=== PATIENT | female | born 1955 | race Caucasian/White ===

== ENCOUNTER → 2016-12-26 | Outpatient (CLI) | payer BC ==
[2016-12-26 11:16] LABS: Blood Urea Nitrogen 9 mg/dL (7-17); Non-African American GFR(MDRD) >60 (>60 ml/min/1.73 sqM)
--- NOTE | 2016-12-26 22:26 | MR ---
EXAMINATION TYPE: MR brain wo/w con DATE OF EXAM: 12/26/2016 4:30 PM COMPARISON: NONE HISTORY: 56-year-old female BENIGN NEOPLASM OF CRANIAL NERVES, DIZZINESS, prior surgery for right aco ustic neuroma in 2004. TECHNIQUE: Multiplanar, multisequence images of the brain and brainstem were acquired before and aft er administration of 13 mL IV MultiHance. Diffusion weighted imaging is performed. FINDINGS: No evidence for acute infarction, hemorrhage, mass, mass effect, midline shift, herniation, effacemen t of basal cisterns, or extra-axial fluid collection. The ventricles and sulci are age-appropriate. Major intracranial flow voids are intact. T2/FLAIR weighted sequences show stable mild scattered subcortical and deep white matter hyperintense foci in both cerebral hemispheres as compared to 2011. There are postresection changes involving the right mastoid process with stable mild nonspecific enha ncement in this region with surgical changes extending to the level of the right internal auditory ca nal. There is no suspicious nodular enhancement in this region to suggest recurrent acoustic neuroma. No other suspicious enhancement within the brain. Dural venous sinuses are patent. Midline structures demonstrate normal morphology. The craniocervical junction is normal. The visualized sinuses are clear and the globes are intact. IMPRESSION: 1. Stable postsurgical changes involving the right temporal bone. No evidence for residual or recurre nt acoustic neuroma. 2. Stable mild scattered burden of T2 bright white matter change, nonspecific, likely relating to chr onic small vessel ischemic disease.
== END | disposition home or self-care (01) ==
LOC: RADMRIMAIN 10:40
PROVIDERS: ATTEND Psychiatry & Neurology Pain Medicine
DX: R90.82 White matter disease, unspecified (principal); Z98.890 Other specified postprocedural states
CPT/HCPCS: 82565; 84520; 70553; A9577

== ENCOUNTER → 2017-02-08 | Outpatient (CLI) | payer BC ==
[2017-02-08 10:25] LABS: CH 29.3; CHCM 31.5; HDW 2.74; HGB 11.6 gm/dL (11.4-16.0); Hypochromasia Slight; MCH 29.3 pg (25.0-35.0); MCHC 31.4 g/dL (31.0-37.0); MCV 93.5 fL (80.0-100.0); Mean Platelet Volume 6.5; RBC 3.95 m/uL (3.80-5.40); RDW 14.1 % (11.5-15.5); WBC 6.3 k/uL (3.8-10.6)
[2017-02-08 12:23] LABS: Hemoglobin A1C 5.6 % (4.2-6.1)
[2017-02-08 13:55] LABS: ALT 37 U/L (9-52); AST 38 U/L (14-36); Alkaline Phosphatase 106 U/L (38-126); Anion Gap 12 mmol/L; Blood Urea Nitrogen 6 mg/dL (7-17); Calcium 9.3 mg/dL (8.4-10.2); Carbon Dioxide 22 mmol/L (22-30); Chloride 108 mmol/L (98-107); Glucose 87 mg/dL (74-99); Iron 36 ug/dL (37-170); Non-African American GFR(MDRD) >60 (>60 ml/min/1.73 sqM); Potassium 3.9 mmol/L (3.5-5.1); Sodium 142 mmol/L (137-145); Total Bilirubin 0.3 mg/dL (0.2-1.3); Total Protein 6.8 g/dL (6.3-8.2)
[2017-02-08 14:05] LABS: % Iron Saturation 9.1 % (20-50); Total Iron Binding Capacity 394 ug/dL (265-497)
== END | disposition home or self-care (01) ==
LOC: LABWHC1 09:49
PROVIDERS: ATTEND Psychiatry & Neurology Pain Medicine
DX: R53.83 Other fatigue (principal); Z79.899 Other long term (current) drug therapy
CPT/HCPCS: 36415; 80053; 82728; 83036; 83540; 83550; 84439; 84443; 84466; 84481; 85027

== ENCOUNTER → 2017-04-02 | Outpatient (CLI) | payer BC ==
--- NOTE | 2017-04-02 10:38 | ECHOF ---
Referral Reason:R01.1 cardiac murmur MEASUREMENTS -------- HEIGHT: 167.6 cm WEIGHT: 65.8 kg BP: RVIDd: 4.2 cm (< 3.3) IVSd: 1.3 cm (0.6 - 1.1) LVIDd: 3.0 cm (3.9 - 5.3) LVPWd: 1.1 cm (0.6 - 1.1) IVSs: 1.3 cm LVIDs: 1.9 cm LVPWs: 1.6 cm Ao Diam: 2.3 cm (2.0 - 3.7) AV Cusp: 1.8 cm (1.5 - 2.6) LA Diam: 2.6 cm (2.7 - 3.8) MV EXCURSION: 11.540 mm (> 18.000) MV EF SLOPE: 64 mm/s (70 - 150) EPSS: 0.5 cm MV E Jhonathan: 0.59 m/s MV A Jhonathan: 0.70 m/s MV E/A Ratio: 0.84 AR PHT: 555 ms RAP: 5.00 mmHg RVSP: 37.88 mmHg FINDINGS -------- Sinus rhythm. This was a technically good study. There is mild concentric left ventricular hypertrophy. Overall left ventricular systolic function is normal with, an EF between 55 - 60 %. The right ventricle is moderately enlarged. The left atrium is normal in size. RA appears enlarged. Aneurysmal Interatrial septum. Aortic valve is trileaflet and is mildly thickened. There is mild aortic regurgitation. The mitral valve leaflets are mildly thickened. Mild mitral annular calcification present. Mild mitral regurgitation is present. Mild tricuspid regurgitation present. Pulmonic valve appears structurally normal. The aortic root size is normal. The pericardium is normal. There is a trivial pericardial effusion present. CONCLUSIONS -------- 1. Sinus rhythm. 2. There is mild aortic regurgitation. 3. The mitral valve leaflets are mildly thickened. 4. Mild mitral annular calcification present. 5. Mild mitral regurgitation is present. 6. Mild tricuspid regurgitation present. 7. Pulmonic valve appears structurally normal. 8. The aortic root size is normal. 9. The pericardium is normal. 10. This was a technically good study. 11. There is mild concentric left ventricular hypertrophy. 12. Overall left ventricular systolic function is normal with, an EF between 55 - 60 %. 13. The right ventricle is moderately enlarged. 14. The left atrium is normal in size. 15. RA appears enlarged. 16. Aneurysmal Interatrial septum. 17. Aortic valve is trileaflet and is mildly thickened. EC TEACHER: Keely De La Fuente RDCS
== END | disposition home or self-care (01) ==
LOC: RADECHMAIN 08:57
PROVIDERS: ATTEND Family Medicine
DX: I08.8 Other rheumatic multiple valve diseases (principal); Z88.0 Allergy status to penicillin
CPT/HCPCS: 93306

== ENCOUNTER → 2017-04-15 | Day surgery (SDC) | payer BC ==
[2017-04-12 10:41] VITALS: BMI 24.2
[~2017-04-15] MED LIST: BENZOCAINE SPRAY 100 APPLIC/CAN MUCOUS MEM ONE; MIDAZOLAM 2 MG/2 ML VIAL IVP ONE; SODIUM CHLORIDE 0.9% 500 ML IV ONE; fentaNYL (PF) 50 MCG/ML 2 ML AMP IVP ONE
[2017-04-15 06:55] VITALS: RESP 16; TEMP 97.7
[2017-04-15] MEDS: BENZOCAINE SPRAY 100 APPLIC/CAN MUCOUS MEM ONE ×2 (07:10→07:30)
[2017-04-15] MEDS: MIDAZOLAM 2 MG/2 ML VIAL IVP ONE ×2 (07:35→07:51)
--- NOTE | 2017-04-15 08:33 | ECHOT ---
DATE OF SERVICE: 04/15/2017 CLINICAL INFORMATION: PROCEDURE: Performing physician: Evert Parker M.D. commercial fisherman. PROCEDURE PERFORMED: Transesophageal echocardiogram. INDICATION: This is a pleasant, 62-year-old female patient who underwent recently transthoracic echocardiogram which showed hyperdynamic interatrial septum with evidence of possible interatrial shunt as well as right-sided enlargement. COMPLICATIONS: None. Level of sedation: Moderate with sedation length of 30 minutes. PROCEDURE DESCRIPTION: After obtaining an informed consent, explaining the procedure, benefits, risks, complications and alternatives, the patient was brought to the transesophageal echocardiogram suite. A pulse oximetry and heart rate monitors were attached to the patient prior to the procedure. The patient's throat was sprayed using lidocaine locally. Following that, the patient was turned into left lateral position. A bite guard was placed and the patient was then sedated with the above doses of Versed and fentanyl in divided doses. Following that, the transesophageal echocardiogram probe was advanced through the bite guard into the mid esophagus where 2-D echocardiogram images as well as color Doppler images of various cardiac structures were obtained. We evaluated the interatrial septum using 2-D echocardiogram, color Doppler, and contrast study. The procedure was completed. There were no complications. FINDINGS: The left ventricular dimension and systolic function appeared to be within normal limits. The left ventricular systolic function appeared to be in the range of 55% to 60%. The right ventricle appeared to be enlarged with normal function. The left atrium appeared to be mildly enlarged as well as the right atrium. The left atrial appendage appeared to be free from any thrombus. The interatrial septum is very aneurysmal with evidence of small patent ann ovale and [id number]-ga-bqbs shunt. The mitral valve appeared to be normal with trace MR. the aortic valve seems to be trileaflet valve without stenosis or regurgitation. Normal tricuspid valve was seen. CONCLUSION: 1. Aneurysmal interatrial septum with evidence of patent foramen ovale and [id number] shunt. 2. Normal left atrial appendage without any evidence of thrombus. 3. Mild biatrial enlargement. 4. Enlarged right ventricle with a normal function. 5. Normal left ventricular dimension and systolic function. 6. Overall normal intracardiac valves. 7. No evidence of pericardial effusion. 8. Normal aortic root dimension.
[2017-04-15 09:19] VITALS: BP 111/65; PULSE 68
== END | disposition home or self-care (01) ==
LOC: CATHCVL 06:21
PROVIDERS: ATTEND Internal Medicine Interventional Cardiology
DX: I25.3 Aneurysm of heart (principal); Z87.891 Personal history of nicotine dependence; I51.7 Cardiomegaly; Z79.899 Other long term (current) drug therapy
CPT/HCPCS: 93312; 93320; 93325; 99152; J2250; J3010

== ENCOUNTER → 2017-04-16 | Outpatient (CLI) | payer BC ==
[~2017-04-16] MED LIST changes: -BENZOCAINE SPRAY 100 APPLIC/CAN MUCOUS MEM ONE; -MIDAZOLAM 2 MG/2 ML VIAL IVP ONE; +MIDAZOLAM 2 MG/2 ML VIAL ONE; -SODIUM CHLORIDE 0.9% 500 ML IV ONE; -fentaNYL (PF) 50 MCG/ML 2 ML AMP IVP ONE; +fentaNYL (PF) 50 MCG/ML 2 ML AMP ONE
--- NOTE | 2017-04-16 09:59 | BD ---
EXAMINATION TYPE: MG DEXA axial skeleton. DATE OF EXAM: 04/16/2017 COMPARISON: NONE CLINICAL HISTORY: Postmenopausal female Height: 65 IN Weight: 144 LBS FRAX RISK QUESTIONS: Alcohol (3 or more units per day): NO Family History (Parent hip fracture): NO Glucocorticoids (More than 3mos): NO (Ex: prednisone, prednisolone, methylprednisolone, dexamethasone, and hydrocortisone). History of Fracture in Adulthood: YES LT FOOT AGE 49 Secondary Osteoporosis: 1. Type 1 Diabetes: NO 2. Hyperthyroidism: NO 3. Menopause before 45: NO 4. Malnutrition: NO 5. Chronic liver disease: NO Rheumatoid Arthritis: NO Current Tobacco Use: NO RISK FACTORS HISTORY OF: Other Fractures since Age 49: YES LT FOOT When: AGE 49 Active: YES Diet low in dairy products/other sources of calcium: YES Postmenopausal woman: AGE 52 MEDICATIONS: Thyroid Medications: YES Which medication: TIROSINT How Lon YRS Additional Medications: TIROSINT,BUSPIRORE HCL, TOBIRMATE, DULOXETINE HCL, BUPROPIRON HCL,VICODIN, AM RADHA, EXAM MEASUREMENTS: Bone mineral densitometry was performed using the [employer] System. Bone mineral density as measured about the Lumbar spine is: ----- L1-L4(G/cm2): 0.945 T Score Values are as follows: ----- L2: -2.5 ----- L3: -1.6 ----- L4: -0.7 ----- L1-L4: -2.0 Bone mineral density BASELINE Bone mineral density about the R hip (g/cm2): 0.741 Bone mineral density about the L hip (g/cm2): 0.729 T Score values are as follows: -----R Neck: -2.1 -----L Neck: -2.2 -----R Total: -2.0 -----L Total: -2.1 Bone mineral density BASELINE IMPRESSION: Osteoporosis (T Score less than -2.5) as noted by T Score values at the There is increased fracture risk and therapy is usually indicated based on age. Re-Screen 1-2 years. MAJOR OSTEOPOROTIC FRACTURE RISK: 18.5% HIP FRACTURE RISK: 3.2%. NOTE: T-SCORE=SD OF THE YOUNG ADULT MEAN.
--- NOTE | 2017-04-17 10:21 | MM ---
Reason for exam: screening (asymptomatic). Last mammogram was performed 13 years and 11 months ago. History: Patient is postmenopausal, has history of other cancer at age 52, and had first child at age 35. Physical Findings: A clinical breast exam by your physician is recommended on an annual basis and results should be correlated with mammographic findings. MG Screening Mammo w CAD Bilateral CC and MLO view(s) were taken. Prior study comparison: December 22, 2014, mammogram, performed at [facility]. May 07, 2003, bilateral screening mammogram. There are scattered fibroglandular densities. Finding: There are typically benign round calcifications in the left breast. There is no discrete abnormality. ASSESSMENT: Benign, BI-RAD 2 RECOMMENDATION: Routine screening mammogram of both breasts in 1 year.
== END | disposition home or self-care (01) ==
LOC: RADMAMWWP 08:23
PROVIDERS: ATTEND Family Medicine
DX: Z12.31 Encounter for screening mammogram for malignant neoplasm of breast (principal); M81.0 Age-related osteoporosis without current pathological fracture
CPT/HCPCS: 77080; G0202

== ENCOUNTER → 2017-06-07 | Outpatient (CLI) | payer BC ==
[2017-06-07 15:32] LABS: Appearance,Urine Clear (Clear); Bilirubin,Urine Negative (Negative); Glucose,Urine (UA) Negative (Negative); Ketones,Urine Negative (Negative); Leukocyte Esterase,Urine Negative (Negative); Nitrite,Urine Negative (Negative); PH, Urine 5.5 (5.0-8.0); Protein,Urine Negative (Negative); Prothrombin Time 10.1 sec (9.0-12.0); Specific Gravity,Urine 1.019 (1.001-1.035); UA Billing (MACRO vs. MICRO) CHEM; Urobilinogen,Urine <2.0 mg/dL (<2.0)
== END | disposition home or self-care (01) ==
LOC: LABWHC1 14:38
PROVIDERS: ATTEND Surgery
DX: Z01.812 Encounter for preprocedural laboratory examination (principal); Q21.1 Atrial septal defect
CPT/HCPCS: 36415; 81003; 85610

== ENCOUNTER → 2017-07-31 | Outpatient (CLI) | payer BC ==
--- NOTE | 2017-07-31 23:01 | MR ---
EXAMINATION TYPE: MR cervical spine wo con DATE OF EXAM: 07/31/2017 COMPARISON: NONE HISTORY: 62-year-old female Neck pain TECHNIQUE: Multiplanar, multisequence images of the cervical spine were acquired. FINDINGS: No craniocervical junction abnormality, predental space widening, or prevertebral soft tissue swellin g. No suspicious bone marrow replacement. Scattered facet and uncovertebral joint arthropathy is present with a trace grade 1 anterolisthesis a t C7-T1 and T1-T2. Ligamentum flavum thickening particularly at C3-C4, C7-T1, and T1-T2. The intervertebral discs are degenerated, desiccated, narrowed, and with disc osteophyte complex form ation. At C2-C3, there is facet arthropathy without significant canal or foraminal stenosis. At C3-C4, there is disc osteophyte complex with contiguous uncovertebral joint arthropathy as well as facet degenerative change. Changes result in moderate left and flwm-os-wqirmfqa right neuroforaminal stenosis. Along with ligamentum flavum thickening, there is mild narrowing of the spinal canal witho ut any cord abutment or cord flattening. At C3-C4, disc osteophyte complex with uncovertebral joint and facet degenerative change. Changes res ult in a moderate to severe left and mild to moderate right neuroforaminal stenosis. No significant s elvia canal stenosis. At C5-C6, disc osteophyte complex with uncovertebral joint and facet degenerative change. This result s in a mild left greater than right neuroforaminal stenosis. Disc osteophyte complex abuts the ventra l cord does not cause significant spinal canal stenosis. At C6-C7, disc osteophyte complex with uncovertebral joint and facet degenerative change. This result s in ethw-hr-hdxicwea left neural foraminal stenosis. No spinal canal stenosis. At C7-T1, there is disc osteophyte complex with superimposed right paracentral disc protrusion. Addit ional facet and uncovertebral joint degenerative change. No significant spinal canal or neuroforamina l stenosis. At T1-T2, there is ligamentum flavum thickening and grade 1 anterolisthesis with facet arthropathy. N o significant spinal canal or foraminal stenosis. Normal course, caliber, and signal intensity of the cervical cord. No prevertebral or paravertebral soft tissue abnormality. IMPRESSION: 1. Moderate multilevel disc/endplate degenerative change as well as facet/uncovertebral joint arthrop athy and ligamentum flavum thickening. 2. Trace grade 1 anterolisthesis at C7-T1 and T1-T2. 3. Changes mildly narrow the spinal canal at C3-C4 but there is no mass effect onto the spinal cord o r valentino canal compromise. 4. Variable mild to moderate neural foraminal stenoses as outlined above.
== END | disposition home or self-care (01) ==
LOC: RADMRIMAIN 16:45
PROVIDERS: ATTEND Psychiatry & Neurology Pain Medicine
DX: M48.02 Spinal stenosis, cervical region (principal); M99.71 Connective tissue and disc stenosis of intervertebral foramina of cervical region; M43.13 Spondylolisthesis, cervicothoracic region; M47.812 Spondylosis without myelopathy or radiculopathy, cervical region; M46.82 Other specified inflammatory spondylopathies, cervical region; M24.28 Disorder of ligament, vertebrae
CPT/HCPCS: 72141

== ENCOUNTER → 2018-02-24 | Outpatient (CLI) | payer BC ==
--- NOTE | 2018-02-25 11:59 | XR ---
EXAMINATION TYPE: XR chest 2V DATE OF EXAM: 02/24/2018 COMPARISON: Prior chest x-ray 01/25/2016 HISTORY: Shortness of breath TECHNIQUE: Frontal and lateral views of the chest are obtained. FINDINGS: There is no focal air space opacity, pleural effusion, or pneumothorax seen. The cardiac silhouette size is stable, heart is small. Patient is post median sternotomy. Postop changes are note d in the upper abdomen. Prominent lung volume may be indicative of underlying COPD. Prominent pulmon kyler artery size could be due to underlying pulmonary artery hypertension. The osseous structures are intact. IMPRESSION: No acute cardiopulmonary process. Additional findings above.
== END | disposition home or self-care (01) ==
LOC: RADXRMAIN 16:20
PROVIDERS: ATTEND Family Medicine
DX: J20.9 Acute bronchitis, unspecified (principal)
CPT/HCPCS: 71046

== ENCOUNTER → 2018-05-06 | Outpatient (CLI) | payer BC ==
[2018-05-06 09:54] LABS: HCT 36.2 % (34.0-46.0); HGB 11.7 gm/dL (11.4-16.0); MCHC 32.3 g/dL (31.0-37.0); MCV 96.1 fL (80.0-100.0); Mean Platelet Volume 6.9; Platelet Count 269 k/uL (150-450); RBC 3.77 m/uL (3.80-5.40); RDW 12.7 % (11.5-15.5); WBC 4.7 k/uL (3.8-10.6)
[2018-05-06 10:10] LABS: Anion Gap 12 mmol/L; Blood Urea Nitrogen 13 mg/dL (7-17); Calcium 8.8 mg/dL (8.4-10.2); Carbon Dioxide 22 mmol/L (22-30); Chloride 109 mmol/L (98-107); Glucose 94 mg/dL (74-99); Potassium 3.8 mmol/L (3.5-5.1); Sodium 143 mmol/L (137-145)
== END | disposition home or self-care (01) ==
LOC: LABWHC1 09:24
PROVIDERS: ATTEND Psychiatry & Neurology Pain Medicine
DX: R60.0 Localized edema (principal)
CPT/HCPCS: 36415; 80048; 83880; 85027

== ENCOUNTER → 2018-07-23 | Outpatient (CLI) | payer BC | LOC: LABWHC1 08:49 | PROVIDERS: ATTEND Physician Assistant Medical | DX: K13.0 Diseases of lips (principal) | CPT/HCPCS: 36415; 86038; 86235 ==

== ENCOUNTER → 2018-10-01 | Outpatient (CLI) | payer BC ==
--- NOTE | 2018-10-01 14:22 | XR ---
EXAMINATION TYPE: XR chest 2V DATE OF EXAM: 10/01/2018 COMPARISON: Prior chest x-ray dated 02/24/2018 HISTORY: Cough and shortness of breath TECHNIQUE: Frontal and lateral views of the chest are obtained. FINDINGS: Patient is post median sternotomy. Prominent lung volumes suggest underlying COPD. There is flattening the hemidiaphragms. Surgical clips present in the upper abdomen. There is eventration of the hemidiaphragms. There is no focal air space opacity, pleural effusion, or pneumothorax seen. The cardiac silhouette size is within normal limits. The osseous structures are intact. IMPRESSION: No acute cardiopulmonary process.
== END | disposition home or self-care (01) ==
LOC: RADXRMAIN 09:30
PROVIDERS: ATTEND Family Medicine
DX: R05 Cough (principal)
CPT/HCPCS: 71046

== ENCOUNTER → 2018-10-15 | Outpatient (CLI) | payer BC ==
--- NOTE | 2018-10-15 10:32 | CT ---
EXAMINATION TYPE: CT brain wo con DATE OF EXAM: 10/15/2018 COMPARISON: MRI brain dated 12/26/2016 HISTORY: Headache, chronic sinusitis CT DLP: 945.50 mGycm Automated exposure control for dose reduction was used. TECHNIQUE: Unenhanced standard CT of the brain was performed. FINDINGS: There is partial visualization of mild to moderate mucosal thickening within the right maxillary sinu s layering dependently. Scant mucosal thickening is seen within the most inferior posterior sphenoid sinus and within the ethmoid sinuses. The visualized left maxillary sinus and frontal sinuses are wel l aerated. Left mastoid air cells are also well aerated. There is near complete surgical resection of the right mastoid air cells. Remainder the osseous calvarium appears intact. There is no evidence of acute intracranial hemorrhage, midline shift or mass effect. No suspicious ex tra-axial fluid collection is seen. There is symmetric prominence of the peripheral sulci and ventric ular system compatible with age-related volume loss. The known nonspecific white matter changes are b tanya evaluated on MRI and only faintly seen in the subcortical white matter. Note is made of hyperos tosis from talus internus. IMPRESSION: 1. PARTIAL VISUALIZATION OF MILD TO MODERATE RIGHT MAXILLARY SINUS MUCOSAL THICKENING, SCANT MUCOSAL THICKENING IN THE ETHMOID SINUSES AND SCANT MUCOSAL THICKENING OF THE SPHENOID SINUSES. 2. NEAR COMPLETE SURGICAL RESECTION OF THE RIGHT MASTOID AIR CELLS. THE LEFT MASTOID AIR CELLS ARE WE LL AERATED. 3. AGE-RELATED MILD CEREBRAL ATROPHY AND WHITE MATTER CHANGES ARE BETTER SEEN ON THE MR 12/26/2016 AND OVERALL APPEAR MILD BURDEN.
--- NOTE | 2018-10-15 10:35 | CT ---
EXAMINATION TYPE: CT sinus wo con DATE OF EXAM: 10/15/2018 COMPARISON: 06/22/2018 HISTORY: Headache, chronic sinusitis CT DLP: 435.90 mGycm. Automated Exposure Control for Dose Reduction was Utilized. TECHNIQUE: CT scan of the sinuses is performed without contrast, axial images are obtained, coronal r eformatted images are also reviewed. FINDINGS: There is mild mucosal thickening within the right maxillary sinus and moderate polypoid mucosal thick ening within the left maxillary sinus. Scant mucosal thickening is seen within the most inferior and posterior sphenoid sinuses. Mild mucosal thickening is present within the ethmoid sinuses. There is p artial visualization of near complete resection of the right mastoid air cells. Left mastoid air cell s appear well aerated. There is very minimal leftward nasal septal deviation with a 2 mm leftward nasal septal spur. Nasal t urbinate mucosa appears overall symmetric. The ostia medial complexes appear patent although slightly narrowed bilaterally by mucosal thickening. Osseous structures of the calvarium appear intact. Orbit s are symmetric. No Yash cells or siena bullosa are seen. IMPRESSION: 1. Overall moderate paranasal sinus disease as described above. Findings are new from the prior of . 2. Normal leftward nasal septal deviation with a 2 mm leftward nasal septal spur. 3. Minimal narrowing of the ostiomeatal complexes that are overall patent.
== END ==
LOC: RADCTMAIN 09:40
PROVIDERS: ATTEND Physician Assistant
DX: J34.89 Other specified disorders of nose and nasal sinuses (principal); G31.1 Senile degeneration of brain, not elsewhere classified; R90.89 Other abnormal findings on diagnostic imaging of central nervous system
CPT/HCPCS: 70450; 70486

== ENCOUNTER 2019-06-20 12:15 | Emergency (ER) | payer MEDICARE ==
[2019-06-20 12:26] VITALS: BP 114/76; PULSE 88; RESP 18; TEMP 98.1
--- NOTE | 2019-06-20 13:15 | XR ---
EXAMINATION TYPE: XR hand complete RT DATE OF EXAM: 06/20/2019 COMPARISON: None HISTORY: Fall, pain TECHNIQUE: Three-view right hand FINDINGS: There is a transverse fracture at the distal metaphyseal radius. Some mild posterior angula tion may be present. Soft tissue swelling is present. The right hand appears intact. No acute fractures within the hand are evident. Mild diffuse joint spa ce narrowing is present. Soft tissues are normal. IMPRESSION: 1. Fracture of the distal radius with overlying soft tissue swelling. 2. Right hand appears intact.
--- NOTE | 2019-06-20 13:17 | XR ---
EXAMINATION TYPE: XR wrist complete RT DATE OF EXAM: 06/20/2019 COMPARISON: None HISTORY: Pain after fall today TECHNIQUE: 4 view right wrist FINDINGS: There is a transverse fracture of the distal metaphyseal radius. There is posterior angulat ion of the distal fracture fragment. No additional fractures are evident. If there is pain at the anatomic snuff box, nuclear medicine bon e scan could be performed for additional evaluation. There is soft tissue swelling over the dorsum of the wrist. IMPRESSION: 1. Fracture of the distal metaphyseal radius with mild posterior angulation.
--- NOTE | 2019-06-20 14:08 | ED ---
General Adult HPI - General Chief complaint: Extremity Injury, Upper Stated complaint: rt wrist injury Time Seen by Provider: 06/20/19 12:28 Source: patient, RN notes reviewed Mode of arrival: ambulatory Limitations: no limitations - History of Present Illness Initial comments: 64-year-old female with a past medical history of acoustic neuroma, thyroid disorder presents for right wrist pain. Patient states that she was playing with a dog that yesterday when she tripped over her flip flop and fell onto her right wrist. Patient did not hit her head. States that she thought it may just be bruised so tried to ice it overnight however was still very painful and swollen this morning so she presented to the emergency department. Denies any lightheadedness preceding this fall.Patient has no other complaints at this time including shortness of breath, chest pain, abdominal pain, nausea or vomiting, headache, or visual changes. - Related Data Home Medications Medication Instructions Recorded Confirmed DULoxetine HCL [Cymbalta] 90 mg PO DAILY 02/17/15 04/15/17 HYDROcodone/APAP 10-325MG [[place] 1 each PO Q6H PRN 02/17/15 04/15/17 10-325] Levothyroxine Sodium [Tirosint] 112 mcg PO DAILY 02/17/15 04/15/17 Topiramate [Topamax] 100 mg PO BID 02/17/15 04/15/17 Zolpidem [Ambien] 5 mg PO HS PRN 02/17/15 04/15/17 busPIRone HCl [Buspar] 15 mg PO BID 02/17/15 04/15/17 Ferrous Sulfate [Iron (65 MG 325 mg PO DAILY 04/12/17 04/15/17 Elemental)] Allergies Allergy/AdvReac Type Severity Reaction Status Date / Time Penicillins Allergy makes Verified 06/20/19 12:22 hands itch Review of Systems ROS Statement: Those systems with pertinent positive or pertinent negative responses have been documented in the HPI. ROS Other: All systems not noted in ROS Statement are negative. Past Medical History Past Medical History: No Reported History, Syncope, Thyroid Disorder Additional Past Medical History / Comment(s): Acoustic Neuroma, deaf in R ear. History of Any Multi-Drug Resistant Organisms: None Reported Past Surgical History: Hernia Repair, Orthopedic Surgery, Tonsillectomy Additional Past Surgical History / Comment(s): Bilat. knee replacements, incisional hernia, gastric bypass 20 years ago. 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. Past Anesthesia/Blood Transfusion Reactions: No Reported Reaction Past Psychological History: Anxiety Smoking Status: Never smoker Past Alcohol Use History: Occasional Past Drug Use History: None Reported - Past Family History Mother Family Medical History: No Reported History General Exam Limitations: no limitations General appearance: alert, in no apparent distress Head exam: Present: atraumatic, normocephalic, normal inspection Eye exam: Present: normal appearance, PERRL, EOMI. Absent: scleral icterus, conjunctival injection, periorbital swelling ENT exam: Present: normal exam, mucous membranes moist Neck exam: Present: normal inspection, full ROM. Absent: tenderness, meningismus, lymphadenopathy Respiratory exam: Present: normal lung sounds bilaterally. Absent: respiratory distress, wheezes, rales, rhonchi, stridor Cardiovascular Exam: Present: regular rate, normal rhythm, normal heart sounds. Absent: bradycardia, tachycardia, irregular rhythm Extremities exam: Present: tenderness (Mild dorsal right wrist tenderness worse over the radial aspect. No snuffbox tenderness.), normal capillary refill (Biliary refill less than 2 seconds, radial pulse 2+ in the right upper extremity. Capillary refill less than 2 seconds in all digits of the right hand. Sensation intact in all digits of the right hand.), joint swelling (She does have significant edema noted of the right wrist.), other (Sensation intact in the right upper extremity). Absent: full ROM (Patient has minimal flexion and extension of the right wrist which is limited due to pain.), pedal edema Neurological exam: Present: alert Psychiatric exam: Present: normal affect, normal mood Course Vital Signs 06/20/19 12:22 Temperature 98.1 F Pulse Rate 88 Respiratory 18 Rate Blood Pressure 114/76 O2 Sat by Pulse 97 Oximetry Procedures - Orthopedic Splinting/Casting Injury #1 Side: right Upper Extremity Injury Location: wrist Upper Extremity Immobilizer: volar splint Additional Comments: NV intact after splint applied Medical Decision Making - Medical Decision Making 64-year-old female presents to the emergency department for right wrist pain after a mechanical fall yesterday. Neurovascular status intact. Patient does have significant edema noted of the right wrist. Compartments are soft. X-ray of the right wrist does show a fracture of the distal metaphyseal radius with mild posterior angulation. She was splinted in a volar wrist splint. Neurovascular status intact after splint applied. She will follow up with her speaks in 1-2 days, referral given. Discussed rice therapy. Discussed returning if she has any worsening symptoms. Disposition Clinical Impression: Distal radius fracture, right Disposition: HOME SELF-CARE Condition: Good Instructions (If sedation given, give patient instructions): Wrist Fracture in Adults (ED) Additional Instructions: Please take Motrin and/or your Percocet for pain. Please follow-up with orthopedics in one to 2 days. Return to the emergency department if you have any worsening symptoms. Is patient prescribed a controlled substance at d/c from ED?: No Referrals: Terry Cason MD [Primary Care Provider] - 1-2 days Dev Garg MD [Medical Doctor] - 1-2 days Time of Disposition: 14:06
== END 2019-06-20 14:40 | disposition home or self-care (01) ==
LOC: EC 12:15
DX: S52.591A Other fractures of lower end of right radius, initial encounter for closed fracture (principal); E07.9 Disorder of thyroid, unspecified; H91.91 Unspecified hearing loss, right ear; F41.9 Anxiety disorder, unspecified; Z88.0 Allergy status to penicillin; Z79.890 Hormone replacement therapy; Z79.899 Other long term (current) drug therapy; Z86.011 Personal history of benign neoplasm of the brain; Z98.890 Other specified postprocedural states; W01.0XXA Fall on same level from slipping, tripping and stumbling without subsequent striking against object, initial encounter; Y93.89 Activity, other specified
CPT/HCPCS: 29125; 99283

== ENCOUNTER → 2019-07-01 | Outpatient (CLI) | payer MEDICARE ==
--- NOTE | 2019-07-01 16:33 | CT ---
CT CHEST FOR PULMONARY EMBOLISM. EXAMINATION TYPE: CT wrist RT wo con DATE OF EXAM: 07/01/2019 INDICATION: M 25.531 CT DLP: 126 mGycm, Automated exposure control for dose reduction was used. CONTRAST: Patient injected with 0 mL of Isovue 300. COMPARISON: 06/20/2019 TECHNIQUE: CT of the chest is performed on a spiral scan at 2 mm thick sections. 3-D constructed skyler ges reconstructed by the technologist are reviewed on the computer in the coronal and sagittal planes . FINDINGS: There is an active longitudinal fracture of the distal metaphyseal radius.. There is an int act scaphoid. No additional fractures are evident. IMPRESSIONS: 1. Impacted distal radial metaphyseal fracture with some posterior angulation.
== END | disposition home or self-care (01) ==
LOC: RADCTMAIN 15:38
PROVIDERS: ATTEND Orthopaedic Surgery
DX: S52.591A Other fractures of lower end of right radius, initial encounter for closed fracture (principal)

== ENCOUNTER 2019-07-03 10:59 | Day surgery (SDC) | payer MEDICARE ==
[2019-07-01 09:24] VITALS: BMI 22.4
[~2019-07-03 10:59] MED LIST changes: +DEXAMETHASONE SOD PHOSPHATE 10 MG/ML 1 ML VIAL IV ONE; +HYDROmorphone 0.5 MG/0.5 ML SYRINGE IVP PRN; +LACTATED RINGERS 1,000 ML IV SCH; +LIDOCAINE 1% 20 ML VIAL (10MG/ML) FOR IV START INTRADERMA PRN; -MIDAZOLAM 2 MG/2 ML VIAL ONE; +ONDANSETRON 4 MG/2 ML VIAL IVP ONE; +ONDANSETRON 4 MG/2 ML VIAL IVP PRN; -fentaNYL (PF) 50 MCG/ML 2 ML AMP ONE
[2019-07-03] MEDS ORDERED: MIDAZOLAM (PF) 2 MG/2 ML VIAL IVP ONE (11:53)
[2019-07-03 12:13] LABS: Glucose,Whole Blood 82 mg/dL (75-99)
[2019-07-03] MEDS ORDERED: fentaNYL (PF) 50 MCG/ML 2 ML AMP ONE (12:44)
[2019-07-03] MEDS ORDERED: ePHEDrine SULFATE/0.9% NACL/PF 50 MG/5 ML SYRINGE IV ONE (12:44)
[2019-07-03] MEDS ORDERED: ROPIVACAINE 5 MG/ML 30 ML VIAL ONE (12:44)
[2019-07-03] MEDS ORDERED: GLYCOPYRROLATE 0.2 MG/ML 2 ML VIAL ONE (12:44)
[2019-07-03] MEDS ORDERED: PHENYLEPHRINE-0.9% NACL SYG 1 MG/10 ML SYRINGE ONE (12:44)
[2019-07-03] MEDS ORDERED: DEXAMETHASONE SOD PHOSPHATE 4 MG/ML 1 ML VIAL ONE (12:44)
[2019-07-03] MEDS ORDERED: MIDAZOLAM 2 MG/2 ML VIAL ONE (12:44)
[2019-07-03] MEDS ORDERED: PROPOFOL 10 MG/ML 20 ML VIAL IV ONE (12:44)
[2019-07-03] MEDS ORDERED: LIDOCAINE 1% INJ 10MG/ML (20 ML MDV) ONE (12:44)
[2019-07-03] MEDS ORDERED: LACTATED RINGERS 1,000 ML IV ONE (13:18)
[2019-07-03] MEDS ORDERED: LIDOCAINE 1%-EPI 1:100,000 20 ML VIAL SQ ONE ×2 (15:03)
[2019-07-03] MEDS ORDERED: BUPIVACAINE (PF) 0.5% 30 ML VIAL SQ ONE ×2 (15:03)
[2019-07-03 15:41] VITALS: RESP 16; TEMP 96.8
--- NOTE | 2019-07-03 15:49 | XR ---
EXAMINATION TYPE: XR wrist complete RT DATE OF EXAM: 07/03/2019 COMPARISON: NONE HISTORY: ORIF TECHNIQUE: 4 views are submitted. FINDINGS: Postsurgical change appears in near-anatomic alignment. IMPRESSION: Postsurgical change
--- NOTE | 2019-07-03 15:50 | FL ---
EXAMINATION TYPE: FL guidance operating room DATE OF EXAM: 07/03/2019 HISTORY: Flouroscopy time 2 minutes and 30 seconds of fluoroscopy provided. IMPRESSION: 1. Fluoroscopy time.
[2019-07-03 17:05] VITALS: BP 114/73; PULSE 96
--- NOTE | 2019-07-03 19:00 | P.OP ---
Date of Procedure: 07/03/19 Preoperative Diagnosis: Displaced intra-articular right distal radius fracture Postoperative Diagnosis: Displaced intra-articular right distal radius fracture Procedure(s) Performed: Open reduction and internal fixation of displaced, intraarticular right distal radius fracture (more than 3 parts) Implants: [employer]umed Acu-loc 2 standard right volar distal radius plate with locking, variable angle and cortical screws Anesthesia: GETA, regional, local Surgeon: Dany Atkinson Developing Machine Operator #1: Veronika Castorena Estimated Blood Loss (ml): 10 Condition: stable Disposition: PACU Indications for Procedure: The patient is a pleasant 64-year-old female who sustained a right distal radius fracture after mechanical fall. She was seen by Dr. Dev Garg and initially placed into a cast. X-rays at her follow-up visit demonstrated interval loss of reduction and she was referred to [facility] for further evaluation and treatment. Treatment options (and associated risks and benefits) were discussed in the office. Based on the fracture pattern and amount of displacement, operative treatment was recommended. In preop, the patient denied any additional questions or concerns and wished to proceed with surgery. Consent forms were signed. The operative site was confirmed and marked. Description of Procedure: The patient was administered a regional nerve block by the anesthesia team and was then brought to the operating suite. She was positioned supine with the operative limb on an arm board. All bony prominences were well-padded. General anesthesia was administered uneventfully. Prophylactic IV antibiotics were administered. A tourniquet was placed on the right arm which was then prepped and draped in standard, sterile fashion. A timeout was performed, confirming patient identifiers, the operative side, the site and the procedure to be performed: all team members expressed agreement. The fracture was initially evaluated with intraoperative fluoroscopy. Marked dorsal angulation was present with some loss of radial height and inclination as well. A manual reduction was performed which showed some improvement of the alignment in all planes. A 0.062 K wire was inserted percutaneously into the radial styloid. With the fracture held reduced, this was advanced into the metaphysis. Improved height was achieved but persistent dorsal angulation remained. This improved with manual reduction and the decision was made to proceed with open reduction. The limb was exsanguinated with an Esmarch (carefully avoiding the K wire) and the tourniquet was inflated. A standard volar FCR approach was utilized. The skin was incised sharply and subcutaneous tissue were spread, coagulating superficial vessels as needed. The FCR sheath was incised and the tendon was mobilized. The radial artery was identified and protected throughout the case. The floor the sheath was released. The flexor pollicis longus was mobilized and blunt dissection proceeded down to the pronator quadratus. This was sharply released along its radial border and subperiosteally elevated ulnarly. The fracture was visualized. The intra-articular split into the lunate fossa, seen on preoperative CT, appeared non-displaced. A plate was selected, based on the patients anatomy and fracture pattern, and was positioned on the volar radius. It was provisionally pinned in place with K-wires and its position was confirmed on imaging. A cortical screw was drilled, measured and inserted into the oblong hole of the shaft. A small incision was made over the dorsal wrist. Blunt dissection proceeded down to the dorsal radius, taking care to protect the adjacent extensor tendons. Another 0.062 K wire was inserted and used as a joystick, in conjunction with manual reduction using a combination of palmar translation and wrist flexion. Improved alignment was achieved but some residual dorsal angulation remained. A large pointed reduction clamp was inserted through the dorsal wound and clamped to the plate through the volar wound, further improving the volar tilt. Locking screws were drilled, measured and inserted into the radial styloid, confirming length and trajectory with fluoroscopy. Mild residual loss of dorsal height remained. To avoid violating the articular surface, variable angle screws were selected for the 3 ulnar-most screw holes in the distal row. These were drilled under fluoroscopic guidance. The clamp and provisional K-wires were removed. An additional cortical screw was drilled and inserted to further secure the plate to the metaphysis. The percutaneous K wires were removed. Final x-rays were obtained which revealed satisfactory reduction of the fracture. A 20-degree inclined lateral view was obtained to confirm extra-articular screw placement. The wrist was then ranged under live fluoroscopy - no crepitus or motion of the fracture fragments or fixation construct was appreciated. There was no carpal subluxation or motion at the dorsal metaphysis with extension stress and axial load. The wound was thoroughly irrigated with normal saline. The pronator was loosely repaired over the plate distally with interrupted 2-0 Vicryl sutures. The tourniquet was released after 94 minutes at 250 mmHg. Good hemostasis was obtained with held pressure and electrocautery. The incisions were closed with interrupted 4-0 nylon sutures. Local anesthetic with epinephrine was injected into the perioperative subcutaneous tissues for adjunctive postoperative pain control and hemostasis. A sterile dressing was applied followed by a resting volar splint. All sponge, needle and instrument counts were correct at the end of the case. The patient tolerated the procedure well and was taken to the recovery room in stable condition.
--- NOTE | 2019-07-04 11:59 | P.ANPRN ---
Procedure Note - Anesthesia - Nerve Block Performed Right Supraclavicular Single Time Out Performed: Yes Date of Procedure: 05/02/19 Procedure Start Time: 11:56 Procedure Stop Time: 11:58 Location of Patient Procedure: PreOp Indication: Acute Post-Operative Pain, Requested by Surgeon Sedation Type: Sedate with meaningful contact maintained Preparation: Sterile Prep Position: Supine Needle Types: Pajunk Needle Gauge: 21 Ultrasound used to visualize needle placement: Yes Ultrasound used to observe medication spread: Yes Injectate: 0.5% Ropivacaine (see comment for volume) (ropi .5% 25cc plus dexamethasone 4mg) Blood Aspirated: No Pain Paresthesia on Injection Noted: No Resistance on Injection: Normal Image Stored and Saved: Yes Events: Uneventful and Well Tolerated
== END 2019-07-03 17:52 | disposition home or self-care (01) ==
LOC: OR 10:59
PROVIDERS: ATTEND Orthopaedic Surgery
DX: S52.571A Other intraarticular fracture of lower end of right radius, initial encounter for closed fracture (principal); I25.10 Atherosclerotic heart disease of native coronary artery without angina pectoris; G43.909 Migraine, unspecified, not intractable, without status migrainosus; E03.9 Hypothyroidism, unspecified; F32.9 Major depressive disorder, single episode, unspecified; H91.90 Unspecified hearing loss, unspecified ear; D33.3 Benign neoplasm of cranial nerves; F17.210 Nicotine dependence, cigarettes, uncomplicated; Z98.84 Bariatric surgery status; Z79.890 Hormone replacement therapy; Z79.899 Other long term (current) drug therapy; Z96.653 Presence of artificial knee joint, bilateral; Z90.89 Acquired absence of other organs; Z97.3 Presence of spectacles and contact lenses; Z88.0 Allergy status to penicillin; W01.0XXA Fall on same level from slipping, tripping and stumbling without subsequent striking against object, initial encounter; Y92.410 Unspecified street and highway as the place of occurrence of the external cause
CPT/HCPCS: 25609; 64415; 73110; C1713; J2250 ×2; J1100 ×2; J0690; J2405; J2001; J3010; J2795; J2370; J2704; 64413

== ENCOUNTER → 2019-10-29 | Outpatient (CLI) | payer MEDICARE ==
--- NOTE | 2019-10-30 18:22 | BD ---
EXAMINATION TYPE: Axial Bone Density DATE OF EXAM: 10/29/2019 COMPARISON: NONE CLINICAL HISTORY: 64-year-old female asymptomatic postmenopausal state Height: 5 FT 4 1/2 IN Weight: 135 FRAX RISK QUESTIONS: Alcohol (3 or more units per day): NO Family History (Parent hip fracture): NO Glucocorticoids (More than 3mos): NO (Ex: prednisone, prednisolone, methylprednisolone, dexamethasone, and hydrocortisone). History of Fracture in Adulthood: YES Secondary Osteoporosis: 1. Type 1 Diabetes: NO 2. Hyperthyroidism: NO 3. Menopause before 45: NO 4. Malnutrition: NO 5. Chronic liver disease: NO Rheumatoid Arthritis: NO Current Tobacco Use: NO RISK FACTORS HISTORY OF: History of Wrist Fracture: YES When:SUMMER 2018 Surgery to Spine/Hip(right/left)/Wrist (right/left): RT WRIST When: SUMMER 2018 Active: YES Postmenopausal woman: AGE 52 Lost more than 2 inches in height since high school: YES Frequent falls: UNSTEADY MEDICATIONS: Thyroid Medications: YES Which medication: SYNTHROID How Lon YEARS Additional Medications: BUSPIRINE HCL, TOPAMAX, DULOXETINE HCL, VICODIN DAILY, AMBIEN, Additional History: ACOUSTIC NEUROMA SURG , EXAM MEASUREMENTS: Bone mineral densitometry was performed using the [employer] System. Bone mineral density as measured about the Lumbar spine is: ----- L1-L4(G/cm2): 0.979 T Score Values are as follows: ----- L2: -2.6 ----- L3: -1.6 ----- L4: -0.3 ----- L1-L4: -1.7 Bone mineral density has: INCREASED 2.9 % since study of: 2017 Bone mineral density about the R hip (g/cm2): 0.720 Bone mineral density about the L hip (g/cm2): 0.734 T Score values are as follows: -----R Neck: -2.3 -----L Neck: -2.3 -----R Total: -2.4 -----L Total: -2.5 Bone mineral density has: DECREASED -6.4 % since study of: 2017 IMPRESSION: Osteopenia (T Score between -2.5 and -1). There is slightly increased risk of fracture and the patient may be considered for treatment. Re-Screen 2-5 years. NOTE: T-SCORE=SD OF THE YOUNG ADULT MEAN.
--- NOTE | 2019-11-02 09:26 | MM ---
Reason for exam: screening (asymptomatic). Last mammogram was performed 2 years and 6 months ago. History: Patient is postmenopausal, has history of other cancer at age 52, and had first child at age 35. Physical Findings: A clinical breast exam by your physician is recommended on an annual basis and results should be correlated with mammographic findings. MG 3D Screening Mammo W/Cad Bilateral CC and MLO view(s) were taken. Prior study comparison: April 16, 2017, bilateral MG screening mammo w CAD. December 22, 2014, mammogram, performed at [facility]. There are scattered fibroglandular densities. No significant changes when compared with prior studies. ASSESSMENT: Negative, BI-RAD 1 RECOMMENDATION: Routine screening mammogram of both breasts in 1 year.
== END | disposition home or self-care (01) ==
LOC: RADMAMWWP 15:37
PROVIDERS: ATTEND Family Medicine
DX: Z12.39 Encounter for other screening for malignant neoplasm of breast (principal); M85.80 Other specified disorders of bone density and structure, unspecified site
CPT/HCPCS: 77063; 77067; 77080

== ENCOUNTER 2020-03-26 20:47 | Inpatient (IN) | payer MEDICARE ==
[2020-03-26] MEDS ORDERED: MORPHINE SULFATE 4 MG/ML SYRINGE IM STA (21:26)
--- NOTE | 2020-03-26 21:50 | XR ---
EXAMINATION TYPE: XR Hip LT and AP Pelvis DATE OF EXAM: 03/26/2020 COMPARISON: 11/23/2011 HISTORY: Pain TECHNIQUE: 3 views FINDINGS: Pelvic ring is intact. Sacroiliac joints appear normal. There is acute impacted subcapital fracture left femur. Impaction is approximate 2 cm. There is no di slocation. IMPRESSION: Acute subcapital fracture left femur.
--- NOTE | 2020-03-26 21:51 | XR ---
EXAMINATION TYPE: XR femur LT DATE OF EXAM: 03/26/2020 COMPARISON: NONE HISTORY: Pain TECHNIQUE: 4 views FINDINGS: There is acute impacted subcapital fracture of the left femur. There is 2.5 cm of impaction . There is no dislocation. There is a left knee prosthesis. Components are in anatomic position. IMPRESSION: Impacted subcapital fracture left femur.
--- NOTE | 2020-03-26 21:54 | XR ---
EXAMINATION TYPE: XR chest 1V DATE OF EXAM: 03/26/2020 COMPARISON: 10/01/2018 HISTORY: Chest pain TECHNIQUE: FINDINGS: Heart is normal. Lungs are clear of consolidation. There are no hilar masses. Costophrenic angles are clear. There are sternal wires. Bony thorax appears intact. IMPRESSION: No active cardiopulmonary disease. No there is clearing of the infiltrate lateral left shelli ng base compared to old exam. Significant change.
[2020-03-26] MEDS ORDERED: NALOXONE 0.4 MG/ML 1 ML VIAL IV PRN (22:02)
--- NOTE | 2020-03-26 22:02 | ED ---
Lower Extremity Injury HPI - General Source: patient Mode of arrival: wheelchair Limitations: physical limitation <Patricia Lau - Last Filed: 03/27/20 00:22> <NeilcarrieYessenia Yamilka - Last Filed: 03/30/20 13:38> - General Chief Complaint: Extremity Injury, Lower Stated Complaint: Fall, Hip/Leg pain Time Seen by Provider: 03/26/20 21:12 - History of Present Illness Initial Comments: 65yo female with history of CAD presenting today for chief complaint of left hip pain. Patient states that when she attempted to sunshine her dogs got caught in the leash and fell over. Patient states she felt her left hip. Patient denies any injury to her head or neck. Patient denies loss of consciousness. Patient states that this was a trip and fall. Patient denies any numbness tingling loss of sensation and states she has able to ambulate on the leg after however with significant pain. Patient has no additional complaint or stated injuries. Denies lacerations/abrasion. (Patricia Lau) - Related Data Home Medications Medication Instructions Recorded Confirmed Topiramate [Topamax] 100 mg PO BID 02/17/15 03/26/20 busPIRone HCl [Buspar] 15 mg PO BID 02/17/15 03/26/20 Aspirin [[place] Aspirin EC] 81 mg PO DAILY 07/01/19 03/26/20 [id number] 1 tab PO DAILY PRN 07/01/19 03/26/20 [Excedrin] Ibuprofen [Advil] 200 mg PO DAILY PRN 07/01/19 03/26/20 Albuterol Inhaler [Ventolin Hfa 2 puff INHALATION RT-QID PRN 03/26/20 03/26/20 Inhaler] Atorvastatin Calcium [Lipitor] 20 mg PO DAILY 03/26/20 03/26/20 Cholecalciferol [Vitamin D3 (25 1,000 unit PO DAILY 03/26/20 03/26/20 Mcg = 1000 Iu)] DULoxetine HCL [Cymbalta] 30 mg PO DAILY 03/26/20 03/26/20 DULoxetine HCL [Cymbalta] 60 mg PO DAILY 03/26/20 03/26/20 HYDROcodone/APAP 10-325MG [[place] 1 tab PO QID PRN 03/26/20 03/26/20 10-325] Levothyroxine Sodium [Synthroid] 100 mcg PO DAILY 03/26/20 03/26/20 Meclizine HCl 25 mg PO DAILY PRN 03/26/20 03/26/20 Multivitamins, Thera [Multivitamin 1 tab PO DAILY 03/26/20 03/26/20 (formulary)] Omeprazole Magnesium [PriLOSEC OTC] 20 mg PO BID PRN 03/26/20 03/26/20 Zolpidem [Ambien] 10 mg PO HS PRN 03/26/20 03/26/20 buPROPion HCL [Wellbutrin SR] 150 mg PO BID 03/26/20 03/26/20 Previous Rx's Medication Instructions Recorded Aspirin 325 mg PO BID #60 tab 03/29/20 HYDROcodone/APAP 10-325MG [[place] 1 tab PO Q4HR PRN #42 tab 03/29/20 10-325] Allergies Allergy/AdvReac Type Severity Reaction Status Date / Time Penicillins Allergy makes Verified 03/26/20 21:11 hands itch Review of Systems ROS Other: All systems not noted in ROS Statement are negative. <Patricia Lau - Last Filed: 03/27/20 00:22> ROS Other: All systems not noted in ROS Statement are negative. <Yessenia Dominguez - Last Filed: 03/30/20 13:38> ROS Statement: Those systems with pertinent positive or pertinent negative responses have been documented in the HPI. Past Medical History Past Medical History: Syncope, Thyroid Disorder Additional Past Medical History / Comment(s): Acoustic Neuroma, deaf in R ear, difficulty balance. hx heart murmur History of Any Multi-Drug Resistant Organisms: None Reported Past Surgical History: Bariatric Surgery, Coronary Bypass/CABG, Hernia Repair, Orthopedic Surgery, Tonsillectomy Additional Past Surgical History / Comment(s): Bilat. knee replacements, incisional hernia, gastric bypass 20 years ago. 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 Eye: Pupils are equal, round and reactive to light, extra-ocular movements are intact. No nystagmus. There is normal conjunctiva bilaterally. No signs of icterus. Cardiovascular: There is a regular rate and rhythm. No murmur, rub or gallop is appreciated. Respiratory: Lungs are clear to auscultation, respirations are non-labored, breath sounds are equal. No wheezes, stridor, rales, or rhonchi. Musculoskeletal: No significant rotation or shortening appreciated. Patient has full range of motion of the knee and ankle but refuses to fully range at the left hip secondary to pain. Patient strength preserved distal to the left knee. Sensation intact of the LE b/l. DP pulses equal bilaterally 2+. No midline neck pain, full ROM of cervical spine. No pain to palpation of cervical thoracic or lumbar spine. Neurological: A&O x 3. CN II-XII intact grossly, There are no obvious motor or sensory deficits. Coordination appears grossly intact. Speech is normal. Skin: Skin is warm and dry and no rashes or lesions are noted. Psychiatric: Cooperative, appropriate mood & affect, normal judgment. (Patricia Lau) Course Vital Signs 03/26/20 03/26/20 21:05 23:36 Temperature 98.0 F 98.1 F Pulse Rate 80 94 Respiratory 20 17 Rate Blood Pressure 121/75 123/72 O2 Sat by Pulse 99 95 Oximetry Medical Decision Making - Lab Data Result diagrams: 03/26/20 22:33 03/26/20 22:33 <Patricia Lau - Last Filed: 03/27/20 00:22> - Lab Data Result diagrams: 03/29/20 06:43 03/29/20 06:43 <Yessenia Dominguez - Last Filed: 03/30/20 13:38> - Medical Decision Making 65 or female presenting for left hip pain after fall. Mechanical nature. Pat ient neurovascularly intact. She is ambulatory. However x-ray reveals a subcapital fracture. Impacted. Haas consulted, recommended admission with medicine consult. Patient admitted with IV analgesic orders. Patient agreeable to care plan and admission. Dr. Dominguez reviewed imaging studies is agreeable to care plan and admission. (Patricia Lau) I was available for consultation in the emergency department. The history and physical exam were done by the midlevel provider. I was consulted for this patients care. I reviewed the case with the midlevel provider and based on their presentation of the patient, I agree with the assessment, medical decision making and plan of care as documented. Chart was dictated using [employer] dictation software. Attempts were made to correct any dictation errors however some typographical errors may persist. Patient was seen during the [facility] emergency due to Covid-19 pandemic. (Yessenia Dominguez) - Lab Data Lab Results 03/26/20 03/26/20 Range/Units 22:33 22:33 WBC 7.4 (3.8-10.6) k/uL RBC 3.69 L (3.80-5.40) m/uL Hgb 12.1 (11.4-16.0) gm/dL Hct 36.3 (34.0-46.0) % MCV 98.2 (80.0-100.0) fL MCH 32.8 (25.0-35.0) pg MCHC 33.4 (31.0-37.0) g/dL RDW 12.8 (11.5-15.5) % Plt Count 243 (150-450) k/uL Neutrophils % 86 % Lymphocytes % 7 % Monocytes % 3 % Eosinophils % 3 % Basophils % 0 % Neutrophils # 6.4 (1.3-7.7) k/uL Lymphocytes # 0.5 L (1.0-4.8) k/uL Monocytes # 0.2 (0-1.0) k/uL Eosinophils # 0.2 (0-0.7) k/uL Basophils # 0.0 (0-0.2) k/uL Sodium 139 (137-145) mmol/L Potassium 3.9 (3.5-5.1) mmol/L Chloride 112 H (98-107) mmol/L Carbon Dioxide 21 L (22-30) mmol/L Anion Gap 6 mmol/L BUN 15 (7-17) mg/dL Creatinine 0.71 (0.52-1.04) mg/dL Est GFR (CKD-EPI)AfAm >90 (>60 ml/min/1.73 sqM) Est GFR (CKD-EPI)NonAf 89 (>60 ml/min/1.73 sqM) Glucose 108 H (74-99) mg/dL Calcium 9.0 (8.4-10.2) mg/dL Total Bilirubin 0.2 (0.2-1.3) mg/dL AST 48 H (14-36) U/L ALT 53 H (4-34) U/L Alkaline Phosphatase 105 (38-126) U/L Total Protein 6.3 (6.3-8.2) g/dL Albumin 3.8 (3.5-5.0) g/dL Disposition Is patient prescribed a controlled substance at d/c from ED?: No Time of Disposition: 22:02 Decision to Admit Reason: Admit from EC Decision Date: 03/26/20 Decision Time: 22:02 <Patricia Lau - Last Filed: 03/27/20 00:22> <Yessenia Dominguez - Last Filed: 03/30/20 13:38> Clinical Impression: Subcapital fracture of left femur, Right hip pain Disposition: ADMITTED IP TO THIS [facility] Condition: Stable
[2020-03-26] MEDS: SODIUM CHLORIDE 0.9% 1,000 ML IV SCH (22:30)
[2020-03-26] MEDS: HYDROmorphone 0.5 MG/0.5 ML SYRINGE IVP PRN (23:06)
[2020-03-26 23:16] LABS: ALT 53 U/L (4-34); AST 48 U/L (14-36); African American GFR (CKD) >90 (>60 ml/min/1.73 sqM); Albumin 3.8 g/dL (3.5-5.0); Alkaline Phosphatase 105 U/L (38-126); Anion Gap 6 mmol/L; Blood Urea Nitrogen 15 mg/dL (7-17); Carbon Dioxide 21 mmol/L (22-30); Chloride 112 mmol/L (98-107); Glucose 108 mg/dL (74-99); Non-African American GFR(CKD) 89 (>60 ml/min/1.73 sqM); Potassium 3.9 mmol/L (3.5-5.1); Sodium 139 mmol/L (137-145); Total Bilirubin 0.2 mg/dL (0.2-1.3); Total Protein 6.3 g/dL (6.3-8.2)
[2020-03-26 23:24] LABS: Basophils % (A) 0 %; Eosinophils # (A) 0.2 k/uL (0-0.7); Eosinophils % (A) 3 %; HCT 36.3 % (34.0-46.0); HGB 12.1 gm/dL (11.4-16.0); Lymphocytes # (A) 0.5 k/uL (1.0-4.8); Lymphocytes % (A) 7 %; MCH 32.8 pg (25.0-35.0); MCHC 33.4 g/dL (31.0-37.0); MCV 98.2 fL (80.0-100.0); Mean Platelet Volume 7.3; Monocytes # (A) 0.2 k/uL (0-1.0); Monocytes % (A) 3 %; Neutrophils # (A) 6.4 k/uL (1.3-7.7); Neutrophils % (A) 86 %; Platelet Count 243 k/uL (150-450); RBC 3.69 m/uL (3.80-5.40); RDW 12.8 % (11.5-15.5); WBC 7.4 k/uL (3.8-10.6)
[2020-03-27 00:21] LABS: Partial Thromboplastin Time 23.4 sec (22.0-30.0); Prothrombin Time 10.3 sec (9.0-12.0)
[2020-03-27] MEDS ORDERED: HYDROcodone/APAP 10-325MG 1 EACH TAB PO PRN (00:25)
[2020-03-27] MEDS: ZOLPIDEM 10 MG TAB PO PRN ×2 (00:44→22:12)
[2020-03-27] MEDS: HYDROmorphone 0.5 MG/0.5 ML SYRINGE IVP PRN ×7 (03:11→22:17)
--- NOTE | 2020-03-27 04:21 | P.CONS ---
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 she sustained accidental fall, and could not weight bear after that due to so much pain. she denies passing out or any head injury. she denies any chest pain or trouble breathing, denies any fevers or chills. she reports that she is in good health. denies any abd pain nausea or vomiting. patient did not sustain any open wounds in the ED , she was found to have, left femur subcapital fracture , impacted. Review of Systems Pertinent positives as noted in HPI. All other systems were reviewed and are negative Past Medical History Past Medical History: Syncope, Thyroid Disorder Additional Past Medical History / Comment(s): Acoustic Neuroma, deaf in R ear, difficulty balance. hx heart murmur History of Any Multi-Drug Resistant Organisms: None Reported Past Surgical History: Bariatric Surgery, Coronary Bypass/CABG, Hernia Repair, Orthopedic Surgery, Tonsillectomy Additional Past Surgical History / Comment(s): Bilat. knee replacements, incisional hernia, gastric bypass 20 years ago. 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/12/17, cataract surgery Past Anesthesia/Blood Transfusion Reactions: Motion Sickness Past Psychological History: Anxiety, Depression Smoking Status: Never smoker Past Alcohol Use History: Occasional Past Drug Use History: None Reported - Past Family History Mother Family Medical History: No Reported History Medications and Allergies Home Medications Medication Instructions Recorded Confirmed Type Topiramate [Topamax] 100 mg PO BID 02/17/15 03/26/20 History busPIRone HCl [Buspar] 15 mg PO BID 02/17/15 03/26/20 History Aspirin [[place] Aspirin EC] 81 mg PO DAILY 07/01/19 03/26/20 History Etstmjq-Igie-Rwks [id number] 1 tab PO DAILY PRN 07/01/19 03/26/20 History [Excedrin] Ibuprofen [Advil] 200 mg PO DAILY PRN 07/01/19 03/26/20 History Albuterol Inhaler [Ventolin Hfa 2 puff INHALATION RT-QID PRN 03/26/20 03/26/20 History Inhaler] Atorvastatin Calcium [Lipitor] 20 mg PO DAILY 03/26/20 03/26/20 History Cholecalciferol [Vitamin D3 (25 1,000 unit PO DAILY 03/26/20 03/26/20 History Mcg = 1000 Iu)] DULoxetine HCL [Cymbalta] 30 mg PO DAILY 03/26/20 03/26/20 History DULoxetine HCL [Cymbalta] 60 mg PO DAILY 03/26/20 03/26/20 History HYDROcodone/APAP 10-325MG [[place] 1 tab PO QID PRN 03/26/20 03/26/20 History 10-325] Levothyroxine Sodium [Synthroid] 100 mcg PO DAILY 03/26/20 03/26/20 History Meclizine HCl 25 mg PO DAILY PRN 03/26/20 03/26/20 History Multivitamins, Thera [Multivitamin 1 tab PO DAILY 03/26/20 03/26/20 History (formulary)] Omeprazole Magnesium [PriLOSEC OTC] 20 mg PO BID PRN 03/26/20 03/26/20 History Zolpidem [Ambien] 10 mg PO HS PRN 03/26/20 03/26/20 History buPROPion HCL [Wellbutrin SR] 150 mg PO BID 03/26/20 03/26/20 History Allergies Allergy/AdvReac Type Severity Reaction Status Date / Time Penicillins Allergy makes Verified 03/26/20 21:11 hands itch Physical Exam Vitals: Vital Signs Temp Pulse Resp BP Pulse Ox 03/27/20 00:00 18 03/26/20 23:36 98.1 F 94 17 123/72 95 03/26/20 21:05 98.0 F 80 20 121/75 99 Intake and Output 03/26/20 03/26/20 03/27/20 14:59 22:59 06:59 Other: Voiding Method Bedpan Weight 63.503 kg 62 kg Constitutional: No acute distress, conversant, pleasant Eyes: Anicteric sclerae, moist conjunctiva, Pupils equal round reactive to light ENMT: NC/AT Oropharynx clear, no erythema, exudates Neck: Supple, FROM, no masses, or JVD No carotid bruits No thyromegaly Lungs: Clear to auscultation Clear to percussion Normal respiratory effort, no accessory muscle use Cardiovascular: Heart regular in rate and rhythm, No murmurs, gallops, or rubs No peripheral edema Abdominal: Soft Nontender, no guarding, rebound or rigidity Abdomen moving with respiration Normoactive bowel sounds No hepatomegaly, No splenomegaly No palpable mass No abdominal wall hernia noted Skin: Normal temperature, tone, texture, turgor No induration No subcutaneous nodules No rash, lesions No ulcers Extremities: no open wounds over left hip, no swelling or bruising No digital cyanosis No clubbing Pedal pulses intact and symmetrical Radial pulses intact and symmetrical No calf tenderness Psychiatric: Alert and oriented to person, place and time Appropriate affect fair judgement Neuro Muscles Strength 5/5 in bilateral upper and right lower extremity , left lower extremity strength exam limited by pain Sensation to light touch grossly present throughout Cranial nerves II-XII grossly intact No focal sensory deficits Lymphatics: no palpable cervical or supraclavicular , or inguinal lymph nodes Results CBC & Chem 7: 03/26/20 22:33 03/26/20 22:33 Labs: Abnormal Lab Results - Last 24 Hours (Table) 03/26/20 03/26/20 Range/Units 22:33 22:33 RBC 3.69 L (3.80-5.40) m/uL Lymphocytes # 0.5 L (1.0-4.8) k/uL Chloride 112 H (98-107) mmol/L Carbon Dioxide 21 L (22-30) mmol/L Glucose 108 H (74-99) mg/dL AST 48 H (14-36) U/L ALT 53 H (4-34) U/L Assessment and Plan Assessment: patient is 65 year old Female, presetned with left hip pain after accidental fall found to have left femur subcapital fracture. Patient denies any recent history or symptoms of congestive heart failure, mycardial infarction, syncope, arrhythmia, palpitation, or exertional dyspnea. Patient denies any past medical history of stroke, CAD, CHF, CKD, or DM. Patient is functional at baseline at >4 METs she is able to climb one or two flight of stairs with no limitations, she is able to perform house chores. Patient labs reviewed, EKG showed normal sinus rhythm. Patient is scheduled for orthopedic surgery to fix left femur fracture. This is of moderate risk, however, patient has no medical risk factors from her past medical history. Patient can proceed to surgery with moderate but acceptable perioperative cardiovascular risk factors. This has been explained to the patient , all questions answered, patient verbalized understanding and agreement. left femur fracture pain control management per ortho DVT PPX with heparin sc tid NPO after midnight chronic conditions mild COPD , stable , PRN duoneb hypothyroid , resume home meds history of open heart surgery to correct defect wtih pulmonary venous connection patient is full code Thank you for allowing us to participate in the care of this patient. Do not hesitate to contact us with questions. Someone can be reached from the [facility]– [place]Note 2] hospitalist group at all hours of the day at [phone].
[2020-03-27] MEDS ORDERED: IPRATROPIUM-ALBUTEROL 3 ML NEB INHALATION PRN (04:24)
[2020-03-27] MEDS: LEVOTHYROXINE 100 MCG TAB PO SCH (04:35)
[2020-03-27] MEDS: HEPARIN SODIUM,PORCINE 5,000 UNIT/ML 1 ML VIAL SQ SCH ×2 (08:37→17:15)
[2020-03-27] MEDS: SODIUM CHLORIDE 0.9% 1,000 ML IV SCH (08:38)
--- NOTE | 2020-03-27 08:39 | P.HPOR ---
History of Present Illness H&P Date: 03/27/20 This patient is a 65-year-old female past medical history of hypothyroidism, open heart surgery in 2017, history of bilateral total knee arthroplasty by Dr. Esteban that presented to [facility] yesterday evening with complaints of left hip pain. The patient states she rescued a dog yesterday and she was playing with a dog in the yard, when the dog's leash got wrapped around the patient's legs and she fell onto the left hip. She states she experienced immediate pain in left hip, although she was able to get up on her own and ambulate, although with significant pain in left hip. The patient states due to the pain, her son by the patient to the emergency department. X-rays of the le ft hip in the emergency department revealed a subcapital femoral neck fracture. The patient was admitted under the care of Dr. Haas for surgical intervention with a consult placed to internal medicine for medical clearance and perioperative medical management. At the time exam, the patient is complaining of isolated left hip pain. She states her pain is currently manageable on medications. She states her right wrist is sore, although she has history of open reduction and internal fixation with Dr. Atkinson and she states her wrist was sore before her fall and there have been no recent changes to this pain. She has no pain with wrist range of motion. She has no additional complaints at this time. Vital signs stable. Past Medical History Past Medical History: Syncope, Thyroid Disorder Additional Past Medical History / Comment(s): Acoustic Neuroma, deaf in R ear, difficulty balance. hx heart murmur History of Any Multi-Drug Resistant Organisms: None Reported Past Surgical History: Bariatric Surgery, Coronary Bypass/CABG, Hernia Repair, Orthopedic Surgery, Tonsillectomy Additional Past Surgical History / Comment(s): Bilat. knee replacements, incisional hernia, gastric bypass 20 years ago. 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/12/17, cataract surgery Past Anesthesia/Blood Transfusion Reactions: Motion Sickness Past Psychological History: Anxiety, Depression Smoking Status: Never smoker Past Alcohol Use History: Occasional Past Drug Use History: None Reported - Past Family History Mother Family Medical History: No Reported History Medications and Allergies Home Medications Medication Instructions Recorded Confirmed Type Topiramate [Topamax] 100 mg PO BID 02/17/15 03/26/20 History busPIRone HCl [Buspar] 15 mg PO BID 02/17/15 03/26/20 History Aspirin [[place] Aspirin EC] 81 mg PO DAILY 07/01/19 03/26/20 History Xibegek-Mvka-Okcn [id number] 1 tab PO DAILY PRN 07/01/19 03/26/20 History [Excedrin] Ibuprofen [Advil] 200 mg PO DAILY PRN 07/01/19 03/26/20 History Albuterol Inhaler [Ventolin Hfa 2 puff INHALATION RT-QID PRN 03/26/20 03/26/20 History Inhaler] Atorvastatin Calcium [Lipitor] 20 mg PO DAILY 03/26/20 03/26/20 History Cholecalciferol [Vitamin D3 (25 1,000 unit PO DAILY 03/26/20 03/26/20 History Mcg = 1000 Iu)] DULoxetine HCL [Cymbalta] 30 mg PO DAILY 03/26/20 03/26/20 History DULoxetine HCL [Cymbalta] 60 mg PO DAILY 03/26/20 03/26/20 History HYDROcodone/APAP 10-325MG [[place] 1 tab PO QID PRN 03/26/20 03/26/20 History 10-325] Levothyroxine Sodium [Synthroid] 100 mcg PO DAILY 03/26/20 03/26/20 History Meclizine HCl 25 mg PO DAILY PRN 03/26/20 03/26/20 History Multivitamins, Thera [Multivitamin 1 tab PO DAILY 03/26/20 03/26/20 History (formulary)] Omeprazole Magnesium [PriLOSEC OTC] 20 mg PO BID PRN 03/26/20 03/26/20 History Zolpidem [Ambien] 10 mg PO HS PRN 03/26/20 03/26/20 History buPROPion HCL [Wellbutrin SR] 150 mg PO BID 03/26/20 03/26/20 History Allergies Allergy/AdvReac Type Severity Reaction Status Date / Time Penicillins Allergy makes Verified 03/26/20 21:11 hands itch Physical Examination On examination, the patient is lying in bed in no apparent distress. She is alert and oriented 3. Her head appears atraumatic. Her breathing appears nonlabored. There are no obvious deformities or signs of trauma of her bilater al upper extremities. Her right lower extremity showsdeformities or signs of trauma. There is a healed incision over the anterior knee consistent with a total knee arthroplasty. On inspection of the left lower extremity, there is a healed incision over the anterior knee consistent with a total knee arthroplasty. On inspection of the left hip, there are no open wounds or lacerations. Skin is intact. There is moderate pain on palpation of the left hip. Range of motion of the left hip was not tested at this time. No pain on palpation of the left knee, lower leg, ankle, foot. Dorsalis pedis pulse +2. Left lower extremity is warm and well- perfused with brisk capillary refill distally. Motor and sensory function appear to be intact of the left lower extremity. Patient has good strength of the left ankle. Calf is soft and nontender to palpation. Results Left hip x-ray 03/26/2020: Subcapital femoral neck fracture. Left femur x-ray 03/26/20: Subcapital femoral neck fracture, prior total knee arthroplasty. Components appear to be in anatomic position. - Labs Labs: Abnormal Lab Results - Last 24 Hours (Table) 03/26/20 03/26/20 Range/Units 22:33 22:33 RBC 3.69 L (3.80-5.40) m/uL Lymphocytes # 0.5 L (1.0-4.8) k/uL Chloride 112 H (98-107) mmol/L Carbon Dioxide 21 L (22-30) mmol/L Glucose 108 H (74-99) mg/dL AST 48 H (14-36) U/L ALT 53 H (4-34) U/L H & H 03/26/20 Range/Units 22:33 Hgb 12.1 (11.4-16.0) gm/dL Hct 36.3 (34.0-46.0) % Coagulation 03/26/20 Range/Units 23:30 INR 1.0 (<1.2) Result Diagrams: 03/26/20 22:33 03/26/20 22:33 Assessment and Plan Assessment: Left subcapital femoral neck fracture Plan: - Clinical and imaging findings were discussed with the patient. The patient was discussed with Dr. Haas. We will plan to proceed with a left hip hemiarthroplasty today, pending medical clearance and consent. Patient gave verbal consent to proceed with surgery, risks of surgery were discussed. - Continue pain management as needed. - NPO diet. - Bedrest, strict nonweightbearing on left lower extremity. Patient discussed with Dr. Haas.
[2020-03-27] MEDS ORDERED: PANTOPRAZOLE 40 MG TABLET PO PRN (09:00)
[2020-03-27] MEDS ORDERED: TRANEXAMIC ACID 1,000 MG in SODIUM CHLORIDE 0.9% 100 ML IVPB ONE ×2 (10:17→10:18)
[2020-03-27] MEDS ORDERED: MECLIZINE 25 MG TAB PO PRN (13:09)
[2020-03-27] MEDS ORDERED: ALBUTEROL NEBULIZED 2.5 MG/3 ML INHALATION PRN (13:09)
[2020-03-27] MEDS ORDERED: ASPIRIN-ACET-CAFF 250-250-65MG 1 EACH TAB PO PRN (13:09)
[2020-03-27 13:30] LABS: ALT 96 U/L (4-34); AST 158 U/L (14-36); African American GFR (CKD) >90 (>60 ml/min/1.73 sqM); Albumin 3.1 g/dL (3.5-5.0); Alkaline Phosphatase 115 U/L (38-126); Anion Gap 3 mmol/L; Blood Urea Nitrogen 12 mg/dL (7-17); Calcium 8.4 mg/dL (8.4-10.2); Carbon Dioxide 22 mmol/L (22-30); Chloride 113 mmol/L (98-107); Glucose 94 mg/dL (74-99); Non-African American GFR(CKD) >90 (>60 ml/min/1.73 sqM); Potassium 3.6 mmol/L (3.5-5.1); Sodium 138 mmol/L (137-145); Total Bilirubin 0.3 mg/dL (0.2-1.3); Total Protein 5.6 g/dL (6.3-8.2)
[2020-03-27] MEDS ORDERED: PROPOFOL 10 MG/ML 20 ML VIAL IV ONE (13:45)
[2020-03-27] MEDS ORDERED: LIDOCAINE 1% INJ 10MG/ML (20 ML MDV) ONE (13:45)
[2020-03-27] MEDS ORDERED: TRANEXAMIC ACID 1,000 MG/10 ML VIAL ONE (13:45)
[2020-03-27] MEDS ORDERED: SUCCINYLCHOLINE CHLORIDE 100 MG/5 ML SYR IV ONE (13:45)
[2020-03-27] MEDS ORDERED: SODIUM CHLORIDE 0.9% 100 ML BAG ONE (13:45)
[2020-03-27] MEDS ORDERED: MIDAZOLAM 2 MG/2 ML VIAL ONE (13:45)
[2020-03-27] MEDS ORDERED: GLYCOPYRROLATE 0.2 MG/ML 2 ML VIAL ONE (13:45)
[2020-03-27] MEDS ORDERED: KETAMINE 10 MG/ML 20 ML VIAL ONE (13:45)
[2020-03-27] MEDS ORDERED: fentaNYL (PF) 50 MCG/ML 2 ML AMP ONE (13:45)
[2020-03-27] MEDS ORDERED: SODIUM CHLORIDE 0.9% 50 ML with ceFAZolin 2,000 MG IV ONE ×2 (13:49)
[2020-03-27] MEDS ORDERED: LACTATED RINGERS 1,000 ML IV ONE (13:49)
[2020-03-27] MEDS ORDERED: ceFAZolin 3,000 MG in SODIUM CHLORIDE 0.9% IRRIGATIO 3,000 ML IRRIGATION ONE (14:48)
--- NOTE | 2020-03-27 15:32 | P.OP ---
Date of Procedure: 03/27/20 Procedure(s) Performed: PREOPERATIVE DIAGNOSIS: Left hip displaced femoral neck fracture POSTOPERATIVE DIAGNOSIS: Left hip displaced femoral neck fracture OPERATION: Left hip total replacement arthroplasty (uncemented, ceramic on polyethylene). ANESTHESIA: Spinal ESTIMATED BLOOD LOSS: 100 ml. BRIM CURLER: Gab Willett PA-C (assistance with: patient positioning, retraction, exposure, hemostasis, leg positioning, implantation, irrigation, closure, dressing) COMPLICATIONS: None apparent. COMPONENTS IMPLANTED: Mary continuum acetabular cup with cluster holes; continuum longevity 15 elevated liner, 32 mm id; Mary VerSys LD fracture cemented stem; VerSys 32 mm Biolox ceramic femoral head with 0 mm neck length extension INDICATIONS: Mrs. Ye is a 65-year-old female who tripped and fell over a dog leash yesterday, sustaining a displaced left femoral neck fracture. She is shannan rly active, although she does have bilateral knee replacements from Dr. Esteban in the past. She has moderate osteoporosis based on x-ray examination. I have discussed with her options of hemiarthroplasty versus full hip replacement, and I recommended a full hip replacement due to her age and activity level. I'm planning for a hybrid reconstruction and she does have osteoporosis and I feel that a cemented femoral stem would be safer for her. I discussed the steps of the operation as well as potential risks and complications as being inclusive of, but not limited to: Leading, infection, scarring, discomfort, blood vessel and/or nerve damage, need for further surgery, dislocation, loosening, wear, limb length inequality, persistent limp, heterotopic ossification, anesthesia risks, and other risks. She is aware these risks and wishes to proceed with surgery. The consent form has been signed. PROCEDURE: After appropriate consent was obtained, the patient was taken to the operating room and placed in supine position. Spinal anesthetic was administered and after confirmation of adequate anesthesia, the patient was placed into the lateral decubitus position with the left side up. Care was taken to make sure that all pressure points were adequately padded and a Meherrin hip positioned was used to stabilize the patient to the table. The left hip was prepped and draped in the usual aseptic fashion using a combination of ChloraPrep and alcohol. Ioban drape was used for the case and the patient received intravenous antibiotics prior to the incision. Timeout was called, confirming patient identity, side, procedure, availability of implants, administration of TXA and administration of antibiotics. The incision was created directly over the greater trochanter and carried slight ly posteriorly for a posterior approach to the hip. The incision was then deepened down to subcutaneous tissue and fascia charles. Fascia charles was split in line with the incision and split proximally along the fibers of the gluteus sharon. The underlying fibers of the muscle were teased apart using finger dissection and bleeding vessels were picked up and coagulated. Retractor was then placed posteriorly consisting of a blunt Ignacio. The short external rotators and capsule were exposed using good visualization of the attachment of the external rotators to the femur was established. The short external rotators and capsule were released using electrocautery from their femoral attachments. A hockey stick shaped incision was created in the capsule. Hemarthrosis was evacuated and the patient's hip was internally rotated to expose the femoral neck. The femoral neck cut was created approximately 1 cm superior to the lesser trochanter using a reciprocating saw. The femoral head and neck fragment was removed and attention was then directed to the acetabulum. An anterior acetabular retractor was applied followed by posterior retraction of the capsule with a Meyerding retractor. This afforded good visualization into the acetabular cavity. Soft tissue was removed and residual cartilage within the acetabular vault was removed using a curette. Labrum was removed using a long-handled knife. Attention was then directed to reaming. The size 43 reamer was used first, followed by increasing increments until the final size reamer was used. Please see the implantation sheet for exact sizes used for the components. Once the final reamer had been utilized to expand the socket it was noted that there was a good supportive bone around the acetabular socket and no further reaming needed to be performed. The trial the same size as the last reamer used was then impacted into the acetabular vault and found to have good fit. The acetabular size, one size (2 mm) greater than the trial was then called for. The cluster holes were placed posteriorly and the component was impacted in a position of approximately 40 degrees abduction and 20 degrees anteversion. This matched this patient's zuni anteversion and it was noted that the cup had excellent stability. Attention was then directed to the acetabular liner. To optimize stability, a 15 elevated liner was used and locked into position with the elevation posterior superior. Osteophytes around the posterior and inferior aspect of the acetabulum were trimmed as necessary to prevent any impingement. Attention was then directed back to the proximal femur. Retractors were placed around the proximal femur and box osteotome was used followed by canal finder and trochanteric reamer. Cylindrical reaming was performed. Progressive broa pako was then performed starting with a #10 broach and progressing final size, in a position of 15 degrees anteversion. [place] anteversion was within 5 degrees of stem position. The final size broach had excellent fit and fill of the patient's metaphysis and diaphysis. Trial reduction was then performed starting with size 32 mm femoral head and various neck combination of stability, limb length equality, and soft tissue tension. Trial components were then removed. The canal was pulse lavaged and the final size femoral stem component was impacted into position. The implant fit very well and had excellent stability. The femoral head was then impacted onto the Sanders taper. Blood and debris were removed from the acetabular component and the hip was then reduced and checked for stability, limb length and soft tissue tension. These parameters were found to be satisfactory and the wound was then thoroughly irrigated with normal saline. Final hemostasis was obtained using electrocautery and IV tranexamic acid. Closure of the capsule was performed meticulously using #3 Vicryl suture. Four [id number] sutures were placed in the posterior capsule along with repair of the external rotators. The fascia charles was then repaired using combination of #3 Vicryl suture in interrupted fashion and Quill and running fashion. 2-0 Vicryl suture was used for the subcutaneous tissues and 3-0 Quill for the skin. Dermabond or Steri-Strips were then applied. The patient tolerated the procedure well. There were no complications and the wound bed was dry and there was no need for drain placement. Sterile dressing was then applied and the patient was carefully removed from the operating room table, placed on the stretcher, and was taken to the recovery room in stable condition. Sponge and needle counts were correct.
[2020-03-27] MEDS ORDERED: HYDROmorphone 0.5 MG/0.5 ML SYRINGE IVP PRN ×3 (16:08)
[2020-03-27] MEDS ORDERED: HYDROcodone/APAP 5-325MG 1 EACH TAB PO PRN (16:14)
[2020-03-27] MEDS ORDERED: HYDROmorphone 0.5 MG/0.5 ML SYRINGE IVP ONE ×2 (16:42→16:50)
--- NOTE | 2020-03-27 16:47 | XR ---
EXAMINATION TYPE: XR Hip Limited LT DATE OF EXAM: 03/27/2020 COMPARISON: NONE HISTORY: Postop TECHNIQUE: Single view. FINDINGS: There is a left hip prosthesis. Components are in anatomic position. Left visualized hemipelvis appe ars intact. IMPRESSION: No complicating process seen.
[2020-03-27] MEDS ORDERED: SODIUM CHLORIDE 0.9% 1,000 ML IV ONE (16:50)
[2020-03-27] MEDS: ATORVASTATIN 20 MG TAB PO SCH (17:09)
[2020-03-27] MEDS: buPROPion SR 150 MG TABLET.ER PO SCH ×3 (17:10→22:21)
[2020-03-27] MEDS: busPIRone HCl 5 MG TAB PO SCH ×2 (17:10→22:13)
[2020-03-27] MEDS: TOPIRAMATE 100 MG TAB PO SCH ×2 (17:10→22:14)
[2020-03-27] MEDS: DULoxetine HCL 30 MG CAPSULE.DR PO SCH (17:10)
[2020-03-27] MEDS: DULoxetine HCL 60 MG CAPSULE.DR PO SCH (17:10)
[2020-03-27] MEDS: HYDROcodone/APAP 5-325MG 1 EACH TAB PO PRN (18:38)
[2020-03-27] MEDS: ASPIRIN 81 MG PO SCH (22:12)
[2020-03-27] MEDS: SENNOSIDES-DOCUSATE SODIUM 1 EACH TAB PO SCH (22:12)
--- NOTE | 2020-03-28 00:35 | CONS ---
CONSULTATION DATE OF SERVICE: 03/27/2020 REASON FOR CONSULTATION: Advice regarding CAD, CABG and multiple medical issues requested by Orthopedic Surgery. HISTORY OF PRESENT ILLNESS: This 65-year-old woman with a past medical history of acoustic neuroma, history of bariatric surgery, CAD, CABG, history of tonsillectomy, history of anxiety, depression being followed by Dr. Terry Cason in the outpatient setting was admitted with impacted subcapital fracture of the left femur. The patient is complaining of severe pain. The patient apparently fell down running after her rescue dog in the laundry room according to her. There is no history of syncope. No history of chest pain or palpitation. The exercise tolerance appears to be excellent prior to surgery. There is no history of any fever or rigors. There is no history of headache, loss of consciousness or seizures. PAST MEDICAL HISTORY: History of syncope, history of acoustic neuroma, history of deafness, history of bariatric surgery several years by Dr. Euceda, history of CAD, CABG, history of bilateral knee replacements, anxiety and depression. MEDICATIONS: Medications prior, home medications are: 1. [place] 10 mg q.i.d. p.r.n.. 2. Meclizine 25 mg daily p.r.n. 3. Synthroid 100 mcg p.o. daily. 4. Multivitamins 1 p.o. daily. 5. Prilosec 20 mg b.i.d. p.r.n. 6. Cymbalta 60 mg p.o. daily. 7. Vitamin D3, 1000 daily. 8. Advil 200 mg daily p.r.n. 9. Cymbalta 30 mg daily. 10.Ambien 10 mg at bedtime p.r.n. 11.Topamax 100 mg p.o. b.i.d. 12.Wellbutrin SR 150 mg p.o. b.i.d. 13.BuSpar 15 mg p.o. b.i.d. 14.Lipitor 20 mg p.o. daily. 15.Excedrin 1 tablet p.o. daily p.r.n. 16.Aspirin 81 mg p.o. daily. 17.Ventolin 2 puffs q.i.d. p.r.n. ALLERGIES: Allergies are PENICILLIN. FAMILY HISTORY: No history of heart disease or strokes in the family. SOCIAL HISTORY: No history of smoking. No history of alcohol intake. REVIEW OF SYSTEMS: ENT: No diminished vision. Diminished hearing present. CARDIOVASCULAR SYSTEM: No angina. RESPIRATORY SYSTEM: No cough or hemoptysis. GI: As mentioned earlier. : No dysuria. NERVOUS SYSTEM: No numbness or weakness. ALLERGY/IMMUNOLOGY: No asthma or hayfever. MUSCULOSKELETAL: As mentioned earlier. HEMATOLOGY/ONCOLOGY: No history of anemia. ENDOCRINE: Hypothyroidism. CONSTITUTIONAL: As mentioned earlier. DERMATOLOGY: Negative. RHEUMATOLOGY: Negative. PSYCHIATRY: As mentioned earlier. PHYSICAL EXAMINATION: The patient is alert and oriented x3. Pulse 97, blood pressure 103/57, respiration 18, temperature 98.3, pulse ox 94% on room air. HEENT: Conjunctivae normal. Oral mucosa moist. NECK: No jugular venous distention. No carotid bruit. No lymph node enlargement. CARDIOVASCULAR: S1, S2 muffled. RESPIRATORY: Breath sounds are diminished at the bases. No rhonchi, no crackles. ABDOMEN: Soft, nontender. No mass palpable. LEGS: Status post left hip fracture. NERVOUS SYSTEM: Higher function as mentioned earlier. Moves all 4 limbs. No focal motor or sensory deficits. LYMPHATICS: No lymphadenopathy of the neck, axillae or groin. SKIN: No ulcer, rash or bleeding. JOINTS: No active deforming arthropathy. LABS: WBC 7.2, hemoglobin 12.1. INR is 1. Sodium 139, potassium 3.9, CO2 is 21. The glucose is 108. AST is 48, ALT is 53. ASSESSMENT: 1. Fall and status post impacted subcapital left femur fracture. 2. History of coronary artery disease, coronary artery bypass grafting. 3. History of bariatric surgery. 4. History of acoustic neuroma. 5. History of cardiac murmur. 6. Hypothyroidism. 7. History of syncope. 8. History of degenerative joint disease. 9. Bilateral knee replacements. 10.History of anxiety, depression. 11.Increased AST, ALT. 12.FULL CODE. RECOMMENDATIONS AND DISCUSSION: This 65-year-old woman presented after femoral fracture. We will recommend to continue the home medications and DVT prophylaxis, incentive spirometry. The patient will be cleared for surgery and the patient may be asked to follow with Dr. Cason closely after discharge. Thank you Dr. Haas for letting us participate in the care of this patient. MMODL / IJN: [id number] /
[2020-03-28] MEDS: HEPARIN SODIUM,PORCINE 5,000 UNIT/ML 1 ML VIAL SQ SCH ×4 (00:38→23:42)
[2020-03-28] MEDS: HYDROmorphone 0.5 MG/0.5 ML SYRINGE IVP PRN ×6 (02:00→21:33)
[2020-03-28] MEDS: SODIUM CHLORIDE 0.9% 1,000 ML IV SCH ×4 (02:02→17:21)
[2020-03-28] MEDS: HYDROcodone/APAP 5-325MG 1 EACH TAB PO PRN ×2 (03:26→09:52)
[2020-03-28] MEDS: LEVOTHYROXINE 100 MCG TAB PO SCH (05:35)
[2020-03-28] MEDS: ATORVASTATIN 20 MG TAB PO SCH (07:46)
[2020-03-28] MEDS: ASPIRIN 81 MG PO SCH ×2 (07:46→19:21)
[2020-03-28] MEDS: busPIRone HCl 5 MG TAB PO SCH ×3 (07:47→19:21)
[2020-03-28] MEDS: DULoxetine HCL 60 MG CAPSULE.DR PO SCH (07:48)
[2020-03-28] MEDS: CHOLECALCIFEROL 1,000 UNIT TAB PO SCH (07:48)
[2020-03-28] MEDS: TOPIRAMATE 100 MG TAB PO SCH ×2 (07:49→19:22)
[2020-03-28] MEDS: MULTIVITAMINS, THERA 1 EACH TAB PO SCH (07:49)
[2020-03-28] MEDS: buPROPion SR 150 MG TABLET.ER PO SCH ×2 (07:50→19:22)
[2020-03-28] MEDS: DULoxetine HCL 30 MG CAPSULE.DR PO SCH (07:51)
[2020-03-28 08:42] LABS: Basophils % (A) 0 %; Eosinophils # (A) 0.1 k/uL (0-0.7); Eosinophils % (A) 2 %; HCT 28.1 % (34.0-46.0); Lymphocytes # (A) 0.7 k/uL (1.0-4.8); Lymphocytes % (A) 11 %; MCH 32.2 pg (25.0-35.0); MCHC 32.6 g/dL (31.0-37.0); MCV 98.7 fL (80.0-100.0); Mean Platelet Volume 7.3; Monocytes # (A) 0.2 k/uL (0-1.0); Monocytes % (A) 4 %; Neutrophils # (A) 4.7 k/uL (1.3-7.7); Neutrophils % (A) 81 %; Platelet Count 183 k/uL (150-450); RBC 2.84 m/uL (3.80-5.40); RDW 12.7 % (11.5-15.5); WBC 5.8 k/uL (3.8-10.6)
[2020-03-28 09:00] LABS: HGB 9.1 gm/dL (11.4-16.0)
[2020-03-28] MEDS ORDERED: HYDROcodone/APAP 10-325MG 1 EACH TAB PO PRN (10:35)
[2020-03-28] MEDS: HYDROcodone/APAP 7.5-325MG 1 EACH TAB PO PRN ×2 (14:21→19:21)
--- NOTE | 2020-03-28 15:03 | P.PN ---
Subjective Progress Note Date: 03/28/20 Principal diagnosis: This is a 65-year-old female who was recently admitted status post fall and was found to have an impacted subcapital fracture of the left femur and is being roselyn sely monitored. Patient is postop day #1 status post left total hip replacement arthroplasty with Dr. Haas. Patient continues to have severe pain and medications have been adjusted. Patient to work with physical therapy. Case management and social work following for possible discharge planning needs. Patient states she will be returning home with family once discharged. Patient continues on subq heparin for DVT prophylaxis. ALT, AST elevated and will repeat a.m. labs. No active bleeding noted and hemoglobin today is 9.1. Will continue to follow along closely with orthopedic surgery. Review of systems: Constitutional: No reports of fevers, chills, or fatigue Cardiovascular: No reports of chest pain or palpitations Respiratory: No reports of shortness of breath or cough GI: No reports of nausea, vomiting, or diarrhea : No reports of dysuria or retention Neurovascular: Reports mild weakness, no reports numbness Active Medications Acetaminophen/Aspirin/Caffeine (Excedrin) 1 each PO DAILY PRN PRN Reason: Headache Hydrocodone Bitart/Acetaminophen ([place] 7.5-325) 1 each PO Q4H PRN PRN Reason: Pain Last Admin: 03/28/20 14:21 Dose: 1 each Documented by: Albuterol Sulfate (Ventolin Nebulized) 2.5 mg INHALATION RT-QID PRN PRN Reason: Shortness Of Breath Albuterol/Ipratropium (Duoneb 0.5 Mg-3 Mg/3 Ml Soln) 3 ml INHALATION RT-QID PRN PRN Reason: Shortness Of Breath Or Wheezing Last Admin: 03/28/20 08:12 Dose: 3 ml Documented by: Aspirin (Aspirin) 81 mg PO BID [facility] Last Admin: 03/28/20 07:46 Dose: 81 mg Documented by: Atorvastatin Calcium (Lipitor) 20 mg PO DAILY [facility] Last Admin: 03/28/20 07:46 Dose: 20 mg Documented by: Bupropion HCl (Wellbutrin Sr) 150 mg PO BID [facility] Last Admin: 03/28/20 07:50 Dose: 150 mg Documented by: Buspirone HCl (Buspar) 15 mg PO BID [facility] Last Admin: 03/28/20 11:09 Dose: 15 mg Documented by: Cholecalciferol (Vitamin D3 (25 Mcg = 1000 Iu)) 1,000 unit PO DAILY [facility] Last Admin: 03/28/20 07:48 Dose: 1,000 unit Documented by: Duloxetine HCl (Cymbalta) 30 mg PO DAILY [facility] Last Admin: 03/28/20 07:51 Dose: 30 mg Documented by: Duloxetine HCl (Cymbalta) 60 mg PO DAILY [facility] Last Admin: 03/28/20 07:48 Dose: 60 mg Documented by: Heparin Sodium (Porcine) (Heparin) 5,000 unit SQ Q8HR [facility] Last Admin: 03/28/20 07:45 Dose: 5,000 unit Documented by: Hydromorphone HCl (Dilaudid) 0.5 mg IVP Q2HR PRN PRN Reason: Pain Last Admin: 03/28/20 12:15 Dose: 0.5 mg Documented by: Sodium Chloride (Saline 0.9%) 1,000 mls @ 100 mls/hr IV .Q10H [facility] Last Admin: 03/28/20 05:36 Dose: 100 mls/hr Documented by: Levothyroxine Sodium (Synthroid) 100 mcg PO DAILY@0630 [facility] Last Admin: 03/28/20 05:35 Dose: 100 mcg Documented by: Meclizine HCl (Antivert) 25 mg PO DAILY PRN PRN Reason: Vertigo Multivitamins (Theragran) 1 each PO DAILY [facility] Last Admin: 03/28/20 07:49 Dose: 1 each Documented by: Naloxone HCl (Narcan) 0.2 mg IV Q2M PRN PRN Reason: Opioid Reversal Pantoprazole Sodium (Protonix) 40 mg PO BID PRN PRN Reason: GERDS Senna/Docusate Sodium (Senokot-S) 2 each PO HS [facility] Last Admin: 03/27/20 22:12 Dose: 2 each Documented by: Topiramate (Topamax) 100 mg PO BID [facility] Last Admin: 03/28/20 07:49 Dose: 100 mg Documented by: Zolpidem Tartrate (Ambien) 10 mg PO HS PRN PRN Reason: Insomnia Last Admin: 03/27/20 22:12 Dose: 10 mg Documented by: Objective - Vital Signs Vital signs: Vital Signs Temp 98.8 F 03/28/20 13:08 Pulse 90 03/28/20 13:08 Resp 18 03/28/20 13:08 BP 93/58 03/28/20 13:08 Pulse Ox 99 03/28/20 13:08 Intake & Output 03/27/20 03/28/20 03/28/20 18:59 06:59 18:59 Intake Total 2151 1150 Output Total 400 Balance 1751 1150 Weight 69.5 kg Intake: IV 1051 Intake, IV Titration 1100 1150 Amount Sodium Chloride 0.9% 1, 1100 000 ml @ 0 mls/hr IV .[facility] Rx#:[id number] Sodium Chloride 0.9% 1, 1150 000 ml @ 100 mls/hr IV . Q10H [facility] Rx#:[id number] Output: Urine 200 Estimated Blood Loss 200 Other: Voiding Method Bedpan Bedpan Bedpan # Voids 2 3 2 - Exam Gen: This is a 65-year-old female sitting up in bed, awake, alert and oriented 3, well-developed, well-nourished. Temp is 98.8F, pulse is 90, respirations are 18, blood pressure is 93/58, oxygen saturation is 99% on room air. HEENT: Head is atraumatic, normocephalic. Pupils equal, round. Sclerae is anicteric. NECK: Supple. No JVD. No lymphadenopathy. No thyromegaly. LUNGS: Breath sounds diminished at the bases bilaterally with no wheezing or rhonchi noted. No intercostal retractions. HEART: S1, S2 are muffled. ABDOMEN: Soft. Bowel sounds are present. No masses. No tenderness. EXTREMITIES: No pedal edema. No calf tenderness. Status post left hip fracture repair NEUROLOGICAL: Patient is awake, alert and oriented x3. Cranial nerves 2 through 12 are grossly intact. - Labs CBC & Chem 7: 03/28/20 06:28 03/27/20 08:01 Labs: Abnormal Lab Results - Last 24 Hours (Table) 03/28/20 Range/Units 06:28 RBC 2.84 L (3.80-5.40) m/uL Hgb 9.1 L D (11.4-16.0) gm/dL Hct 28.1 L (34.0-46.0) % Lymphocytes # 0.7 L (1.0-4.8) k/uL Assessment and Plan Assessment: Fall and status post impacted subcapital left femur fracture Status post left total hip replacement arthroplasty History of coronary artery disease, CABG history of bariatric surgery History of acoustic neuroma History of cardiac murmur Hypothyroidism History of syncope History of degenerative joint disease Bilateral knee replacements History of anxiety, depression Increased AST, ALT Full code Recommendations and discussion: Recommend to continue current medications, management, and symptomatic treatment. Continue to follow along closely with orthopedic surgery. Continue with pain management. PT/OT evaluating the patient. Instructed the patient to continue using incentive spirometer at least 10 times every hour while awake. DVT prophylaxis with heparin subq. Will repeat a.m. labs. Further recommendations to follow. Possible discharge in 24-48 hours.
--- NOTE | 2020-03-28 15:34 | P.PN ---
Subjective Progress Note Date: 03/28/20 This patient is a 65-year-old female who presented to [facility] emergency department on 03/26/2020 after sustaining a left femoral neck fracture. She is status-post left total hip arthroplasty on 03/27/[address] Haas. Today's postoperative day #1. The patient is examined bedside. The patient states she has been requiring IV Dilaudid to achieve adequate pain control. She states she does not believe the [place] is controlling her pain. She states she does take [place] 4 times a day at home. Patient has been up with physical therapy this morning. She transferred to the bedside chair with minimal issues. She is tolerating her diet well. She has not yet had a bowel movement postoperatively, she denies abdominal pain. Patient denies chest pain, shortness breath, nausea, vomiting, fevers, chills. Overall the patient is feeling well morning and has no new complaints. Vital signs stable. Objective - Vital Signs Vital signs: Vital Signs Temp 98.8 F 03/28/20 13:08 Pulse 90 03/28/20 13:08 Resp 18 03/28/20 13:08 BP 93/58 03/28/20 13:08 Pulse Ox 99 03/28/20 13:08 Intake & Output 03/27/20 03/28/20 03/28/20 18:59 06:59 18:59 Intake Total 2151 1150 Output Total 400 Balance 1751 1150 Weight 69.5 kg Intake: IV 1051 Intake, IV Titration 1100 1150 Amount Sodium Chloride 0.9% 1, 1100 000 ml @ 0 mls/hr IV .[facility] Rx#:[id number] Sodium Chloride 0.9% 1, 1150 000 ml @ 100 mls/hr IV . Q10H [facility] Rx#:[id number] Output: Urine 200 Estimated Blood Loss 200 Other: Voiding Method Bedpan Bedpan Bedpan # Voids 2 3 2 - Exam On examination, the patient is sitting up in the bedside chair in no apparent distress. She is alert and noted 3. On inspection of the left hip, there is clean, dry, intact surgical dressing in place. There is no drainage or bleeding through the dressing. There is mild pain on palpation of the left hip. The left thigh soft and compressible. The patient has good strength and range of motion of the left ankle. The left lower extremity is warm and well perfused with brisk capillary refill distally. Dorsalis pedis pulse +2. Motor and sensory function are intact in the left lower extremity. Bilateral calves are soft and nontender to palpation. - Labs CBC & Chem 7: 03/28/20 06:28 03/27/20 08:01 Labs: Abnormal Lab Results - Last 24 Hours (Table) 03/28/20 Range/Units 06:28 RBC 2.84 L (3.80-5.40) m/uL Hgb 9.1 L D (11.4-16.0) gm/dL Hct 28.1 L (34.0-46.0) % Lymphocytes # 0.7 L (1.0-4.8) k/uL Assessment and Plan Assessment: Left subcapital femoral neck fracture status-post left total hip arthroplasty on 03/27/[address] Haas. Post-operative day #1. Plan: - Patient may weight-bear to tolerance on the operative leg. Up with assistan ce, up with walker. - Physical therapy for gait and balance training. - Keep Optifoam dressing in place for 7-10 days. - We will increase [place] to 7.5/325mg q4h. Decrease use of IV dilaudid as tole rated. - Aspirin 81mg BID for DVT prophylaxis. Patient also receiving subc heparin per internal medicine. - 2 doses of postoperative antibiotics complete. - Anticipate discharge home with home health services tomorrow, pending medical clearance. Patient discussed with Dr. Haas.
[2020-03-28] MEDS: SENNOSIDES-DOCUSATE SODIUM 1 EACH TAB PO SCH (19:22)
[2020-03-29] MEDS: HYDROcodone/APAP 7.5-325MG 1 EACH TAB PO PRN ×4 (00:24→12:41)
[2020-03-29] MEDS: SODIUM CHLORIDE 0.9% 1,000 ML IV SCH ×2 (02:03→08:02)
[2020-03-29] MEDS: HYDROmorphone 0.5 MG/0.5 ML SYRINGE IVP PRN (03:03)
[2020-03-29] MEDS: LEVOTHYROXINE 100 MCG TAB PO SCH (04:46)
[2020-03-29 05:55] VITALS: BP 91/59; PULSE 94; RESP 16; TEMP 98.5
[2020-03-29 07:15] LABS: Glucose,Whole Blood 100 mg/dL (75-99)
[2020-03-29] MEDS: HEPARIN SODIUM,PORCINE 5,000 UNIT/ML 1 ML VIAL SQ SCH (07:43)
[2020-03-29] MEDS: ATORVASTATIN 20 MG TAB PO SCH (07:44)
[2020-03-29] MEDS: ASPIRIN 81 MG PO SCH (07:44)
[2020-03-29] MEDS: buPROPion SR 150 MG TABLET.ER PO SCH (07:44)
[2020-03-29] MEDS: busPIRone HCl 5 MG TAB PO SCH (07:44)
[2020-03-29] MEDS: CHOLECALCIFEROL 1,000 UNIT TAB PO SCH (07:45)
[2020-03-29] MEDS: DULoxetine HCL 60 MG CAPSULE.DR PO SCH (07:45)
[2020-03-29] MEDS: DULoxetine HCL 30 MG CAPSULE.DR PO SCH (07:45)
[2020-03-29] MEDS: MULTIVITAMINS, THERA 1 EACH TAB PO SCH (07:45)
[2020-03-29 07:50] LABS: Basophils % (A) 0 %; Eosinophils # (A) 0.2 k/uL (0-0.7); Eosinophils % (A) 3 %; HCT 28.5 % (34.0-46.0); Lymphocytes # (A) 0.6 k/uL (1.0-4.8); Lymphocytes % (A) 8 %; MCH 30.6 pg (25.0-35.0); MCHC 31.5 g/dL (31.0-37.0); MCV 97.1 fL (80.0-100.0); Mean Platelet Volume 7.3; Monocytes # (A) 0.3 k/uL (0-1.0); Monocytes % (A) 4 %; Neutrophils # (A) 6.2 k/uL (1.3-7.7); Neutrophils % (A) 85 %; Platelet Count 182 k/uL (150-450); RBC 2.94 m/uL (3.80-5.40); RDW 12.6 % (11.5-15.5); WBC 7.4 k/uL (3.8-10.6)
[2020-03-29 08:04] LABS: ALT 48 U/L (4-34); AST 53 U/L (14-36); African American GFR (CKD) >90 (>60 ml/min/1.73 sqM); Albumin 2.6 g/dL (3.5-5.0); Alkaline Phosphatase 104 U/L (38-126); Anion Gap 5 mmol/L; Blood Urea Nitrogen 7 mg/dL (7-17); Calcium 8.1 mg/dL (8.4-10.2); Carbon Dioxide 22 mmol/L (22-30); Chloride 110 mmol/L (98-107); Glucose 98 mg/dL (74-99); Non-African American GFR(CKD) >90 (>60 ml/min/1.73 sqM); Potassium 3.3 mmol/L (3.5-5.1); Sodium 137 mmol/L (137-145); Total Bilirubin 0.3 mg/dL (0.2-1.3); Total Protein 5.1 g/dL (6.3-8.2)
[2020-03-29] MEDS: TOPIRAMATE 100 MG TAB PO SCH (08:37)
--- NOTE | 2020-03-29 11:42 | P.DS ---
Providers Date of admission: 03/26/20 22:42 Expected date of discharge: 03/29/20 Attending physician: Brandon Haas Consults: 03/26/20 22:02 Consult Physician Routine Consulting Provider: Terry Cason Consult Reason/Comments: medical consultation, left femur fracture Do you want consulting provider notified?: Yes Primary care physician: Terry Cason - Discharge Diagnosis(es) (1) Subcapital fracture of left femur Patient was admitted to the OR on 03/27/2020 to undergo a left total hip arthroplasty after sustaining a left femoral neck fracture from a fall on . She desired to proceed with elective surgery after given informed consent. She underwent the above procedure which she tolerated well without complication. Postoperative hospital course has remained without complication. On day of discharge she is afebrile, vital signs stable, labs within acceptable ranges, tolerating by mouth meds and diet, voiding without difficulty, positive flatus, denies abdominal pain or calf pain, pain is controlled on oral pain medication and has no new complaints. Wound is benign, neurovascular status is intact, calf is soft and nontender, abdomen soft and nontender. Review of systems is negative for numbness, tingling, fever, chills, chest pain, shortness of breath, nausea, vomiting, dizziness, headaches, slurred speech or other Current Visit: Yes Status: Acute Priority: Medium Procedures: Left SARAH Patient Condition at Discharge: Stable Plan - Discharge Summary Discharge Rx Participant: No New Discharge Prescriptions: New Aspirin 325 mg PO BID #60 tab HYDROcodone/APAP 10-325MG [[place] 10-325] 1 tab PO Q4HR PRN #42 tab PRN Reason: Pain No Action busPIRone HCl [Buspar] 15 mg PO BID Topiramate [Topamax] 100 mg PO BID Ibuprofen [Advil] 200 mg PO DAILY PRN PRN Reason: Pain [id number] [phone] [Excedrin] 1 tab PO DAILY PRN PRN Reason: Headache Aspirin [[place] Aspirin EC] 81 mg PO DAILY Levothyroxine Sodium [Synthroid] 100 mcg PO DAILY Multivitamins, Thera [Multivitamin (formulary)] 1 tab PO DAILY Omeprazole Magnesium [PriLOSEC OTC] 20 mg PO BID PRN PRN Reason: GERDS DULoxetine HCL [Cymbalta] 60 mg PO DAILY Cholecalciferol [Vitamin D3 (25 Mcg = 1000 Iu)] 1,000 unit PO DAILY DULoxetine HCL [Cymbalta] 30 mg PO DAILY Zolpidem [Ambien] 10 mg PO HS PRN PRN Reason: Insomnia buPROPion HCL [Wellbutrin SR] 150 mg PO BID Atorvastatin Calcium [Lipitor] 20 mg PO DAILY Albuterol Inhaler [Ventolin Hfa Inhaler] 2 puff INHALATION RT-QID PRN PRN Reason: Shortness Of Breath Meclizine HCl 25 mg PO DAILY PRN PRN Reason: Vertigo HYDROcodone/APAP 10-325MG [[place] 10-325] 1 tab PO QID PRN PRN Reason: Pain Discharge Medication List Topiramate [Topamax] 100 mg PO BID 02/17/15 [History] busPIRone HCl [Buspar] 15 mg PO BID 02/17/15 [History] Aspirin [[place]rett Aspirin EC] 81 mg PO DAILY 07/01/19 [History] Emzemkn-[id number] [id number] [Excedrin] 1 tab PO DAILY PRN 07/01/19 [History] Ibuprofen [Advil] 200 mg PO DAILY PRN 07/01/19 [History] Albuterol Inhaler [Ventolin Hfa Inhaler] 2 puff INHALATION RT-QID PRN 03/26/20 [History] Atorvastatin Calcium [Lipitor] 20 mg PO DAILY 03/26/20 [History] Cholecalciferol [Vitamin D3 (25 Mcg = 1000 Iu)] 1,000 unit PO DAILY 03/26/20 [History] DULoxetine HCL [Cymbalta] 30 mg PO DAILY 03/26/20 [History] DULoxetine HCL [Cymbalta] 60 mg PO DAILY 03/26/20 [History] HYDROcodone/APAP 10-325MG [[place] 10-325] 1 tab PO QID PRN 03/26/20 [History] Levothyroxine Sodium [Synthroid] 100 mcg PO DAILY 03/26/20 [History] Meclizine HCl 25 mg PO DAILY PRN 03/26/20 [History] Multivitamins, Thera [Multivitamin (formulary)] 1 tab PO DAILY 03/26/20 [History] Omeprazole Magnesium [PriLOSEC OTC] 20 mg PO BID PRN 03/26/20 [History] Zolpidem [Ambien] 10 mg PO HS PRN 03/26/20 [History] buPROPion HCL [Wellbutrin SR] 150 mg PO BID 03/26/20 [History] Aspirin 325 mg PO BID #60 tab 03/29/20 [Rx] HYDROcodone/APAP 10-325MG [[place] 10-325] 1 tab PO Q4HR PRN #42 tab 03/29/20 [Rx] Follow up Appointment(s)/Referral(s): Terry Cason MD [Primary Care Provider] - 1-2 days [facility], [NON-STAFF] - 1 Week [facility] [NON-STAFF] - 1 Week Brandon Haas MD [STAFF PHYSICIAN] - 1 Week Activity/Diet/Wound Care/Special Instructions: Keep wound clean and dry Take meds as directed Follow-up with Dr. Haas in office Weight bear as tolerated May shower in 3 days if no bleeding Discharge Disposition: HOME WITH HOME HEALTH SERVICES
--- NOTE | 2020-03-29 14:15 | P.PN ---
Subjective Progress Note Date: 03/29/20 Principal diagnosis: This is a 65-year-old female who was recently admitted status post fall and was found to have an impacted subcapital fracture of the left femur and is being roselyn sely monitored. Patient is postop day #1 status post left total hip replacement arthroplasty with Dr. Haas. Patient continues to have severe pain and medications have been adjusted. Patient to work with physical therapy. Case management and social work following for possible discharge planning needs. Patient states she will be returning home with family once discharged. Patient continues on subq heparin for DVT prophylaxis. ALT, AST elevated and will repeat a.m. labs. No active bleeding noted and hemoglobin today is 9.1. Will continue to follow along closely with orthopedic surgery. Review of systems: Constitutional: No reports of fevers, chills, or fatigue Cardiovascular: No reports of chest pain or palpitations Respiratory: No reports of shortness of breath or cough GI: No reports of nausea, vomiting, or diarrhea : No reports of dysuria or retention Neurovascular: Reports mild weakness, no reports numbness 03/29/2020 Agents seen and evaluated and follow-up while working with physical therapy. Patient is adamant about going home and states that her son will be staying with her and her is retired and went and bought her a walker along with a commode. No acute overnight issues. Patient states pain is being managed. Patient states she will be going home today. Currently no reports of chest pain, shortness of breath, or palpitations. Patient is afebrile. No reports of nausea or vomiting and patient is tolerating diet. Objective - Vital Signs Vital signs: Vital Signs Temp 98.5 F 03/29/20 05:00 Pulse 94 03/29/20 07:52 Resp 16 03/29/20 07:52 BP 91/59 03/29/20 05:00 Pulse Ox 96 03/29/20 05:00 Intake & Output 03/28/20 03/29/20 03/29/20 18:59 06:59 18:59 Intake Total 2039 Balance 2039 Intake: Intake, IV Titration 1200 Amount Sodium Chloride 0.9% 1, 1200 000 ml @ 100 mls/hr IV . Q10H [facility] Rx#:[id number] Oral 840 Other: Voiding Method Bedpan Bedpan Toilet # Voids 2 2 1 - Exam Gen: This is a 65-year-old female sitting up in bed, awake, alert and oriented 3, well-developed, well-nourished. HEENT: Head is atraumatic, normocephalic. Pupils equal, round. Sclerae is anicteric. NECK: Supple. No JVD. No lymphadenopathy. No thyromegaly. LUNGS: Breath sounds diminished at the bases bilaterally with no wheezing or rhonchi noted. No intercostal retractions. HEART: S1, S2 are muffled. ABDOMEN: Soft. Bowel sounds are present. No masses. No tenderness. EXTREMITIES: No pedal edema. No calf tenderness. Status post left hip fracture repair. Resting is dry and intact. NEUROLOGICAL: Patient is awake, alert and oriented x3. Cranial nerves 2 through 12 are grossly intact. - Labs CBC & Chem 7: 03/29/20 06:43 03/29/20 06:43 Labs: Abnormal Lab Results - Last 24 Hours (Table) 03/29/20 03/29/20 03/29/20 Range/Units 06:43 06:43 07:14 RBC 2.94 L (3.80-5.40) m/uL Hgb 9.0 L (11.4-16.0) gm/dL Hct 28.5 L (34.0-46.0) % Lymphocytes # 0.6 L (1.0-4.8) k/uL Potassium 3.3 L (3.5-5.1) mmol/L Chloride 110 H (98-107) mmol/L POC Glucose (mg/dL) 100 H (75-99) mg/dL Calcium 8.1 L (8.4-10.2) mg/dL AST 53 H (14-36) U/L ALT 48 H (4-34) U/L Total Protein 5.1 L (6.3-8.2) g/dL Albumin 2.6 L (3.5-5.0) g/dL Assessment and Plan Assessment: Fall and status post impacted subcapital left femur fracture Status post left total hip replacement arthroplasty History of coronary artery disease, CABG history of bariatric surgery History of acoustic neuroma History of cardiac murmur Hypothyroidism History of syncope History of degenerative joint disease Bilateral knee replacements History of anxiety, depression Increased AST, ALT Full code Recommendations and discussion: Recommend to continue current medications, management, and symptomatic treatment. Continue to follow along closely with orthopedic surgery. Continue with pain management. PT/OT evaluated the patient recommending subacute rehab although patient continues to refuse and states she has help from her and her son will be staying with her at home. Instructed the patient to continu e using incentive spirometer at least 10 times every hour while awake. DVT prophylaxis with heparin subq. Further recommendations to follow. Patient states she is being discharged today.
--- NOTE | 2020-03-31 15:18 | CDI ---
Documentation Clarification Form Date: 03/31/20 From: Eileen Saini Phone: If you have a question about this query, please contact Yumiko Garvin [employer] at [phone] between 8am and 5pm. Admit Date: 03/26/20 Discharge Date:03/29/20 Patient Name: Sondra Ye Visit Number: [id number] ATTENTION: The Clinical Documentation Specialists (CDI) and [facility] Coding Staff appreciate your assistance in clarifying documentation. Please respond to the clarification below the line at the bottom and electronically sign. The CDI & [facility] Coding staff will review the response and follow-up if needed. Please note: Queries are made part of the Legal Health Record. If you have any questions, please contact the author of this message via ITS. Dear Dr. Haas Patient has been diagnosed with a fracture of the left femoral neck. History/Risk Factors: Fall, osteoporosis Clinical Indications: left hip pain X-Ray Results: Left subcapital fracture Treatment: Left total hip replacement In your professional opinion, please specify the following: Etiology of fracture: Traumatic Pathological (specify cause): Osteoporosis Other (please specify): Unable to determine MTDD
--- NOTE | 2020-04-08 14:13 | CDI ---
Documentation Clarification Form Date: 04/08/20 From: Eileen Saini Phone: If you have a question about this query, please contact Yumiko Garvin Loom Setter Fourdrinier at [phone] between 8am and 5pm. Admit Date: 03/26/20 Discharge Date:03/29/20 Patient Name: Sondra Ye Visit Number: [id number] ATTENTION: The Clinical Documentation Specialists (CDI) and [facility] Coding Staff appreciate your assistance in clarifying documentation. Please respond to the clarification below the line at the bottom and electronically sign. The CDI & [facility] Coding staff will review the response and follow-up if needed. Please note: Queries are made part of the Legal Health Record. If you have any questions, please contact the author of this message via ITS. Dear Dr. Haas Patient has been diagnosed with a fracture of the left femoral neck. History/Risk Factors: Fall, osteoporosis Clinical Indications: left hip pain X-Ray Results: Left subcapital fracture Treatment: Left total hip replacement In your professional opinion, please specify the following: Etiology of fracture: Traumatic Pathological (specify cause): Osteoporosis Other (please specify): Unable to determine Traumatic etiology. However, patient has a history of osteoporosis which likely contributed to the development of this fracture with this trauma. ARIADNA
== END 2020-03-29 13:39 | disposition home health service (06) | DRG 470 ==
LOC: EC 20:47 → 5NMEDONC 22:42
PROVIDERS: ADMIT Orthopaedic Surgery; ATTEND Orthopaedic Surgery
PROC: 0SRB04A Replacement of Left Hip Joint with Ceramic on Polyethylene Synthetic Substitute, Uncemented, Open Approach (ICD-10-PCS; principal; 2020-03-27 11:00)
DX: S72.012A Unspecified intracapsular fracture of left femur, initial encounter for closed fracture (principal); E03.9 Hypothyroidism, unspecified; F32.9 Major depressive disorder, single episode, unspecified; F41.9 Anxiety disorder, unspecified; H91.91 Unspecified hearing loss, right ear; I25.10 Atherosclerotic heart disease of native coronary artery without angina pectoris; J44.9 Chronic obstructive pulmonary disease, unspecified; M81.0 Age-related osteoporosis without current pathological fracture; M19.90 Unspecified osteoarthritis, unspecified site; Z11.59 Encounter for screening for other viral diseases; M25.551 Pain in right hip; Z79.82 Long term (current) use of aspirin; Z79.890 Hormone replacement therapy; Z79.899 Other long term (current) drug therapy; Z95.1 Presence of aortocoronary bypass graft; Z96.653 Presence of artificial knee joint, bilateral; Z98.84 Bariatric surgery status; Z88.0 Allergy status to penicillin; W01.0XXA Fall on same level from slipping, tripping and stumbling without subsequent striking against object, initial encounter
CPT/HCPCS: 36415; 71045; 73501; 73502; 80053; 82306; 85025; 85610; 85730; 86850; 86900; 86901; 88305; 88311; 93005; 94640; 96361; 96372; 96374; 99285

== ENCOUNTER → 2020-04-18 | Outpatient (CLI) | payer MEDICARE ==
--- NOTE | 2020-04-19 07:50 | CT ---
EXAMINATION TYPE: CT iac wo con DATE OF EXAM: 04/18/2020 COMPARISON: CT brain 10/15/2018 HISTORY: Prior right sided acoustic neuroma with removal. Possible cochlear implant placement. CT DLP: 150mGycm Automated exposure control for dose reduction was used. FINDINGS: There is been prior right-sided mastoidectomy and craniotomy. I do not see evidence for rec urrent acoustic neuroma over the lack of contrast does limit evaluation. The middle ear ossicles are symmetric and unremarkable. There is no evidence of suspicious surrounding soft tissue density to bella ggest cholesteatoma. The scutum is preserved bilaterally. The cochlea and the semicircular canals a re symmetric and unremarkable. Vestibular aqueduct and internal carotid canal appear unremarkable. Temporomandibular joints are maintained bilaterally. IMPRESSION: Postoperative changes of right-sided mastoidectomy and craniotomy. No definite evidence f or recurrent acoustic neuroma however the lack of contrast limits evaluation.
== END | disposition home or self-care (01) ==
LOC: RADCTMAIN 15:47
PROVIDERS: ATTEND Otolaryngology Otology & Neurotology
DX: Z98.890 Other specified postprocedural states (principal); H83.11 Labyrinthine fistula, right ear; H83.12 Labyrinthine fistula, left ear
CPT/HCPCS: 70480

== ENCOUNTER 2020-06-08 07:44 | Day surgery (SDC) | payer MEDICARE ==
[2020-06-03 14:36] VITALS: BMI 22.8
[~2020-06-08 07:44] MED LIST changes: -DEXAMETHASONE SOD PHOSPHATE 10 MG/ML 1 ML VIAL IV ONE; -HYDROmorphone 0.5 MG/0.5 ML SYRINGE IVP PRN; -LIDOCAINE 1% 20 ML VIAL (10MG/ML) FOR IV START INTRADERMA PRN; -ONDANSETRON 4 MG/2 ML VIAL IVP ONE; -ONDANSETRON 4 MG/2 ML VIAL IVP PRN
[2020-06-08 08:16] VITALS: RESP 16; TEMP 98.4
--- NOTE | 2020-06-08 08:45 | P.GSHP ---
History of Present Illness H&P Date: 06/08/20 CHIEF COMPLAINT: Colon screen HISTORY OF PRESENT ILLNESS: The patient is a 65-year-old female who presents for colon screen. Lower endoscopy was offered for further evaluation and management. PAST MEDICAL HISTORY: Please see list. PAST SURGICAL HISTORY: Please see list. MEDICATIONS: Please see list. ALLERGIES: Please see list. SOCIAL HISTORY: No illicit drug use FAMILY HISTORY: No reports of Crohn disease or ulcerative colitis. REVIEW OF ORGAN SYSTEMS: CONSTITUTIONAL: No reports of fevers or chills. PHYSICAL EXAM: VITAL SIGNS: Stable GENERAL: Well-developed pleasant in no acute distress. HEENT: No scleral icterus. Extraocular movements grossly intact. Moist buccal mucosa. NECK: Supple without lymphadenopathy. CHEST: Unlabored respirations. Equal bilateral excursions. CARDIOVASCULAR: Regular rate and rhythm. Distal 2+ pulses. ABDOMEN: Soft, nontender, nondistended. MUSCULOSKELETAL: No clubbing, cyanosis, or edema. ASSESSMENT: 1. Colon screen. PLAN: 1. Recommend proceeding with a lower endoscopy Past Medical History Past Medical History: Osteoarthritis (OA), Skin Disorder, Syncope, Thyroid Disorder Additional Past Medical History / Comment(s): Acoustic Neuroma, deaf in R ear, difficulty balance, migraines, hx heart murmur, irregular bowel movememts, "severe dry skin", History of Any Multi-Drug Resistant Organisms: None Reported Past Surgical History: Bariatric Surgery, Coronary Bypass/CABG, Hernia Repair, Joint Replacement, Orthopedic Surgery, Tonsillectomy Additional Past Surgical History / Comment(s): Bilat. knee replacements, incisional hernia x3, gastric bypass 20 years ago. 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, best cataract surgery, left hip replacement, ORIF rt wrist Past Anesthesia/Blood Transfusion Reactions: Motion Sickness Smoking Status: Never smoker - Past Family History Mother Family Medical History: No Reported History Medications and Allergies Home Medications Medication Instructions Recorded Confirmed Type Topiramate [Topamax] 100 mg PO BID 02/17/15 06/08/20 History busPIRone HCl [Buspar] 15 mg PO BID 02/17/15 06/08/20 History Npstnsl-Xepu-Ljen [id number] 1 tab PO DAILY PRN 07/01/19 06/08/20 History [Excedrin] Ibuprofen [Advil] 200 mg PO DAILY PRN 07/01/19 06/08/20 History Albuterol Inhaler [Ventolin Hfa 2 puff INHALATION RT-QID PRN 03/26/20 06/08/20 History Inhaler] Atorvastatin Calcium [Lipitor] 20 mg PO DAILY 03/26/20 06/08/20 History Cholecalciferol [Vitamin D3 (25 1,000 unit PO DAILY 03/26/20 06/08/20 History Mcg = 1000 Iu)] DULoxetine HCL [Cymbalta] 30 mg PO DAILY 03/26/20 06/08/20 History DULoxetine HCL [Cymbalta] 60 mg PO DAILY 03/26/20 06/08/20 History Levothyroxine Sodium [Synthroid] 100 mcg PO DAILY 03/26/20 06/08/20 History Meclizine HCl 25 mg PO DAILY PRN 03/26/20 06/08/20 History Multivitamins, Thera [Multivitamin 1 tab PO DAILY 03/26/20 06/08/20 History (formulary)] Omeprazole Magnesium [PriLOSEC OTC] 20 mg PO BID PRN 03/26/20 06/08/20 History Zolpidem [Ambien] 5 - 10 mg PO HS PRN 03/26/20 06/08/20 History buPROPion HCL [Wellbutrin SR] 150 mg PO BID 03/26/20 06/08/20 History HYDROcodone/APAP 10-325MG [[place] 1 tab PO Q4HR PRN #42 tab 03/29/20 06/08/20 Rx 10-325] Aspirin [Adult Low Dose Aspirin EC] 81 mg PO DAILY 06/03/20 06/08/20 History Allergies Allergy/AdvReac Type Severity Reaction Status Date / Time Penicillins Allergy makes Verified 06/08/20 07:57 hands itch Surgical - Exam Vital Signs Temp Pulse Resp BP Pulse Ox 98.4 F 95 16 114/70 100 06/08/20 08:10 06/08/20 08:10 06/08/20 08:10 06/08/20 08:10 06/08/20 08:10
[2020-06-08] MEDS ORDERED: LIDOCAINE 1% INJ 10MG/ML (20 ML MDV) ONE (08:47)
[2020-06-08] MEDS ORDERED: PROPOFOL 10 MG/ML 20 ML VIAL IV ONE (08:47)
--- NOTE | 2020-06-08 09:19 | P.PCN ---
Date of Procedure: 06/08/20 Description of Procedure: PREOPERATIVE DIAGNOSIS: Colonoscopy screening. History of gastric bypass POSTOPERATIVE DIAGNOSIS: Colonoscopy screening. Diverticulosis, scattered. History gastric bypass OPERATION: Colonoscopy to the hepatic flexure SURGEON: Marychuy Martinez MD. ANESTHESIA: MAC. INDICATIONS: The patient is a 65-year-old female who presents for colonoscopy screening. B last colonoscopy over 5 years ago. enefits and risks were described and informed consent was obtained. DESCRIPTION OF PROCEDURE: The patient had undergone Suprep. She had been brought into the operating room and laid in the left lateral decubitus position. After adequate intravenous sedation, the rectum was examined with 2% lidocaine jelly. External hemorrhoids were encountered. The rectal tone was within normal limits. No lesions were palpated in the rectal vault. An Olympus colonoscope was advanced to a highly redundant sigmoid colon of moderate to severe diverticulosis to the hepatic flexure where the lumen was completely blocked from potential volvulus. The scope could not pass beyond this angle. The prep was good. Scattered diverticulosis was encountered involving the descending colon sigmoid colon. No large colonic polyps were found of the transverse colon, descending colon, sigmoid colon. No evidence of focal colitis was found. Retroflexion of the scope demonstrated grade 2 internal hemorrhoids without active bleeding or inflammation. The colon was desufflated. The patient had tolerated the procedure well. Withdrawal time was over 6 minutes. FINDINGS: Aronchick preparation quality scale 2 (1-5) Internal hemorrhoids, grade 2 External prolapsed hemorrhoids, grade 3 No arteriovenous malformations. No adenomatous polyps. No focal colitis. Collapse of lumen at the hepatic flexure prohibiting advancement of the scope Moderate to severe sigmoid diverticulosis and descending colon RECOMMENDATIONS: 1. Recommend barium enema for concern of colonic volvulus 2. Recommend referral to the bariatric center for history of gastric bypass without bariatric care for 20 years Plan - Discharge Summary New Discharge Prescriptions: Continue busPIRone HCl [Buspar] 15 mg PO BID Topiramate [Topamax] 100 mg PO BID [id number]-Zple-Utki [phone] [Excedrin] 1 tab PO DAILY PRN PRN Reason: Headache Levothyroxine Sodium [Synthroid] 100 mcg PO DAILY Multivitamins, Thera [Multivitamin (formulary)] 1 tab PO DAILY Omeprazole Magnesium [PriLOSEC OTC] 20 mg PO BID PRN PRN Reason: GERDS DULoxetine HCL [Cymbalta] 60 mg PO DAILY Cholecalciferol [Vitamin D3 (25 Mcg = 1000 Iu)] 1,000 unit PO DAILY DULoxetine HCL [Cymbalta] 30 mg PO DAILY Zolpidem [Ambien] 5 - 10 mg PO HS PRN PRN Reason: Insomnia buPROPion HCL [Wellbutrin SR] 150 mg PO BID Atorvastatin Calcium [Lipitor] 20 mg PO DAILY Albuterol Inhaler [Ventolin Hfa Inhaler] 2 puff INHALATION RT-QID PRN PRN Reason: Shortness Of Breath Meclizine HCl 25 mg PO DAILY PRN PRN Reason: Vertigo HYDROcodone/APAP 10-325MG [[place] 10-325] 1 tab PO Q4HR PRN #42 tab PRN Reason: Pain Aspirin [Adult Low Dose Aspirin EC] 81 mg PO DAILY Discontinued Ibuprofen [Advil] 200 mg PO DAILY PRN PRN Reason: Pain Discharge Medication List Topiramate [Topamax] 100 mg PO BID 02/17/15 [History] busPIRone HCl [Buspar] 15 mg PO BID 02/17/15 [History] Gpdtiyu-Bicg-Gful [phone] [Excedrin] 1 tab PO DAILY PRN 07/01/19 [History] Albuterol Inhaler [Ventolin Hfa Inhaler] 2 puff INHALATION RT-QID PRN 03/26/20 [History] Atorvastatin Calcium [Lipitor] 20 mg PO DAILY 03/26/20 [History] Cholecalciferol [Vitamin D3 (25 Mcg = 1000 Iu)] 1,000 unit PO DAILY 03/26/20 [History] DULoxetine HCL [Cymbalta] 30 mg PO DAILY 03/26/20 [History] DULoxetine HCL [Cymbalta] 60 mg PO DAILY 03/26/20 [History] Levothyroxine Sodium [Synthroid] 100 mcg PO DAILY 03/26/20 [History] Meclizine HCl 25 mg PO DAILY PRN 03/26/20 [History] Multivitamins, Thera [Multivitamin (formulary)] 1 tab PO DAILY 03/26/20 [History] Omeprazole Magnesium [PriLOSEC OTC] 20 mg PO BID PRN 03/26/20 [History] Zolpidem [Ambien] 5 - 10 mg PO HS PRN 03/26/20 [History] buPROPion HCL [Wellbutrin SR] 150 mg PO BID 03/26/20 [History] HYDROcodone/APAP 10-325MG [[place] 10-325] 1 tab PO Q4HR PRN #42 tab 03/29/20 [Rx] Aspirin [Adult Low Dose Aspirin EC] 81 mg PO DAILY 06/03/20 [History] Follow up Appointment(s)/Referral(s): Marychuy Martinez MD [STAFF PHYSICIAN] - 06/21/20 Patient Instructions/Handouts: Diverticulosis Diet (GEN), Diverticulosis (DC) Activity/Diet/Wound Care/Special Instructions: Will need barium enema for incomplete colonoscopy Discharge Disposition: HOME SELF-CARE
[2020-06-08 09:50] VITALS: BP 108/72; PULSE 70
--- NOTE | 2020-06-08 15:57 | XR ---
EXAMINATION TYPE: XR abdomen 1V DATE OF EXAM: 06/08/2020 12:09 PM CLINICAL HISTORY: Incomplete colonoscopy. TECHNIQUE: Supine images of the abdomen and pelvis were obtained COMPARISON: None. FINDINGS: The colon is diffusely distended with gas status post colonoscopy. Small bowel loops with n onspecific bowel gas pattern. Upper abdomen surgical clips. No large free air collection within limit s of supine technique. Degenerative changes of the lumbosacral spine. IMPRESSION: Nonspecific bowel gas pattern, with gaseous distention of the colon status post colonoscopy.
--- NOTE | 2020-06-09 18:27 | FL ---
EXAMINATION TYPE: FL single contrast barium enema DATE OF EXAM: 06/09/2020 COMPARISON: NONE HISTORY: 65-year-old female cecal volvulus, incomplete routine colonoscopy. Unable to traverse the he patic flexure. TECHNIQUE: A single contrast barium enema study is performed. Total fluoroscopy time: 4 minutes 20 seconds. Total images: 71 FINDINGS: Shell Trim Operator view of the abdomen shows overall non-obstructive bowel gas pattern. Post surgical change of pr ior gastric bypass. There is moderate diverticulosis of the sigmoid colon and additional scattered mild diverticular june ge throughout the remainder of the colon. Single contrast technique limits assessment for subtle mucosal lesions. During filling of contrast, there was initial difficulty in filling beyond the hepatic flexure. Exten sive manipulation of the patient's position eventually resulted in contrast extending into the ascend ing colon. Refer to page 44, 62, 64, 66, 69, and 71. There seems to be some persistent short segment annular narrowing at this level. No additional fixed narrowing is identified. Some contrast was refluxed into the terminal ileum. IMPRESSION: 1. Moderate sigmoid diverticulosis and mild scattered diverticular changes throughout the remainder o f the colon. 2. Multiple images suggest annular narrowing at the level of the hepatic flexure. While a prominent p eristaltic contraction is possible, as this corresponds to the site of abnormality on the patient's c olonoscopy, an annular constricting lesion is difficult to exclude. Consider a CT with both IV and re ctal contrast to clarify. 3. No evidence for cecal volvulus.
== END 2020-06-08 11:18 | disposition home or self-care (01) ==
LOC: ORWHC2ENDO 07:44
PROVIDERS: ATTEND Surgery Plastic and Reconstructive Surgery
DX: Z12.11 Encounter for screening for malignant neoplasm of colon (principal); K57.30 Diverticulosis of large intestine without perforation or abscess without bleeding; Z98.84 Bariatric surgery status; K64.4 Residual hemorrhoidal skin tags; K64.1 Second degree hemorrhoids; E78.5 Hyperlipidemia, unspecified; E07.9 Disorder of thyroid, unspecified; F32.9 Major depressive disorder, single episode, unspecified; K21.9 Gastro-esophageal reflux disease without esophagitis; M19.90 Unspecified osteoarthritis, unspecified site; H91.91 Unspecified hearing loss, right ear; G43.909 Migraine, unspecified, not intractable, without status migrainosus; Z79.1 Long term (current) use of non-steroidal anti-inflammatories (NSAID); Z88.0 Allergy status to penicillin; Z79.890 Hormone replacement therapy; Z79.82 Long term (current) use of aspirin; Z79.891 Long term (current) use of opiate analgesic; Z79.899 Other long term (current) drug therapy; Z90.89 Acquired absence of other organs; Z96.653 Presence of artificial knee joint, bilateral; Z95.1 Presence of aortocoronary bypass graft; Z98.41 Cataract extraction status, right eye; Z98.42 Cataract extraction status, left eye; Z96.642 Presence of left artificial hip joint; Z98.890 Other specified postprocedural states
CPT/HCPCS: 93005; 74018; J2001; J2704; G0121; 74270

== ENCOUNTER → 2020-06-30 | Outpatient (CLI) | payer MEDICARE ==
--- NOTE | 2020-06-30 10:43 | CT ---
EXAMINATION TYPE: CT abdomen pelvis w con DATE OF EXAM: 06/30/2020 COMPARISON: 08/11/2015 HISTORY: diverticulitis CT DLP: 335.5 mGycm CONTRAST: CT scan of the abdomen and pelvis is performed with Oral Contrast and with IV Contrast, patient injec elham with 100 mL of Isovue 300. FINDINGS: LUNG BASES-: No visible nodule. No infiltrate. LIVER/GB: Cholecystectomy clips are noted. No space occupying hepatic lesion. Mild prominence of t he biliary tree not unusual for a patient status post cholecystectomy. PANCREAS: No inflammation. No distinct mass. SPLEEN: No splenic enlargement. No lesion seen. ADRENALS: No nodule. No thickening. KIDNEYS/BLADDER: No hydronephrosis. No nephrolithiasis. No distinct renal mass. Urinary bladder g rossly unremarkable. BOWEL: Postoperative changes of the gastric bypass procedure noted about the gastric region. Moderate fecal stasis is seen throughout the colon. I do not see evidence for acute inflammatory process alth ough pelvic evaluation is limited by streak artifact from left hip prosthesis. GENITAL ORGANS: No gross abnormality. LYMPH NODES: No greater than 1cm abdominal or pelvic lymph nodes are appreciated. AORTA: No significant abnormality. OSSEOUS STRUCTURES: Grade 1 anterolisthesis L4 and L5 and L5 on S1 with associated degenerative palacios es. OTHER: No significant additional abnormality is seen. IMPRESSION: 1. Moderate fecal stasis without evidence for acute inflammatory process this time.
== END | disposition home or self-care (01) ==
LOC: RADCTMAIN 08:06
PROVIDERS: ATTEND Surgery Plastic and Reconstructive Surgery
DX: K57.32 Diverticulitis of large intestine without perforation or abscess without bleeding (principal); Z88.0 Allergy status to penicillin
CPT/HCPCS: 82565; 84520; 74177; 36415; Q9967

== ENCOUNTER → 2020-07-15 | Outpatient (CLI) | payer MEDICARE ==
[2020-07-15 19:01] LABS: HCT 36.8 % (34.0-46.0); HGB 11.6 gm/dL (11.4-16.0); MCH 29.8 pg (25.0-35.0); MCHC 31.6 g/dL (31.0-37.0); MCV 94.1 fL (80.0-100.0); Mean Platelet Volume 7.6; Platelet Count 313 k/uL (150-450); RBC 3.91 m/uL (3.80-5.40); RDW 13.7 % (11.5-15.5); WBC 7.8 k/uL (3.8-10.6)
[2020-07-16 01:40] LABS: Cancer Antigen 19-9 76.2 U/mL (0.0-34.9)
[2020-07-16 02:02] LABS: Magnesium 1.9 mg/dL (1.5-2.4)
[2020-07-16 02:03] LABS: % Iron Saturation 15.77 (12.00-45.00); ALT 67 U/L (8-44); AST 77 U/L (13-35); African American GFR (CKD) 104.6 (60.0-200.0); Albumin/Globulin Ratio 2.41 (1.60-3.17); Alkaline Phosphatase 124 U/L (41-126); BUN/Creat Ratio 21.43 Ratio (12.00-20.00); Calcium 9.1 mg/dL (8.7-10.3); Carbon Dioxide 20.4 mmol/L (21.6-31.8); Carcinoembryonic Antigen 3.9 ng/mL (0.0-4.9); Chloride 114 mmol/L (96-109); Chol/HDL Ratio 1.89; Cholesterol 155 mg/dL (0-200); Ferritin 17.2 ng/mL (10.0-291.0); Folate, Serum >24.0 ng/mL; Globulin 1.7 g/dL (1.6-3.3); Glucose 51 mg/dL (70-110); Iron 53 ug/dL (50-170); Non-African American GFR(CKD) 90.3 (60.0-200.0); Phosphorus 3.6 mg/dL (2.4-5.1); Sodium 144 mmol/L (135-145); Total Bilirubin 0.1 mg/dL (0.3-1.2); Total Iron Binding Capacity 336 ug/dL (228-460); Total Protein 5.8 g/dL (6.2-8.2)
[2020-07-16 14:21] LABS: Hemoglobin A1C 6.1 % (4.0-6.0)
[2020-07-16 16:45] LABS: INR 0.93 (0.90-1.11); Partial Thromboplastin Time 26.7 sec (24.7-29.9)
== END | disposition home or self-care (01) ==
LOC: LABWHC1 15:46
PROVIDERS: ATTEND Surgery Plastic and Reconstructive Surgery
DX: E21.1 Secondary hyperparathyroidism, not elsewhere classified (principal); E66.01 Morbid (severe) obesity due to excess calories; E89.1 Postprocedural hypoinsulinemia; D50.8 Other iron deficiency anemias; K90.89 Other intestinal malabsorption; E44.0 Moderate protein-calorie malnutrition; E55.9 Vitamin D deficiency, unspecified; K74.1 Hepatic sclerosis; N19 Unspecified kidney failure; K50.90 Crohn's disease, unspecified, without complications; D49.0 Neoplasm of unspecified behavior of digestive system; E03.9 Hypothyroidism, unspecified
CPT/HCPCS: 36415; 80053; 80061; 82306; 82378; 82525; 82607; 82728; 82746; 83036; 83540; 83550; 83735; 83970; 84100; 84134; 84255; 84425; 84439; 84443; 84590; 84630; 85027; 85610; 85730; 86301

== ENCOUNTER → 2020-08-18 | Outpatient (CLI) | payer MEDICARE ==
[2020-08-18 15:53] LABS: HCT 35.4 % (34.0-46.0); HGB 11.4 gm/dL (11.4-16.0); MCH 31.7 pg (25.0-35.0); MCHC 32.3 g/dL (31.0-37.0); MCV 98.1 fL (80.0-100.0); Mean Platelet Volume 6.8; Platelet Count 260 k/uL (150-450); RBC 3.61 m/uL (3.80-5.40); WBC 5.1 k/uL (3.8-10.6)
[2020-08-18 16:09] LABS: Albumin 3.7 g/dL (3.5-5.0); Calcium 8.9 mg/dL (8.4-10.2); Potassium 4.1 mmol/L (3.5-5.1); Total Bilirubin 0.3 mg/dL (0.2-1.3); Total Protein 6.1 g/dL (6.3-8.2)
== END | disposition home or self-care (01) ==
LOC: LABPAT 14:28
PROVIDERS: ATTEND Surgery Plastic and Reconstructive Surgery
DX: Z01.810 Encounter for preprocedural cardiovascular examination (principal)
CPT/HCPCS: 36415; 80053; 85027

== ENCOUNTER 2020-08-26 07:20 | Inpatient (IN) | payer MEDICARE ==
[2020-08-24 17:39] VITALS: BMI 22.4
--- NOTE | 2020-08-25 21:28 | P.GSHP ---
History of Present Illness H&P Date: 08/26/20 CHIEF COMPLAINT: History of malignant colon polyp HISTORY OF PRESENT ILLNESS: The patient is a 65-year-old female with diverticulosis including abnormal colonoscopy and barium enema with apple core lesion at the hepatic flexure. Her tumor markers are elevated. She presents for colon resection. PAST MEDICAL HISTORY: Please see list. PAST SURGICAL HISTORY: Please see list. MEDICATIONS: Please see list. ALLERGIES: Please see list. SOCIAL HISTORY: No illicit drug use FAMILY HISTORY: No reports of Crohn disease or ulcerative colitis. REVIEW OF ORGAN SYSTEMS: CONSTITUTIONAL: Denies any fever or chills. HEENT: Denies any trouble with vision or nosebleeds. PHYSICAL EXAM: VITAL SIGNS: Stable GENERAL: Well-developed pleasant in no acute distress. HEENT: No scleral icterus. Extraocular movements grossly intact. Moist buccal mucosa. NECK: Supple without lymphadenopathy. CHEST: Unlabored respirations. Equal bilateral excursions. CARDIOVASCULAR: Regular rate and rhythm. Distal 2+ pulses. ABDOMEN: Soft, nontender, nondistended. MUSCULOSKELETAL: No clubbing, cyanosis, or edema. NERUO: Cranial nerves 2-12 grossly intact. PSYCH: Alert and oriented to person place and time. ASSESSMENT: 1. History of hepatic flexure malignant adenoma. PLAN: 1. Benefits and risks of surgical robotic right colon resection was reviewed in detail. Robotic-assisted approach was also described. Possibility of open technique elevate with her history of multiple abdominal surgeries. 2. Enhanced colon recovery program. 3. DVT prophylaxis. 4. Antibiotic prophylaxis. 5. Inpatient hospitalization greater than 2 nights. 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 History of Any Multi-Drug Resistant Organisms: None Reported Past Surgical History: Bariatric Surgery, Hernia Repair, Joint Replacement, Orthopedic Surgery, Tonsillectomy Additional Past Surgical History / Comment(s): Armand total knees, incisional hernia, gastric bypass 20 years ago. 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 Past Anesthesia/Blood Transfusion Reactions: No Reported Reaction, Motion Sickness Past Psychological History: Anxiety, Depression Smoking Status: Never smoker Past Alcohol Use History: Occasional Past Drug Use History: None Reported - Past Family History Mother Family Medical History: No Reported History Medications and Allergies Home Medications Medication Instructions Recorded Confirmed Type Topiramate [Topamax] 100 mg PO BID 02/17/15 08/24/20 History busPIRone HCl [Buspar] 15 mg PO BID 02/17/15 08/24/20 History Vpyarra-Oouh-Zyrf [phone] 1 tab PO DAILY PRN 07/01/19 08/24/20 History [Excedrin] Atorvastatin Calcium [Lipitor] 20 mg PO DAILY 03/26/20 08/24/20 History Cholecalciferol [Vitamin D3 (25 1,000 unit PO DAILY 03/26/20 08/24/20 History Mcg = 1000 Iu)] DULoxetine HCL [Cymbalta] 30 mg PO QAM 03/26/20 08/24/20 History DULoxetine HCL [Cymbalta] 60 mg PO HS 03/26/20 08/24/20 History Levothyroxine Sodium [Synthroid] 100 mcg PO DAILY 03/26/20 08/24/20 History Zolpidem [Ambien] 5 - 10 mg PO HS PRN 03/26/20 08/24/20 History buPROPion HCL [Wellbutrin SR] 150 mg PO BID 03/26/20 08/24/20 History Aspirin [Adult Low Dose Aspirin EC] 162 mg PO DAILY 06/03/20 08/24/20 History Omeprazole [PriLOSEC] 40 mg PO DAILY #90 cap 06/08/20 08/24/20 Rx Ferrous Sulfate [Feosol] 325 mg PO DAILY 08/24/20 08/24/20 History HYDROcodone/APAP 10-325MG [[place] 1 tab PO QID 08/24/20 08/24/20 History 10-325] Multivit with Calcium,Iron,Min 1 each PO DAILY 08/24/20 08/24/20 History [Women's Multivitamin] [place]-3 Fatty Acids/Fish Oil [Fish 1 each PO DAILY 08/24/20 08/24/20 History Oil 1,000 mg Softgel] Allergies Allergy/AdvReac Type Severity Reaction Status Date / Time Penicillins Allergy makes Verified 08/24/20 17:22 hands itch
[~2020-08-26 07:20] MED LIST changes: +ACETAMINOPHEN TAB 500 MG TAB PO ONE; +ALVIMOPAN 12 MG CAPSULE PO ONE; +Antibiotics per Pharmacy 1 EACH MISC MISCELLANE PRN; +DEXAMETHASONE SOD PHOSPHATE 10 MG/ML 1 ML VIAL IV ONE; +GABAPENTIN 300 MG CAP PO STA; +HEPARIN SODIUM,PORCINE 5,000 UNIT/ML 1 ML VIAL SQ ONE; +HYDROmorphone 0.5 MG/0.5 ML SYRINGE IVP PRN; -LACTATED RINGERS 1,000 ML IV SCH; +LIDOCAINE 1% (10MG/ML) FOR IV START INTRADERMA PRN; +MELOXICAM 7.5 MG TAB PO ONE; +MIDAZOLAM 2 MG/2 ML VIAL IV PRN; +ONDANSETRON 4 MG/2 ML VIAL IVP ONE; +fentaNYL (PF) 50 MCG/ML 2 ML AMP IVP PRN; +metroNIDAZOLE-NS PMX 500 MG in SALINE 1 100ML.BAG IVPB ONE
[2020-08-26] MEDS: LACTATED RINGERS 1,000 ML IV SCH (08:15)
[2020-08-26 08:23] LABS: Basophils # (A) 0.1 k/uL (0-0.2); Basophils % (A) 1 %; Eosinophils # (A) 0.2 k/uL (0-0.7); Eosinophils % (A) 3 %; HCT 39.4 % (34.0-46.0); HGB 12.6 gm/dL (11.4-16.0); Lymphocytes # (A) 0.6 k/uL (1.0-4.8); Lymphocytes % (A) 8 %; MCH 31.3 pg (25.0-35.0); MCV 97.9 fL (80.0-100.0); Monocytes # (A) 0.3 k/uL (0-1.0); Monocytes % (A) 4 %; Neutrophils # (A) 5.9 k/uL (1.3-7.7); Neutrophils % (A) 84 %; Platelet Count 306 k/uL (150-450); RBC 4.02 m/uL (3.80-5.40); RDW 13.6 % (11.5-15.5); WBC 7.1 k/uL (3.8-10.6)
[2020-08-26 08:31] LABS: ALT 50 U/L (4-34); AST 68 U/L (14-36); African American GFR (CKD) >90 (>60 ml/min/1.73 sqM); Albumin 4.1 g/dL (3.5-5.0); Alkaline Phosphatase 97 U/L (38-126); Anion Gap 9 mmol/L; Blood Urea Nitrogen 14 mg/dL (7-17); Calcium 8.7 mg/dL (8.4-10.2); Carbon Dioxide 24 mmol/L (22-30); Chloride 108 mmol/L (98-107); Glucose 53 mg/dL (74-99); Non-African American GFR(CKD) 79 (>60 ml/min/1.73 sqM); Potassium 3.4 mmol/L (3.5-5.1); Sodium 141 mmol/L (137-145); Total Bilirubin 0.4 mg/dL (0.2-1.3); Total Protein 6.6 g/dL (6.3-8.2)
[2020-08-26] MEDS ORDERED: WATER FOR INJECTION, STERILE 10 ML VIAL IV ONE (09:44)
[2020-08-26] MEDS ORDERED: SUCCINYLCHOLINE CHLORIDE 100 MG/5 ML SYR IV ONE (09:44)
[2020-08-26] MEDS ORDERED: PHENYLEPHRINE-0.9% NACL SYG 1 MG/10 ML SYRINGE ONE (09:44)
[2020-08-26] MEDS ORDERED: diphenhydrAMINE 50 MG/ML 1 ML VIAL ONE (09:44)
[2020-08-26] MEDS ORDERED: GLYCOPYRROLATE 0.2 MG/ML 2 ML VIAL ONE (09:44)
[2020-08-26] MEDS ORDERED: VECURONIUM 10 MG VIAL IV ONE (09:44)
[2020-08-26] MEDS ORDERED: PROPOFOL 10 MG/ML 20 ML VIAL IV ONE (09:44)
[2020-08-26] MEDS ORDERED: ePHEDrine SULFATE/0.9% NACL/PF 50 MG/5 ML SYRINGE IV ONE (09:44)
[2020-08-26] MEDS ORDERED: fentaNYL (PF) 50 MCG/ML 2 ML AMP ONE (09:44)
[2020-08-26] MEDS ORDERED: NEOSTIGMINE 1 MG/ML 10 ML VIAL ONE (09:44)
[2020-08-26] MEDS ORDERED: BUPIVACAINE (PF) 0.25% 30 ML VIAL SQ ONE (10:27)
[2020-08-26] MEDS ORDERED: LACTATED RINGERS 1,000 ML IV ONE (11:06)
[2020-08-26] MEDS ORDERED: NALOXONE 0.4 MG/ML 1 ML VIAL IV PRN (11:14)
[2020-08-26] MEDS ORDERED: ROPIVACAINE 250 MG, HYDROMORPHONE (PF) 5 MG in SODIUM CHLORIDE 0.9% 200 ML EPIDURAL PRN (11:45)
[2020-08-26] MEDS ORDERED: BENZOCAINE/MENTHOL LOZENG 1 EACH LOZENGE MUCOUS MEM PRN (13:35)
[2020-08-26] MEDS ORDERED: METOCLOPRAMIDE 5 MG/ML 2 ML VIAL IVP PRN (13:35)
--- NOTE | 2020-08-26 13:49 | P.OP ---
Date of Procedure: 08/26/20 Description of Procedure: SURGEON: YOSSI AVILES MD DIRECTOR OF TEACHING AND LEARNING: NONE. PREOPERATIVE DIAGNOSIS: 1. Abnormal barium enema for malignant neoplasm 2. Elevated tumor markers 3. Generalized abdominal pain 4. History of gastric bypass 5. History of multiple abdominal surgeries 6. Peritoneal adhesions 7. History of ventral hernia repair with mesh 8. Congenital heart defect 9. Depressive disorder 10. Hypothyroidism 11. Iron deficiency anemia 12. Chronic pain syndrome 13. History of acoustic neuroma POSTOPERATIVE DIAGNOSIS: 1. Abnormal barium enema for malignant neoplasm 2. Elevated tumor markers 3. Generalized abdominal pain 4. History of gastric bypass 5. History of multiple abdominal surgeries 6. Peritoneal adhesions 7. History of ventral hernia repair with mesh 8. Congenital heart defect 9. Depressive disorder 10. Hypothyroidism 11. Iron deficiency anemia 12. Chronic pain syndrome 13. History of acoustic neuroma 14. Cecal volvulus 15. Peritoneal adhesions 16. Internal hernia Procedure(s) Performed: 1. Diagnostic laparoscopy converted to open lysis of adhesions, 2. Exploratory laparotomy with extended right hemicolectomy 3. Reduction of internal hernia Anesthesia: GETA, epidural, local Pathology: other (Ileocolectomy with appendix en bloc) Complications: None. Estimated Blood Loss (ml): 75 Condition: stable Disposition: floor Operative Findings: 1. Redundant cecum including hepatic flexure with active cecal volvulus 2. Internal hernia of the right lower quadrant reduced of cecum 3. Small bowel volvulus along jejunal mesentery and ileal mesentery reduced 4. Features of retrocolic retrogastric gastric bypass 5. High hepatic flexure to retroperitoneum reduced 6. Highly redundant sigmoid colon and splenic flexure INDICATIONS: The patient is a 65-year-old female who presented with abdominal pain, history of gastric bypass. She had a colonoscopy demonstrating a defect along the hepatic flexure. A barium enema also confirmed a potential malignant neoplasm with elevated tumor markers. Surgical intervention was advised with laparoscopic technique including possibility of open exploratory laparotomy with ileocolectomy. Benefits and risks of the procedures were discussed. Informed consent was obtained. DESCRIPTION: An epidural was placed per anesthesia. The patient was brought to the operating room. After general induction, a Bruner catheter was placed. The abdomen was prepped and draped in standard sterile fashion. Ioban draping was also placed. Prior to incision, a timeout protocol was confirmed with surgical team regarding patient's name including procedures to be performed. Preoperative medications were confirmed. At the left upper quadrant, a 5 mm 0 laparoscopic trocar entry was performed to enter into the abdominal cavity. The abdomen was insufflated to 15 mmHg pressure which she tolerated. Dense adhesions were identified incorporating the midline including small bowel prohibiting further entry into the abdomen. Given the dense adhesions, open technique was performed. A #10 blade was used to enter along the epigastrium and extended down to the pubis. Carefully the abdomen was entered using electro- Bovie cautery. Dense adhesions were found along the midline and previous mesh repair was identified. Using Metzenbaum scissor including blunt dissection, the mesentery including small bowel carefully taken down from the abdominal wall. No enterotomies occurred. The abdomen was explored and no peritoneal deposits were identified. The liver surface was unremarkable. Attention was brought to the right lower quadrant and the terminal ileum was identified. At 5 cm proximal to ileocecal valve, the ileum was mobilized along the mesentery. A enteric window was created using Bovie cautery. The small bowel was divided using Covidien staple load 60 mm purple. The ascending colon was mobilized using Ethicon Enseal device. The redundant hepatic flexure was densely adhered to the retroperitoneum and carefully mobilized to the mid transverse colon. Adhesions from previous cholecystectomy were also taken down using Enseal. The cecum was highly redundant and within the deep pelvis with features of cecal volvulus including internal hernia along the right lower quadrant mesentery. The cecum was reduced from the internal hernia and the volvulus was detorsed. The colon and small bowel was viable. Additionally, the ileum jejunal mesentery was also rotated with a small bowel volvulus and similarly detorsed. The mid transverse colon was divided using a OMAR 60 mm purple tri-stapler load. An isoperistaltic primary anastomosis was prepared from the ileum to the transverse colon after creating enterotomy and colotomy along the antimesenteric border. A javon-lumen was created using purple 60-mm staple loads. The enterotomies were closed using similar staple load. The right lower quadrant mesenteric defect was closed using 2-0 VLOC nonabsorbable. Hemostasis was checked prior to closure. The abdomen was dried using towels. The sponge count was verified as correct. The abdomen was closed using double stranded 0 PDS. The skin incision was reapproximated using interrupted 3-0 Vicryl followed by running subcuticular 3-0 Monocryl for the dermis. An incisional length Optifoam dressing was placed. At the end of the procedure, needle, sponge, and instrument count had been verified correct by the surgical product sales consultant. The patient was sent to the postanesthesia care unit in stable condition. An abdominal binder was placed. The patient's family was pleased with the level of care.
[2020-08-26] MEDS: HYDROcodone/APAP 10-325MG 1 EACH TAB PO SCH ×2 (17:45→20:37)
[2020-08-26] MEDS: busPIRone HCl 5 MG TAB PO SCH (20:51)
[2020-08-26] MEDS: HEPARIN SODIUM,PORCINE 5,000 UNIT/ML 1 ML VIAL SQ SCH (20:51)
[2020-08-26] MEDS: TOPIRAMATE 100 MG TAB PO SCH (20:52)
[2020-08-26] MEDS: buPROPion SR 150 MG TABLET.ER PO SCH (20:52)
[2020-08-26] MEDS: DULoxetine HCL 60 MG CAPSULE.DR PO SCH (20:52)
[2020-08-26] MEDS: ZOLPIDEM 10 MG TAB PO PRN (23:17)
[2020-08-27] MEDS: SODIUM CHLORIDE 0.9% 1,000 ML IV SCH ×2 (05:59→16:37)
[2020-08-27] MEDS: LACTATED RINGERS 1,000 ML IV SCH (05:59)
[2020-08-27] MEDS: LEVOTHYROXINE 100 MCG TAB PO SCH (06:02)
[2020-08-27] MEDS: HYDROcodone/APAP 10-325MG 1 EACH TAB PO SCH ×4 (06:52→21:07)
[2020-08-27 07:17] LABS: Basophils % (A) 0 %; Eosinophils # (A) 0.1 k/uL (0-0.7); Eosinophils % (A) 1 %; HCT 34.6 % (34.0-46.0); Lymphocytes # (A) 0.7 k/uL (1.0-4.8); Lymphocytes % (A) 11 %; MCH 31.4 pg (25.0-35.0); MCHC 31.8 g/dL (31.0-37.0); MCV 98.8 fL (80.0-100.0); Monocytes # (A) 0.3 k/uL (0-1.0); Monocytes % (A) 4 %; Neutrophils # (A) 5.7 k/uL (1.3-7.7); Neutrophils % (A) 83 %; Platelet Count 255 k/uL (150-450); RDW 13.6 % (11.5-15.5); WBC 6.8 k/uL (3.8-10.6)
[2020-08-27] MEDS: ALVIMOPAN 12 MG CAPSULE PO SCH ×2 (07:57→21:07)
[2020-08-27] MEDS: busPIRone HCl 5 MG TAB PO SCH ×2 (07:58→21:07)
[2020-08-27] MEDS: TOPIRAMATE 100 MG TAB PO SCH ×2 (07:58→21:07)
[2020-08-27] MEDS: FERROUS SULFATE 325 MG TAB PO SCH (07:58)
[2020-08-27] MEDS: HEPARIN SODIUM,PORCINE 5,000 UNIT/ML 1 ML VIAL SQ SCH ×2 (07:58→21:08)
[2020-08-27] MEDS: ASPIRIN 81 MG PO SCH (07:58)
[2020-08-27] MEDS: DULoxetine HCL 30 MG CAPSULE.DR PO SCH (07:59)
[2020-08-27 08:43] LABS: African American GFR (CKD) >90 (>60 ml/min/1.73 sqM); Anion Gap 1 mmol/L; Blood Urea Nitrogen 8 mg/dL (7-17); Calcium 8.2 mg/dL (8.4-10.2); Carbon Dioxide 26 mmol/L (22-30); Chloride 110 mmol/L (98-107); Glucose 87 mg/dL (74-99); Non-African American GFR(CKD) >90 (>60 ml/min/1.73 sqM); Potassium 3.4 mmol/L (3.5-5.1); Sodium 137 mmol/L (137-145)
[2020-08-27] MEDS: LEVOFLOXACIN 500MG-D5W PMX 500 MG in DEXTROSE/WATER 1 100ML.BAG IVPB SCH (10:24)
[2020-08-27] MEDS: buPROPion SR 150 MG TABLET.ER PO SCH ×2 (10:24→21:07)
[2020-08-27] MEDS: metroNIDAZOLE-NS PMX 500 MG in SALINE 1 100ML.BAG IVPB SCH ×2 (11:32→16:42)
--- NOTE | 2020-08-27 16:58 | P.PN ---
Progress Note - Text Progress Note Date: 08/27/20 Postoperative day # 1 status post explaretory laparotomy, right hemicolectomy , epidural catheter placed for postoperative analgesia, patient doing well epidural site okay, patient currently on combination of epidural infusion solution of Ropivacaine 0.0625% and Dilaudid 20 g per mL the infusion rate at 3 ml per hour , epidural infusion was decreased overnight because patient had episode of hypotension , patient had no motor deficit epidural site okay , vital signs stable ,VAS 5/10 , patient able to ambulate on her own Assessment and plan= post operative day #1 , the epidural infusion will be increased to 3.5 mL per hour, will monitor blood pressure.
[2020-08-27] MEDS ORDERED: TAMSULOSIN 0.4 MG CAP.ER.24H PO STA (17:00)
[2020-08-27] MEDS ORDERED: POTASSIUM CHLORIDE ER 20 MEQ TAB.ER PO STA (17:00)
[2020-08-27] MEDS ORDERED: MAGNESIUM SULFATE-D5W PMX 1 GM in DEXTROSE/WATER 1 100ML.BAG IVPB SCH (17:00)
--- NOTE | 2020-08-27 17:05 | P.PN ---
Subjective Progress Note Date: 08/27/20 CHIEF COMPLAINT: Cecal volvulus HISTORY OF PRESENT ILLNESS: The patient is a 65-year-old female admitted after abnormal barium enema including colonoscopy for malignant lesion with elevated tumor markers. She is status post open right hemicolectomy with findings of internal hernia and colon cecal volvulus. Her pain is well controlled. "I feel great!" She is already passing flatus. She is ambulating. She feels well. ROS: No reports of nausea and vomiting. No bowel movements. No fevers or chi lls. No new chest pain. No productive sputum PHYSICAL EXAM: VITAL SIGNS: Reviewed CONSTITUTIONAL: Well developed and in no acute distress. EYES: Conjuctivae without sclera icterus. Extraocular movements grossly intact. HEAD, EARS, NOSE, THROAT: Moist buccal mucosa. Head is atraumatic, normoc ephalic. Hears conversational speech. No nasal drainage. NECK: Supple. No thyroidomegaly. RESPIRATORY: Non-labored respirations and equal bilateral excursions. CARDIOVASCULAR: Palpable 2+ radial pulses. Regular rate. Regular rhythm. ABDOMEN: Dressings intact MUSCULOSKELETAL: No gross deformity of the lower extremities noted. No clubbing. No cyanosis. SKIN: Good skin turgor. Well perfused. NEUROLOGIC: Cranial nerves II through XII grossly intact. No focal or lateralizing signs. PSYCH: Appropriate affect. Alert and oriented to person, place and time. CLINICAL LABS: White blood cell count normal, 6.8. Hemoglobin, 12.6-11.0. Potassium low 3.4 ASSESSMENT: 1. Cecal volvulus 2. Hypokalemia, present on admission PLAN: 1. Remove epidural and remove connell. 2. Replace low potassium 3. Disposition 48 hrs. 4. Surgical findings were reviewed in detail Objective - Vital Signs Vital signs: Vital Signs Temp 98.2 F 08/27/20 07:00 Pulse 74 08/27/20 11:36 Resp 18 08/27/20 07:00 BP 94/60 08/27/20 11:36 Pulse Ox 97 08/27/20 07:00 Intake & Output 08/26/20 08/27/20 08/27/20 18:59 06:59 18:59 Intake Total 2004 150 Output Total 250 1600 Balance 1755 -1450 Weight 61.6 kg Intake: IV 2004 Intake, IV Titration 150 Amount Sodium Chloride 0.9% 1, 150 000 ml @ 75 mls/hr IV . [id number] [facility] Rx#:[id number] Output: Urine 175 1600 Estimated Blood Loss 75 Other: Voiding Method Indwelling Catheter Indwelling Catheter # Voids 1 - Labs CBC & Chem 7: 08/27/20 06:20 08/27/20 06:20 Labs: Abnormal Lab Results - Last 24 Hours (Table) 08/27/20 08/27/20 Range/Units 06:20 06:20 RBC 3.50 L (3.80-5.40) m/uL Hgb 11.0 L (11.4-16.0) gm/dL Lymphocytes # 0.7 L (1.0-4.8) k/uL Potassium 3.4 L (3.5-5.1) mmol/L Chloride 110 H (98-107) mmol/L Calcium 8.2 L (8.4-10.2) mg/dL
[2020-08-27] MEDS: MAGNESIUM SULFATE-D5W PMX 1 GM in DEXTROSE/WATER 1 100ML.BAG IVPB SCH ×2 (21:06→23:01)
[2020-08-27] MEDS: DULoxetine HCL 60 MG CAPSULE.DR PO SCH (21:09)
[2020-08-27] MEDS: ZOLPIDEM 10 MG TAB PO PRN (23:55)
[2020-08-28] MEDS: metroNIDAZOLE-NS PMX 500 MG in SALINE 1 100ML.BAG IVPB SCH ×4 (01:23→23:24)
[2020-08-28] MEDS: SODIUM CHLORIDE 0.9% 1,000 ML IV SCH (04:05)
[2020-08-28] MEDS: LACTATED RINGERS 1,000 ML IV SCH (04:05)
[2020-08-28] MEDS: LEVOTHYROXINE 100 MCG TAB PO SCH (05:52)
[2020-08-28 06:25] LABS: Basophils % (A) 0 %; Eosinophils # (A) 0.2 k/uL (0-0.7); Eosinophils % (A) 3 %; HCT 32.3 % (34.0-46.0); HGB 10.6 gm/dL (11.4-16.0); Lymphocytes # (A) 0.3 k/uL (1.0-4.8); Lymphocytes % (A) 5 %; MCH 32.1 pg (25.0-35.0); MCHC 32.8 g/dL (31.0-37.0); MCV 98.1 fL (80.0-100.0); Monocytes # (A) 0.2 k/uL (0-1.0); Monocytes % (A) 4 %; Neutrophils # (A) 5.6 k/uL (1.3-7.7); Neutrophils % (A) 87 %; Platelet Count 199 k/uL (150-450); RBC 3.29 m/uL (3.80-5.40); RDW 13.6 % (11.5-15.5); WBC 6.4 k/uL (3.8-10.6)
[2020-08-28] MEDS: ALVIMOPAN 12 MG CAPSULE PO SCH ×2 (07:54→20:56)
[2020-08-28] MEDS: HYDROcodone/APAP 10-325MG 1 EACH TAB PO SCH ×4 (08:28→22:41)
[2020-08-28] MEDS: ASPIRIN 81 MG PO SCH (08:29)
[2020-08-28] MEDS: busPIRone HCl 5 MG TAB PO SCH ×2 (08:29→21:09)
[2020-08-28] MEDS: FERROUS SULFATE 325 MG TAB PO SCH (08:30)
[2020-08-28] MEDS: DULoxetine HCL 30 MG CAPSULE.DR PO SCH (08:30)
[2020-08-28] MEDS: HEPARIN SODIUM,PORCINE 5,000 UNIT/ML 1 ML VIAL SQ SCH ×2 (08:30→21:09)
[2020-08-28] MEDS: TOPIRAMATE 100 MG TAB PO SCH ×2 (08:30→21:11)
[2020-08-28] MEDS: buPROPion SR 150 MG TABLET.ER PO SCH ×2 (08:30→21:09)
[2020-08-28 10:49] LABS: African American GFR (CKD) 110.1 (60.0-200.0); Anion Gap 7.6 mmol/L (4.00-12.00); BUN/Creat Ratio 8.33 Ratio (12.00-20.00); Calcium 8.5 mg/dL (8.7-10.3); Carbon Dioxide 21.4 mmol/L (21.6-31.8); Potassium 3.9 mmol/L (3.5-5.5)
[2020-08-28] MEDS: HYDROmorphone 1 MG/ML 1 ML SYRINGE IVP PRN (11:17)
[2020-08-28] MEDS: LEVOFLOXACIN 500MG-D5W PMX 500 MG in DEXTROSE/WATER 1 100ML.BAG IVPB SCH (11:18)
--- NOTE | 2020-08-28 14:55 | P.PN ---
Subjective Progress Note Date: 08/28/20 CHIEF COMPLAINT: Cecal volvulus HISTORY OF PRESENT ILLNESS: The patient is a 65-year-old female admitted after abnormal barium enema including colonoscopy for malignant lesion with elevated tumor markers. She is status post open right hemicolectomy with findings of internal hernia and colon cecal volvulus. She is postoperative day 2. Epidural: Bruner catheter was discontinued yesterday. She complains of pre- existing back pain. She is passing flatus. "I am peeing alot." She is eager to try more food. She denies abdominal gas bloat. ROS: No reports of nausea and vomiting. No bowel movements. No fevers or chills. No new chest pain. No productive sputum PHYSICAL EXAM: VITAL SIGNS: Reviewed CONSTITUTIONAL: Well developed and in no acute distress. EYES: Conjuctivae without sclera icterus. Extraocular movements grossly intact. HEAD, EARS, NOSE, THROAT: Moist buccal mucosa. Head is atraumatic, normocephalic. Hears conversational speech. No nasal drainage. NECK: Supple. No thyroidomegaly. RESPIRATORY: Non-labored respirations and equal bilateral excursions. CARDIOVASCULAR: Palpable 2+ radial pulses. ABDOMEN: Dressings intact with binder. MUSCULOSKELETAL: No gross deformity of the lower extremities noted. No clubbing. No cyanosis. SKIN: Good skin turgor. Well perfused. NEUROLOGIC: Cranial nerves II through XII grossly intact. No focal or lateralizing signs. PSYCH: Appropriate affect. Alert and oriented to person, place and time. CLINICAL LABS: White blood cell count normal, 6.8. Hemoglobin, 12.6-11.0, now 10.6. Potassium normal 3.9 ASSESSMENT: 1. Cecal volvulus 2. Hypokalemia, present on admission 3. Chronic back pain PLAN: 1. Start protein shakes 2. Trial of regular diet. She is encouraged to discontinue diet for any worsening abdominal pain. 3. Disposition in 48 hrs pending bowel function. Objective - Vital Signs Vital signs: Vital Signs Temp 98.1 F 08/28/20 07:00 Pulse 96 08/28/20 07:00 Resp 16 08/28/20 07:00 BP 108/71 08/28/20 07:00 Pulse Ox 93 L 08/28/20 07:00 Intake & Output 08/27/20 08/28/20 08/28/20 19:59 06:59 18:59 Intake Total 180 Output Total Balance 180 Intake: Intake, IV Titration Amount Magnesium Sulfate-D5w Pmx 1 gm In Dextrose/Water 1 100ml.bag @ 100 mls/hr IVPB Q1H [facility] Rx#: [id number] Magnesium Sulfate-D5w Pmx 1 gm In Dextrose/Water 1 100ml.bag @ 100 mls/hr IVPB Q1H [facility] Rx#: [id number] Ropivacaine 250 mg Hydromorphone (Pf) 5 mg In Sodium Chloride 0.9% 200 ml @ Per Protocol EPIDURAL .Q0M PRN Rx#: [id number] Oral 180 Output: Urine Other: Voiding Method Toilet # Voids - Labs CBC & Chem 7: 08/28/20 05:55 08/28/20 05:55 Labs: Abnormal Lab Results - Last 24 Hours (Table) 08/28/20 08/28/20 Range/Units 05:55 05:55 RBC 3.29 L (3.80-5.40) m/uL Hgb 10.6 L (11.4-16.0) gm/dL Hct 32.3 L (34.0-46.0) % Lymphocytes # 0.3 L (1.0-4.8) k/uL Chloride 111 H (96-109) mmol/L Carbon Dioxide 21.4 L (21.6-31.8) mmol/L BUN 5.0 L (9.0-27.0) mg/dL BUN/Creatinine Ratio 8.33 L (12.00-20.00) Ratio Calcium 8.5 L (8.7-10.3) mg/dL
[2020-08-28] MEDS: DULoxetine HCL 60 MG CAPSULE.DR PO SCH (21:09)
[2020-08-28] MEDS: ZOLPIDEM 10 MG TAB PO PRN (21:09)
[2020-08-29] MEDS: LACTATED RINGERS 1,000 ML IV SCH (03:33)
[2020-08-29] MEDS: LEVOTHYROXINE 100 MCG TAB PO SCH (05:37)
[2020-08-29 07:11] VITALS: BP 108/70; PULSE 99; RESP 16; TEMP 98.4
[2020-08-29] MEDS: HYDROcodone/APAP 10-325MG 1 EACH TAB PO SCH ×2 (07:23→12:27)
[2020-08-29] MEDS: FERROUS SULFATE 325 MG TAB PO SCH (07:24)
[2020-08-29] MEDS: busPIRone HCl 5 MG TAB PO SCH (07:24)
[2020-08-29] MEDS: ASPIRIN 81 MG PO SCH (07:24)
[2020-08-29] MEDS: TOPIRAMATE 100 MG TAB PO SCH (07:24)
[2020-08-29] MEDS: metroNIDAZOLE-NS PMX 500 MG in SALINE 1 100ML.BAG IVPB SCH (07:25)
[2020-08-29] MEDS: ALVIMOPAN 12 MG CAPSULE PO SCH (07:25)
[2020-08-29] MEDS: DULoxetine HCL 30 MG CAPSULE.DR PO SCH (07:26)
[2020-08-29] MEDS: buPROPion SR 150 MG TABLET.ER PO SCH (07:26)
[2020-08-29] MEDS: HEPARIN SODIUM,PORCINE 5,000 UNIT/ML 1 ML VIAL SQ SCH (07:26)
[2020-08-29] MEDS: LEVOFLOXACIN 500MG-D5W PMX 500 MG in DEXTROSE/WATER 1 100ML.BAG IVPB SCH (09:40)
[2020-08-29] MEDS: HYDROmorphone 1 MG/ML 1 ML SYRINGE IVP PRN (09:57)
--- NOTE | 2020-08-29 12:00 | P.DS ---
Providers Date of admission: 08/26/20 07:20 Expected date of discharge: 08/29/20 Attending physician: Marychuy Martinez Primary care physician: Terry Cason Hospital Course: Discharge diagnosis 1. Cecal volvulus 2. Hypokalemia, present on admission 3. Chronic back pain Hospital course The patient is a 65-year-old female with diverticulosis including abnormal colonoscopy and barium enema with apple core lesion at the hepatic flexure. Her tumor markers are elevated. Patient is status post Diagnostic laparoscopy converted to open extended right hemicolectomy, lysis of adhesions, reduction of internal hernia. Patient tolerated surgery well. Pain is controlled. She is tolerating regular diet. She is up and ambulating. Her pain is controlled. She is passing gas. Patient is afebrile. She is stable for discharge. 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 Signing provider agrees with the documented findings, assessment, and plan of care. Patient Condition at Discharge: Stable Plan - Discharge Summary Discharge Rx Participant: Yes New Discharge Prescriptions: Continue busPIRone HCl [Buspar] 15 mg PO BID Topiramate [Topamax] 100 mg PO BID Levothyroxine Sodium [Synthroid] 100 mcg PO DAILY DULoxetine HCL [Cymbalta] 60 mg PO HS DULoxetine HCL [Cymbalta] 30 mg PO QAM Zolpidem [Ambien] 5 - 10 mg PO HS PRN PRN Reason: Insomnia buPROPion HCL [Wellbutrin SR] 150 mg PO BID Aspirin [Adult Low Dose Aspirin EC] 162 mg PO DAILY Omeprazole [PriLOSEC] 40 mg PO DAILY #90 cap HYDROcodone/APAP 10-325MG [Fedora 10-325] 1 tab PO QID Ferrous Sulfate [Iron (65 MG Elemental)] 325 mg PO DAILY Discontinued [id number] [Excedrin] 1 tab PO DAILY PRN PRN Reason: Headache Cholecalciferol [Vitamin D3 (25 Mcg = 1000 Iu)] 1,000 unit PO DAILY Atorvastatin Calcium [Lipitor] 20 mg PO DAILY Multivit with Calcium,Iron,Min [Women's Multivitamin] 1 each PO DAILY [place]-3 Fatty Acids/Fish Oil [Fish Oil 1,000 mg Softgel] 1 each PO DAILY Discharge Medication List Topiramate [Topamax] 100 mg PO BID 02/17/15 [History] busPIRone HCl [Buspar] 15 mg PO BID 02/17/15 [History] DULoxetine HCL [Cymbalta] 30 mg PO QAM 03/26/20 [History] DULoxetine HCL [Cymbalta] 60 mg PO HS 03/26/20 [History] Levothyroxine Sodium [Synthroid] 100 mcg PO DAILY 03/26/20 [History] Zolpidem [Ambien] 5 - 10 mg PO HS PRN 03/26/20 [History] buPROPion HCL [Wellbutrin SR] 150 mg PO BID 03/26/20 [History] Aspirin [Adult Low Dose Aspirin EC] 162 mg PO DAILY 06/03/20 [History] Omeprazole [PriLOSEC] 40 mg PO DAILY #90 cap 06/08/20 [Rx] Ferrous Sulfate [Iron (65 MG Elemental)] 325 mg PO DAILY 08/24/20 [History] HYDROcodone/APAP 10-325MG [[place]ora 10-325] 1 tab PO QID 08/24/20 [History] Follow up Appointment(s)/Referral(s): Marychuy Martinez MD [STAFF PHYSICIAN] - 09/06/20 Activity/Diet/Wound Care/Special Instructions: Continue with Fedora prescription for pain as prescribed. Please contact your pain service physician if further pain medication is needed Wear abdominal binder at all times for comfort. No lifting over 4 pounds in 4 weeks until Sep 26. May shower. No bath tub soaks for two weeks until Sep 12 Avoid steak, tough meats and seeds such as raspberry seeds. Use ice along incisions for the today to prevent swelling. No carbonated beverages until patient is having bowel movements Discharge Disposition: HOME SELF-CARE
[2020-08-29] MEDS ORDERED: metroNIDAZOLE 500 MG TAB PO SCH (22:00)
[2020-08-30] MEDS ORDERED: LEVOFLOXACIN 500 MG TAB PO SCH (09:00)
== END 2020-08-29 14:02 | disposition home or self-care (01) | DRG 330 ==
LOC: 2ORMAIN 07:20 → 4SSUR 13:34
PROVIDERS: ADMIT Surgery Plastic and Reconstructive Surgery; ATTEND Surgery Plastic and Reconstructive Surgery
PROC: 0DJD0ZZ Inspection of Lower Intestinal Tract, Open Approach (ICD-10-PCS; principal; 2020-08-26 08:45)
PROC: 0DTF0ZZ Resection of Right Large Intestine, Open Approach (ICD-10-PCS; principal; 2020-08-26 08:45)
PROC: 0DNE0ZZ Release Large Intestine, Open Approach (ICD-10-PCS; principal; 2020-08-26 08:45)
PROC: 0WQF0ZZ Repair Abdominal Wall, Open Approach (ICD-10-PCS; principal; 2020-08-26 08:45)
DX: K56.2 Volvulus (principal); Q43.8 Other specified congenital malformations of intestine; K66.0 Peritoneal adhesions (postprocedural) (postinfection); K57.90 Diverticulosis of intestine, part unspecified, without perforation or abscess without bleeding; K46.9 Unspecified abdominal hernia without obstruction or gangrene; H91.91 Unspecified hearing loss, right ear; G89.29 Other chronic pain; F41.9 Anxiety disorder, unspecified; F32.9 Major depressive disorder, single episode, unspecified; E87.6 Hypokalemia; M19.90 Unspecified osteoarthritis, unspecified site; M54.9 Dorsalgia, unspecified; Z53.31 Laparoscopic surgical procedure converted to open procedure; Z79.82 Long term (current) use of aspirin; Z79.890 Hormone replacement therapy; Z79.899 Other long term (current) drug therapy; Z85.038 Personal history of other malignant neoplasm of large intestine; Z98.84 Bariatric surgery status; Z98.890 Other specified postprocedural states; Z88.0 Allergy status to penicillin
CPT/HCPCS: 80048; 80053; 83735; 85025; 86850; 86900; 86901; 88307

== ENCOUNTER → 2020-10-10 | Outpatient (CLI) | payer MEDICARE ==
[2020-10-10 17:45] LABS: Basophils % (A) 1 %; Eosinophils # (A) 0.3 k/uL (0-0.7); Eosinophils % (A) 5 %; HCT 36.3 % (34.0-46.0); HGB 11.7 gm/dL (11.4-16.0); Lymphocytes # (A) 0.6 k/uL (1.0-4.8); Lymphocytes % (A) 10 %; MCH 31.3 pg (25.0-35.0); MCHC 32.3 g/dL (31.0-37.0); MCV 96.9 fL (80.0-100.0); Monocytes # (A) 0.2 k/uL (0-1.0); Monocytes % (A) 3 %; Neutrophils # (A) 4.8 k/uL (1.3-7.7); Neutrophils % (A) 81 %; Platelet Count 272 k/uL (150-450); RBC 3.75 m/uL (3.80-5.40); RDW 12.9 % (11.5-15.5); Reticulocyte % 1.4 % (0.5-2.0); WBC 5.9 k/uL (3.8-10.6)
[2020-10-11 03:43] LABS: Insulin Level 18.8 mIU/mL (3.0-25.0)
[2020-10-11 04:15] LABS: Ferritin 20.5 ng/mL (10.0-291.0)
[2020-10-11 04:42] LABS: % Iron Saturation 25.75 (12.00-45.00); ALT 62 U/L (8-44); AST 58 U/L (13-35); Albumin/Globulin Ratio 2.53 (1.60-3.17); Alkaline Phosphatase 110 U/L (41-126); Carbon Dioxide 21.4 mmol/L (21.6-31.8); Chloride 111 mmol/L (96-109); Folate, Serum >24.0 ng/mL; Globulin 1.5 g/dL (1.6-3.3); Glucose 125 mg/dL (70-110); Iron 77 ug/dL (50-170); Non-African American GFR(CKD) 76.8 (60.0-200.0); Potassium 3.9 mmol/L (3.5-5.5); Sodium 141 mmol/L (135-145); Total Bilirubin 0.1 mg/dL (0.3-1.2); Total Iron Binding Capacity 299 ug/dL (228-460); Total Protein 5.3 g/dL (6.2-8.2)
[2020-10-12 14:45] LABS: Estrogens Total 128 pg/mL
[2020-10-13 07:13] LABS: Vit B1(Thiamine) 100 ug/L (38-122)
== END | disposition home or self-care (01) ==
LOC: LABWHC1 15:58
PROVIDERS: ATTEND Psychiatry & Neurology Pain Medicine
DX: Z51.81 Encounter for therapeutic drug level monitoring (principal); D64.9 Anemia, unspecified; Z79.899 Other long term (current) drug therapy
CPT/HCPCS: 36415; 80053; 82533; 82607; 82668; 82672; 82728; 82746; 83525; 83540; 83550; 84207; 84403; 84425; 84466; 84591; 85025; 85045

== ENCOUNTER → 2020-11-28 | Outpatient (CLI) | payer MEDICARE ==
--- NOTE | 2020-11-29 13:48 | MM ---
Reason for exam: screening (asymptomatic). Last mammogram was performed 1 year and 1 month ago. History: Patient is postmenopausal, has history of other cancer at age 52, and had first child at age 35. Took hormonal contraceptives for 3 years. Took other hormone for 9 years. Physical Findings: A clinical breast exam by your physician is recommended on an annual basis and results should be correlated with mammographic findings. MG 3D Screening Mammo W/Cad Bilateral CC and MLO view(s) were taken. Prior study comparison: October 29, 2019, bilateral MG 3d screening mammo w/cad. April 16, 2017, bilateral MG screening mammo w CAD. No significant changes when compared with prior studies. ASSESSMENT: Benign, BI-RAD 2 RECOMMENDATION: Routine screening mammogram of both breasts in 1 year.
== END | disposition home or self-care (01) ==
LOC: RADMAMWWP 15:52
PROVIDERS: ATTEND Family Medicine
DX: Z12.31 Encounter for screening mammogram for malignant neoplasm of breast (principal)
CPT/HCPCS: 77063; 77067

== ENCOUNTER → 2021-02-22 | Day surgery (SDC) | payer MEDICARE ==
[2021-02-21 08:46] VITALS: BMI 21.9
[~2021-02-22] MED LIST changes: -ACETAMINOPHEN TAB 500 MG TAB PO ONE; -ALVIMOPAN 12 MG CAPSULE PO ONE; -Antibiotics per Pharmacy 1 EACH MISC MISCELLANE PRN; +BACITRACIN ZINC 500 UNIT/GM OINT 28.4 GM TUBE TOPICAL ONE; +CLINDAMYCIN 600 MG in DEXTROSE 5% IN WATER 50 ML IVPB PRN; -DEXAMETHASONE SOD PHOSPHATE 10 MG/ML 1 ML VIAL IV ONE; +DEXAMETHASONE SOD PHOSPHATE 4 MG/ML 1 ML VIAL IV ONE; +DEXAMETHASONE SOD PHOSPHATE 4 MG/ML 1 ML VIAL IV PRN; +FAMOTIDINE 20 MG/2 ML VIAL IV PRN; +FAMOTIDINE 20 MG/2 ML VIAL IVPB ONE; -GABAPENTIN 300 MG CAP PO STA; +GLYCOPYRROLATE 0.2 MG/ML 2 ML VIAL ONE; -HEPARIN SODIUM,PORCINE 5,000 UNIT/ML 1 ML VIAL SQ ONE; +HYDROcodone/APAP 5-325MG 1 EACH TAB ONE; +HYDROcodone/APAP 5-325MG 1 EACH TAB PO ONE; -HYDROmorphone 0.5 MG/0.5 ML SYRINGE IVP PRN; +KETOROLAC 15 MG/ML 1 ML VIAL IVP ONE; +LACTATED RINGERS 1,000 ML IV ONE; +LACTATED RINGERS 1,000 ML IV SCH; +LIDOCAINE 1% INJ 10MG/ML (20 ML MDV) ONE; +LIDOCAINE 1%-EPI 1:100,000 20 ML VIAL SQ ONE; -MELOXICAM 7.5 MG TAB PO ONE; +MIDAZOLAM 2 MG/2 ML VIAL ONE; +NEOSTIGMINE 1 MG/ML 10 ML VIAL ONE; +ONDANSETRON 4 MG/2 ML VIAL IVP PRN; +OXYMETAZOLINE 0.05% NASL SPRAY 1 SPRAY BOTTLE EA NOSTRIL PRN; +PHENYLEPHRINE-0.9% NACL SYG 1,000 MCG/10 ML SYRINGE ONE; +PROPOFOL 10 MG/ML 20 ML VIAL IV ONE; +ROCURONIUM 10 MG/ML (5 ML VIAL) IV ONE; +ePHEDrine SULFATE/0.9% NACL/PF 50 MG/5 ML SYRINGE IV ONE; -fentaNYL (PF) 50 MCG/ML 2 ML AMP IVP PRN; +fentaNYL (PF) 50 MCG/ML 2 ML AMP ONE; -metroNIDAZOLE-NS PMX 500 MG in SALINE 1 100ML.BAG IVPB ONE
--- NOTE | 2021-02-22 12:43 | P.OP ---
Date of Procedure: 02/22/21 Preoperative Diagnosis: Deviated nasal septum Inferior turbinate hypertrophy Chronic sinusitis Postoperative Diagnosis: Same Procedure(s) Performed: Septoplasty Outfracture and submucous resection of the inferior turbinates Bilateral endoscopic sinus surgery including bilateral maxillary antrostomy with removal of tissue from the maxillary sinuses, bilateral anterior and posterior ethmoidectomy, bilateral sphenoidotomy Anesthesia: JANET Surgeon: Abad Rocha Estimated Blood Loss (ml): 10 Pathology: other (Nasal septal bone and cartilage and sinus contents) Condition: stable Disposition: PACU Indications for Procedure: This is a 65-year-old white female who has a long history of chronic nasal congestion and nasal airway obstruction bilateral left greater than right with chronic postnasal drainage and recurrent/chronic sinusitis including chronic sinusitis noted on CT. Operative Findings: Nasal septum deviated to the left, inferior turbinate hypertrophy bilaterally, obstruction of the ostiomeatal complexes bilaterally with small cysts in the maxillary sinuses bilaterally, mucosal thickening throughout the anterior and posterior ethmoid sinuses and mild mucosal thickening in the sphenoid sinuses bilaterally Description of Procedure: The patient was brought into the operative suite and placed in a supine position. The patient underwent induction of general anesthesia with oral endotracheal intubation without difficulty. The patient was prepped and draped in the usual aseptic fashion with the orbits in the operating field for monitoring to the case and the computed tomography scan was on the computer scr een for review throughout the case. 1% lidocaine with 1 :100,000 epinephrine was infused submucosally into both sides of the nasal septum as well as the lateral nasal wall and anterior tips of the middle turbinates. While this was taking vasoconstrictive effect the inferior turbinates were infractured with [place] elevator and partial submucous resection of the inferior turbinates was performed with a portion of the submucosal soft tissue and the inferior turbinate bone removed with Coblation device. The inferior turbinates were then outfractured with the [place] elevator. A left hemitransfixion incision was then made with the mucoperichondrial and mucoperiosteal flap on the left elevated. The bony cartilaginous junction was disarticulated and the mucoperiosteal flap on the right was elevated. Bony nasal septal deformities were removed with Elmer forceps and an inferior cartilaginous strip was removed leaving a full 1.5 cm caudal strut. Checking intranasally this corrected the nasoseptal deformities and the hemitransfixion incision was closed with a running 4-0 chromic suture. Full 0 endoscopic examination is performed bilaterally. Beginning on the left, the middle turbinate was medialized. The maxillary ostium was located with a ballpoint probe and an infundibulotomy was performed followed by uncinectomy. The maxillary antrostomy was enlarged at the expense of the an terior and posterior fontanelle taking care anteriorly not to injure the lacrimal bone. The maxillary sinus was evaluated with 30 and 70 endoscope .[Abnormal appearing tissue was removed from the maxillary sinus there were small cysts noted within the maxillary sinuses.]. Anterior and posterior ethmoidectomy were then performed from anterior to posterior to the level of the skull base. The roof of the anterior ethmoid air cells were then cleaned from posterior to anterior using up-biting Blakesley forceps. Bilateral sphenoidotomy was performed utilizing straight suction and straight Blakesley forceps with exploration with the above noted findings.. Attention was then turned to the right where the procedures were followed as they had been on the left. [Nasopore nasal dressing was placed in the middle meatus bilaterally under direct visualization]. Bilateral [place] airway splints coated with bacitracin ointment were placed and sutured transseptally with a 4-0 nylon suture. The pat ient was suctioned in oral gastric fashion and was allowed to emerge from general anesthesia having tolerated procedure well and was extubated in the operating suite and transferred to the postoperative recovery area in satisfactory condition.
[2021-02-22 12:59] VITALS: TEMP 98.2
[2021-02-22] MEDS: HYDROmorphone 0.5 MG/0.5 ML SYRINGE IVP PRN ×3 (13:15→13:45)
[2021-02-22 14:18] VITALS: BP 123/78; PULSE 90; RESP 17
== END | disposition home or self-care (01) ==
LOC: OR 10:01
PROVIDERS: ATTEND Otolaryngology
DX: J32.9 Chronic sinusitis, unspecified (principal); J34.2 Deviated nasal septum; J34.3 Hypertrophy of nasal turbinates; M19.90 Unspecified osteoarthritis, unspecified site; D33.3 Benign neoplasm of cranial nerves; E07.9 Disorder of thyroid, unspecified; K13.0 Diseases of lips; F32.9 Major depressive disorder, single episode, unspecified; F41.9 Anxiety disorder, unspecified; K14.0 Glossitis; H91.90 Unspecified hearing loss, unspecified ear; G47.30 Sleep apnea, unspecified; H93.19 Tinnitus, unspecified ear; R42 Dizziness and giddiness; K11.7 Disturbances of salivary secretion; Z98.890 Other specified postprocedural states; Z79.890 Hormone replacement therapy; Z79.82 Long term (current) use of aspirin; Z79.891 Long term (current) use of opiate analgesic; Z79.899 Other long term (current) drug therapy; Z88.0 Allergy status to penicillin
CPT/HCPCS: 88305; 88300; 31267; 31259; 30520; 30140; J2250; J1100; J2710; J2405; J2001; J3010; J1885; J2370; J2704; J1170

== ENCOUNTER → 2021-04-21 | Outpatient (CLI) | payer MEDICARE ==
[2021-04-22 01:02] LABS: Thyroid Peroxidase Antibodies <28.0 U/mL (0.0-60.0)
== END | disposition home or self-care (01) ==
LOC: LABWHC1 14:19
PROVIDERS: ATTEND Obstetrics & Gynecology
DX: N95.1 Menopausal and female climacteric states (principal)
CPT/HCPCS: 36415; 84443; 86376; 86800

== ENCOUNTER 2021-09-20 08:42 | Day surgery (SDC) | payer MEDICARE ==
[2021-09-18 09:23] VITALS: BMI 21.1
--- NOTE | 2021-09-20 07:35 | P.GSHP ---
History of Present Illness H&P Date: 09/20/21 CHIEF COMPLAINT: GERD and colon screen HISTORY OF PRESENT ILLNESS: The patient is a 66-year-old female who presents with gastroesophageal reflux disease and need for colon screen. Upper and lower endoscopy were offered for further evaluation and management. PAST MEDICAL HISTORY: Please see list. PAST SURGICAL HISTORY: Please see list. MEDICATIONS: Please see list. ALLERGIES: Please see list. SOCIAL HISTORY: No illicit drug use FAMILY HISTORY: No reports of Crohn disease or ulcerative colitis. REVIEW OF ORGAN SYSTEMS: CONSTITUTIONAL: No reports of fevers or chills. GI: Denies any blood in stools or constipation. PHYSICAL EXAM: VITAL SIGNS: Stable GENERAL: Well-developed pleasant in no acute distress. HEENT: No scleral icterus. Extraocular movements grossly intact. Moist buccal mucosa. NECK: Supple without lymphadenopathy. CHEST: Unlabored respirations. Equal bilateral excursions. CARDIOVASCULAR: Regular rate and rhythm. Distal 2+ pulses. ABDOMEN: Soft, nondistended. MUSCULOSKELETAL: No clubbing, cyanosis, or edema. ASSESSMENT: 1. Gastroesophageal reflux disease 2. Colon screen. PLAN: 1. Recommend proceeding with an upper and lower endoscopy Past Medical History Past Medical History: Hearing Disorder / Deafness, Osteoarthritis (OA), Thyroid Disorder Additional Past Medical History / Comment(s): Acoustic Neuroma, deaf in R ear, has BAHA hearing implant-doesn't utilize much-says it gets infected frequently, difficulty with balance, frequent headaches, recent bloating, change in bowel habits, varicose veins History of Any Multi-Drug Resistant Organisms: None Reported Past Surgical History: Bariatric Surgery, Bowel Resection, Coronary Bypass/CABG, Hernia Repair, Joint Replacement, Orthopedic Surgery, Tonsillectomy Additional Past Surgical History / Comment(s): Bilat. knee replacements, left hip replaced, incisional hernia, gastric bypass 20 years ago. 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, cataract surgery, rt wrist sx Past Anesthesia/Blood Transfusion Reactions: Motion Sickness Smoking Status: Never smoker - Past Family History Mother Family Medical History: No Reported History Medications and Allergies Home Medications Medication Instructions Recorded Confirmed Type Topiramate [Topamax] 100 mg PO BID 02/17/15 09/18/21 History DULoxetine HCL [Cymbalta] 30 mg PO QAM 03/26/20 09/18/21 History DULoxetine HCL [Cymbalta] 60 mg PO HS 03/26/20 09/18/21 History Levothyroxine Sodium [Synthroid] 100 mcg PO DAILY 03/26/20 09/18/21 History Zolpidem [Ambien] 5 - 10 mg PO HS PRN 03/26/20 09/18/21 History buPROPion HCL [Wellbutrin SR] 150 mg PO BID 03/26/20 09/18/21 History Aspirin [Adult Low Dose Aspirin EC] 81 mg PO BID 06/03/20 09/18/21 History Ferrous Sulfate [Iron (65 MG 325 mg PO DAILY 08/24/20 09/18/21 History Elemental)] HYDROcodone/APAP 10-325MG [[place] 1 tab PO QID 08/24/20 09/18/21 History 10-325] [id number] 1 each PO Q6HR PRN 02/21/21 09/18/21 History [Excedrin] Multivitamins, Thera [Multivitamin 1 tab PO DAILY 02/21/21 09/18/21 History (formulary)] Atorvastatin [Lipitor] 20 mg PO HS 09/18/21 09/18/21 History Allergies Allergy/AdvReac Type Severity Reaction Status Date / Time Penicillins Allergy Itching Verified 09/18/21 09:00
[~2021-09-20 08:42] MED LIST changes: -BACITRACIN ZINC 500 UNIT/GM OINT 28.4 GM TUBE TOPICAL ONE; -CLINDAMYCIN 600 MG in DEXTROSE 5% IN WATER 50 ML IVPB PRN; -DEXAMETHASONE SOD PHOSPHATE 4 MG/ML 1 ML VIAL IV ONE; -DEXAMETHASONE SOD PHOSPHATE 4 MG/ML 1 ML VIAL IV PRN; -FAMOTIDINE 20 MG/2 ML VIAL IV PRN; -FAMOTIDINE 20 MG/2 ML VIAL IVPB ONE; -GLYCOPYRROLATE 0.2 MG/ML 2 ML VIAL ONE; -HYDROcodone/APAP 5-325MG 1 EACH TAB ONE; -HYDROcodone/APAP 5-325MG 1 EACH TAB PO ONE; -KETOROLAC 15 MG/ML 1 ML VIAL IVP ONE; -LACTATED RINGERS 1,000 ML IV ONE; -LACTATED RINGERS 1,000 ML IV SCH; -LIDOCAINE 1% INJ 10MG/ML (20 ML MDV) ONE; -LIDOCAINE 1%-EPI 1:100,000 20 ML VIAL SQ ONE; -MIDAZOLAM 2 MG/2 ML VIAL IV PRN; -MIDAZOLAM 2 MG/2 ML VIAL ONE; -NEOSTIGMINE 1 MG/ML 10 ML VIAL ONE; -ONDANSETRON 4 MG/2 ML VIAL IVP ONE; -ONDANSETRON 4 MG/2 ML VIAL IVP PRN; -OXYMETAZOLINE 0.05% NASL SPRAY 1 SPRAY BOTTLE EA NOSTRIL PRN; -PHENYLEPHRINE-0.9% NACL SYG 1,000 MCG/10 ML SYRINGE ONE; -PROPOFOL 10 MG/ML 20 ML VIAL IV ONE; -ROCURONIUM 10 MG/ML (5 ML VIAL) IV ONE; -ePHEDrine SULFATE/0.9% NACL/PF 50 MG/5 ML SYRINGE IV ONE; -fentaNYL (PF) 50 MCG/ML 2 ML AMP ONE
[2021-09-20 09:14] VITALS: RESP 16; TEMP 98.8
[2021-09-20] MEDS: LACTATED RINGERS 1,000 ML IV SCH ×2 (09:21→09:42)
[2021-09-20] MEDS ORDERED: LIDOCAINE 1% INJ 10MG/ML (20 ML MDV) ONE (09:44)
[2021-09-20] MEDS ORDERED: PROPOFOL 10 MG/ML 20 ML VIAL IV ONE (09:44)
[2021-09-20 10:45] VITALS: BP 122/62; PULSE 82
--- NOTE | 2021-09-20 11:20 | P.PCN ---
Date of Procedure: 09/20/21 Description of Procedure: PREOPERATIVE DIAGNOSIS: Dysphagia. Esophageal dysmotility Nausea or vomiting POSTOPERATIVE DIAGNOSIS: Dysphagia. Esophageal dysmotility Nausea or vomiting Upper esophageal stenosis OPERATION: Esophagogastrojejunoscopy with rigid dilatation, 48 Fr SURGEON: Marychuy Martinez MD ANESTHESIA: MAC. INDICATIONS: The patient is a 66-year-old female who presents with a history of dysphagia of the posterior oropharynx, upper esophagus. Benefits and risks of the procedure were described. Informed consent was obtained. DESCRIPTION: The patient was brought into the endoscopy suite and laid in the left lateral decubitus position. After a timeout was confirmed, the procedure was initiated. An Olympus gastroscope was passed along the posterior oropharynx down to the distal esophagus where the squamocolumnar junction. The upper esophagus was tight for advancement of the gastroscope. The gastric pouch was entered. Additional findings below. Upper esophageal stenosis was found as the adult gastroscope was 9.5 mm in size. A guidewire was placed through the scope. The scope was removed. A rigid dilator 48-[place] placed for dilation performed for 2 minutes. No full-thickness esophageal tear was identified. Mild bleeding was found along the upper esophageal dilation. The patient tolerated the procedure well. FINDINGS: Upper esophageal stricture of 10-12 mm addressed with rigid dilator, 48-[place]izen [place] No chronic gastrojejunal ulceration encountered. RECOMMENDATIONS: 1. Repeat upper endoscopy in one month
--- NOTE | 2021-09-20 11:24 | P.PCN ---
Date of Procedure: 09/20/21 Description of Procedure: PREOPERATIVE DIAGNOSIS: Personal history colon cancer Right hemicolectomy POSTOPERATIVE DIAGNOSIS: Personal history colon cancer Right hemicolectomy Severe sigmoid diverticulosis with pandiverticulosis OPERATION: Colonoscopy to the cecum, ileocecal valve and appendiceal orifice. SURGEON: Marychuy Martinez MD. ANESTHESIA: MAC. INDICATIONS: The patient is a 58-year-old female who presents for colonoscopy screening. Benefits and risks were described and informed consent was obtained. DESCRIPTION OF PROCEDURE: The patient had undergone Sutab prep. The patient had been brought into the operating room and laid in the left lateral decubitus position. After adequate intravenous sedation, the rectum was examined with 2% lidocaine jelly. No external hemorrhoids were encountered. The rectal tone was within normal limits. No lesions were palpated in the rectal vault. An Olympus colonoscope was advanced until the cecum, ileocecal valve and appendiceal orifice were clearly viewed. The prep was fair with residual seeds and vegetable matter. Pandiverticulosis with severe sigmoid diverticulosis was found. No evidence of focal colitis was found. Retroflexion of the scope demonstrated grade 2 internal hemorrhoids without active bleeding or inflammation. The colon was desufflated. The patient had tolerated the procedure well. Withdrawal time was over 6 minutes. FINDINGS: Aronchick preparation quality scale 3 (1-5) Internal hemorrhoids, grade 2 No external prolapsed hemorrhoids. No arteriovenous malformations. Small hyperplastic polyps identified No focal colitis. RECOMMENDATIONS: Lower endoscopy in 3 years, 2023 Plan - Discharge Summary Discharge Rx Participant: Yes New Discharge Prescriptions: New Ciprofloxacin HCl [Cipro] 500 mg PO Q12HR #10 tablet Omeprazole [PriLOSEC] 40 mg PO DAILY #14 cap Continue Topiramate [Topamax] 100 mg PO BID Levothyroxine Sodium [Synthroid] 100 mcg PO DAILY DULoxetine HCL [Cymbalta] 60 mg PO HS DULoxetine HCL [Cymbalta] 30 mg PO QAM Zolpidem [Ambien] 5 - 10 mg PO HS PRN PRN Reason: Insomnia buPROPion HCL [Wellbutrin SR] 150 mg PO BID Aspirin [Adult Low Dose Aspirin EC] 81 mg PO BID HYDROcodone/APAP 10-325MG [[place] 10-325] 1 tab PO QID Ferrous Sulfate [Iron (65 MG Elemental)] 325 mg PO DAILY Multivitamins, Thera [Multivitamin (formulary)] 1 tab PO DAILY Atorvastatin [Lipitor] 20 mg PO HS Discontinued [id number] [id number] [Excedrin] 1 each PO Q6HR PRN PRN Reason: Headache Discharge Medication List Topiramate [Topamax] 100 mg PO BID 02/17/15 [History] DULoxetine HCL [Cymbalta] 30 mg PO QAM 03/26/20 [History] DULoxetine HCL [Cymbalta] 60 mg PO HS 03/26/20 [History] Levothyroxine Sodium [Synthroid] 100 mcg PO DAILY 03/26/20 [History] Zolpidem [Ambien] 5 - 10 mg PO HS PRN 03/26/20 [History] buPROPion HCL [Wellbutrin SR] 150 mg PO BID 03/26/20 [History] Aspirin [Adult Low Dose Aspirin EC] 81 mg PO BID 06/03/20 [History] Ferrous Sulfate [Iron (65 MG Elemental)] 325 mg PO DAILY 08/24/20 [History] HYDROcodone/APAP 10-325MG [[place] 10-325] 1 tab PO QID 08/24/20 [History] Multivitamins, Thera [Multivitamin (formulary)] 1 tab PO DAILY 02/21/21 [History] Atorvastatin [Lipitor] 20 mg PO HS 09/18/21 [History] Ciprofloxacin HCl [Cipro] 500 mg PO Q12HR #10 tablet 09/20/21 [Rx] Omeprazole [PriLOSEC] 40 mg PO DAILY #14 cap 09/20/21 [Rx] Follow up Appointment(s)/Referral(s): Marychuy Martinez MD [STAFF PHYSICIAN] - 10/05/21 Patient Instructions/Handouts: Diverticulosis (DC), Soft Diet (DC), Esophageal Stricture (DC), Diverticulosis Diet (GEN), Esophageal Dilation (GEN) Activity/Diet/Wound Care/Special Instructions: Repeat colonoscopy in 3 years, 2023 Discharge Disposition: HOME SELF-CARE
== END 2021-09-20 11:38 | disposition home or self-care (01) ==
LOC: ORWHC2ENDO 08:42
PROVIDERS: ATTEND Surgery Plastic and Reconstructive Surgery
DX: K22.2 Esophageal obstruction (principal); M19.90 Unspecified osteoarthritis, unspecified site; E07.9 Disorder of thyroid, unspecified; R19.4 Change in bowel habit; Q26.4 Anomalous pulmonary venous connection, unspecified; R51.9 Headache, unspecified; I83.90 Asymptomatic varicose veins of unspecified lower extremity; H91.90 Unspecified hearing loss, unspecified ear; I25.10 Atherosclerotic heart disease of native coronary artery without angina pectoris; Z95.1 Presence of aortocoronary bypass graft; Z98.84 Bariatric surgery status; Z79.899 Other long term (current) drug therapy; Z79.82 Long term (current) use of aspirin; Z88.0 Allergy status to penicillin
CPT/HCPCS: 45378; 43249; J2001; J2704

== ENCOUNTER → 2022-08-08 | Outpatient (CLI) | payer MEDICARE ==
--- NOTE | 2022-08-09 19:57 | MM ---
Reason for Exam: Screening (asymptomatic). Last mammogram was performed 1 year(s) and 8 month(s) ago. Patient History: Menarche at age 12. First Full-Term at age 35. Late child-bearing (after 30). Postmenopausal. Other cancer, age 52. Patient used Hormonal Contraceptives for 3 years. Risk Values: Lillian 5 year model risk: 2.4%. NCI Lifetime model risk: 7.6%. Prior Study Comparison: 04/16/2017 Bilateral Screening Mammogram, [facility]. 10/29/2019 Bilateral Screening Mammogram, [facility]. 11/28/2020 Bilateral Screening Mammogram, [facility]. Tissue Density: There are scattered fibroglandular densities. Findings: Analyzed By CAD. There is no suspicious group of microcalcifications or new suspicious mass in either breast. Overall Assessment: Negative, BI-RAD 1 Management: Screening Mammogram of both breasts in 1 year. 1. Patient should continue monthly self breast exams. 2. A clinical breast exam by your physician is recommended on an annual basis. 3. This exam should not preclude additional follow-up of suspicious palpable abnormalities. Electronically signed and approved by: Carlos Mireles M.D. Radiologist
== END | disposition home or self-care (01) ==
LOC: RADMAMWWP 08:32
PROVIDERS: ATTEND Family Medicine
DX: Z12.31 Encounter for screening mammogram for malignant neoplasm of breast (principal); Z78.0 Asymptomatic menopausal state
CPT/HCPCS: 77063; 77067

== ENCOUNTER 2022-08-13 07:11 | Day surgery (SDC) | payer MEDICARE ==
--- NOTE | 2022-08-13 07:03 | P.GSHP ---
History of Present Illness H&P Date: 08/13/22 CHIEF COMPLAINT: Esophageal stricture HISTORY OF PRESENT ILLNESS: The patient is a 67-year-old female who presents reports dysphagia. Upper endoscopy was offered for further evaluation and management. PAST MEDICAL HISTORY: Please see list. PAST SURGICAL HISTORY: Please see list. MEDICATIONS: Please see list. ALLERGIES: Please see list. SOCIAL HISTORY: No illicit drug use FAMILY HISTORY: No reports of Crohn disease or ulcerative colitis. REVIEW OF ORGAN SYSTEMS: CONSTITUTIONAL: No reports of fevers or chills. GI: Denies any blood in stools or constipation. PHYSICAL EXAM: VITAL SIGNS: Stable GENERAL: Well-developed and pleasant in no acute distress. HEENT: No scleral icterus. Extraocular movements grossly intact. Moist buccal mucosa. NECK: Supple without lymphadenopathy. CHEST: Unlabored respirations. Equal bilateral excursions. CARDIOVASCULAR: Regular rate and rhythm. Distal 2+ pulses. ABDOMEN: Soft, nondistended. MUSCULOSKELETAL: No clubbing, cyanosis, or edema. ASSESSMENT: 1. Esophageal stricture PLAN: 1. Recommend proceeding with an upper endoscopy with rigid dilators. Past Medical History Past Medical History: Hearing Disorder / Deafness, Osteoarthritis (OA), Thyroid Disorder Additional Past Medical History / Comment(s): Acoustic Neuroma, deaf in R ear, has BAHA hearing implant-doesn't utilize much-says it gets infected frequently, difficulty with balance, frequent headaches, recent bloating, change in bowel habits, varicose veins History of Any Multi-Drug Resistant Organisms: None Reported Past Surgical History: Bariatric Surgery, Bowel Resection, Coronary Bypass/CABG, Hernia Repair, Joint Replacement, Orthopedic Surgery, Tonsillectomy Additional Past Surgical History / Comment(s): Bilat. knee replacements, left hip replaced, incisional hernia, gastric bypass 20 years ago. 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, cataract surgery, rt wrist sx,colonoscopy, egd Past Anesthesia/Blood Transfusion Reactions: Motion Sickness Smoking Status: Never smoker - Past Family History Mother Family Medical History: No Reported History Medications and Allergies Home Medications Medication Instructions Recorded Confirmed Type DULoxetine HCL [Cymbalta] 60 mg PO BID 03/26/20 08/09/22 History Levothyroxine Sodium [Synthroid] 100 mcg PO DAILY 03/26/20 08/09/22 History buPROPion HCL [Wellbutrin SR] 150 mg PO BID 03/26/20 08/09/22 History Aspirin [Adult Low Dose Aspirin EC] 81 mg PO DAILY 06/03/20 08/09/22 History Ferrous Sulfate [Iron (65 MG 325 mg PO DAILY 08/24/20 08/09/22 History Elemental)] Atorvastatin [Lipitor] 20 mg PO HS 09/18/21 08/09/22 History Butalb/Acetaminophen/Caffeine 1 - 2 cap PO Q4HR PRN 08/09/22 08/09/22 History [Fioricet 50-300-40 mg Capsule] Celecoxib [CeleBREX] 200 mg PO DAILY 08/09/22 08/09/22 History busPIRone HCl [Buspar] 10 mg PO BID 08/09/22 08/09/22 History Allergies Allergy/AdvReac Type Severity Reaction Status Date / Time Penicillins Allergy Itching Verified 08/09/22 14:03
[~2022-08-13 07:11] MED LIST changes: +LACTATED RINGERS 1,000 ML IV SCH
[2022-08-13 07:34] VITALS: TEMP 97.1
[2022-08-13] MEDS ORDERED: PROPOFOL 10 MG/ML 20 ML VIAL IV ONE (07:49)
[2022-08-13] MEDS ORDERED: LIDOCAINE 2% INJ 20 MG/ML (2 ML VIAL) ONE (07:49)
--- NOTE | 2022-08-13 08:15 | P.PCN ---
Date of Procedure: 08/13/22 Description of Procedure: PREOPERATIVE DIAGNOSIS: Dysphagia. Nausea with vomiting. Chronic NSAID use History of gastric bypass POSTOPERATIVE DIAGNOSIS: Dysphagia. Upper esophageal stenosis Presbyesophagus Gastrojejunal stricture without chronic ulcer without perforation Esophageal ulcer Chronic NSAID use History of gastric bypass OPERATION: Esophagogastrojejunoscopy with balloon dilatation from 15 to 20 mm for gastric stricture Esophagogastrojejunoscopy with rigid dilator, 51-[place] to address upper esophageal stenosis SURGEON: Marychuy Martinez MD ANESTHESIA: MAC. INDICATIONS: The patient is a 67-year-old female who presents with a history of dysphagia, including nausea and vomiting. Benefits and risks of the procedure were described. Informed consent was obtained. DESCRIPTION: The patient was brought into the endoscopy suite and laid in the left lateral decubitus position. After a timeout was confirmed, the procedure was initiated. An Olympus gastroscope was passed along the posterior oropharynx down to the distal esophagus where the squamocolumnar junction was unremarkable. Moderate tertiary contractions consistent with presbyesophagus was found. Her mouth was small requiring digital retraction. The gastric pouch was entered. A gastrojejunal stricture of 15 mm was found as the pediatric gastroscope was used. Attention was brought to the upper esophageal stenosis. The bite block was removed and mouth was opened with fingers. A rigid dilator, 51 [place] was placed over a guidewire to 45 cm from the incisors and left for 2 minutes after exchanging the scope. A [employer] balloon dilator was placed through the scope. The scope was reentered for balloon dilation of the gastrojejunal anastomosis. Final insufflation from 15 to 20 mm was performed with a total of 2 minutes. The scope was advanced up to 60 cm from the incisors into the [place] limb. The mucosa of the gastrojejunal anastomosis was intact. No chronic gastrojejunal marginal ulcer was encountered. No full-thickness injury was encountered. The GI tract was desufflated. The patient tolerated the procedure well. FINDINGS: Stricture of approximately 15 mm encountered. Upper esophageal stenosis, 48-[place] Rigid dilation of upper esophageal sphincter, 51-[place] No chronic gastrojejunal ulceration encountered. Lower esophageal ulcer with bleeding Successful balloon dilatation to 20 mm. RECOMMENDATIONS: Recommend blenderized diet due to combined presbyesophagus and esophageal stenos is Repeat upper endoscopy one month, August 2022 Avoid NSAIDs due to gastric bypass and esophageal ulcer Plan - Discharge Summary Discharge Rx Participant: Yes New Discharge Prescriptions: Discontinued Atorvastatin [Lipitor] 20 mg PO HS Celecoxib [CeleBREX] 200 mg PO DAILY No Action Levothyroxine Sodium [Synthroid] 100 mcg PO DAILY DULoxetine HCL [Cymbalta] 60 mg PO BID buPROPion HCL [Wellbutrin SR] 150 mg PO BID Aspirin [Adult Low Dose Aspirin EC] 81 mg PO DAILY Ferrous Sulfate [Iron (65 MG Elemental)] 325 mg PO DAILY Butalb/Acetaminophen/Caffeine [Fioricet 50-300-40 mg Capsule] 1 - 2 cap PO Q4HR PRN PRN Reason: Migraine Headache busPIRone HCl [Buspar] 10 mg PO BID Discharge Medication List DULoxetine HCL [Cymbalta] 60 mg PO BID 03/26/20 [History] Levothyroxine Sodium [Synthroid] 100 mcg PO DAILY 03/26/20 [History] buPROPion HCL [Wellbutrin SR] 150 mg PO BID 03/26/20 [History] Aspirin [Adult Low Dose Aspirin EC] 81 mg PO DAILY 06/03/20 [History] Ferrous Sulfate [Iron (65 MG Elemental)] 325 mg PO DAILY 08/24/20 [History] Butalb/Acetaminophen/Caffeine [Fioricet 50-300-40 mg Capsule] 1 - 2 cap PO Q4HR PRN 08/09/22 [History] busPIRone HCl [Buspar] 10 mg PO BID 08/09/22 [History] Follow up Appointment(s)/Referral(s): Marychuy Martinez MD [STAFF PHYSICIAN] - 08/21/22 Patient Instructions/Handouts: *[facility] - (Anesthesia) Endoscopy Discharge Instructions, Esophageal Dilation (DC), Complete Blenderized Diet (DC) Activity/Diet/Wound Care/Special Instructions: NO MEDICATIONS FOR 48 HRS UNTIL 08/16/22 Discharge Disposition: HOME SELF-CARE
--- NOTE | 2022-08-13 08:15 | P.PCN ---
Date of Procedure: 08/13/22 Description of Procedure: PREOPERATIVE DIAGNOSIS: Dysphagia. Nausea with vomiting. Chronic NSAID use History of gastric bypass POSTOPERATIVE DIAGNOSIS: Dysphagia. 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 INDICATIONS: The patient is a 67-year-old female who presents with a history of dysphagia, including nausea and vomiting. Benefits and risks of the procedure were described. Informed consent was obtained. DESCRIPTION: The patient was brought into the endoscopy suite and laid in the left lateral decubitus position. After a timeout was confirmed, the procedure was initiated. An Olympus gastroscope was passed along the posterior oropharynx down to the distal esophagus where the squamocolumnar junction was unremarkable. Moderate tertiary contractions consistent with presbyesophagus was found. Her mouth was small requiring digital retraction. The gastric pouch was entered. A gastrojejunal stricture of 15 mm was found as the pediatric gastroscope was used. Attention was brought to the upper esophageal stenosis. The bite block was removed and mouth was opened with fingers. A rigid dilator, 51 [place] was placed over a guidewire to 45 cm from the incisors and left for 2 minutes after exchanging the scope. A [employer] balloon dilator was placed through the scope. The scope was reentered for balloon dilation of the gastrojejunal anastomosis. Final insufflation from 15 to 20 mm was performed with a total of 2 minutes. The scope was advanced up to 60 cm from the incisors into the [place] limb. The mucosa of the gastrojejunal anastomosis was intact. No chronic gastrojejunal marginal ulcer was encountered. No full-thickness injury was encountered. The GI tract was desufflated. The patient tolerated the procedure well. FINDINGS: Stricture of approximately 15 mm encountered. Upper esophageal stenosis, 48-[place] Rigid dilation of upper esophageal sphincter, 51-[place] No chronic gastrojejunal ulceration encountered. Lower esophageal ulcer with bleeding Successful balloon dilatation to 20 mm. RECOMMENDATIONS: Recommend blenderized diet due to combined presbyesophagus and esophageal stenos is Repeat upper endoscopy one month, August 2022 Avoid NSAIDs due to gastric bypass and esophageal ulcer Plan - Discharge Summary Discharge Rx Participant: Yes New Discharge Prescriptions: Discontinued Atorvastatin [Lipitor] 20 mg PO HS Celecoxib [CeleBREX] 200 mg PO DAILY No Action Levothyroxine Sodium [Synthroid] 100 mcg PO DAILY DULoxetine HCL [Cymbalta] 60 mg PO BID buPROPion HCL [Wellbutrin SR] 150 mg PO BID Aspirin [Adult Low Dose Aspirin EC] 81 mg PO DAILY Ferrous Sulfate [Iron (65 MG Elemental)] 325 mg PO DAILY Butalb/Acetaminophen/Caffeine [Fioricet 50-300-40 mg Capsule] 1 - 2 cap PO Q4HR PRN PRN Reason: Migraine Headache busPIRone HCl [Buspar] 10 mg PO BID Discharge Medication List DULoxetine HCL [Cymbalta] 60 mg PO BID 03/26/20 [History] Levothyroxine Sodium [Synthroid] 100 mcg PO DAILY 03/26/20 [History] buPROPion HCL [Wellbutrin SR] 150 mg PO BID 03/26/20 [History] Aspirin [Adult Low Dose Aspirin EC] 81 mg PO DAILY 06/03/20 [History] Ferrous Sulfate [Iron (65 MG Elemental)] 325 mg PO DAILY 08/24/20 [History] Butalb/Acetaminophen/Caffeine [Fioricet 50-300-40 mg Capsule] 1 - 2 cap PO Q4HR PRN 08/09/22 [History] busPIRone HCl [Buspar] 10 mg PO BID 08/09/22 [History] Follow up Appointment(s)/Referral(s): Marychuy Martinez MD [STAFF PHYSICIAN] - 08/21/22 Patient Instructions/Handouts: *[facility] - (Anesthesia) Endoscopy Discharge Instructions, Esophageal Dilation (DC), Complete Blenderized Diet (DC) Activity/Diet/Wound Care/Special Instructions: NO MEDICATIONS FOR 48 HRS UNTIL 08/16/22 Discharge Disposition: HOME SELF-CARE
[2022-08-13 09:22] VITALS: BP 122/74; PULSE 81; RESP 16
--- NOTE | 2022-08-13 09:28 | XR ---
EXAMINATION TYPE: XR chest 1V portable DATE OF EXAM: 08/13/2022 COMPARISON: Chest x-ray March 26, 2020 HISTORY: Status post esophageal dilatation TECHNIQUE: Single AP portable frontal upright view of the chest is obtained. FINDINGS: Sternal wires redemonstrated. There is mild chronic parenchymal changes without suspicious new focal air space opacity, pleural effusion, or pneumothorax seen. The cardiac silhouette size is stable and within normal limits. No pneumomediastinum is evident. Slight underlying scoliotic curvature lower t horacic spine noted. Surgical clips epigastric region redemonstrated. IMPRESSION: No acute process. No pneumomediastinum is evident. No significant change from prior.
== END 2022-08-13 09:41 | disposition home or self-care (01) ==
LOC: ORWHC2ENDO 07:11
PROVIDERS: ATTEND Surgery Plastic and Reconstructive Surgery
DX: K22.2 Esophageal obstruction (principal); E07.9 Disorder of thyroid, unspecified; M19.90 Unspecified osteoarthritis, unspecified site; T75.3XXA Motion sickness, initial encounter; Z79.1 Long term (current) use of non-steroidal anti-inflammatories (NSAID); Z98.84 Bariatric surgery status; Z86.018 Personal history of other benign neoplasm; Z90.89 Acquired absence of other organs; Z96.653 Presence of artificial knee joint, bilateral; Z79.82 Long term (current) use of aspirin; Z79.899 Other long term (current) drug therapy; Z88.0 Allergy status to penicillin
CPT/HCPCS: 71045; 43245; 43249; J2704; J2001; C1726

== ENCOUNTER 2022-09-10 08:52 | Day surgery (SDC) | payer MEDICARE ==
--- NOTE | 2022-09-10 08:02 | P.GSHP ---
History of Present Illness H&P Date: 09/10/22 CHIEF COMPLAINT: GERD HISTORY OF PRESENT ILLNESS: The patient is a 67-year-old female who presents reports gastroesophageal reflux disease. Upper endoscopy was offered for further evaluation and management. PAST MEDICAL HISTORY: Please see list. PAST SURGICAL HISTORY: Please see list. MEDICATIONS: Please see list. ALLERGIES: Please see list. SOCIAL HISTORY: No illicit drug use FAMILY HISTORY: No reports of Crohn disease or ulcerative colitis. REVIEW OF ORGAN SYSTEMS: CONSTITUTIONAL: No reports of fevers or chills. GI: Denies any blood in stools or constipation. PHYSICAL EXAM: VITAL SIGNS: Stable GENERAL: Well-developed and pleasant in no acute distress. HEENT: No scleral icterus. Extraocular movements grossly intact. Moist buccal mucosa. NECK: Supple without lymphadenopathy. CHEST: Unlabored respirations. Equal bilateral excursions. CARDIOVASCULAR: Regular rate and rhythm. Distal 2+ pulses. ABDOMEN: Soft, nondistended. MUSCULOSKELETAL: No clubbing, cyanosis, or edema. ASSESSMENT: 1. Gastroesophageal reflux disease PLAN: 1. Recommend proceeding with an upper endoscopy Past Medical History Past Medical History: Hearing Disorder / Deafness, Osteoarthritis (OA), Thyroid Disorder Additional Past Medical History / Comment(s): Acoustic Neuroma, deaf in R ear, has BAHA hearing implant-doesn't utilize much-says it gets infected frequently, difficulty with balance, frequent headaches, recent bloating, change in bowel habits, varicose veins History of Any Multi-Drug Resistant Organisms: None Reported Past Surgical History: Bariatric Surgery, Bowel Resection, Coronary Bypass/CABG, Hernia Repair, Joint Replacement, Orthopedic Surgery, Tonsillectomy Additional Past Surgical History / Comment(s): Bilat. knee replacements, left hip replaced, incisional hernia, gastric bypass 25 years ago. 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, cataract surgery, rt wrist sx Past Anesthesia/Blood Transfusion Reactions: Motion Sickness Smoking Status: Never smoker - Past Family History Mother Family Medical History: No Reported History Medications and Allergies Home Medications Medication Instructions Recorded Confirmed Type DULoxetine HCL [Cymbalta] 60 mg PO BID 03/26/20 09/06/22 History Levothyroxine Sodium [Synthroid] 100 mcg PO DAILY 03/26/20 09/06/22 History buPROPion HCL [Wellbutrin SR] 150 mg PO BID 03/26/20 09/06/22 History busPIRone HCl [Buspar] 10 mg PO BID 08/09/22 09/06/22 History Atorvastatin [Lipitor] 20 mg PO HS 09/06/22 09/06/22 History HYDROcodone/APAP 10-325MG [[place] 1 tab PO Q6H PRN 09/06/22 09/06/22 History 10-325] cycloSPORINE 0.05% OPHTH SOLN 1 applicator BOTH EYES Q12H 09/06/22 09/06/22 History [Restasis] Allergies Allergy/AdvReac Type Severity Reaction Status Date / Time Penicillins Allergy Itching Verified 09/06/22 11:26
[~2022-09-10 08:52] MED LIST changes: -LIDOCAINE 1% (10MG/ML) FOR IV START INTRADERMA PRN
[2022-09-10 09:11] VITALS: TEMP 98.6
[2022-09-10] MEDS ORDERED: LACTATED RINGERS 1,000 ML IV ONE (09:12)
[2022-09-10] MEDS ORDERED: LIDOCAINE 2% INJ 20 MG/ML (2 ML VIAL) ONE (10:08)
[2022-09-10] MEDS ORDERED: PROPOFOL 10 MG/ML 20 ML VIAL IV ONE (10:08)
--- NOTE | 2022-09-10 10:33 | P.PCN ---
Date of Procedure: 09/10/22 Description of Procedure: PREOPERATIVE DIAGNOSIS: Dysphagia. Upper esophageal stenosis Presbyesophagus Gastrojejunal stricture without chronic ulcer without perforation Esophageal ulcer Chronic NSAID use History of gastric bypass POSTOPERATIVE DIAGNOSIS: Esophageal ulcer Chronic NSAID use History of gastric bypass OPERATION: Esophagogastrojejunoscopy SURGEON: Marychuy Martinez MD ANESTHESIA: MAC. INDICATIONS: The patient is a 67-year-old female who presents with a history of dysphagia, including nausea and vomiting. Benefits and risks of the procedure were described. Informed consent was obtained. DESCRIPTION: The patient was brought into the endoscopy suite and laid in the left lateral decubitus position. After a timeout was confirmed, the procedure was initiated. An Olympus gastroscope was passed along the posterior oropharynx down to the distal esophagus where residual esophageal ulcerations were identified of the upper esophagus. The gastric pouch was unremarkable. The GI tract was desufflated. The patient tolerated the procedure well. FINDINGS: Esophageal ulceration upper esophagus identified No recurrent gastrojejunal ulcers or stricture RECOMMENDATIONS: Continue omeprazole 40 mg daily Upper endoscopy is needed Plan - Discharge Summary Discharge Rx Participant: No New Discharge Prescriptions: New Omeprazole [PriLOSEC] 40 mg PO DAILY #90 cap Continue Levothyroxine Sodium [Synthroid] 100 mcg PO DAILY DULoxetine HCL [Cymbalta] 60 mg PO BID buPROPion HCL [Wellbutrin SR] 150 mg PO BID busPIRone HCl [Buspar] 10 mg PO BID Atorvastatin [Lipitor] 20 mg PO HS cycloSPORINE 0.05% OPHTH SOLN [Restasis] 1 applicator BOTH EYES Q12H HYDROcodone/APAP 10-325MG [[place] 10-325] 1 tab PO Q6H PRN PRN Reason: Pain Discharge Medication List DULoxetine HCL [Cymbalta] 60 mg PO BID 03/26/20 [History] Levothyroxine Sodium [Synthroid] 100 mcg PO DAILY 03/26/20 [History] buPROPion HCL [Wellbutrin SR] 150 mg PO BID 03/26/20 [History] busPIRone HCl [Buspar] 10 mg PO BID 08/09/22 [History] Atorvastatin [Lipitor] 20 mg PO HS 09/06/22 [History] HYDROcodone/APAP 10-325MG [[place] 10-325] 1 tab PO Q6H PRN 09/06/22 [History] cycloSPORINE 0.05% NGHIA AMORTami [Restasis] 1 applicator BOTH EYES Q12H 09/06/22 [History] Omeprazole [PriLOSEC] 40 mg PO DAILY #90 cap 09/10/22 [Rx] Follow up Appointment(s)/Referral(s): Marychuy Martinez MD [STAFF PHYSICIAN] - 09/26/22 Patient Instructions/Handouts: *[facility] - (Anesthesia) Endoscopy Discharge Instructions, Diet for Stomach Ulcers and Gastritis (ED) Discharge Disposition: HOME SELF-CARE
[2022-09-10 11:02] VITALS: RESP 20
[2022-09-10 11:04] VITALS: BP 108/70; PULSE 76
== END 2022-09-10 11:13 | disposition home or self-care (01) ==
LOC: ORWHC2ENDO 08:52
PROVIDERS: ATTEND Surgery Plastic and Reconstructive Surgery
DX: K22.10 Ulcer of esophagus without bleeding (principal); R13.10 Dysphagia, unspecified; M19.90 Unspecified osteoarthritis, unspecified site; E07.9 Disorder of thyroid, unspecified; Z88.0 Allergy status to penicillin; Z79.1 Long term (current) use of non-steroidal anti-inflammatories (NSAID); Z86.018 Personal history of other benign neoplasm; Z95.1 Presence of aortocoronary bypass graft; Z79.84 Long term (current) use of oral hypoglycemic drugs
CPT/HCPCS: 43235; J2704; J2001

== ENCOUNTER → 2023-01-16 | Outpatient (CLI) | payer MEDICARE ==
[2023-01-16 13:04] VITALS: BP 159/80; PULSE 92; TEMP 97.7; BMI 26.2
--- NOTE | 2023-01-16 13:48 | P.HPBAR ---
Bariatric H&P - History & Physicial H&P Date: 01/16/23 History & Physicial: Visit/CC: bariatric F/U Patient initial contact: Initial weight: Initial weight in pounds: Height: 5 ft 4 in Initial BMI: Last weight: Current weight: 69.4 kg Current weight in pounds: 153.00 Current BMI: 26.2 [place] body weight (based on NIH guidelines): 54.431 kg Excess body weight loss: The patient is a 67 year-old F who presents for Bariatric Assessment. She comes in incisional hernia. She comes in with weight gain over 25 pounds from poor thyroid correction. She has severe deficiency from iron. She has 5 cm incarcerated incisonal hernia. Recommend Iron infusion, correction of thyroid 150 mcg daily. Will need correction of all labs. Dysphagia present needs EGD dilation. Synthroid 150 mcg daily and reviewed how to take. Hernia repair after wedding. Past Medical History Past Medical History: Hearing Disorder / Deafness, Osteoarthritis (OA), Thyroid Disorder Additional Past Medical History / Comment(s): Acoustic Neuroma, deaf in R ear, has BAHA hearing implant-doesn't utilize much-says it gets infected frequently, difficulty with balance, frequent headaches, recent bloating, change in bowel habits, varicose veins History of Any Multi-Drug Resistant Organisms: None Reported Past Surgical History: Back Surgery, Bariatric Surgery, Bowel Resection, Coronary Bypass/CABG, Hernia Repair, Joint Replacement, Orthopedic Surgery, Tonsillectomy Additional Past Surgical History / Comment(s): Bilat. knee replacements, left hip replaced, incisional hernia, gastric bypass 25 years ago. 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 toe surgery Past Anesthesia/Blood Transfusion Reactions: Motion Sickness Past Psychological History: Anxiety, Depression Smoking Status: Never smoker Past Alcohol Use History: Rare Past Drug Use History: None Reported - Past Family History Mother Family Medical History: No Reported History Surgical - Exam Vital Signs Temp Pulse BP 97.7 F 92 159/80 01/16/23 12:54 01/16/23 12:54 01/16/23 12:54 Bariatric Checklist Checklist: Plan: Checklist: EGD: 1. Hiatal hernia: 2. H. Pylori: HgbA1c: Vitamin D: Smoking: Never smoker Primary care physician referral: Dr. Terry Cason Psychiatry clearance: Cardiology clearance: Sleep study: Diet journal: VTE risk score: VTE risk level: Rehab needs at discharge:
== END ==
LOC: BARWHC3 12:44
PROVIDERS: ATTEND Surgery Plastic and Reconstructive Surgery
DX: E66.01 Morbid (severe) obesity due to excess calories (principal); M19.90 Unspecified osteoarthritis, unspecified site; Z68.26 Body mass index [BMI] 26.0-26.9, adult; Z88.0 Allergy status to penicillin
CPT/HCPCS: 99211

== ENCOUNTER 2023-01-21 11:58 | Emergency (ER) | payer MEDICARE ==
[2023-01-21 12:28] VITALS: RESP 18
[2023-01-21] MEDS ORDERED: SODIUM CHLORIDE 0.9% 500 ML 500 ML IV ONE (12:32)
[2023-01-21 13:03] LABS: Basophils % (A) 0 %; Eosinophils # (A) 0.1 k/uL (0-0.7); Eosinophils % (A) 3 %; HCT 35.8 % (34.0-46.0); HGB 11.7 gm/dL (11.4-16.0); Lymphocytes # (A) 0.3 k/uL (1.0-4.8); Lymphocytes % (A) 10 %; MCH 30.3 pg (25.0-35.0); MCHC 32.6 g/dL (31.0-37.0); MCV 92.9 fL (80.0-100.0); Mean Platelet Volume 6.8; Monocytes # (A) 0.1 k/uL (0-1.0); Monocytes % (A) 2 %; Neutrophils # (A) 2.5 k/uL (1.3-7.7); Neutrophils % (A) 84 %; Platelet Count 295 k/uL (150-450); RBC 3.86 m/uL (3.80-5.40)
[2023-01-21 13:16] LABS: ALT 33 U/L (4-34); AST 39 U/L (14-36); African American GFR (CKD) >90 (>60 ml/min/1.73 sqM); Albumin 3.8 g/dL (3.5-5.0); Alkaline Phosphatase 78 U/L (38-126); Anion Gap 7 mmol/L; Blood Urea Nitrogen 18 mg/dL (7-17); Calcium 8.9 mg/dL (8.4-10.2); Carbon Dioxide 22 mmol/L (22-30); Chloride 105 mmol/L (98-107); Glucose 91 mg/dL (74-99); Non-African American GFR(CKD) >90 (>60 ml/min/1.73 sqM); Potassium 4.5 mmol/L (3.5-5.1); Sodium 134 mmol/L (137-145); Total Bilirubin 0.4 mg/dL (0.2-1.3); Total Protein 6.4 g/dL (6.3-8.2)
--- NOTE | 2023-01-21 13:24 | ED ---
General Adult HPI - General Chief complaint: Allergic Reaction Stated complaint: poss allergic reaction Time Seen by Provider: 01/21/23 12:22 Source: patient, RN notes reviewed Mode of arrival: ambulatory Limitations: no limitations - History of Present Illness Initial comments: 67-year-old female reports to the emergency department with a chief complaint of ALLERGIC reaction. Patient reports that she was at this hospital's infusion center receiving that blood cells when she felt her throat close up and broke out in a rash. She was given Benadryl and steroids while at the infusion center and reports some symptomatic relief. She denies any shortness breath, cough, itchiness at this time. She does report feeling like her throat is "s ore. "She denies any dizziness, lightheadedness, chest pain, shortness of breath, abdominal pain, nausea, vomiting, diarrhea - Related Data Home Medications Medication Instructions Recorded Confirmed buPROPion HCL [Wellbutrin SR] 150 mg PO BID 03/26/20 01/21/23 busPIRone HCl [Buspar] 10 mg PO BID 08/09/22 01/21/23 Atorvastatin [Lipitor] 20 mg PO HS 09/06/22 01/21/23 HYDROcodone/APAP 10-325MG [[place] 1 tab PO Q6H PRN 09/06/22 01/21/23 10-325] cycloSPORINE 0.05% OPHTH SOLN 1 applicator BOTH EYES Q12H 09/06/22 01/21/23 [Restasis] Previous Rx's Medication Instructions Recorded Omeprazole [PriLOSEC] 40 mg PO DAILY #90 cap 09/10/22 Levothyroxine Sodium [Synthroid] 150 mcg PO DAILY #30 tablet 01/16/23 predniSONE 50 mg PO DAILY #5 tab 01/21/23 Allergies Allergy/AdvReac Type Severity Reaction Status Date / Time ferumoxytol [From Feraheme] Allergy Rash/Hives Verified 01/21/23 12:04 Penicillins Allergy Itching Verified 01/21/23 12:04 Review of Systems ROS Statement: Those systems with pertinent positive or pertinent negative responses have been documented in the HPI. ROS Other: All systems not noted in ROS Statement are negative. Past Medical History Past Medical History: Hearing Disorder / Deafness, Osteoarthritis (OA), Thyroid Disorder Additional Past Medical History / Comment(s): Acoustic Neuroma, deaf in R ear, has BAHA hearing implant-doesn't utilize much-says it gets infected frequently, difficulty with balance, frequent headaches, recent bloating, change in bowel habits, varicose veins History of Any Multi-Drug Resistant Organisms: None Reported Past Surgical History: Back Surgery, Bariatric Surgery, Bowel Resection, Coronary Bypass/CABG, Hernia Repair, Joint Replacement, Orthopedic Surgery, Tonsillectomy Additional Past Surgical History / Comment(s): Bilat. knee replacements, left hip replaced, incisional hernia, gastric bypass 25 years ago. 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 toe surgery Past Anesthesia/Blood Transfusion Reactions: Motion Sickness Past Psychological History: Anxiety, Depression Smoking Status: Never smoker Past Alcohol Use History: None Reported Past Drug Use History: None Reported - Past Family History Mother Family Medical History: No Reported History General Exam Limitations: no limitations General appearance: alert, in no apparent distress Head exam: Present: atraumatic, normocephalic, normal inspection Eye exam: Present: normal appearance, PERRL, EOMI. Absent: scleral icterus, conjunctival injection, periorbital swelling ENT exam: Present: normal exam, normal oropharynx, mucous membranes moist Expanded Mouth exam: Present: normal external inspection, tongue normal. Absent: drooling, muffled voice Neck exam: Present: normal inspection. Absent: tenderness, meningismus, lymphadenopathy Respiratory exam: Present: normal lung sounds bilaterally. Absent: respiratory distress, wheezes, rales, rhonchi, stridor Cardiovascular Exam: Present: regular rate, normal rhythm, normal heart sounds. Absent: systolic murmur, diastolic murmur, rubs, gallop, clicks GI/Abdominal exam: Present: soft, normal bowel sounds. Absent: distended, tenderness, guarding, rebound, rigid Extremities exam: Present: normal inspection, full ROM, normal capillary refill. Absent: tenderness, pedal edema, joint swelling, calf tenderness Back exam: Present: normal inspection Neurological exam: Present: alert, oriented X3, CN II-XII intact Psychiatric exam: Present: normal affect, normal mood Skin exam: Present: warm, dry, intact, normal color. Absent: rash Course Vital Signs 01/21/23 01/21/23 01/21/23 12:02 12:23 13:59 Temperature 97.5 F L 98.1 F Pulse Rate 92 92 98 Respiratory 20 18 18 Rate Blood Pressure 109/70 111/97 130/77 O2 Sat by Pulse 99 95 98 Oximetry Medical Decision Making - Medical Decision Making Was pt. sent in by a medical professional or institution ([facility]la, [employer] SUPPORT SPECIALIST, urgent care, hospital, or half-way...) When possible be specific @ -[No] Did you speak to anyone other than the patient for history (EMS, parent, family, police, friend...)? What history was obtained from this source @ -[No] Did you review nursing and triage notes (agree or disagree)? Why? @ -[I reviewed and agree with nursing and triage notes] Were old charts reviewed (outside hosp., previous admission, EMS record, old EKG, old radiological studies, urgent care reports/EKG's, half-way records)? Report findings @ -[No old charts were reviewed] Differential Diagnosis (chest pain, altered mental status, abdominal pain women, abdominal pain men, vaginal bleeding, weakness, fever, dyspnea, syncope, headache, dizziness, GI bleed, back pain, seizure, CVA, palpatations, mental health, musculoskeletal)? @ -[not applicable] EKG interpreted by me (3pts min.). @ -[As above] X-rays interpreted by me (1pt min.). @ -[None done] CT interpreted by me (1pt min.). @ -[None done] U/S interpreted by me (1pt. min.). @ -[None done] What testing was considered but not performed or refused? (CT, X-rays, U/S, labs)? Why? @ -[None] What meds were considered but not given or refused? Why? @ -[None] Did you discuss the management of the patient with other professionals (professionals i.e. [facility]awla, [employer] SUPPORT SPECIALIST, lab, RT, psych nurse, geriatric social work professor, ammunition specialist, teacher, [employer] officer, leather case finisher)? Give summary @ -[No] Was smoking cessation discussed for >3mins.? @ -[No] Was critical care preformed (if so, how long)? @ -[No] Were there social determinants of health that impacted care today? How? (Homelessness, low income, unemployed, alcoholism, drug addiction, transportation, low edu. Level, literacy, decrease access to med. care, [facility], rehab)? @ -[No] Was there de-escalation of care discussed even if they declined (Discuss DNR or withdrawal of care, Hospice)? DNR status @ -[No] What co-morbidities impacted this encounter? (DM, HTN, Smoking, COPD, CAD, Cancer, CVA, ARF, Chemo, Hep., AIDS, mental health diagnosis, sleep apnea, morbid obesity)? @ -[None] Was patient admitted / discharged? Hospital course, mention meds given and route, prescriptions, significant lab abnormalities, going to OR and other pertinent info. @ -Discharged. This is a 67-year-old female who presents to the emergency department with allergic reaction. Patient had a thorough history and physical exam performed on the ED. Physical exam is essentially unremarkable. Heart rate regular rate and rhythm, lungs clear to auscultation bilaterally abdomen is soft and non-tender. Airway remains patent patient able to answer questions appropriately no respiratory distress noted patient remains to have oxygen saturation between 99% and 100%. Patient was given 1L IV fluids with symptomatic relief on the ED. I discussed the results in detail with the patient verbalized understanding and all questions were addressed. Return precautions were discussed at length. The patient was discharged in stable condition. Case discussed with [facility]. Nicole [facility] who agrees with plan of care Undiagnosed new problem with uncertain prognosis? @ -[No] Drug Therapy requiring intensive monitoring for toxicity (Heparin, Nitro, Insulin, Cardizem)? @ -[No] Were any procedures done? @ -[No] Diagnosis/symptom? @ -allergic reaction - iron infusion reaction Acute, or Chronic, or Acute on Chronic? @ -acute Uncomplicated (without systemic symptoms) or Complicated (systemic symptoms)? @ -uncomplicated Side effects of treatment? @ -[No] Exacerbation, Progression, or Severe Exacerbation? @ -[No] Poses a threat to life or bodily function? How? (Chest pain, [place], HI, pneumonia, PE, COPD, DKA, ARF, appy, cholecystitis, CVA, Diverticulitis, Homicidal, Suicidal, threat to staff... and all critical care pts) @ -low likelihood - Lab Data Result diagrams: 01/21/23 12:42 01/21/23 12:42 Lab Results 01/21/23 01/21/23 Range/Units 12:42 12:42 WBC 3.0 L (3.8-10.6) k/uL RBC 3.86 (3.80-5.40) m/uL Hgb 11.7 (11.4-16.0) gm/dL Hct 35.8 (34.0-46.0) % MCV 92.9 (80.0-100.0) fL MCH 30.3 (25.0-35.0) pg MCHC 32.6 (31.0-37.0) g/dL RDW 14.0 (11.5-15.5) % Plt Count 295 (150-450) k/uL MPV 6.8 Neutrophils % 84 % Lymphocytes % 10 % Monocytes % 2 % Eosinophils % 3 % Basophils % 0 % Neutrophils # 2.5 (1.3-7.7) k/uL Lymphocytes # 0.3 L (1.0-4.8) k/uL Monocytes # 0.1 (0-1.0) k/uL Eosinophils # 0.1 (0-0.7) k/uL Basophils # 0.0 (0-0.2) k/uL Sodium 134 L (137-145) mmol/L Potassium 4.5 (3.5-5.1) mmol/L Chloride 105 (98-107) mmol/L Carbon Dioxide 22 (22-30) mmol/L Anion Gap 7 mmol/L BUN 18 H (7-17) mg/dL Creatinine 0.66 (0.52-1.04) mg/dL Est GFR (CKD-EPI)AfAm >90 (>60 ml/min/1.73 sqM) Est GFR (CKD-EPI)NonAf >90 (>60 ml/min/1.73 sqM) Glucose 91 (74-99) mg/dL Calcium 8.9 (8.4-10.2) mg/dL Total Bilirubin 0.4 (0.2-1.3) mg/dL AST 39 H (14-36) U/L ALT 33 (4-34) U/L Alkaline Phosphatase 78 (38-126) U/L Total Protein 6.4 (6.3-8.2) g/dL Albumin 3.8 (3.5-5.0) g/dL Disposition Clinical Impression: Allergic reaction Disposition: HOME SELF-CARE Condition: Stable Instructions (If sedation given, give patient instructions): Anaphylaxis (ED) Additional Instructions: These take 5 days of prednisone Please return to the nearest emergency department if symptoms of shortness of breath, cough, sore throat develop Please return to the nearest emergency department symptoms worsen or persist Prescriptions: predniSONE 50 mg PO DAILY #5 tab Is patient prescribed a controlled substance at d/c from ED?: No Referrals: Terry Cason MD [Primary Care Provider] - 1-2 days Marychuy Martinez MD [STAFF PHYSICIAN] - 1-2 days Time of Disposition: 13:42
[2023-01-21] MEDS ORDERED: ONDANSETRON 4 MG ODT STARTER PACK 2 TAB BTL PO STA (13:41)
[2023-01-21 14:00] VITALS: BP 130/77; PULSE 98; TEMP 98.1
== END 2023-01-21 14:01 | disposition home or self-care (01) ==
LOC: EC 11:58
DX: T80.51XA Anaphylactic reaction due to administration of blood and blood products, initial encounter (principal); M19.90 Unspecified osteoarthritis, unspecified site; F41.9 Anxiety disorder, unspecified; F32.A Depression, unspecified; Z88.0 Allergy status to penicillin; Z88.8 Allergy status to other drugs, medicaments and biological substances; Z79.899 Other long term (current) drug therapy
CPT/HCPCS: 36415; 80053; 85025; 99283; S0119

== ENCOUNTER 2023-06-17 18:09 | Observation (INO) | payer MEDICARE ==
[2023-06-17 18:35] LABS: Glucose,Whole Blood 86 mg/dL (70-110)
--- NOTE | 2023-06-17 18:42 | ED ---
General Adult HPI - General Chief complaint: Altered Mental Status Stated complaint: AMS Time Seen by Provider: 06/17/23 18:15 Source: patient, family, RN notes reviewed Mode of arrival: EMS Limitations: altered mental status - History of Present Illness Initial comments: Patient is a pleasant 68-year-old female presenting to the emergency Department with with concern for change in mental status. Onset of symptoms was around 45 minutes ago. Change in mental status was sudden. . provides majority of history is patient is a poor historian. No history of similar symptoms previously. Patient was provided antibiotics in her PIC line prior to this. Patient did have removal of cochlear implant done around 3 weeks ago. There was concern for infection and patient was started on antibiotics. Patient has no headache. Patient doesn't feel confused. No weakness. - Related Data Home Medications Medication Instructions Recorded Confirmed buPROPion HCL [Wellbutrin SR] 150 mg PO BID 03/26/20 06/17/23 busPIRone HCl [Buspar] 10 mg PO BID 08/09/22 06/17/23 Atorvastatin [Lipitor] 20 mg PO HS 09/06/22 06/17/23 HYDROcodone/APAP 10-325MG [[place] 1 tab PO Q6H PRN 09/06/22 06/17/23 10-325] cycloSPORINE 0.05% OPHTH SOLN 1 applicator BOTH EYES Q12H 09/06/22 06/17/23 [Restasis] Butalb/APAP/Caff 50-325-40Mg 1 tab PO TID PRN 06/17/23 06/17/23 [Fioricet 50-325-40] Celecoxib [CeleBREX] 200 mg PO DAILY 06/17/23 06/17/23 DULoxetine HCL [Cymbalta] 60 mg PO DAILY 06/17/23 06/17/23 Ertapenem [INVanz] 1 gm IVPB Q24H 06/17/23 06/17/23 Ibuprofen [Motrin] 600 mg PO Q6HR PRN 06/17/23 06/17/23 Zolpidem [Ambien] 10 mg PO HS PRN 06/17/23 06/17/23 Previous Rx's Medication Instructions Recorded Omeprazole [PriLOSEC] 40 mg PO DAILY #90 cap 09/10/22 Levothyroxine Sodium [Synthroid] 150 mcg PO DAILY #30 tablet 01/16/23 Allergies Allergy/AdvReac Type Severity Reaction Status Date / Time ferumoxytol [From Feraheme] Allergy Rash/Hives Verified 06/17/23 18:59 Penicillins Allergy Itching Verified 06/17/23 18:59 Review of Systems ROS Statement: Those systems with pertinent positive or pertinent negative responses have been documented in the HPI. ROS Other: All systems not noted in ROS Statement are negative. Constitutional: Denies: fever Eyes: Denies: eye pain ENT: Denies: ear pain Respiratory: Denies: cough Cardiovascular: Denies: chest pain Endocrine: Denies: fatigue Gastrointestinal: Denies: abdominal pain Genitourinary: Denies: dysuria Neurological: Reports: as per HPI, confusion. Denies: headache, weakness Past Medical History Past Medical History: Hearing Disorder / Deafness, Osteoarthritis (OA), Thyroid Disorder Additional Past Medical History / Comment(s): Acoustic Neuroma, deaf in R ear, has BAHA hearing implant-doesn't utilize much-says it gets infected frequently, difficulty with balance, frequent headaches, recent bloating, change in bowel habits, varicose veins History of Any Multi-Drug Resistant Organisms: None Reported Past Surgical History: Back Surgery, Bariatric Surgery, Bowel Resection, Coronary Bypass/CABG, Hernia Repair, Joint Replacement, Orthopedic Surgery, Tonsillectomy Additional Past Surgical History / Comment(s): Bilat. knee replacements, left hip replaced, incisional hernia, gastric bypass 25 years ago. 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 toe surgery Past Anesthesia/Blood Transfusion Reactions: Motion Sickness Past Psychological History: Anxiety, Depression Smoking Status: Never smoker Past Alcohol Use History: None Reported Past Drug Use History: None Reported - Past Family History Mother Family Medical History: No Reported History General Exam Limitations: altered mental status General appearance: alert, in no apparent distress Head exam: Present: normocephalic Eye exam: Present: normal appearance, PERRL, EOMI ENT exam: Present: normal oropharynx, other (Right-sided posterior radicular incision clean and dry and intact without swelling or tenderness) Neck exam: Present: normal inspection. Absent: tenderness, meningismus Respiratory exam: Present: normal lung sounds bilaterally Cardiovascular Exam: Present: tachycardia GI/Abdominal exam: Present: soft. Absent: tenderness Extremities exam: Present: normal inspection, full ROM. Absent: tenderness Neurological exam: Present: alert, CN II-XII intact. Absent: motor sensory deficit Expanded Neurological exam: Present: protecting the airway Patient oriented to: Present: person. Absent: place, time Speech: Present: fluid speech Cranial nerves: EOM's Intact: Normal Motor strength exam: RUE: 5, LUE: 5, RLE: 5, LLE: 5 Eye Response: (4) open spontaneously Motor Response: (6) obeys commands Verbal Response: (4) confused conversation Psychiatric exam: Present: normal affect, normal mood Skin exam: Present: normal color Course Vital Signs 06/17/23 06/17/23 18:23 20:03 Temperature 97.4 F L Pulse Rate 120 H 117 H Respiratory 18 18 Rate Blood Pressure 104/62 124/78 O2 Sat by Pulse 95 95 Oximetry EKG Findings - EKG Results: EKG: interpreted by ERMD, sinus rhythm, normal axis, normal QRS, normal ST/T EKG shows: tachycardia Medical Decision Making - Medical Decision Making Was pt. sent in by a medical professional or institution (, PA, MACHINE STONECUTTER, urgent care, hospital, or skilled nursing...) When possible be specific @ -No Did you speak to anyone other than the patient for history (EMS, parent, family, police, friend...)? What history was obtained from this source @ - is present and provides majority of history is patient is a poor historian Did you review nursing and triage notes (agree or disagree)? Why? @ -I reviewed and agree with nursing and triage notes Were old charts reviewed (outside hosp., previous admission, EMS record, old EKG, old radiological studies, urgent care reports/EKG's, skilled nursing records)? Report findings @ -No old charts were reviewed Differential Diagnosis (chest pain, altered mental status, abdominal pain women, abdominal pain men, vaginal bleeding, weakness, fever, dyspnea, syncope, headache, dizziness, GI bleed, back pain, seizure, CVA, palpatations, mental health, musculoskeletal)? @ -Differential Altered Mental Status: Hypoglycemia, DKA, hypercapnia, ETOH, overdose, CO poisoning, trauma, myxedema coma, HTN encephalopathy, infection, encephalitis, psychosis, intercranial h emorrhage, hepatic encephalopathy, meningitis, CVA, this is not meant to be an all-inclusive list EKG interpreted by me (3pts min.). @ -As above X-rays interpreted by me (1pt min.). @ -Chest x-ray shows no acute process CT interpreted by me (1pt min.). @ -CT brain without large mass or hemorrhage U/S interpreted by me (1pt. min.). @ -None done What testing was considered but not performed or refused? (CT, X-rays, U/S, labs)? Why? @ -None What meds were considered but not given or refused? Why? @ -None Did you discuss the management of the patient with other professionals (professionals i.e. , PA, MACHINE STONECUTTER, lab, RT, psych nurse, social work nurse, onion farmer, teacher, tactical debriefer officer, bottle caser)? Give summary @ -Case was discussed with practitioner Terry Grove who will admit For Dr. Cason Was smoking cessation discussed for >3mins.? @ -No Was critical care preformed (if so, how long)? @ -No Were there social determinants of health that impacted care today? How? (Homelessness, low income, unemployed, alcoholism, drug addiction, trans portation, low edu. Level, literacy, decrease access to med. care, m[facility], rehab)? @ -No Was there de-escalation of care discussed even if they declined (Discuss DNR or withdrawal of care, Hospice)? DNR status @ -No What co-morbidities impacted this encounter? (DM, HTN, Smoking, COPD, CAD, Cancer, CVA, ARF, Chemo, Hep., AIDS, mental health diagnosis, sleep apnea, morbid obesity)? @ -None Was patient admitted / discharged? Hospital course, mention meds given and route, prescriptions, significant lab abnormalities, going to OR and other pertinent info. @ -Patient reevaluated and resting comfortably in bed. Patient is improved. Patient is oriented to place and time and year however is delayed with answering the year and is questionable. Patient will be admitted with neurology consult. Admission orders written. Undiagnosed new problem with uncertain prognosis? @ -Exact etiology is unclear at this time. I do have concern for TIA. Infectious process is felt to be very low as patient is on IV antibiotics and had sudden onset and rapid improvement. Drug Therapy requiring intensive monitoring for toxicity (Heparin, Nitro, Insulin, Cardizem)? @ -No Were any procedures done? @ -No Diagnosis/symptom? @ -Altered mental status Acute, or Chronic, or Acute on Chronic? @ -Acute Uncomplicated (without systemic symptoms) or Complicated (systemic symptoms)? @ -default Side effects of treatment? @ -No Exacerbation, Progression, or Severe Exacerbation? @ -No Poses a threat to life or bodily function? How? (Chest pain, USA, MS, pneumonia, PE, COPD, DKA, ARF, appy, cholecystitis, CVA, Diverticulitis, Homicidal, Suicidal, threat to staff... and all critical care pts) @ -No - Lab Data Result diagrams: 06/17/23 18:43 06/17/23 18:43 Lab Results 06/17/23 06/17/23 06/17/23 Range/Units 18:34 18:43 18:43 WBC 6.1 (3.8-10.6) k/uL RBC 2.27 L (3.80-5.40) m/uL Hgb 7.3 L (11.4-16.0) gm/dL Hct 21.7 L (34.0-46.0) % MCV 95.7 (80.0-100.0) fL MCH 32.0 (25.0-35.0) pg MCHC 33.4 (31.0-37.0) g/dL RDW 12.8 (11.5-15.5) % Plt Count 536 H (150-450) k/uL MPV 7.7 Neutrophils % 63 % Lymphocytes % 22 % Monocytes % 6 % Eosinophils % 6 % Basophils % 0 % Neutrophils # 3.8 (1.3-7.7) k/uL Lymphocytes # 1.3 (1.0-4.8) k/uL Monocytes # 0.4 (0-1.0) k/uL Eosinophils # 0.3 (0-0.7) k/uL Basophils # 0.0 (0-0.2) k/uL PT 10.6 (9.0-12.0) sec INR 1.0 (<1.2) APTT 22.5 (22.0-30.0) sec Sodium (137-145) mmol/L Potassium (3.5-5.1) mmol/L Chloride (98-107) mmol/L Carbon Dioxide (22-30) mmol/L Anion Gap mmol/L BUN (7-17) mg/dL Creatinine (0.52-1.04) mg/dL Est GFR (CKD-EPI)AfAm (>60 ml/min/1.73 sqM) Est GFR (CKD-EPI)NonAf (>60 ml/min/1.73 sqM) Glucose (74-99) mg/dL POC Glucose (mg/dL) 86 (70-110) mg/dL POC Glu Rn X Ray ID Prabhjot Sharpe Calcium (8.4-10.2) mg/dL Total Bilirubin (0.2-1.3) mg/dL AST (14-36) U/L ALT (4-34) U/L Alkaline Phosphatase (38-126) U/L Troponin I (0.000-0.034) ng/mL Total Protein (6.3-8.2) g/dL Albumin (3.5-5.0) g/dL Serum Alcohol mg/dL 06/17/23 06/17/23 06/17/23 Range/Units 18:43 18:43 18:52 WBC (3.8-10.6) k/uL RBC (3.80-5.40) m/uL Hgb (11.4-16.0) gm/dL Hct (34.0-46.0) % MCV (80.0-100.0) fL MCH (25.0-35.0) pg MCHC (31.0-37.0) g/dL RDW (11.5-15.5) % Plt Count (150-450) k/uL MPV Neutrophils % % Lymphocytes % % Monocytes % % Eosinophils % % Basophils % % Neutrophils # (1.3-7.7) k/uL Lymphocytes # (1.0-4.8) k/uL Monocytes # (0-1.0) k/uL Eosinophils # (0-0.7) k/uL Basophils # (0-0.2) k/uL PT (9.0-12.0) sec INR (<1.2) APTT (22.0-30.0) sec Sodium 137 (137-145) mmol/L Potassium 3.7 (3.5-5.1) mmol/L Chloride 108 H (98-107) mmol/L Carbon Dioxide 17 L (22-30) mmol/L Anion Gap 12 mmol/L BUN 13 (7-17) mg/dL Creatinine 0.60 (0.52-1.04) mg/dL Est GFR (CKD-EPI)AfAm >90 (>60 ml/min/1.73 sqM) Est GFR (CKD-EPI)NonAf >90 (>60 ml/min/1.73 sqM) Glucose 81 (74-99) mg/dL POC Glucose (mg/dL) 90 (70-110) mg/dL POC Glu Rn X Ray ID Haylee Gutierrez, Luci Calcium 8.6 (8.4-10.2) mg/dL Total Bilirubin 0.2 (0.2-1.3) mg/dL AST 42 H (14-36) U/L ALT 31 (4-34) U/L Alkaline Phosphatase 117 (38-126) U/L Troponin I <0.012 (0.000-0.034) ng/mL Total Protein 5.9 L (6.3-8.2) g/dL Albumin 3.3 L (3.5-5.0) g/dL Serum Alcohol <10 mg/dL 06/17/23 Range/Units 20:08 WBC (3.8-10.6) k/uL RBC (3.80-5.40) m/uL Hgb (11.4-16.0) gm/dL Hct (34.0-46.0) % MCV (80.0-100.0) fL MCH (25.0-35.0) pg MCHC (31.0-37.0) g/dL RDW (11.5-15.5) % Plt Count (150-450) k/uL MPV Neutrophils % % Lymphocytes % % Monocytes % % Eosinophils % % Basophils % % Neutrophils # (1.3-7.7) k/uL Lymphocytes # (1.0-4.8) k/uL Monocytes # (0-1.0) k/uL Eosinophils # (0-0.7) k/uL Basophils # (0-0.2) k/uL PT (9.0-12.0) sec INR (<1.2) APTT (22.0-30.0) sec Sodium (137-145) mmol/L Potassium (3.5-5.1) mmol/L Chloride (98-107) mmol/L Carbon Dioxide (22-30) mmol/L Anion Gap mmol/L BUN (7-17) mg/dL Creatinine (0.52-1.04) mg/dL Est GFR (CKD-EPI)AfAm (>60 ml/min/1.73 sqM) Est GFR (CKD-EPI)NonAf (>60 ml/min/1.73 sqM) Glucose (74-99) mg/dL POC Glucose (mg/dL) 110 (70-110) mg/dL POC Glu Rn X Ray ID Pavithra Sweeney Calcium (8.4-10.2) mg/dL Total Bilirubin (0.2-1.3) mg/dL AST (14-36) U/L ALT (4-34) U/L Alkaline Phosphatase (38-126) U/L Troponin I (0.000-0.034) ng/mL Total Protein (6.3-8.2) g/dL Albumin (3.5-5.0) g/dL Serum Alcohol mg/dL Disposition Clinical Impression: Altered mental status Disposition: ADMITTED IP TO THIS HOSP Is patient prescribed a controlled substance at d/c from ED?: No Referrals: None,Stated [REFERRING] - 1-2 days Time of Disposition: 20:31
[2023-06-17 18:53] LABS: Glucose,Whole Blood 90 mg/dL (70-110)
[2023-06-17 19:25] LABS: ALT 31 U/L (4-34); AST 42 U/L (14-36); African American GFR (CKD) >90 (>60 ml/min/1.73 sqM); Albumin 3.3 g/dL (3.5-5.0); Alcohol <10 mg/dL; Alkaline Phosphatase 117 U/L (38-126); Anion Gap 12 mmol/L; Blood Urea Nitrogen 13 mg/dL (7-17); Calcium 8.6 mg/dL (8.4-10.2); Carbon Dioxide 17 mmol/L (22-30); Chloride 108 mmol/L (98-107); Glucose 81 mg/dL (74-99); Non-African American GFR(CKD) >90 (>60 ml/min/1.73 sqM); Potassium 3.7 mmol/L (3.5-5.1); Sodium 137 mmol/L (137-145); Total Bilirubin 0.2 mg/dL (0.2-1.3); Total Protein 5.9 g/dL (6.3-8.2)
[2023-06-17 19:32] LABS: Basophils % (A) 0 %; Eosinophils # (A) 0.3 k/uL (0-0.7); Eosinophils % (A) 6 %; HCT 21.7 % (34.0-46.0); HGB 7.3 gm/dL (11.4-16.0); Lymphocytes # (A) 1.3 k/uL (1.0-4.8); Lymphocytes % (A) 22 %; MCHC 33.4 g/dL (31.0-37.0); MCV 95.7 fL (80.0-100.0); Mean Platelet Volume 7.7; Monocytes # (A) 0.4 k/uL (0-1.0); Monocytes % (A) 6 %; Neutrophils # (A) 3.8 k/uL (1.3-7.7); Neutrophils % (A) 63 %; Platelet Count 536 k/uL (150-450); RBC 2.27 m/uL (3.80-5.40); RDW 12.8 % (11.5-15.5); WBC 6.1 k/uL (3.8-10.6)
--- NOTE | 2023-06-17 19:34 | CT ---
EXAMINATION TYPE: CT brain wo con CT DLP: 1191.4 mGycm, Automated exposure control for dose reduction was used. DATE OF EXAM: 06/17/2023 7:29 PM COMPARISON: 04/18/2020. CLINICAL INDICATION:Female, 68 years old with history of Altered mental status, AMS TECHNIQUE: Brain: Axial CT images of the brain were obtained with coronal and sagittal reformats created and rev iewed. Contrast used: None. Oral contrast used: None. FINDINGS: Brain: Extra-axial spaces: No abnormal extra-axial fluid collections. Ventricular system: Dilatation in proportion to cerebral atrophy. Cerebral parenchyma: Cerebral atrophy. No acute intraparenchymal hemorrhage or mass effect. The dolan -white junction is well differentiated. Scattered hypoattenuating areas are seen within the white mat ter. Cerebellum: Unremarkable. Mass effect: No evidence of midline shift. Intracranial vasculature: unremarkable Soft tissues: Normal. Calvarium/osseous structures: No depressed skull fracture. Paranasal sinuses and mastoid air cells: Mild scattered paranasal sinus disease. Visualized orbits: Bilaterally aphakia. IMPRESSION: 1. No acute intracranial process. 2. Nonspecific white matter changes, likely secondary to chronic small vessel ischemic disease.
--- NOTE | 2023-06-17 19:35 | XR ---
EXAMINATION TYPE: XR chest 2V DATE OF EXAM: 06/17/2023 7:30 PM COMPARISON: Chest radiographs from 08/13/2022 TECHNIQUE: XR chest 2V Frontal and lateral views of the chest. CLINICAL INDICATION:Female, 68 years old with history of altered mental status; FINDINGS: Lungs/Pleura: There is flattening of the diaphragm with increased lucency of the lungs. No evidence o f pneumothorax, pleural effusion or focal consolidation. Pulmonary vascularity: Unremarkable. Heart/mediastinum: Cardiomediastinal silhouette is unremarkable. Musculoskeletal: No acute osseous pathology. Midline sternotomy wires are noted. Other findings: Stimulators project over the spine. IMPRESSION: 1. No acute cardiopulmonary disease process. 2. COPD changes.
[2023-06-17 20:00] LABS: Partial Thromboplastin Time 22.5 sec (22.0-30.0); Prothrombin Time 10.6 sec (9.0-12.0)
[2023-06-17 20:10] LABS: Glucose,Whole Blood 110 mg/dL (70-110)
[2023-06-17] MEDS ORDERED: NALOXONE 0.4 MG/ML 1 ML VIAL IV PRN (20:32)
[2023-06-17] MEDS ORDERED: ERTAPENEM 1 GM VIAL IVPB SCH (20:45)
[2023-06-17] MEDS ORDERED: ATORVASTATIN 20 MG TAB PO SCH (21:00)
[2023-06-17 21:14] LABS: Appearance,Urine Clear (Clear); Bilirubin,Urine Negative (Negative); Blood,Urine Negative (Negative); Color,Urine Light Yellow; Glucose,Urine (UA) Negative (Negative); Ketones,Urine Trace (Negative); Leukocyte Esterase,Urine Negative (Negative); Nitrite,Urine Negative (Negative); PH, Urine 5.5 (5.0-8.0); Protein,Urine Negative (Negative); Specific Gravity,Urine 1.011 (1.001-1.035); Urobilinogen,Urine <2.0 mg/dL (<2.0)
[2023-06-17] MEDS: buPROPion SR 150 MG TABLET.ER PO SCH (21:22)
[2023-06-17] MEDS: busPIRone HCl 10 MG TAB PO SCH (21:23)
[2023-06-17 21:26] LABS: Amphetamine Screen,Urine Not Detected (NotDetected); Barbiturate Screen,Urine Detected (NotDetected); Benzodiazepines Screen,Urine Not Detected (NotDetected); Cocaine Screen,Urine Not Detected (NotDetected); Methadone Screen, Urine Not Detected (NotDetected); Opiate Screen,Urine Detected (NotDetected); Oxycodone Screen, Urine Not Detected (NotDetected); Phencyclidine Screen,Urine Not Detected (NotDetected); Tricyclic Antidepressant,Urine Not Detected (NotDetected); Urn Cannabinoid Scrn Not Detected (NotDetected)
[2023-06-17] MEDS: cycloSPORINE 0.05% OPHTH 0.4 ML DROPERETTE BOTH EYES SCH (21:27)
[2023-06-17 22:10] VITALS: TEMP 97.7
[2023-06-17] MEDS: ACETAMINOPHEN TAB 325 MG TAB PO PRN (22:57)
[2023-06-18] MEDS ORDERED: LEVOTHYROXINE 75 MCG TAB PO SCH (06:30)
[2023-06-18] MEDS ORDERED: PANTOPRAZOLE 40 MG TABLET PO SCH (07:30)
[2023-06-18] MEDS: buPROPion SR 150 MG TABLET.ER PO SCH (08:32)
[2023-06-18] MEDS: busPIRone HCl 10 MG TAB PO SCH (08:32)
[2023-06-18] MEDS ORDERED: ERTAPENEM 1 GM in SODIUM CHLORIDE 0.9% 50 ML IVPB SCH (09:00)
[2023-06-18] MEDS ORDERED: DULoxetine HCL 60 MG CAPSULE.DR PO SCH (09:00)
--- NOTE | 2023-06-18 09:20 | US ---
EXAMINATION TYPE: US carotid duplex BILAT DATE OF EXAM: 06/17/2023 COMPARISON: NONE CLINICAL INDICATION: Female, 68 years old with history of thrombus; altered mental status TECHNIQUE: Carotid duplex ultrasound examination. Indirect Doppler criteria was utilized. FINDINGS: EXAM MEASUREMENTS: RIGHT: Peak Systolic Velocity (PSV) cm/sec ----- Right CCA: 112.9 ----- Right ICA: 135.5 ----- Right ECA: 141.7 ICA/CCA ratio: 1.2 RIGHT: End Diastole cm/sec ----- Right CCA: 30.5 ----- Right ICA: 51.5 ----- Right ECA: 27.4 LEFT: Peak Systolic Velocity (PSV) cm/sec ----- Left CCA: 122.0 ----- Left ICA: 127.9 ----- Left ECA: 158.8 ICA/CCA ratio: 1.0 LEFT: End Diastole cm/sec ----- Left CCA: 37.2 ----- Left ICA: 43.1 ----- Left ECA: 22.9 VERTEBRALS (direction of flow): Right Vertebral: Antegrade Left Vertebral: Antegrade Rhythm: Normal VICE PRESIDENT PAYER NOTES: No significantly elevated velocities or plaque seen IMPRESSION: No diagnostic evidence of hemodynamic significant stenosis. Criteria for Assigning % of Stenosis / Diameter reduction (Estimation based on the indirect measurements of the internal carotid artery velocities (ICA PSV). 1. Normal (no stenosis)=ICA PSV < 125 cm/s: ratio < 2.0: ICA EDV<40 cm/s. 2. Less than 50% stenosis=ICA PSV < 125 cm/s: ratio < 2.0: ICA EDV<40 cm/s. 3. 50 to 69% stenosis=ICA PSV of 125 to 230 cm/s: ration 2.0 ? 4.0: ICA EDV 40-100 cm/s. 4. Greater than 70% stenosis to near occlusion= ICA PSV > 230 cm/s: ratio > 4.0: ICA EDV > 100 cm/s. 5. Near occlusion= ICA PSV velocities may be low or undetectable: variable ratio and ICA EDV. 6. Total occlusion=unable to detect flow.
[2023-06-18 10:54] LABS: Basophils # (A) 0.04 X 10*3/uL (0.00-0.10); Basophils % (A) 1.1 %; Eosinophils # (A) 0.16 X 10*3/uL (0.04-0.35); Eosinophils % (A) 4.6 %; HCT 31.7 % (37.2-46.3); HGB 11.1 d/dL (12.0-15.0); Lymphocytes # (A) 0.49 X 10*3/uL (0.90-5.00); MCH 32.8 pg (27.0-32.0); MCV 93.8 FL (80.0-97.0); Mean Platelet Volume 9.1 FL (9.5-12.2); Monocytes # (A) 0.32 X 10*3/uL (0.20-1.00); Monocytes % (A) 9.1 %; NRBC Per 100 WBC 0 X 10*3/uL (0.00-0.01); Neutrophils # (A) 2.46 X 10*3/uL (1.80-7.70); Neutrophils % (A) 70.3 %; Platelet Count 352 X 10*3/uL (140-440); RBC 3.38 X 10*6/uL (4.10-5.20); RDW 12.8 % (11.5-14.5)
[2023-06-18 11:07] LABS: ALT 34 U/L (8-44); AST 47 U/L (13-35); Albumin 3.6 d/dL (3.8-4.9); Alkaline Phosphatase 123 U/L (41-126); BUN/Creat Ratio 11.83 Ratio (12.00-20.00); Blood Urea Nitrogen 7.1 mg/dL (9.0-27.0); Calcium 9.2 mg/dL (8.7-10.3); Carbon Dioxide 21.8 mmol/L (21.6-31.8); Chloride 110 mmol/L (96-109); Globulin 1.8 d/dL (1.6-3.3); Glucose 99 mg/dL (70-110); Sodium 142 mmol/L (135-145); Total Bilirubin <0.2 mg/dL (0.3-1.2); Total Protein 5.4 d/dL (6.2-8.2)
[2023-06-18 12:21] VITALS: RESP 18
[2023-06-18] MEDS: ACETAMINOPHEN TAB 325 MG TAB PO PRN (12:21)
--- NOTE | 2023-06-18 12:50 | P.HPIM ---
History of Present Illness 68-year-old pleasant female came in was brought in by the be with complaints of altered status. Patient had a recent cochlear implant the weeks ago since then patient has been on ertapenem with concern of infection. Patient is also on Wellbutrin 150 mg twice a day at home. Patient saw some flashes of light along with the some colors and eyes followed by loss of consciousness and confusion denied any loss of bowel or bladder incontinence, denied any tongue biting denied any obvious seizure-like activity. CT of the head showed some chronic small vessel ischemic changes without any significant abnormality on the carotid Doppler. Patient doesn't have any evidence of infection chest x-ray and urinalysis are essentially within normal limits. Patient's symptoms completely resolved at this time patient is alert oriented 3. The only medication that she takes at home that can affect her mentation is [place] and Fioricet. Patient has been taking his medications for long time and didn't take any extra medications kidney function is essentially within normal limits REVIEW OF SYSTEMS: CONSTITUTIONAL: No fever, no malaise, no fatigue. HEENT: No recent visual problems or hearing problems. Denied any sore throat. CARDIOVASCULAR: No chest pain, orthopnea, PND, no palpitations,. PULMONARY: No shortness of breath, no cough, no hemoptysis. GASTROINTESTINAL: No diarrhea, no nausea, no vomiting, no abdominal pain. NEUROLOGICAL: No headaches, no weakness, no numbness. HEMATOLOGICAL: Denies any bleeding or petechiae. GENITOURINARY: Denies any burning micturition, frequency, or urgency. MUSCULOSKELETAL/RHEUMATOLOGICAL: Denies any joint pain, swelling, or any muscle pain. ENDOCRINE: Denies any polyuria or polydipsia. The rest of the 14-point review of systems is negative. PHYSICAL EXAMINATION: GENERAL: The patient is alert and oriented x3, not in any acute distress. Well developed, well nourished. HEENT: Pupils are round and equally reacting to light. EOMI. No scleral icterus. No conjunctival pallor. Normocephalic, atraumatic. No pharyngeal erythema. No thyromegaly. CARDIOVASCULAR: S1 and S2 present. No murmurs, rubs, or gallops. PULMONARY: Chest is clear to auscultation, no wheezing or crackles. ABDOMEN: Soft, nontender, nondistended, normoactive bowel sounds. No palpable organomegaly. MUSCULOSKELETAL: No joint swelling or deformity. EXTREMITIES: No cyanosis, clubbing, or pedal edema. NEUROLOGICAL: Gross neurological examination did not reveal any focal deficits. SKIN: No rashes. Assessment and plan -New-onset seizure: Most probably secondary to ertapenem along with the Wellbutrin. Patient's dose of Wellbutrin will be decreased from 150 mg twice a day 200 mg twice a day. Discussed with the the infectious disease doctor that is managing to ertapenem Dr. Cabezas, from [facility], he recommended to hold off on antibiotic and follow-up in the office. Patient prefers to get EEG as an outpatient. Patient will follow-up with the neurology as an outpatient for EEG. -Small vessel ischemic changes on the computed tomography scan: Patient does take Lipitor at home will add 81 mg of aspirin -History of microcytic neuroma and a cochlear implant in the past -Depression -Hyperthyroidism Patient will be discharged today with the above-mentioned plan the is discontinu ation of ertapenem and cutting down the dose of Wellbutrin Past Medical History Past Medical History: Hearing Disorder / Deafness, Osteoarthritis (OA), Thyroid Disorder Additional Past Medical History / Comment(s): Acoustic Neuroma, deaf in R ear, has BAHA hearing implant-doesn't utilize much-says it gets infected frequently, difficulty with balance, frequent headaches, recent bloating, change in bowel habits, varicose veins History of Any Multi-Drug Resistant Organisms: None Reported Past Surgical History: Back Surgery, Bariatric Surgery, Bowel Resection, Coronary Bypass/CABG, Hernia Repair, Joint Replacement, Orthopedic Surgery, Tonsillectomy Additional Past Surgical History / Comment(s): Bilat. knee replacements, left hip replaced, incisional hernia, gastric bypass 25 years ago. 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 toe surgery Past Anesthesia/Blood Transfusion Reactions: Motion Sickness Past Psychological History: Anxiety, Depression Smoking Status: Never smoker Past Alcohol Use History: None Reported Past Drug Use History: None Reported - Past Family History Mother Family Medical History: No Reported History Medications and Allergies Home Medications Medication Instructions Recorded Confirmed Type busPIRone HCl [Buspar] 10 mg PO BID 08/09/22 06/17/23 History Atorvastatin [Lipitor] 20 mg PO HS 09/06/22 06/17/23 History HYDROcodone/APAP 10-325MG [[place] 1 tab PO Q6H PRN 09/06/22 06/17/23 History 10-325] cycloSPORINE 0.05% OPHTH SOLN 1 applicator BOTH EYES Q12H 09/06/22 06/17/23 History [Restasis] Omeprazole [PriLOSEC] 40 mg PO DAILY #90 cap 09/10/22 06/17/23 Rx Levothyroxine Sodium [Synthroid] 150 mcg PO DAILY #30 tablet 01/16/23 06/17/23 Rx Butalb/APAP/Caff 50-325-40Mg 1 tab PO TID PRN 06/17/23 06/17/23 History [Fioricet 50-325-40] Celecoxib [CeleBREX] 200 mg PO DAILY 06/17/23 06/17/23 History DULoxetine HCL [Cymbalta] 60 mg PO DAILY 06/17/23 06/17/23 History Ibuprofen [Motrin] 600 mg PO Q6HR PRN 06/17/23 06/17/23 History Zolpidem [Ambien] 10 mg PO HS PRN 06/17/23 06/17/23 History Aspirin 81 mg PO DAILY #60 tab 06/18/23 Rx buPROPion SR [Wellbutrin SR] 100 mg PO BID #60 tab 06/18/23 Rx Allergies Allergy/AdvReac Type Severity Reaction Status Date / Time ferumoxytol [From [facility]] Allergy Rash/Hives Verified 06/17/23 18:59 Penicillins Allergy Itching Verified 06/17/23 18:59 Physical Exam Vitals: Vital Signs Temp Pulse Resp BP Pulse Ox 06/18/23 12:21 110 H 18 113/68 98 06/18/23 08:30 105 H 17 127/84 97 06/18/23 07:00 102 H 18 115/65 98 06/18/23 03:00 102 H 18 111/74 97 06/18/23 00:00 125 H 18 116/64 98 06/17/23 22:07 97.7 F 111 H 20 114/66 95 06/17/23 20:03 117 H 18 124/78 95 06/17/23 18:23 97.4 F L 120 H 18 104/62 95 Intake and Output 06/17/23 06/18/23 06/18/23 22:59 06:59 14:59 Other: Weight 64.8 kg Results CBC & Chem 7: 06/18/23 06:44 06/18/23 06:44 Labs: Abnormal Lab Results - Last 24 Hours (Table) 06/17/23 06/17/23 06/17/23 Range/Units 18:43 18:43 21:00 WBC (4.50-10.00) X 10*3/uL RBC 2.27 L (3.80-5.40) m/uL Hgb 7.3 L (11.4-16.0) gm/dL Hct 21.7 L (34.0-46.0) % MCH (27.0-32.0) pg Plt Count 536 H (150-450) k/uL MPV (9.5-12.2) FL Lymphocytes # (0.90-5.00) X 10*3/uL Chloride 108 H (98-107) mmol/L Carbon Dioxide 17 L (22-30) mmol/L BUN (9.0-27.0) mg/dL BUN/Creatinine Ratio (12.00-20.00) Ratio Total Bilirubin (0.3-1.2) mg/dL AST 42 H (14-36) U/L Total Protein 5.9 L (6.3-8.2) g/dL Albumin 3.3 L (3.5-5.0) g/dL Urine Ketones Trace H (Negative) Urine Opiates Screen Detected H (NotDetected) Ur Barbiturates Screen Detected H (NotDetected) 06/18/23 06/18/23 Range/Units 06:44 06:44 WBC 3.50 L (4.50-10.00) X 10*3/uL RBC 3.38 L (3.80-5.40) m/uL Hgb 11.1 L (11.4-16.0) gm/dL Hct 31.7 L (34.0-46.0) % MCH 32.8 H (27.0-32.0) pg Plt Count (150-450) k/uL MPV 9.1 L (9.5-12.2) FL Lymphocytes # 0.49 L (0.90-5.00) X 10*3/uL Chloride 110 H (98-107) mmol/L Carbon Dioxide (22-30) mmol/L BUN 7.1 L (9.0-27.0) mg/dL BUN/Creatinine Ratio 11.83 L (12.00-20.00) Ratio Total Bilirubin <0.2 L (0.3-1.2) mg/dL AST 47 H (14-36) U/L Total Protein 5.4 L (6.3-8.2) g/dL Albumin 3.6 L (3.5-5.0) g/dL Urine Ketones (Negative) Urine Opiates Screen (NotDetected) Ur Barbiturates Screen (NotDetected)
--- NOTE | 2023-06-18 12:50 | P.DS ---
Providers Date of admission: 06/17/23 20:33 Attending physician: Karen Tovar Consults: 06/17/23 20:32 Consult Physician Routine Consulting Provider: Gabo Driver Consult Reason/Comments: ams Do you want consulting provider notified?: Yes Primary care physician: Terry Cason [facility] Course: 68-year-old pleasant female came in was brought in by the be with complaints of altered status. Patient had a recent cochlear implant the weeks ago since then patient has been on ertapenem with concern of infection. Patient is also on Wellbutrin 150 mg twice a day at home. Patient saw some flashes of light along with the some colors and eyes followed by loss of consciousness and confusion denied any loss of bowel or bladder incontinence, denied any tongue biting denied any obvious seizure-like activity. CT of the head showed some chronic small vessel ischemic changes without any significant abnormality on the carotid Doppler. Patient doesn't have any evidence of infection chest x-ray and urinalysis are essentially within normal limits. Patient's symptoms completely resolved at this time patient is alert oriented 3. The only medication that she takes at home that can affect her mentation is [place] and Fioricet. Patient has been taking his medications for long time and didn't take any extra medications kidney function is essentially within normal limits REVIEW OF SYSTEMS: CONSTITUTIONAL: No fever, no malaise, no fatigue. HEENT: No recent visual problems or hearing problems. Denied any sore throat. CARDIOVASCULAR: No chest pain, orthopnea, PND, no palpitations,. PULMONARY: No shortness of breath, no cough, no hemoptysis. GASTROINTESTINAL: No diarrhea, no nausea, no vomiting, no abdominal pain. NEUROLOGICAL: No headaches, no weakness, no numbness. HEMATOLOGICAL: Denies any bleeding or petechiae. GENITOURINARY: Denies any burning micturition, frequency, or urgency. MUSCULOSKELETAL/RHEUMATOLOGICAL: Denies any joint pain, swelling, or any muscle pain. ENDOCRINE: Denies any polyuria or polydipsia. The rest of the 14-point review of systems is negative. PHYSICAL EXAMINATION: GENERAL: The patient is alert and oriented x3, not in any acute distress. Well developed, well nourished. HEENT: Pupils are round and equally reacting to light. EOMI. No scleral icterus. No conjunctival pallor. Normocephalic, atraumatic. No pharyngeal erythema. No thyromegaly. CARDIOVASCULAR: S1 and S2 present. No murmurs, rubs, or gallops. PULMONARY: Chest is clear to auscultation, no wheezing or crackles. ABDOMEN: Soft, nontender, nondistended, normoactive bowel sounds. No palpable organomegaly. MUSCULOSKELETAL: No joint swelling or deformity. EXTREMITIES: No cyanosis, clubbing, or pedal edema. NEUROLOGICAL: Gross neurological examination did not reveal any focal deficits. SKIN: No rashes. Assessment and plan -New-onset seizure: Most probably secondary to ertapenem along with the Wellbutrin. Patient's dose of Wellbutrin will be decreased from 150 mg twice a day 200 mg twice a day. Discussed with the the infectious disease doctor that is managing to ertapenem Dr. Cabezas, from [facility], he recommended to hold off on antibiotic and follow-up in the office. Patient prefers to get EEG as an outpatient. Patient will follow-up with the neurology as an outpatient for EEG. -Small vessel ischemic changes on the computed tomography scan: Patient does take Lipitor at home will add 81 mg of aspirin -History of microcytic neuroma and a cochlear implant in the past -Depression -Hyperthyroidism Patient will be discharged today with the above-mentioned plan the is discontinuation of ertapenem and cutting down the dose of Wellbutrin Plan - Discharge Summary New Discharge Prescriptions: New buPROPion SR [Wellbutrin SR] 100 mg PO BID #60 tab Aspirin 81 mg PO DAILY #60 tab Continue Levothyroxine Sodium [Synthroid] 150 mcg PO DAILY #30 tablet Butalb/APAP/Caff 50-325-40Mg [Fioricet 50-325-40] 1 tab PO TID PRN PRN Reason: Migraine Headache Zolpidem [Ambien] 10 mg PO HS PRN PRN Reason: Insomnia Celecoxib [CeleBREX] 200 mg PO DAILY busPIRone HCl [Buspar] 10 mg PO BID Atorvastatin [Lipitor] 20 mg PO HS cycloSPORINE 0.05% OPHTH SOLN [Restasis] 1 applicator BOTH EYES Q12H HYDROcodone/APAP 10-325MG [[place] 10-325] 1 tab PO Q6H PRN PRN Reason: Pain Omeprazole [PriLOSEC] 40 mg PO DAILY #90 cap DULoxetine HCL [Cymbalta] 60 mg PO DAILY Ibuprofen [Motrin] 600 mg PO Q6HR PRN PRN Reason: Pain Or Fever > 100.5 Discontinued buPROPion HCL [Wellbutrin SR] 150 mg PO BID Ertapenem [INVanz] 1 gm IVPB Q24H Discharge Medication List busPIRone HCl [Buspar] 10 mg PO BID 08/09/22 [History] Atorvastatin [Lipitor] 20 mg PO HS 09/06/22 [History] HYDROcodone/APAP 10-325MG [[place] 10-325] 1 tab PO Q6H PRN 09/06/22 [History] cycloSPORINE 0.05% OPHTH SOLN [Restasis] 1 applicator BOTH EYES Q12H 09/06/22 [History] Omeprazole [PriLOSEC] 40 mg PO DAILY #90 cap 09/10/22 [Rx] Levothyroxine Sodium [Synthroid] 150 mcg PO DAILY #30 tablet 01/16/23 [Rx] Butalb/APAP/Caff 50-325-40Mg [Fioricet 50-325-40] 1 tab PO TID PRN 06/17/23 [History] Celecoxib [CeleBREX] 200 mg PO DAILY 06/17/23 [History] DULoxetine HCL [Cymbalta] 60 mg PO DAILY 06/17/23 [History] Ibuprofen [Motrin] 600 mg PO Q6HR PRN 06/17/23 [History] Zolpidem [Ambien] 10 mg PO HS PRN 06/17/23 [History] Aspirin 81 mg PO DAILY #60 tab 06/18/23 [Rx] buPROPion SR [Wellbutrin SR] 100 mg PO BID #60 tab 06/18/23 [Rx] Follow up Appointment(s)/Referral(s): Terry Cason MD [Primary Care Provider] - 3 Days Gloria Jackson MD [REFERRING] - 1 Week None,Stated [REFERRING] - 1-2 days Luis Cabezas MD [REFERRING] - 3 Days Discharge Disposition: HOME SELF-CARE
[2023-06-18] MEDS: cycloSPORINE 0.05% OPHTH 0.4 ML DROPERETTE BOTH EYES SCH (13:00)
[2023-06-18 14:13] VITALS: BP 124/63; PULSE 114
--- NOTE | 2023-06-18 16:27 | CA ---
Transthoracic Echo Report Name: Sondra Ye Age: 68 Gender: F : 1955 Exam Date: 06/18/2023 10:35 Exam Location: [place] Echo Ht (in): 67 Wt (lb): 142 Ordering Physician: Praneeth Nicole DO Attending/Referring Phys: Assistant Dean Of [employer] Radha Flores [facility] Procedure CPT: Indications: Thrombus Cardiac Hx: Technical Quality: Fair Contrast 1: Total Dose (mL): Contrast 2: Total Dose (mL): MEASUREMENTS (Male / Female) Normal Values 2D ECHO LV Diastolic Diameter PLAX 3.5 cm 4.2 - 5.9 / 3.9 - 5.3 cm LV Systolic Diameter PLAX 2.6 cm IVS Diastolic Thickness 0.9 cm 0.6 - 1.0 / 0.6 - 0.9 cm LVPW Diastolic Thickness 0.8 cm 0.6 - 1.0 / 0.6 - 0.9 cm LV Relative Wall Thickness 0.5 LVOT Diameter 2.1 cm M-MODE Aortic Root Diameter MM 2.7 cm LA Systolic Diameter MM 3.5 cm LA Ao Ratio MM 1.3 AV Cusp Separation MM 1.7 cm DOPPLER AV Peak Velocity 173.1 cm/s AV Peak Gradient 12.0 mmHg AV Mean Velocity 122.0 cm/s AV Mean Gradient 6.5 mmHg AV Velocity Time Integral 27.9 cm LVOT Peak Velocity 127.3 cm/s LVOT Peak Gradient 6.5 mmHg LVOT Velocity Time Integral 21.1 cm LVOT Stroke Volume 69.8 cm??? LVOT Stroke Volume Index 39.9 ml/m??? LVOT Cardiac Index 3995.2 cm???/min???m??? AV Area Cont Eq vti 2.5 cm??? AV Area Cont Eq pk 2.4 cm??? Mitral E Point Velocity 53.7 cm/s Mitral A Point Velocity 102.8 cm/s Mitral E to A Ratio 0.5 MV Deceleration Time 99.6 ms LV E' Lateral Velocity 11.6 cm/s Mitral E to LV E' Lateral Ratio 4.6 LV E' Septal Velocity 10.9 cm/s Mitral E to LV E' Septal Ratio 4.9 TR Peak Velocity 239.2 cm/s TR Peak Gradient 22.9 mmHg Right Atrial Pressure 15.0 mmHg Pulmonary Artery Systolic Pressu 37.9 mmHg Right Ventricular Systolic Press 37.9 mmHg FINDINGS Left Ventricle Left ventricular wall thickness normal. Left ventricular cavity size normal. Left ventricular ejection fraction is estimated at 50-55%. Low normal left ventricular systolic function with no obvious regional wall motion abnormalities. Right Ventricle Mild right ventricular dilatation. Mild pulmonary hypertension. Right Atrium Normal right atrial size. Left Atrium Normal left atrial size. Mitral Valve Mitral valve thickened. No mitral regurgitation. Aortic Valve Aortic valve not well visualized. No aortic valve stenosis or regurgitation. Tricuspid Valve Structurally normal tricuspid valve. [id number] tricuspid regurgitation. Pulmonic Valve Pulmonic valve not well visualized. Pericardium No pericardial effusion. Aorta Normal size aortic root. CONCLUSIONS Normal LV size and systolic function ejection fraction 50-55% Mild RV enlargement Mildly dilated IVC No obvious intracardiac mass Previewed by: Dr. Vinicio Monzon MD (Electronically Signed) Final Date: 18 June 2023 16:26
== END 2023-06-18 14:13 | disposition home or self-care (01) ==
LOC: EC 18:09 → INTOOBSV 20:33 → 5NMEDONC 20:33
PROVIDERS: ADMIT Internal Medicine; ATTEND Internal Medicine
DX: R56.9 Unspecified convulsions (principal); F32.A Depression, unspecified; F41.9 Anxiety disorder, unspecified; E05.90 Thyrotoxicosis, unspecified without thyrotoxic crisis or storm; Z86.2 Personal history of diseases of the blood and blood-forming organs and certain disorders involving the immune mechanism; Z95.1 Presence of aortocoronary bypass graft; Z96.21 Cochlear implant status; Z79.1 Long term (current) use of non-steroidal anti-inflammatories (NSAID); Z79.82 Long term (current) use of aspirin; Z79.890 Hormone replacement therapy; Z79.899 Other long term (current) drug therapy; Z88.0 Allergy status to penicillin
CPT/HCPCS: 36415; 70450; 71046; 80053; 80306; 80320; 81003; 84484; 85025; 85610; 85730; 93005; 93306; 93880; 96365; 99285

== ENCOUNTER → 2023-06-27 | Outpatient (CLI) | payer MEDICARE ==
[2023-06-27 13:33] LABS: Prealbumin 29.5 mg/dL (18.0-42.0)
[2023-06-27 13:44] LABS: HCT 40.9 % (37.2-46.3); HGB 12.8 d/dL (12.0-15.0); MCHC 31.3 d/dL (32.0-37.0); Mean Platelet Volume 9.5 FL (9.5-12.2); NRBC Per 100 WBC 0 X 10*3/uL (0.00-0.01); Platelet Count 393 X 10*3/uL (140-440); RBC 4.13 X 10*6/uL (4.10-5.20); WBC 5.75 X 10*3/uL (4.50-10.00)
[2023-06-27 13:49] LABS: % Iron Saturation 60.71 (12.00-45.00); Chol/HDL Ratio 2.56 Ratio; Ferritin 54.2 ng/mL (10.0-291.0); Iron 255 UG/DL (50-170); LDL Cholesterol,Calculated 103.8 mg/dL (0.0-131.0); Phosphorus 4.5 mg/dL (2.4-5.1); Total Iron Binding Capacity 420 UG/DL (228-460)
[2023-06-27 13:51] LABS: ALT 36 U/L (8-44); AST 30 U/L (13-35); Albumin 4.4 d/dL (3.8-4.9); Albumin/Globulin Ratio 1.91 Ratio (1.60-3.17); Alkaline Phosphatase 142 U/L (41-126); BUN/Creat Ratio 12.78 Ratio (12.00-20.00); Blood Urea Nitrogen 11.5 mg/dL (9.0-27.0); Carbon Dioxide 21.6 mmol/L (21.6-31.8); Chloride 103 mmol/L (96-109); Globulin 2.3 d/dL (1.6-3.3); Glucose 100 mg/dL (70-110); Potassium 4.4 mmol/L (3.5-5.5); Sodium 140 mmol/L (135-145); Total Bilirubin <0.2 mg/dL (0.3-1.2); Total Protein 6.7 d/dL (6.2-8.2)
[2023-06-27 14:31] LABS: INR <0.93 sec (0.93-1.11); Partial Thromboplastin Time 26.1 sec (23.5-31.0); Prothrombin Time 10.2 sec (9.9-11.9)
[2023-06-28 13:26] LABS: Zinc, Serum 80 ug/dL (60-130)
== END | disposition home or self-care (01) ==
LOC: LABWHC1 09:22
PROVIDERS: ATTEND Surgery Plastic and Reconstructive Surgery
DX: E66.01 Morbid (severe) obesity due to excess calories (principal); E21.1 Secondary hyperparathyroidism, not elsewhere classified; E89.1 Postprocedural hypoinsulinemia; D50.8 Other iron deficiency anemias; E44.0 Moderate protein-calorie malnutrition; E55.9 Vitamin D deficiency, unspecified; K74.1 Hepatic sclerosis; N19 Unspecified kidney failure; K50.90 Crohn's disease, unspecified, without complications
CPT/HCPCS: 36415; 80053; 80061; 82306; 82525; 82607; 82728; 82746; 83036; 83540; 83550; 83735; 83970; 84100; 84134; 84255; 84425; 84443; 84590; 84630; 85027; 85610; 85730

== ENCOUNTER → 2023-10-09 | Outpatient (CLI) | payer MEDICARE ==
[2023-10-09 10:43] LABS: NT-Pro-B-Type Natriuretic Pept 593 pg/mL
[2023-10-09 15:05] LABS: HCT 37.5 % (37.2-46.3); HGB 11.8 g/dL (12.0-15.0); MCH 30.2 pg (27.0-32.0); MCHC 31.5 g/dL (32.0-37.0); MCV 95.9 FL (80.0-97.0); Mean Platelet Volume 9.6 FL (9.5-12.2); NRBC Per 100 WBC 0 X 10*3/uL (0.00-0.01); Platelet Count 325 X 10*3/uL (140-440); RBC 3.91 X 10*6/uL (4.10-5.20); RDW 14.8 % (11.5-14.5); WBC 5.55 X 10*3/uL (4.50-10.00)
[2023-10-09 16:13] LABS: Blood Urea Nitrogen 19.2 mg/dL (9.0-27.0); Calcium 10.4 mg/dL (8.7-10.3); Carbon Dioxide 17.7 mmol/L (21.6-31.8); Chloride 102 mmol/L (96-109); Glucose 101 mg/dL (70-110); Potassium 4.9 mmol/L (3.5-5.5); Sodium 138 mmol/L (135-145); T4, Free (Free Thyroxine) 1.42 ng/dL (0.80-1.80)
== END | disposition home or self-care (01) ==
LOC: LABWHC1 09:09
PROVIDERS: ATTEND Nurse Practitioner Acute Care
DX: R06.02 Shortness of breath (principal)
CPT/HCPCS: 36415; 80048; 83880; 84439; 84443; 85027

== ENCOUNTER 2024-01-17 15:33 | Inpatient (IN) | payer MEDICARE ==
[2024-01-17] MEDS: IPRATROPIUM-ALBUTEROL 3 ML NEB INHALATION STA (16:08)
--- NOTE | 2024-01-17 16:08 | ED ---
SOB HPI - General Chief Complaint: Shortness of Breath Stated Complaint: Chest Pain,Sob Time Seen by Provider: 01/17/24 15:54 Source: patient, family, RN notes reviewed Mode of arrival: wheelchair - History of Present Illness Initial Comments: This is a pleasant 68-year-old female with history of heart disease who presents to the emergency department today complaining of productive cough for yellow sputum, shortness of breath which has been worse for the past few hours. Shania ent states she's been ill for a few weeks. Patient tested positive for influenza A's ago and was treated with a Z-Umair by her primary care physician. Patient also had a course of corticosteroids at that time. Cigarette smoking. No history of COPD or asthma. Regular physician, Dr. Cason, yesterday and was put on antibiotics. Received an injection of steroids yesterday. She denies any hemoptysis. Does have some chest discomfort which she is relating to the cough breathing. No other exacerbating or alleviating factors. Patient denying any fever. Denies any nausea vomiting. No changes in bowel movements or urination. Denying any history of cancer despite the history of colon cancer in the chart. Patient does not recall which antibiotic she was placed on. No headache, no fever or chills, no changes in vision or hearing, no sore throat or difficulty with speech, no neck pain, no abdominal pain, no nausea or vomiting, no changes in urination or bowel movements, no numbness or tingling, no extremity pain, no skin rashes or lesions. Past medical, surgical, social, and family history reviewed. MD Complaint: shortness of breath - Related Data Home Medications Medication Instructions Recorded Confirmed busPIRone HCl [Buspar] 10 mg PO BID 08/09/22 01/17/24 Atorvastatin [Lipitor] 20 mg PO DAILY 09/06/22 01/17/24 HYDROcodone/APAP 10-325MG [[place] 1 tab PO QID 09/06/22 01/17/24 10-325] cycloSPORINE 0.05% OPHTH SOLN 1 applicator BOTH EYES BID 09/06/22 01/17/24 [Restasis] Zolpidem [Ambien] 10 mg PO HS 06/17/23 01/17/24 Cefdinir [Omnicef] 300 mg PO Q12HR 01/17/24 01/17/24 Desvenlafaxine Succinate [Pristiq 50 mg PO DAILY 01/17/24 01/17/24 ER] Levothyroxine Sodium [Synthroid] 100 mcg PO DAILY 01/17/24 01/17/24 traZODone HCL [Desyrel] 50 mg PO HS 01/17/24 01/17/24 Previous Rx's Medication Instructions Recorded Omeprazole [PriLOSEC] 40 mg PO DAILY #90 cap 09/10/22 Allergies Allergy/AdvReac Type Severity Reaction Status Date / Time ferumoxytol [From [employer]] Allergy Rash/Hives Verified 01/17/24 16:42 Penicillins Allergy Itching/Swe Verified 01/17/24 16:42 lling Review of Systems ROS Statement: Those systems with pertinent positive or pertinent negative responses have been documented in the HPI. ROS Other: All systems not noted in ROS Statement are negative. Past Medical History Past Medical History: Hearing Disorder / Deafness, Osteoarthritis (OA), Thyroid Disorder Additional Past Medical History / Comment(s): Acoustic Neuroma, deaf in R ear, has BAHA hearing implant-doesn't utilize much-says it gets infected frequently, has been removed difficulty with balance, frequent headaches, recent bloating, change in bowel habits, varicose veins History of Any Multi-Drug Resistant Organisms: None Reported Past Surgical History: Back Surgery, Bariatric Surgery, Bowel Resection, Coronary Bypass/CABG, Hernia Repair, Joint Replacement, Orthopedic Surgery, Tonsillectomy Additional Past Surgical History / Comment(s): Bilat. knee replacements, left hip replaced, incisional hernia, gastric bypass 25 years ago. 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 toe surgery Past Anesthesia/Blood Transfusion Reactions: Motion Sickness Past Psychological History: Anxiety, Depression Smoking Status: Never smoker - Past Family History Mother Family Medical History: No Reported History General Exam - General Exam Comments Initial Comments: Patient noted to be tachycardic, in mild distress secondary to shortness of breath and cough. Capillary refill less than 2 seconds. No mottling. No edema. 4, cranial nerves II through XII grossly intact General appearance: alert, in no apparent distress, in distress Head exam: Present: atraumatic, normocephalic, normal inspection Eye exam: Present: normal appearance, PERRL, EOMI. Absent: scleral icterus, conjunctival injection, periorbital swelling ENT exam: Present: normal exam, normal oropharynx, mucous membranes moist, normal external ear exam. Absent: mucous membranes dry Neck exam: Present: normal inspection. Absent: tenderness, meningismus, lymphadenopathy Respiratory exam: Present: respiratory distress, other (Heart cough noted). Absent: normal lung sounds bilaterally, wheezes, rales, rhonchi, stridor, chest wall tenderness, accessory muscle use, decreased breath sounds, prolonged expiratory Cardiovascular Exam: Present: normal rhythm, tachycardia, normal heart sounds. Absent: regular rate, systolic murmur, diastolic murmur, rubs, gallop, clicks GI/Abdominal exam: Present: soft, normal bowel sounds. Absent: distended, tenderness, guarding, rebound, rigid Extremities exam: Present: normal inspection, full ROM, normal capillary refill. Absent: tenderness, pedal edema, joint swelling, calf tenderness Back exam: Present: normal inspection Neurological exam: Present: alert, oriented X3, CN II-XII intact Psychiatric exam: Present: normal affect, normal mood Skin exam: Present: warm, dry, intact, normal color. Absent: rash Course Vital Signs 01/17/24 01/17/24 01/17/24 15:42 16:08 16:16 Temperature 97.5 F L Pulse Rate 113 H 105 H 110 H Respiratory 22 Rate Blood Pressure 159/83 O2 Sat by Pulse 95 Oximetry 01/17/24 17:04 Temperature Pulse Rate 106 H Respiratory 18 Rate Blood Pressure 165/92 O2 Sat by Pulse 100 Oximetry - Reevaluation(s) Reevaluation #1: 01/17/24 16:49 Patient criteria for SIRS severe sepsis. Lactate 3.7. CO2 noted to be 13 with elevated anion gap at 17. Venous blood gas added. Repeat evaluation no current tachypnea. Refill less than 2 seconds. No mild tachycardic 108. 2+4. Repeat cardiopulmonary examination reveals mild scattered rhonchi, no wheezing. No extra heart sounds. No murmur. Reevaluation #2: 01/17/24 17:28 Is reevaluated, somewhat improved after breathing treatments and corticosteroids. To 96%. Patient currently not tachypneic. Still tachycardic. Repeat cardiopulmonary examination reveal scattered rhonchi, no wheezes, no tachypnea, patient not requiring oxygen. Capillary refill less than 2 seconds. No mottling. Peripheral pulses 2+4. No extra heart sounds are heart murmur. Patient alert and oriented 4, cranial nerves II through XII grossly intact Medical Decision Making - Medical Decision Making Was pt. sent in by a medical professional or institution? @ -no Did you speak to anyone other than the patient for history? @ -Patient's also in the room providing additional details of history Did you review nursing and triage notes? @ -Agree Were old charts reviewed? @ -No Differential Diagnosis? @ -[place] diagnosis includes but not limited to: Pneumonia, pneumothorax, pulmonary embolism, cardiac ischemic pain, otitis, chest wall pain, CHF EKG interpreted by me (3pts min.)? @ -see ED course him independently directed by me X-rays interpreted by me (1pt min.)? @ -Independent interpretation of the two-view chest x-ray by me shows evidence of possible increased markings in the left lingular area. Reviewed radiology interpretation CT interpreted by me (1pt min.)? @ -[none] U/S interpreted by me (1pt. min.)? @ -[none] What testing was considered but not performed? (CT, X-rays, U/S, labs)? Why? @ [CT, X-rays, U/S, labs? Why?] What meds were considered but not given? Why? @ -[none] Did you discuss the management of the patient with other professionals? @ -Discussed in detail with the [facility] for [facility] hospitalist groupRosemary. Admitted to Dr. Kohler Did you reconcile home meds? @ -yes Was smoking cessation discussed for >3mins.? @ -[none] Was critical care preformed (if so, how long)? @ -[none] Were there social determinants of health that impacted care today? How? (Homelessness, low income, unemployed, alcoholism, drug addiction, transportation, low edu. Level, literacy, decrease access to med. care, longterm, rehab)? @ -none Was there de-escalation of care discussed even if they declined? (Discuss DNR or withdrawal of care, Hospice)? @ -no What co-morbidities impacted this encounter? (DM, HTN, Smoking, COPD, CAD, Cancer, CVA, Hep., AIDS, mental health diagnosis, sleep apnea, morbid obesity)? @ -Previous cardiac history Was patient admitted / discharged? @ -Admitted Undiagnosed new problem with uncertain prognosis? @ -Outpatient pneumonia treatment failure, sepsis, could pose a risk to life or bodily function Drug Therapy requiring intensive monitoring for toxicity (Heparin, Nitro, Insulin, Cardizem)? @ -[none] Were any procedures done? @ -[none] Diagnosis/symptom? @ -Commune acquired pneumonia, severe sepsis Acute, or Chronic, or Acute on Chronic? @ -acute Uncomplicated (without systemic symptoms) or Complicated (systemic symptoms)? @ -Complicated Side effects of treatment? @ -[none] Exacerbation, Progression, or Severe Exacerbation] @ -[no] Poses a threat to life or bodily function? @ -Yes The patient's treatment with multiple antibiotics, including starting an antibiotic yesterday. Presentation here today, elevated lactic acid, acidotic state, consistent with possible outpatient treatment failure for pneumonia with severe sepsis. Patient will be admitted. Case discussed in detail with the [facility] hospitalist group. The case was discussed in detail with ED attending physician. Presentation, findings, treatment plan discussed in detail. - Lab Data Result diagrams: 01/17/24 16:11 01/17/24 16:11 Lab Results 01/17/24 01/17/24 01/17/24 Range/Units 16:11 16:11 16:11 WBC 10.3 (3.8-10.6) k/uL RBC 4.53 (3.80-5.40) m/uL Hgb 14.0 (11.4-16.0) gm/dL Hct 43.4 (34.0-46.0) % MCV 95.8 (80.0-100.0) fL MCH 30.9 (25.0-35.0) pg MCHC 32.2 (31.0-37.0) g/dL RDW 14.1 (11.5-15.5) % Plt Count 623 H (150-450) k/uL MPV 7.3 Neutrophils % 86 % Lymphocytes % 10 % Monocytes % 2 % Eosinophils % 1 % Basophils % 0 % Neutrophils # 8.9 H (1.3-7.7) k/uL Lymphocytes # 1.0 (1.0-4.8) k/uL Monocytes # 0.2 (0-1.0) k/uL Eosinophils # 0.1 (0-0.7) k/uL Basophils # 0.0 (0-0.2) k/uL PT 9.8 L (10.0-12.5) sec INR 0.9 (<1.2) APTT 22.4 (22.0-30.0) sec D-Dimer 0.43 (<0.60) mg/L FEU Sodium 137 (137-145) mmol/L Potassium 4.3 (3.5-5.1) mmol/L Chloride 107 (98-107) mmol/L Carbon Dioxide 13 L (22-30) mmol/L Anion Gap 17 mmol/L BUN 15 (7-17) mg/dL Creatinine 0.64 (0.52-1.04) mg/dL Est GFR (CKD-EPI)AfAm >90 (>60 ml/min/1.73 sqM) Est GFR (CKD-EPI)NonAf >90 (>60 ml/min/1.73 sqM) Glucose 124 H (74-99) mg/dL Plasma Lactic Acid Sarabjit (0.7-2.0) mmol/L Calcium 10.5 H (8.4-10.2) mg/dL Magnesium 1.9 (1.6-2.3) mg/dL Total Bilirubin 0.5 (0.2-1.3) mg/dL AST 40 H (14-36) U/L ALT 24 (4-34) U/L Alkaline Phosphatase 178 H (38-126) U/L Troponin I (0.000-0.034) ng/mL NT-Pro-B Natriuret Pep 246 pg/mL Total Protein 7.7 (6.3-8.2) g/dL Albumin 4.5 (3.5-5.0) g/dL Influenza Type A (PCR) (Not Detectd) Influenza Type B (PCR) (Not Detectd) RSV (PCR) (Not Detectd) SARS-CoV-2 (PCR) (Not Detectd) 01/17/24 01/17/24 01/17/24 Range/Units 16:11 16:11 16:11 WBC (3.8-10.6) k/uL RBC (3.80-5.40) m/uL Hgb (11.4-16.0) gm/dL Hct (34.0-46.0) % MCV (80.0-100.0) fL MCH (25.0-35.0) pg MCHC (31.0-37.0) g/dL RDW (11.5-15.5) % Plt Count (150-450) k/uL MPV Neutrophils % % Lymphocytes % % Monocytes % % Eosinophils % % Basophils % % Neutrophils # (1.3-7.7) k/uL Lymphocytes # (1.0-4.8) k/uL Monocytes # (0-1.0) k/uL Eosinophils # (0-0.7) k/uL Basophils # (0-0.2) k/uL PT (10.0-12.5) sec INR (<1.2) APTT (22.0-30.0) sec D-Dimer (<0.60) mg/L FEU Sodium (137-145) mmol/L Potassium (3.5-5.1) mmol/L Chloride (98-107) mmol/L Carbon Dioxide (22-30) mmol/L Anion Gap mmol/L BUN (7-17) mg/dL Creatinine (0.52-1.04) mg/dL Est GFR (CKD-EPI)AfAm (>60 ml/min/1.73 sqM) Est GFR (CKD-EPI)NonAf (>60 ml/min/1.73 sqM) Glucose (74-99) mg/dL Plasma Lactic Acid Sarabjit 3.7 H* (0.7-2.0) mmol/L Calcium (8.4-10.2) mg/dL Magnesium (1.6-2.3) mg/dL Total Bilirubin (0.2-1.3) mg/dL AST (14-36) U/L ALT (4-34) U/L Alkaline Phosphatase (38-126) U/L Troponin I <0.012 (0.000-0.034) ng/mL NT-Pro-B Natriuret Pep pg/mL Total Protein (6.3-8.2) g/dL Albumin (3.5-5.0) g/dL Influenza Type A (PCR) Not Detected (Not Detectd) Influenza Type B (PCR) Not Detected (Not Detectd) RSV (PCR) Not Detected (Not Detectd) SARS-CoV-2 (PCR) Not Detected (Not Detectd) - EKG Data EKG Comments: EKG shows paced rhythm with a rate of 108. No evidence of ST or T-wave changes. Baseline artifact. Compared with previous study from 05/2023 is no significant change. Disposition Clinical Impression: Severe sepsis, Acute pulmonary edema Disposition: ADMITTED IP TO THIS HOSP Condition: Fair Is patient prescribed a controlled substance at d/c from ED?: No If prescribed controlled substance>3 days was MAPS reviewed?: No Referrals: Terry Cason MD [Primary Care Provider] - 1-2 days Time of Disposition: 17:23 Decision to Admit Reason: Admit from EC Decision Date: 01/17/24 Decision Time: 17:23
[2024-01-17 16:28] LABS: Basophils % (A) 0 %; Eosinophils # (A) 0.1 k/uL (0-0.7); Eosinophils % (A) 1 %; HCT 43.4 % (34.0-46.0); Lymphocytes % (A) 10 %; MCH 30.9 pg (25.0-35.0); MCHC 32.2 g/dL (31.0-37.0); MCV 95.8 fL (80.0-100.0); Mean Platelet Volume 7.3; Monocytes # (A) 0.2 k/uL (0-1.0); Monocytes % (A) 2 %; Neutrophils # (A) 8.9 k/uL (1.3-7.7); Neutrophils % (A) 86 %; Platelet Count 623 k/uL (150-450); RBC 4.53 m/uL (3.80-5.40); RDW 14.1 % (11.5-15.5); WBC 10.3 k/uL (3.8-10.6)
[2024-01-17] MEDS: SODIUM CHLORIDE 0.9% 500 ML 500 ML IV STA (16:30)
[2024-01-17] MEDS: methylPREDNISolone SOD SUCCI 125 MG/2 ML VIAL IV STA (16:31)
[2024-01-17 16:41] LABS: ALT 24 U/L (4-34); AST 40 U/L (14-36); African American GFR (CKD) >90 (>60 ml/min/1.73 sqM); Albumin 4.5 g/dL (3.5-5.0); Alkaline Phosphatase 178 U/L (38-126); Anion Gap 17 mmol/L; Blood Urea Nitrogen 15 mg/dL (7-17); Calcium 10.5 mg/dL (8.4-10.2); Carbon Dioxide 13 mmol/L (22-30); Chloride 107 mmol/L (98-107); Glucose 124 mg/dL (74-99); Magnesium 1.9 mg/dL (1.6-2.3); Non-African American GFR(CKD) >90 (>60 ml/min/1.73 sqM); Sodium 137 mmol/L (137-145); Total Bilirubin 0.5 mg/dL (0.2-1.3); Total Protein 7.7 g/dL (6.3-8.2)
[2024-01-17 16:42] LABS: Potassium 4.3 mmol/L (3.5-5.1)
[2024-01-17 16:50] LABS: NT-Pro-B-Type Natriuretic Pept 246 pg/mL
[2024-01-17 16:51] LABS: INR 0.9 (<1.2); Partial Thromboplastin Time 22.4 sec (22.0-30.0); Prothrombin Time 9.8 sec (10.0-12.5)
--- NOTE | 2024-01-17 16:58 | XR ---
EXAMINATION TYPE: XR chest 2V DATE OF EXAM: 01/17/2024 COMPARISON: 06/17/2023 HISTORY: Shortness of breath TECHNIQUE: Frontal and lateral views of the chest are obtained. FINDINGS: There is no focal air space opacity, pleural effusion, or pneumothorax seen. The cardiac silhouett e size is within normal limits. There is a median sternotomy. There are TENS unit wires terminating in the mid thoracic spine. The os seous structures are intact. IMPRESSION: No acute cardiopulmonary process.
[2024-01-17] MEDS: SODIUM CHLORIDE 0.9% 1,000 ML IV STA (17:01)
[2024-01-17] MEDS ORDERED: ALBUTEROL NEBULIZED 2.5 MG/3 ML INHALATION PRN (17:24)
[2024-01-17] MEDS: SODIUM CHLORIDE 0.9% 1,000 ML IV SCH (17:32)
[2024-01-17] MEDS: AZITHROMYCIN 500 MG in SODIUM CHLORIDE 0.9% 250 ML IVPB STA (17:58)
[2024-01-17 18:12] LABS: VBG PH 7.58 (7.31-7.41)
[2024-01-17] MEDS ORDERED: ONDANSETRON 4 MG/2 ML VIAL IVP PRN (18:17)
[2024-01-17] MEDS: ONDANSETRON 4 MG/2 ML VIAL IVP STA (18:25)
[2024-01-17] MEDS: ACETAMINOPHEN TAB 325 MG TAB PO PRN (19:26)
[2024-01-17] MEDS: IPRATROPIUM-ALBUTEROL 3 ML NEB INHALATION SCH (20:18)
[2024-01-17] MEDS: ALBUTEROL NEBULIZED 2.5 MG/3 ML INHALATION SCH (20:18)
[2024-01-17] MEDS: ZOLPIDEM 5 MG TAB PO SCH (20:47)
[2024-01-17] MEDS: busPIRone HCl 10 MG TAB PO SCH (20:48)
[2024-01-17] MEDS: traZODone HCL 50 MG TAB PO SCH (20:49)
[2024-01-17] MEDS: cycloSPORINE 0.05% OPHTH 0.4 ML DROPERETTE BOTH EYES SCH (21:31)
[2024-01-17] MEDS: HYDROcodone/APAP 10-325MG 1 EACH TAB PO SCH (21:31)
[2024-01-17] MEDS: HEPARIN SODIUM,PORCINE 5,000 UNIT/ML 1 ML VIAL SQ SCH (23:05)
[2024-01-18 04:38] LABS: Blood Urea Nitrogen 12.3 mg/dL (9.0-27.0); Calcium 9.1 mg/dL (8.7-10.3); Carbon Dioxide 16.9 mmol/L (21.6-31.8); Chloride 106 mmol/L (96-109); Glucose 166 mg/dL (70-110); Potassium 4.1 mmol/L (3.5-5.5); Sodium 137 mmol/L (135-145)
[2024-01-18] MEDS: DESVENLAFAXINE SUCCINATE 50 MG TAB.ER.24H PO SCH (08:38)
[2024-01-18] MEDS: LEVOTHYROXINE 100 MCG TAB PO SCH (08:38)
[2024-01-18] MEDS: ATORVASTATIN 20 MG TAB PO SCH (08:38)
[2024-01-18] MEDS: AZITHROMYCIN 250 MG TAB PO SCH (10:41)
[2024-01-18] MEDS: PANTOPRAZOLE 40 MG TABLET PO SCH (10:42)
--- NOTE | 2024-01-18 18:27 | CT ---
EXAMINATION TYPE: CT angio chest CT DLP: 147.7 mGycm, Automated exposure control for dose reduction was used. DATE OF EXAM: 01/18/2024 4:48 PM COMPARISON: Chest x-ray yesterday CLINICAL INDICATION:Female, 68 years old with history of pe; R/O PE. TECHNIQUE/CONTRAST: CTA scan of the thorax is performed with IV Contrast, patient injected with 100 ml mL of Isovue 370, multiplanar reformats generated. MIP images are created and reviewed these are created on a separate workstation.. FINDINGS: There is adequate contrast bolus and timing. PULMONARY ARTERIES: There is no evidence for a filling defect within the pulmonary vasculature to sug gest acute pulmonary embolism. Pulmonary trunk is normal in size. Trunk measures 2.4 CM. HEART: Heart size upper normal.Mild coronary artery calcification. No appreciable pericardial effusi on. Curvilinear density may be mitral calcification or prosthesis. AORTA: Mild atherosclerotic calcifications of the aorta and branches. Ascending aorta is 2.4 CM, yenny cending is 2.3 CM. LOWER NECK: No significant findings. Thyroid not clearly seen, may be small or absent. MEDIASTINUM: N o enlarged nodes identified. SOFT TISSUES/LYMPH NODES: Unremarkable soft tissues. No axillary adenopathy. LUNGS/ PLEURA: Mild scarring and senescent changes. No acute infiltrate, pleural effusion, or pneumot horax. AIRWAY: Central airways are patent. Borderline mild bronchiectasis bilaterally. MUSCULOSKELETAL: Mild/moderate degenerative changes of the thoracic spine with slightly exaggerated k yphosis. Spinal stimulator present with the electrodes terminating in the posterior spinal canal at t he T8-T9 level. No acute osseous abnormality. Multiple wires from previous sternotomy. UPPER ABDOMEN: No significant acute findings. Surgical clip appears present anterior to the liver. Ch olecystectomy clips. Radiodensities suggesting postoperative changes in the region of the GE junction , stomach, and small bowel likely from gastric bypass. IMPRESSION: 1. No evidence of pulmonary embolism. 2. No other acute chest process demonstrated. 3. Other chronic and likely incidental findings, as described above.
--- NOTE | 2024-01-18 19:39 | HP ---
HISTORY AND PHYSICAL CHIEF COMPLAINT: Shortness of breath as well as chest pain. HISTORY OF PRESENT ILLNESS: This 68-year-old woman with a past medical history of DJD, history of a hearing defect and infection of the right ear implant acoustic neuroma, CAD, CABG and multiple complex medical issues. Apparently went to [place] for a vacation. The patient had some minimal cold before going to the vacation and patient spent about a week, strictly into a resort according to her, not venturing out. The patient came back and after coming back, the patient was found to have a soft throat. Because of nonimprovement, Dr. Dominguez performed testing. Influenza A was positive. The patient put on Z-Umair, but the patient has increasing shortness of breath and cough and other symptoms. The patient came to [facility] and admitted for evaluation and treatment. Pulmonary edema was suspected on admission. The patient also had productive yellow sputum. The patient has features of sepsis with elevated procalcitonin and lactic acid at this time. There is no history of fever, rigors or chills. PAST MEDICAL HISTORY: History of back surgery, bariatric surgery, multiple complex medical issues. Rest of the history and rest of the chart is also reviewed. HOME MEDICATIONS: Synthroid. Dose and rest of medications reviewed. ALLERGIES: Penicillin. Rest of allergies reviewed. FAMILY HISTORY: No history of heart disease or strokes in the family. SOCIAL HISTORY: No history of smoking or alcohol. REVIEW OF SYSTEMS: Fourteen-point review is negative except as mentioned earlier. PHYSICAL EXAMINATION: VITAL SIGNS: Pulse is 96, blood pressure 153/90, and respirations 18. HEENT: Conjunctivae normal. NECK: No JVD. CARDIOVASCULAR: S1 and S2. RESPIRATIONS: Breath sounds diminished at the bases. Few scattered rhonchi and crackles. ABDOMEN: Soft, nontender. LEGS: No edema. NERVOUS SYSTEM: Nonfocal. SKIN: No ulcer, rash, bleeding. JOINTS: No active deforming arthropathy. LABORATORY DATA: Platelets 623, rest of the labs are noted as mentioned earlier. Flu and RSV and COVID- 19 negative. X-ray reviewed. ASSESSMENT: 1. Shortness of breath and cough with acute tracheobronchitis, rule out possible pneumonia with sepsis present on admission. 2. Rule out pulmonary embolism. 3. History of right ear implant infection and removal. 4. History of acoustic neuroma. 5. History of bowel resection. 6. History of bariatric surgery. 7. History of coronary artery disease, coronary artery bypass graft. 8. History of multiple complex medical issues. RECOMMENDATIONS AND DISCUSSION: This 68-year-old woman who presented with multiple complex medical issues. At this time, I recommend continue the empiric antibiotics follow the cultures and I would recommend for additional pulmonary evaluation. I would also recommend CT angio of the chest, even though the D-dimer is negative. The EKG showed diffuse deep S waves and home medications will be continued. DVT prophylaxis. See orders for details. Prognosis guarded. Further recommendations to follow. MMODL / IJN: [id number] /
--- NOTE | 2024-01-18 23:08 | P.CONS ---
History of Present Illness - Reason for Consult Consult date: 01/18/24 - History of Present Illness Patient is a 68-year-old female with a past medical history significant for acoustic neuroma in this patient who is deaf in the right ear patient did have a hearing implant placed subsequently got infected for the patient was treated at [facility] patient mention subsequently she did have an MRI and has been told overall clearance of infection patient now presenting to the hospital for evaluation of productive cough shortness of breath that has been going on for the last week apparently the patient has been diagnosed more than a week ago for similar symptoms with influenza A and has been treated with a Z-Umair subsequently reevaluated and was given a different antibiotic however the patient did not have any improvement patient complaining of worsening shortness of breath she also have a cough moderate intensity and is bringing up some yellow sputum did have some central chest pain mild to moderate intensity without radiation nausea but no vomiting no abdominal pain and no diarrhea patient on presentation to the hospital was afebrile and no fever have recorded subsequently patient was tachycardic but not hypotensive or hypoxic and not requiring any supplemental oxygen patient did have a white count of 10.3 creatinine was 0.6 liver enzymes are normal procalcitonin was elevated at 3.76 influenza RSV COVID testing was negative blood cultures obtained which are currently pending patient did have a chest x-ray that was reported negative for acute pulmonary process patient was admitted to hospital started on Rocephin and Zithromax infectious disease was consulted for further management of antibiotic therapy Past Medical History Past Medical History: Hearing Disorder / Deafness, Osteoarthritis (OA), Thyroid Disorder Additional Past Medical History / Comment(s): Acoustic Neuroma, deaf in R ear, has BAHA hearing implant-doesn't utilize much-says it gets infected frequently, has been removed difficulty with balance, frequent headaches, recent bloating, change in bowel habits, varicose veins History of Any Multi-Drug Resistant Organisms: None Reported Past Surgical History: Back Surgery, Bariatric Surgery, Bowel Resection, Coronary Bypass/CABG, Hernia Repair, Joint Replacement, Orthopedic Surgery, Tonsillectomy Additional Past Surgical History / Comment(s): Bilat. knee replacements, left hip replaced, incisional hernia, gastric bypass 25 years ago. 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 toe surgery Past Anesthesia/Blood Transfusion Reactions: Motion Sickness Past Psychological History: Anxiety, Depression Smoking Status: Never smoker Past Alcohol Use History: None Reported Past Drug Use History: None Reported - Past Family History Mother Family Medical History: No Reported History Medications and Allergies Home Medications Medication Instructions Recorded Confirmed Type busPIRone HCl [Buspar] 10 mg PO BID 08/09/22 01/17/24 History Atorvastatin [Lipitor] 20 mg PO DAILY 09/06/22 01/17/24 History HYDROcodone/APAP 10-325MG [[place] 1 tab PO QID 09/06/22 01/17/24 History 10-325] cycloSPORINE 0.05% OPHTH SOLN 1 applicator BOTH EYES BID 09/06/22 01/17/24 History [Restasis] Omeprazole [PriLOSEC] 40 mg PO DAILY #90 cap 09/10/22 01/17/24 Rx Zolpidem [Ambien] 10 mg PO HS 06/17/23 01/17/24 History Cefdinir [Omnicef] 300 mg PO Q12HR 01/17/24 01/17/24 History Desvenlafaxine Succinate [Pristiq 50 mg PO DAILY 01/17/24 01/17/24 History ER] Levothyroxine Sodium [Synthroid] 100 mcg PO DAILY 01/17/24 01/17/24 History traZODone HCL [Desyrel] 50 mg PO HS 01/17/24 01/17/24 History Allergies Allergy/AdvReac Type Severity Reaction Status Date / Time ferumoxytol [From [facility]] Allergy Rash/Hives Verified 01/17/24 16:42 Penicillins Allergy Itching/Swe Verified 01/17/24 16:42 lling Physical Exam Vitals: Vital Signs Temp Pulse Pulse Resp BP BP Pulse Ox 01/18/24 11:20 92 01/18/24 11:10 94 01/18/24 07:54 96 01/18/24 07:45 96 01/18/24 07:25 98.1 F 105 H 18 153/91 98 01/18/24 02:14 152/83 01/18/24 01:51 97.7 F 100 20 161/93 97 01/17/24 22:00 20 01/17/24 21:35 97.8 F 92 20 155/81 99 01/17/24 21:07 97.8 F 99 18 167/86 97 01/17/24 19:27 104 H 18 151/84 97 01/17/24 18:05 107 H 22 159/80 99 01/17/24 17:04 106 H 18 165/92 100 01/17/24 16:16 110 H 01/17/24 16:08 105 H 01/17/24 15:42 97.5 F L 113 H 22 159/83 95 Intake and Output 01/17/24 01/18/24 01/18/24 22:59 06:59 14:59 Intake Total 1100 Balance 1100 Intake: Intake, IV Titration 600 Amount Sodium Chloride 0.9% 1, 600 000 ml @ 130 mls/hr IV . Q7H42M [facility] Rx#:[id number] Oral 500 Other: Voiding Method Toilet Toilet # Voids 2 Weight 58.967 kg Results CBC & Chem 7: 01/17/24 16:11 01/17/24 20:01 Labs: Abnormal Lab Results - Last 24 Hours (Table) 01/17/24 01/17/24 01/17/24 Range/Units 16:11 16:11 16:11 Plt Count 623 H (150-450) k/uL Neutrophils # 8.9 H (1.3-7.7) k/uL PT 9.8 L (10.0-12.5) sec VBG pH (7.31-7.41) VBG pCO2 (37-51) mmHg VBG HCO3 (24-28) mmol/L Carbon Dioxide 13 L (22-30) mmol/L Anion Gap (4.00-12.00) mmol/L BUN/Creatinine Ratio (12.00-20.00) Ratio Glucose 124 H (74-99) mg/dL Plasma Lactic Acid Sarabjit (0.7-2.0) mmol/L Calcium 10.5 H (8.4-10.2) mg/dL AST 40 H (14-36) U/L Alkaline Phosphatase 178 H (38-126) U/L Procalcitonin (0.02-0.09) ng/mL 01/17/24 01/17/24 01/17/24 Range/Units 16:11 17:47 20:01 Plt Count (150-450) k/uL Neutrophils # (1.3-7.7) k/uL PT (10.0-12.5) sec VBG pH 7.58 H (7.31-7.41) VBG pCO2 17 L* (37-51) mmHg VBG HCO3 16 L (24-28) mmol/L Carbon Dioxide 16.9 L (22-30) mmol/L Anion Gap 14.10 H (4.00-12.00) mmol/L BUN/Creatinine Ratio 20.50 H (12.00-20.00) Ratio Glucose 166 H (74-99) mg/dL Plasma Lactic Acid Sarabjit 3.7 H* (0.7-2.0) mmol/L Calcium (8.4-10.2) mg/dL AST (14-36) U/L Alkaline Phosphatase (38-126) U/L Procalcitonin (0.02-0.09) ng/mL 01/17/24 Range/Units 20:01 Plt Count (150-450) k/uL Neutrophils # (1.3-7.7) k/uL PT (10.0-12.5) sec VBG pH (7.31-7.41) VBG pCO2 (37-51) mmHg VBG HCO3 (24-28) mmol/L Carbon Dioxide (22-30) mmol/L Anion Gap (4.00-12.00) mmol/L BUN/Creatinine Ratio (12.00-20.00) Ratio Glucose (74-99) mg/dL Plasma Lactic Acid Sarabjit (0.7-2.0) mmol/L Calcium (8.4-10.2) mg/dL AST (14-36) U/L Alkaline Phosphatase (38-126) U/L Procalcitonin 3.76 H (0.02-0.09) ng/mL Assessment and Plan Plan: 1patient to the hospital with increasing shortness of breath and cough bringing up some yellow sputum failing outpatient antibiotic therapy concerning for pneumonia as patient did have elevated procalcitonin however initial chest x-ray reported negative for acute infiltrate 2-we will wait for the CT of the chest to be finalized ordered by admitting team 3-try to obtain a sputum for Gram stain culture 4-continue with Rocephin and Zithromax while awaiting further workup to be completed We will follow on clinical condition and cultures to further adjust medication if needed Thank you for this consultation we will follow the patient along with you Dictation was produced using [employer] dictation software. please excuse any grammatical, word or spelling errors. Time with Patient: Greater than 30
--- NOTE | 2024-01-19 02:23 | CA ---
Transthoracic Echo Report Name: Sondra Ye Age: 68 Gender: F : 1955 Exam Date: 01/18/2024 14:56 Exam Location: [facility] Ht (in): 65 Wt (lb): 130 Ordering Physician: Antonia Kohler MD Attending/Referring Phys: Doctor Osteopathic Naheed Pierre RDCS Procedure CPT: Indications: chf?? Cardiac Hx: Technical Quality: Contrast 1: Total Dose (mL): Contrast 2: Total Dose (mL): MEASUREMENTS (Male / Female) Normal Values 2D ECHO LV Diastolic Diameter PLAX 3.5 cm 4.2 - 5.9 / 3.9 - 5.3 cm LV Systolic Diameter PLAX 2.3 cm IVS Diastolic Thickness 1.1 cm 0.6 - 1.0 / 0.6 - 0.9 cm LVPW Diastolic Thickness 0.9 cm 0.6 - 1.0 / 0.6 - 0.9 cm LV Relative Wall Thickness 0.6 LVOT Diameter 2.0 cm Aortic Root Diameter 2.6 cm LA Systolic Diameter LX 3.3 cm 3.0 - 4.0 / 2.7 - 3.8 cm DOPPLER AV Peak Velocity 149.1 cm/s AV Peak Gradient 8.9 mmHg AV Mean Velocity 110.2 cm/s AV Mean Gradient 5.3 mmHg AV Velocity Time Integral 24.9 cm AI Peak Velocity 411.2 cm/s AI Peak Gradient 67.6 mmHg AI Pressure Half Time 366.5 ms LVOT Peak Velocity 132.0 cm/s LVOT Peak Gradient 7.0 mmHg LVOT Velocity Time Integral 24.2 cm LVOT Stroke Volume 74.2 cm??? LVOT Stroke Volume Index 45.0 ml/m??? AV Area Cont Eq vti 3.0 cm??? AV Area Cont Eq pk 2.7 cm??? Mitral E Point Velocity 98.2 cm/s Mitral A Point Velocity 136.5 cm/s Mitral E to A Ratio 0.7 MV Deceleration Time 180.1 ms TR Peak Velocity 266.9 cm/s TR Peak Gradient 28.5 mmHg PV Peak Velocity 98.6 cm/s PV Peak Gradient 3.9 mmHg FINDINGS Left Ventricle Mildly increased septal wall thickness. Left ventricular ejection fraction is estimated at 55-60 %. Normal left ventricular wall motion. Right Ventricle Right ventricular systolic pressure estimated at 31.01mmhg. Right Atrium Normal right atrial size. Left Atrium Normal left atrial size. Mitral Valve Trace mitral regurgitation. Aortic Valve Trace to mild aortic regurgitation. Tricuspid Valve Mild tricuspid regurgitation. Pulmonic Valve No pulmonic regurgitation. Pericardium No pericardial effusion. Aorta Normal size aortic root. CONCLUSIONS Normal left ventricular ejection fraction 55-60% Mild increased left ventricular wall thickness Normal right ventricular function RVSP 31 Trace mitral regurgitation Trace to mild aortic regurgitation Mild tricuspid regurgitation Previewed by: Dr. Tello Muñoz DO (Electronically Signed) Final Date: 19 January 2024 02:22
[2024-01-19 08:05] LABS: Basophils # (A) 0.1 k/uL (0-0.2); Basophils % (A) 1 %; Eosinophils # (A) 0.1 k/uL (0-0.7); Eosinophils % (A) 1 %; HGB 13.3 gm/dL (11.4-16.0); Lymphocytes # (A) 1.1 k/uL (1.0-4.8); Lymphocytes % (A) 14 %; MCH 30.4 pg (25.0-35.0); Mean Platelet Volume 7.4; Monocytes # (A) 0.3 k/uL (0-1.0); Monocytes % (A) 4 %; Neutrophils # (A) 6.1 k/uL (1.3-7.7); Neutrophils % (A) 79 %; Platelet Count 574 k/uL (150-450); RBC 4.39 m/uL (3.80-5.40); RDW 14.7 % (11.5-15.5); WBC 7.7 k/uL (3.8-10.6)
[2024-01-19 08:25] LABS: ALT 24 U/L (4-34); AST 38 U/L (14-36); African American GFR (CKD) >90 (>60 ml/min/1.73 sqM); Albumin/Globulin Ratio 1.4; Alkaline Phosphatase 146 U/L (38-126); Anion Gap 10 mmol/L; Blood Urea Nitrogen 7 mg/dL (7-17); Carbon Dioxide 25 mmol/L (22-30); Chloride 106 mmol/L (98-107); Globulin 2.8 g/dL; Glucose 92 mg/dL (74-99); Non-African American GFR(CKD) >90 (>60 ml/min/1.73 sqM); Potassium 4.8 mmol/L (3.5-5.1); Sodium 141 mmol/L (137-145); Total Bilirubin 0.3 mg/dL (0.2-1.3); Total Protein 6.8 g/dL (6.3-8.2)
--- NOTE | 2024-01-19 13:14 | P.CNPUL ---
History of Present Illness Consult date: 01/18/24 Reason for consult: dyspnea History of present illness: I am seeing this patient for shortness of breath. The patient has history of previous bariatric surgery and she has lost significant amount of weight and she has had her surgery more than 20 years ago. She has history of acoustic neuroma that has been resected surgically and few months earlier she had a right ear infection that was treated on outpatient basis. She was also infected with influenza A approximately 10 days ago and the patient was having some increased cough and congestion and shortness of breath. This was treated through her primary care. 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 She is currently doing well. No previous history of DVT or pulmonary embolism. She is currently on room air oxygen. The viral panel from this current admission has been negative. The procalcitonin level however was elevated and this is under investigation. The electrolytes are all within normal limits on today's evaluation. White cell count is 7.7 with a hemoglobin 15.3 and platelet count of 574. Normal coagulation profile. D-dimer is negative. CT of the chest was done and showed no evidence of any pulmonary embolism. No parenchymal lung abnormalities. No evidence of any pneumonia or airspace disease or consolidation. The patient's urine has not been checked. Troponins have been negative. proBNP level is at 246. Patient was started on empiric antibiotic coverage with Rocephin and Zithromax. She is also on IV Solu-Medrol. She is on DuoNeb nebulized treatments 4 times a day. Ambulating. Has no specific complaints. Blood cultures negative thus far. Review of Systems CONSTITUTIONAL: No fever, no malaise, no fatigue. HEENT: No recent visual problems or hearing problems. Denied any sore throat. CARDIOVASCULAR: No chest pain, orthopnea, PND, no palpitations,. PULMONARY: No shortness of breath, no cough, no hemoptysis. GASTROINTESTINAL: No diarrhea, no nausea, no vomiting, no abdominal pain. NEUROLOGICAL: No headaches, no weakness, no numbness. HEMATOLOGICAL: Denies any bleeding or petechiae. GENITOURINARY: Denies any burning micturition, frequency, or urgency. MUSCULOSKELETAL/RHEUMATOLOGICAL: Denies any joint pain, swelling, or any muscle pain. ENDOCRINE: Denies any polyuria or polydipsia. The rest of the 14-point review of systems is negative. Past Medical History Past Medical History: Hearing Disorder / Deafness, Osteoarthritis (OA), Thyroid Disorder Additional Past Medical History / Comment(s): Acoustic Neuroma, deaf in R ear, has BAHA hearing implant-doesn't utilize much-says it gets infected frequently, has been removed difficulty with balance, frequent headaches, recent bloating, change in bowel habits, varicose veins History of Any Multi-Drug Resistant Organisms: None Reported Past Surgical History: Back Surgery, Bariatric Surgery, Bowel Resection, Coronary Bypass/CABG, Hernia Repair, Joint Replacement, Orthopedic Surgery, Tonsillectomy Additional Past Surgical History / Comment(s): Bilat. knee replacements, left hip replaced, incisional hernia, gastric bypass 25 years ago. Brain surgery for Acoustic Neuroma, open heart surgery repair of partial anomalous pulmonary veno us connection 06/12/17, cataract surgery, rt wrist sx, left foot reconstruction, spinal cord stimulater 2021, rt. toe surgery Past Anesthesia/Blood Transfusion Reactions: Motion Sickness Past Psychological History: Anxiety, Depression Smoking Status: Never smoker Past Alcohol Use History: None Reported Past Drug Use History: None Reported - Past Family History Mother Family Medical History: No Reported History Medications and Allergies Home Medications Medication Instructions Recorded Confirmed Type busPIRone HCl [Buspar] 10 mg PO BID 08/09/22 01/17/24 History Atorvastatin [Lipitor] 20 mg PO DAILY 09/06/22 01/17/24 History HYDROcodone/APAP 10-325MG [[place] 1 tab PO QID 09/06/22 01/17/24 History 10-325] cycloSPORINE 0.05% OPHTH SOLN 1 applicator BOTH EYES BID 09/06/22 01/17/24 History [Restasis] Omeprazole [PriLOSEC] 40 mg PO DAILY #90 cap 09/10/22 01/17/24 Rx Zolpidem [Ambien] 10 mg PO HS 06/17/23 01/17/24 History Cefdinir [Omnicef] 300 mg PO Q12HR 01/17/24 01/17/24 History Desvenlafaxine Succinate [Pristiq 50 mg PO DAILY 01/17/24 01/17/24 History ER] Levothyroxine Sodium [Synthroid] 100 mcg PO DAILY 01/17/24 01/17/24 History traZODone HCL [Desyrel] 50 mg PO HS 01/17/24 01/17/24 History Allergies Allergy/AdvReac Type Severity Reaction Status Date / Time ferumoxytol [From [facility]] Allergy Rash/Hives Verified 01/17/24 16:42 Penicillins Allergy Itching/Swe Verified 01/17/24 16:42 lling Physical Exam Vitals: Vital Signs Temp Pulse Pulse Resp BP BP Pulse Ox 01/18/24 11:20 92 01/18/24 11:10 94 01/18/24 07:54 96 01/18/24 07:45 96 01/18/24 07:25 98.1 F 105 H 18 153/91 98 01/18/24 02:14 152/83 01/18/24 01:51 97.7 F 100 20 161/93 97 01/17/24 22:00 20 01/17/24 21:35 97.8 F 92 20 155/81 99 01/17/24 21:07 97.8 F 99 18 167/86 97 01/17/24 19:27 104 H 18 151/84 97 01/17/24 18:05 107 H 22 159/80 99 01/17/24 17:04 106 H 18 165/92 100 01/17/24 16:16 110 H 01/17/24 16:08 105 H 01/17/24 15:42 97.5 F L 113 H 22 159/83 95 Intake and Output 01/17/24 01/18/24 01/18/24 22:59 06:59 14:59 Intake Total 1100 Balance 1100 Intake: Intake, IV Titration 600 Amount Sodium Chloride 0.9% 1, 600 000 ml @ 130 mls/hr IV . Q7H42M [facility] Rx#:[id number] Oral 500 Other: Voiding Method Toilet Toilet # Voids 2 Weight 58.967 kg GENERAL: The patient is alert and oriented x3, not in any acute distress. Well developed, well nourished. HEENT: Pupils are round and equally reacting to light. EOMI. No scleral icterus. No conjunctival pallor. Normocephalic, atraumatic. No pharyngeal erythema. No thyromegaly. CARDIOVASCULAR: S1 and S2 present. No murmurs, rubs, or gallops. PULMONARY: Chest is clear to auscultation, no wheezing or crackles. ABDOMEN: Soft, nontender, nondistended, normoactive bowel sounds. No palpable organomegaly. MUSCULOSKELETAL: No joint swelling or deformity. EXTREMITIES: No cyanosis, clubbing, or pedal edema. NEUROLOGICAL: Gross neurological examination did not reveal any focal deficits. SKIN: No rashes. Results - Laboratory Findings CBC and BMP: 01/19/24 07:28 01/19/24 07:28 PT/INR, D-dimer PT 9.8 sec (10.0-12.5) L 01/17/24 16:11 INR 0.9 (<1.2) 01/17/24 16:11 D-Dimer 0.43 mg/L FEU (<0.60) 01/17/24 16:11 Abnormal lab findings: Abnormal Labs 01/17/24 01/17/24 01/17/24 16:11 16:11 16:11 Plt Count 623 H Neutrophils # 8.9 H PT 9.8 L VBG pH VBG pCO2 VBG HCO3 Carbon Dioxide 13 L Anion Gap BUN/Creatinine Ratio Glucose 124 H Plasma Lactic Acid Sarabjit Calcium 10.5 H AST 40 H Alkaline Phosphatase 178 H Procalcitonin 01/17/24 01/17/24 01/17/24 16:11 17:47 20:01 Plt Count Neutrophils # PT VBG pH 7.58 H VBG pCO2 17 L* VBG HCO3 16 L Carbon Dioxide 16.9 L Anion Gap 14.10 H BUN/Creatinine Ratio 20.50 H Glucose 166 H Plasma Lactic Acid Sarabjit 3.7 H* Calcium AST Alkaline Phosphatase Procalcitonin 01/17/24 20:01 Plt Count Neutrophils # PT VBG pH VBG pCO2 VBG HCO3 Carbon Dioxide Anion Gap BUN/Creatinine Ratio Glucose Plasma Lactic Acid Sarabjit Calcium AST Alkaline Phosphatase Procalcitonin 3.76 H - Diagnostic Findings Chest x-ray: image reviewed CT scan - chest: image reviewed Assessment and Plan Plan: Subacute influenza infection, currently testing negative for various viruses and the viral panel has been negative. CT of the chest shows no evidence of any p ulm embolism and there is no parenchymal lung disease or abnormalities. No history of any chronic lung disease such as asthma or emphysema. No respiratory difficulties at this point in time and the patient is currently on room air oxygen Abnormal procalcitonin level under investigation. Typically suggestive of bacterial infection although there is no clear source of a infection or sepsis at this point in time. 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 Previous history of bariatric surgery with significant weight loss History of cardiac surgery with thoracotomy and repair of a anomalous pulmonary vein Recent ear infection, treated for that by ENT Osteoarthritis Plan Awaiting final cultures. Antibiotic coverage is empiric at this point in time. The patient is on room air oxygen. Room air pulse ox 98%. No signs of any [place]. Repeat procalcitonin level. ID is on the case. Check a urinalysis to rule out the possibility of urine tract infection.
--- NOTE | 2024-01-19 14:37 | PN ---
PROGRESS NOTE DATE OF SERVICE: 01/19/2024 SUBJECTIVE: This is a 68-year-old woman, who was admitted with acute tracheobronchitis, is being closely monitored. The patient is feeling sick. The patient's procalcitonin is extremely elevated, but the CT scan did not show any acute pulmonary embolism or any clear-cut pneumonia at this time. No chest pain. No palpitation. OBJECTIVE: VITAL SIGNS: Pulse 104, blood pressure 125/81, and respirations 16. CHEST: Few scattered rhonchi and crackles. ABDOMEN: Soft. NERVOUS SYSTEM: Nonfocal. LABORATORY DATA: Reviewed. ASSESSMENT: 1. Shortness of breath and cough and acute tracheobronchitis. No evidence of pneumonia with possible sepsis present on admission. 2. Pulmonary embolism ruled out. 3. Right ear implant infection and removal previously. 4. History of acoustic neuroma. 5. History of bowel resection. 6. History of bariatric surgery. 7. History of coronary artery disease, CABG. 8. Multiple complex medical issues. RECOMMENDATIONS AND DISCUSSION: I recommend continue current medications and symptomatic treatment. I recommend at least one more day of antibiotics and cultures are negative so far. Closely follow with multiple consultants. Guarded prognosis. Further recommendations to follow. The patient will cut down the IV fluids at this time. Continue with bronchodilators. I would also recommend a short course of steroids also. MMODL / IJN: [id number] / MTDD
--- NOTE | 2024-01-19 16:57 | P.PN ---
Subjective Progress Note Date: 01/19/24 Principal diagnosis: Reason for follow-up is possible pneumonia Patient is a 68-year female with multiple comorbidities including acoustic neuroma presented to the hospital with increased shortness of breath cough and sputum production did have elevated procalcitonin. On today's visit that is 01/19/2024, patient has been afebrile, patient is breathing comfortably and is currently on room air, patient denies having any chest pain the patient cough is decreased intensity no nausea vomiting abdominal pain and no diarrhea. The patient white count is 7.7, creatinine 0.66 blood cultures pending Objective - Vital Signs Vital signs: Vital Signs Temp 98.0 F 01/19/24 12:00 Pulse 104 H 01/19/24 12:00 Resp 16 01/19/24 12:00 BP 125/81 01/19/24 12:00 Pulse Ox 98 01/19/24 12:00 FiO2 Intake & Output 01/18/24 01/19/24 01/19/24 18:59 06:59 18:59 Intake Total 1400 Balance 1400 Intake: Intake, IV Titration 1400 Amount Sodium Chloride 0.9% 1, 1350 000 ml @ 130 mls/hr IV . Q7H42M [facility] Rx#:[id number] cefTRIAXone 2 gm In 50 Sodium Chloride 0.9% 50 ml @ 100 mls/hr IVPB Q24H [facility] Rx#:[id number] Other: Voiding Method Toilet Toilet # Voids 3 - Exam GENERAL DESCRIPTION: An elderly female lying in bed in no distress RESPIRATORY SYSTEM: Unlabored breathing , decreased breath sounds at bases HEART: S1 S2 regular rate and rhythm , ABDOMEN: Soft , no tenderness EXTREMITIES: No edema feet - Labs CBC & Chem 7: 01/19/24 07:28 01/19/24 07:28 Labs: Abnormal Lab Results - Last 24 Hours (Table) 01/19/24 01/19/24 Range/Units 07:28 07:28 Plt Count 574 H (150-450) k/uL AST 38 H (14-36) U/L Alkaline Phosphatase 146 H (38-126) U/L Microbiology - Last 24 Hours (Table) 01/17/24 16:11 Blood Culture - Preliminary Blood 01/17/24 16:11 Blood Culture - Preliminary Blood Assessment and Plan (1) Elevated procalcitonin Current Visit: Yes Status: Acute Code(s): R79.89 - OTHER SPECIFIED ABNORMAL FINDINGS OF BLOOD CHEMISTRY SNOMED Code(s): 455374093 (2) Community acquired pneumonia Current Visit: Yes Status: Acute Code(s): J18.9 - PNEUMONIA, UNSPECIFIED ORGANISM SNOMED Code(s): 069515219 Plan: 1patient to the hospital with increasing shortness of breath and cough bringing up some yellow sputum failing outpatient antibiotic therapy concerning for pneumonia as patient did have elevated procalcitonin however initial chest x-ray reported negative for acute infiltrate 2-CT angiogram of the chest was negative for PE 3- sputum for Gram stain culture has been repeated currently pending 4-patient seem to have transumbilical movement and will continue with Rocephin and Zithromax while waiting for the culture to finalize Dictation was produced using [employer] dictation software. please excuse any grammatical, word or spelling errors. Time with Patient: Less than 30
[2024-01-19] MEDS: methylPREDNISolone SOD SUCCI 40 MG/ML 1 ML VIAL IV SCH (17:20)
[2024-01-20 08:27] VITALS: BP 132/82; RESP 17; TEMP 98.5
[2024-01-20 11:34] VITALS: PULSE 100
--- NOTE | 2024-01-20 13:17 | P.PN ---
Subjective Progress Note Date: 01/20/24 I am seeing this patient for shortness of breath. The patient has history of previous bariatric surgery and she has lost significant amount of weight and she has had her surgery more than 20 years ago. She has history of acoustic neuroma that has been resected surgically and few months earlier she had a right ear infection that was treated on outpatient basis. She was also infected with influenza A approximately 10 days ago and the patient was having some increased cough and congestion and shortness of breath. This was treated through her primary care. 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 She is currently doing well. No previous history of DVT or pulmonary embolism. She is currently on room air oxygen. The viral panel from this current admission has been negative. The procalcitonin level however was elevated and this is under investigation. The electrolytes are all within normal limits on today's evaluation. White cell count is 7.7 with a hemoglobin 15.3 and platelet count of 574. Normal coagulation profile. D-dimer is negative. CT of the chest was done and showed no evidence of any pulmonary embolism. No parenchymal lung abnormalities. No evidence of any pneumonia or airspace disease or consolid ation. The patient's urine has not been checked. Troponins have been negative. proBNP level is at 246. Patient was started on empiric antibiotic coverage with Rocephin and Zithromax. She is also on IV Solu-Medrol. She is on DuoNeb nebulized treatments 4 times a day. Ambulating. Has no specific complaints. Blood cultures negative thus far. The patient is seen today January 20, 2024 in follow-up on the regular medical floor. She is currently sitting up in bed. Awake and alert in no acute distress. She is maintaining O2 saturations in the 90s on room air. Procalcitonin was 3.76. Blood cultures revealed no growth. Sputum culture revealed no growth. Most recent lab results revealed a white count of 7.7. Hemoglobin 13.3. Sodium 141. Potassium 4.8. Bicarb 25. BUN 7. Creatinine 0.66. Glucose 146. She is continued on ceftriaxone and azithromycin. Continued on DuoNeb inhalations, Solu-Medrol, heparin for DVT prophylaxis. Objective - Vital Signs Vital signs: Vital Signs Temp 98.5 F 01/20/24 08:11 Pulse 100 01/20/24 11:26 Resp 17 01/20/24 08:11 BP 132/82 01/20/24 08:11 Pulse Ox 98 01/20/24 08:11 FiO2 Intake & Output 01/19/24 01/20/24 01/20/24 18:59 06:59 18:59 Intake Total 50 240 Balance 50 240 Intake: Intake, IV Titration 50 Amount cefTRIAXone 2 gm In 50 Sodium Chloride 0.9% 50 ml @ 100 mls/hr IVPB Q24H [facility] Rx#:[id number] Oral 240 Other: Voiding Method Toilet Toilet Toilet # Voids 3 - Exam GENERAL EXAM: Alert, very pleasant 68-year-old female, on room air, sitting up at the bedside, comfortable in no apparent distress. HEAD: Normocephalic. EYES: Normal reaction of pupils, equal size. NOSE: Clear with pink turbinates. THROAT: No erythema or exudates. NECK: No masses, no JVD. CHEST: No chest wall deformity. LUNGS: Equal air entry with few rhonchi of the left lung. CVS: S1 and S2 normal with no audible murmur, regular rhythm. ABDOMEN: No hepatosplenomegaly, normal bowel sounds, no guarding or rigidity. SPINE: No scoliosis or deformity SKIN: No rashes CENTRAL NERVOUS SYSTEM: No focal deficits, tone is normal in all 4 extremities. EXTREMITIES: There is no peripheral edema. No clubbing, no cyanosis. Peripheral pulses are intact. - Labs CBC & Chem 7: 01/19/24 07:28 01/19/24 07:28 Labs: Microbiology - Last 24 Hours (Table) 01/17/24 17:47 Gram Stain - Preliminary Sputum 01/17/24 16:11 Blood Culture - Preliminary Blood 01/17/24 16:11 Blood Culture - Preliminary Blood Assessment and Plan Assessment: Subacute influenza infection, currently testing negative for various viruses and the viral panel has been negative. CT of the chest shows no evidence of any pulm embolism and there is no parenchymal lung disease or abnormalities. No history of any chronic lung disease such as asthma or emphysema. No respiratory difficulties at this point in time and the patient is currently on room air oxygen Abnormal procalcitonin level under investigation. Typically suggestive of bacterial infection although there is no clear source of a infection or sepsis at this point in time. 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 Previous history of bariatric surgery with significant weight loss History of cardiac surgery with thoracotomy and repair of a anomalous pulmonary vein Recent ear infection, treated for that by ENT Osteoarthritis Plan: The patient was seen and evaluated Labs and medications reviewed Currently stable and on room air Cleared for discharge from the pulmonary standpoint Complete a course of antibiotics Complete a brief prednisone taper Follow-up in the office in 1 week This patient was seen independently by the pulmonary nurse practitioner addressing pulmonary issues I have personally seen and examined the patient, performed the documentation and the assessment and plan as written. Number of minutes spent on the visit: 24.
--- NOTE | 2024-01-20 23:24 | P.PN ---
Subjective Progress Note Date: 01/20/24 Principal diagnosis: Reason for follow-up is possible pneumonia Patient is a 68-year female with multiple comorbidities including acoustic neuroma presented to the hospital with increased shortness of breath cough and sputum production did have elevated procalcitonin. On today's visit that is 01/20/2024,the patient denies any fever or any chills, patient is breathing comfortably on room air, the patient denies chest pain shortness of breath and did have improvement in her cough not bring up any sputum h, patient denies abdominal pain, no nausea vomiting or diarrhea. Patient feeling better wants to go home Patient white count is 7.7 creatinine 0.66 blood and sputum cultures so far negative Objective - Vital Signs Vital signs: Vital Signs Temp 98.5 F 01/20/24 08:11 Pulse 100 01/20/24 11:26 Resp 17 01/20/24 08:11 BP 132/82 01/20/24 08:11 Pulse Ox 98 01/20/24 08:11 FiO2 Intake & Output 01/19/24 01/20/24 01/20/24 18:59 06:59 18:59 Intake Total 50 240 Balance 50 240 Intake: Intake, IV Titration 50 Amount cefTRIAXone 2 gm In 50 Sodium Chloride 0.9% 50 ml @ 100 mls/hr IVPB Q24H [facility] Rx#:[id number] Oral 240 Other: Voiding Method Toilet Toilet Toilet # Voids 3 - Exam GENERAL DESCRIPTION: An elderly female lying in bed in no distress RESPIRATORY SYSTEM: Unlabored breathing , decreased breath sounds at bases HEART: S1 S2 regular rate and rhythm , ABDOMEN: Soft , no tenderness EXTREMITIES: No edema feet - Labs CBC & Chem 7: 01/19/24 07:28 01/19/24 07:28 Labs: Microbiology - Last 24 Hours (Table) 01/17/24 17:47 Gram Stain - Preliminary Sputum 01/17/24 16:11 Blood Culture - Preliminary Blood 01/17/24 16:11 Blood Culture - Preliminary Blood Assessment and Plan (1) Elevated procalcitonin Status: Acute Code(s): R79.89 - OTHER SPECIFIED ABNORMAL FINDINGS OF BLOOD CH EMISTRY SNOMED Code(s): 106256405 (2) Community acquired pneumonia Status: Acute Code(s): J18.9 - PNEUMONIA, UNSPECIFIED ORGANISM SNOMED Code(s): 831826047 Plan: 1patient to the hospital with increasing shortness of breath and cough bringing up some yellow sputum failing outpatient antibiotic therapy concerning for pneumonia as patient did have elevated procalcitonin however initial chest x-ray reported negative for acute infiltrate 2-CT angiogram of the chest was negative for PE 3- sputum for Gram stain culture has been repeated currently pending 4-patient has shown clinical improvement on Rocephin to finish therapy with Ceftin and discussed with the nurse practitioner for admitting team Dictation was produced using [employer] acquired by [employer] dictation software. please excuse any grammatical, word or spelling errors. Time with Patient: Less than 30
--- NOTE | 2024-01-21 10:46 | P.DS ---
Providers Date of admission: 01/17/24 17:08 Expected date of discharge: 01/20/24 Attending physician: Antonia Kohler Consults: 01/17/24 17:24 Consult Physician Urgent Consulting Provider: Aureliano Peres Consult Reason/Comments: Community required pneumonia, sepsis Do you want consulting provider notified?: Yes 01/18/24 13:32 Consult Physician Routine Consulting Provider: Wesly Diamond Consult Reason/Comments: sob Do you want consulting provider notified?: Yes Consult Physician Routine Consulting Provider: Aureliano Peres Consult Reason/Comments: sepsis Do you want consulting provider notified?: Yes Primary care physician: Terry Cason Hospital Course: Final diagnosis Shortness of breath and cough secondary to acute tracheobronchitis, no evidence of pneumonia, sepsis ruled out on admission Pulmonary embolism ruled out Right ear implant infection and removal previously History of acoustic neuroma History of bowel obstruction History of bariatric surgery History of coronary artery disease with CABG Hypothyroidism History of anxiety/depression GI prophylaxis DVT prophylaxis Full code Discharge disposition Patient is being discharged in a stable condition with guarded prognosis to home. Patient will follow-up with Dr. Terry Cason in the outpatient setting upon discharge. Patient is to continue with oral Ceftin twice daily for the next 3 days and recommend outpatient follow-up with pulmonary as scheduled. Patient has an upcoming dentist appointment this and has been instructed to reschedule. Total time taken is greater than 35 minutes. Hospital course This is a 68-year-old female who was recently admitted with acute tracheobronchitis reporting feeling unwell with an elevated procalcitonin. Patient recently went to [place] on vacation and has not been feeling well having increased cough with generalized weakness. Patient did have a CT scan of the chest showing no evidence of PE and no pneumonia noted. Sputum culture is negative other than normal jaqueline and blood cultures remain negative. Patient was evaluated by pulmonary along with infectious disease and maintained on antibiotics. Patient will transition to a short course of oral Ceftin twice daily for 3 days to complete the course. Patient has been instructed to follow- up outpatient with pulmonary. Patient has been cleared by consultations. Please refer to other consultation notes for further HPI. Currently no reports of chest pain, shortness of breath, or palpitations. Patient is afebrile. No reports of nausea or vomiting and patient is tolerating diet. Patient will be discharged home today. Physical exam: Gen: This is a 68-year-old female who is awake, alert and oriented x 3, well- developed, well-nourished, thin built HEENT: Head is atraumatic, normocephalic. Pupils equal, round. Sclerae is anicteric. NECK: Supple. No JVD. No lymphadenopathy. No thyromegaly. LUNGS: Diminished breath sounds bilaterally otherwise clear to auscultation. No wheezes or rhonchi. No intercostal retractions. HEART: S1, S2 are muffled ABDOMEN: Soft. Thin. Bowel sounds are present. No masses. No tenderness. EXTREMITIES: No pedal edema. No calf tenderness. NEUROLOGICAL: Patient is awake, alert and oriented x3. Cranial nerves 2 through 12 are grossly intact. Please refer to medication reconciliation sheet for a list of medications. The impression and plan of care has been dictated by Madelyn Hernandes, Nurse Practitioner as directed. Dr. Jose F MD I have performed a history and examination and MDM of this patient, discussed the same with the dictator, and agree with the dictator's assessment and plan as written ,documented as a scribe. Based on total visit time, I have performed more than 50% of the visit. Patient Condition at Discharge: Good Plan - Discharge Summary Discharge Rx Participant: No New Discharge Prescriptions: New predniSONE 10 mg PO DIRECTED #30 tab Albuterol Inhaler [Ventolin Hfa Inhaler] 2 puff INHALATION Q6H PRN 30 Days #1 each PRN Reason: Shortness Of Breath Mometasone/Formoterol [Dulera 50 Mcg-5 Mcg Inhaler] 1 puff INHALATION DAILY #13 gm Acetaminophen Tab [Tylenol] 650 mg PO Q4HR PRN tab PRN Reason: Fever And/ Or Pain cefUROXime axetiL [Cefuroxime] 500 mg PO BID 3 Days #6 tab Continue Zolpidem [Ambien] 10 mg PO HS busPIRone HCl [Buspar] 10 mg PO BID Atorvastatin [Lipitor] 20 mg PO DAILY cycloSPORINE 0.05% OPHTH SOLN [Restasis] 1 applicator BOTH EYES BID HYDROcodone/APAP 10-325MG [[place] 10-325] 1 tab PO QID Omeprazole [PriLOSEC] 40 mg PO DAILY #90 cap traZODone HCL [Desyrel] 50 mg PO HS Desvenlafaxine Succinate [Pristiq ER] 50 mg PO DAILY Levothyroxine Sodium [Synthroid] 100 mcg PO DAILY Discontinued Cefdinir [Omnicef] 300 mg PO Q12HR Discharge Medication List busPIRone HCl [Buspar] 10 mg PO BID 08/09/22 [History] Atorvastatin [Lipitor] 20 mg PO DAILY 09/06/22 [History] HYDROcodone/APAP 10-325MG [[place] 10-325] 1 tab PO QID 09/06/22 [History] cycloSPORINE 0.05% OPHTH SOLN [Restasis] 1 applicator BOTH EYES BID 09/06/22 [History] Omeprazole [PriLOSEC] 40 mg PO DAILY #90 cap 09/10/22 [Rx] Zolpidem [Ambien] 10 mg PO HS 06/17/23 [History] Desvenlafaxine Succinate [Pristiq ER] 50 mg PO DAILY 01/17/24 [History] Levothyroxine Sodium [Synthroid] 100 mcg PO DAILY 01/17/24 [History] traZODone HCL [Desyrel] 50 mg PO HS 01/17/24 [History] Acetaminophen Tab [Tylenol] 650 mg PO Q4HR PRN tab 01/20/24 [Rx] Albuterol Inhaler [Ventolin Hfa Inhaler] 2 puff INHALATION Q6H PRN 30 Days #1 each 01/20/24 [Rx] Mometasone/Formoterol [[place] 50 Mcg-5 Mcg Inhaler] 1 puff INHALATION DAILY #13 gm 01/20/24 [Rx] cefUROXime axetiL [Cefuroxime] 500 mg PO BID 3 Days #6 tab 01/20/24 [Rx] predniSONE 10 mg PO DIRECTED #30 tab 01/20/24 [Rx] Follow up Appointment(s)/Referral(s): Teryr Cason MD [Primary Care Provider] - 1-2 days (call office for follow up appt ) Kinsey Carrillo MD [STAFF PHYSICIAN] - 1 Week (call office for follow up appt) Patient Instructions/Handouts: Cefuroxime (By mouth), Albuterol (By breathing), Prednisone (By mouth), Fluticasone (By breathing), Community Acquired Pneumonia (DC) Activity/Diet/Wound Care/Special Instructions: Activity limited until follow-up Follow-up with primary care provider on discharge Follow-up pulmonary outpatient Okay for injection tomorrow Recommend rescheduling dentist appointment for the next few weeks Continue with antibiotics on discharge until complete Discharge Disposition: HOME SELF-CARE
== END 2024-01-20 14:27 | disposition home or self-care (01) | DRG 202 ==
LOC: EC 15:33 → 5NMEDONC 17:08
PROVIDERS: ADMIT Hospitalist; ATTEND Hospitalist
DX: J20.9 Acute bronchitis, unspecified (principal); J81.0 Acute pulmonary edema; E87.20 Acidosis, unspecified; H91.91 Unspecified hearing loss, right ear; D33.3 Benign neoplasm of cranial nerves; F17.210 Nicotine dependence, cigarettes, uncomplicated; I25.10 Atherosclerotic heart disease of native coronary artery without angina pectoris; Z88.0 Allergy status to penicillin; Z88.8 Allergy status to other drugs, medicaments and biological substances; E03.9 Hypothyroidism, unspecified; Z87.19 Personal history of other diseases of the digestive system; M19.90 Unspecified osteoarthritis, unspecified site; I08.3 Combined rheumatic disorders of mitral, aortic and tricuspid valves; Z79.890 Hormone replacement therapy; Z79.899 Other long term (current) drug therapy; Z85.038 Personal history of other malignant neoplasm of large intestine; Z90.49 Acquired absence of other specified parts of digestive tract; Z95.1 Presence of aortocoronary bypass graft; Z96.642 Presence of left artificial hip joint; Z96.653 Presence of artificial knee joint, bilateral; Z98.84 Bariatric surgery status; Z98.42 Cataract extraction status, left eye; Z98.41 Cataract extraction status, right eye
CPT/HCPCS: 36415; 71046; 71275; 80048; 80053; 82803; 83605; 83735; 83880; 84145; 84484; 85025; 85379; 85610; 85652; 85730; 86140; 87040; 87070; 87205; 87449; 87636; 93306; 94640; 96361; 96365; 96366; 96367; 96375; 99285

== ENCOUNTER 2024-03-16 12:55 | Day surgery (SDC) | payer MEDICARE ==
[2024-03-12 15:06] VITALS: BMI 21.6
--- NOTE | 2024-03-16 10:11 | P.GSHP ---
History of Present Illness H&P Date: 03/16/24 CHIEF COMPLAINT: Esophageal stricture HISTORY OF PRESENT ILLNESS: The patient is a 68-year-old female who presents reports dysphagia. Upper endoscopy was offered for further evaluation and management. PAST MEDICAL HISTORY: Please see list. PAST SURGICAL HISTORY: Please see list. MEDICATIONS: Please see list. ALLERGIES: Please see list. SOCIAL HISTORY: No illicit drug use FAMILY HISTORY: No reports of Crohn disease or ulcerative colitis. REVIEW OF ORGAN SYSTEMS: CONSTITUTIONAL: No reports of fevers or chills. GI: Denies any blood in stools or constipation. PHYSICAL EXAM: VITAL SIGNS: Stable GENERAL: Well-developed and pleasant in no acute distress. HEENT: No scleral icterus. Extraocular movements grossly intact. Moist buccal mucosa. NECK: Supple without lymphadenopathy. CHEST: Unlabored respirations. Equal bilateral excursions. CARDIOVASCULAR: Regular rate and rhythm. Distal 2+ pulses. ABDOMEN: Soft, nondistended. MUSCULOSKELETAL: No clubbing, cyanosis, or edema. ASSESSMENT: 1. Esophageal stricture PLAN: 1. Recommend proceeding with an upper endoscopy with rigid dilators. Past Medical History Past Medical History: Hearing Disorder / Deafness, Osteoarthritis (OA), Thyroid Disorder Additional Past Medical History / Comment(s): Allergies. Acoustic Neuroma, deaf in right ear, hard of hearing in left ear. Frequent headaches. Recent bloating, change in bowel habits, getting better. Varicose veins. History of Any Multi-Drug Resistant Organisms: None Reported Past Surgical History: Back Surgery, Bariatric Surgery, Bowel Resection, Coronary Bypass/CABG, Hernia Repair, Joint Replacement, Orthopedic Surgery, Tonsillectomy Additional Past Surgical History / Comment(s): Bilateral knee replacements, left hip replacement, incisional hernia repair, gastric bypass, brain surgery for Acoustic Neuroma, open heart surgery - repair of partial anomalous pulmonary venous connection 06/12/17, cataract surgery, right wrist surgery, left foot reconstruction, spinal cord stimulater Aug 2022, right toe surgery, EGD, colonoscopy. Past Anesthesia/Blood Transfusion Reactions: No Reported Reaction, Motion Sickness Smoking Status: Never smoker - Past Family History Mother Family Medical History: No Reported History Medications and Allergies Home Medications Medication Instructions Recorded Confirmed Type busPIRone HCl [Buspar] 10 mg PO BID 08/09/22 03/12/24 History Atorvastatin [Lipitor] 20 mg PO DAILY 09/06/22 03/12/24 History HYDROcodone/APAP 10-325MG [[place] 1 tab PO QID 09/06/22 03/12/24 History 10-325] cycloSPORINE 0.05% OPHTH SOLN 1 applicator BOTH EYES BID 09/06/22 03/12/24 History [Restasis] Omeprazole [PriLOSEC] 40 mg PO DAILY #90 cap 09/10/22 03/12/24 Rx Zolpidem [Ambien] 10 mg PO HS PRN 06/17/23 03/12/24 History Desvenlafaxine Succinate [Pristiq 50 mg PO QAM 01/17/24 03/12/24 History ER] Levothyroxine Sodium [Synthroid] 100 mcg PO QAM 01/17/24 03/12/24 History Acetaminophen Tab [Tylenol] 650 mg PO Q4HR PRN tab 01/20/24 03/12/24 Rx Celecoxib [CeleBREX] 200 mg PO DAILY 03/12/24 03/12/24 History Fexofenadine HCl 180 mg PO DAILY 03/12/24 03/12/24 History Nasal [place] 1 spray NASAL TID 03/12/24 03/12/24 History Allergies Allergy/AdvReac Type Severity Reaction Status Date / Time ferumoxytol [From [facility]] Allergy Rash/Hives Verified 03/12/24 14:01 Penicillins Allergy Itching/Swe Verified 03/12/24 14:01 lling
[2024-03-16] MEDS: LACTATED RINGERS 1,000 ML IV SCH (13:17)
[2024-03-16] MEDS ORDERED: PROPOFOL 10 MG/ML 20 ML VIAL IV ONE (13:57)
[2024-03-16 14:19] VITALS: TEMP 98
[2024-03-16 15:19] VITALS: BP 134/73; PULSE 70; RESP 20
--- NOTE | 2024-03-17 19:39 | P.PCN ---
Date of Procedure: 03/16/24 Description of Procedure: PREOPERATIVE DIAGNOSIS: Dysphagia. 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 INDICATIONS: The patient is a 68-year-old female who presents with a history of dysphagia, including nausea and vomiting. She has pre-existing history of gastric bypass including upper esophageal stenosis. Benefits and risks of the procedure were described. Informed consent was obtained. DESCRIPTION: The patient was brought into the endoscopy suite and laid in the left lateral decubitus position. After a timeout was confirmed, the procedure was initiated. An Olympus gastroscope was passed along the posterior oropharynx down to the distal esophagus where residual actively bleeding esophageal ulcerations were identified throughout the entire esophagus. Actively bleeding ulcers throughout the entire esophagus with biopsies obtained of all 3 portions including jejunum. The gastric pouch size was from 40 to 45 cm pouch from the incisors. Dilation avoided due to active esophageal ulcers with bleeding. The gastric pouch was unremarkable. The GI tract was desufflated. The patient tolerated the procedure well. FINDINGS: Esophageal ulcerations active bleeding throughout the esophagus Gastric pouch unremarkable No recurrent gastrojejunal ulcers or stricture Upper esophageal stricture RECOMMENDATIONS: 1. Discontinue all NSAIDs due to actively bleeding esophageal ulcer 2. Carafate 1 g twice daily for 1 to 2 months 3. Omeprazole 40 mg daily 4. Do not restart NSAIDs of any type due to recurrent ulcers Plan - Discharge Summary Discharge Rx Participant: Yes New Discharge Prescriptions: New Sucralfate [Carafate] 1 gm PO BID #120 tablet Continue Zolpidem [Ambien] 10 mg PO HS PRN PRN Reason: Insomnia Fexofenadine HCl 180 mg PO DAILY busPIRone HCl [Buspar] 10 mg PO BID Atorvastatin [Lipitor] 20 mg PO DAILY cycloSPORINE 0.05% OPHTH SOLN [Restasis] 1 applicator BOTH EYES BID HYDROcodone/APAP 10-325MG [[place] 10-325] 1 tab PO QID Omeprazole [PriLOSEC] 40 mg PO DAILY #90 cap Desvenlafaxine Succinate [Pristiq ER] 50 mg PO QAM Levothyroxine Sodium [Synthroid] 100 mcg PO QAM Acetaminophen Tab [Tylenol] 650 mg PO Q4HR PRN tab PRN Reason: Fever And/ Or Pain Nasal [place] 1 spray NASAL TID Discontinued Celecoxib [CeleBREX] 200 mg PO DAILY Discharge Medication List busPIRone HCl [Buspar] 10 mg PO BID 08/09/22 [History] Atorvastatin [Lipitor] 20 mg PO DAILY 09/06/22 [History] HYDROcodone/APAP 10-325MG [[place] 10-325] 1 tab PO QID 09/06/22 [History] cycloSPORINE 0.05% OPHTH SOLN [Restasis] 1 applicator BOTH EYES BID 09/06/22 [History] Omeprazole [PriLOSEC] 40 mg PO DAILY #90 cap 09/10/22 [Rx] Zolpidem [Ambien] 10 mg PO HS PRN 06/17/23 [History] Desvenlafaxine Succinate [Pristiq ER] 50 mg PO QAM 01/17/24 [History] Levothyroxine Sodium [Synthroid] 100 mcg PO QAM 01/17/24 [History] Acetaminophen Tab [Tylenol] 650 mg PO Q4HR PRN tab 01/20/24 [Rx] Fexofenadine HCl 180 mg PO DAILY 03/12/24 [History] Nasal [place] 1 spray NASAL TID 03/12/24 [History] Sucralfate [Carafate] 1 gm PO BID #120 tablet 03/16/24 [Rx] Follow up [facility]ment(s[facility]Ref[facility] [place] [facility] - 04/01/24 3:00 pm Patient Instructions/Handouts: *Surgery [facility] - (Anesthesia) Discharge Instructions Outpatient Surgery, Diet for Stomach Ulcers and Gastritis (GEN), Upper Endoscopy (DC) Activity/Diet/Wound Care/Special Instructions: AVOID NSAIDS Discharge Disposition: HOME SELF-CARE
== END 2024-03-16 15:28 | disposition home or self-care (01) ==
LOC: ORWHC2ENDO 12:55
PROVIDERS: ATTEND Surgery Plastic and Reconstructive Surgery
DX: K29.50 Unspecified chronic gastritis without bleeding (principal); K20.90 Esophagitis, unspecified without bleeding; K22.2 Esophageal obstruction; M19.90 Unspecified osteoarthritis, unspecified site; E07.9 Disorder of thyroid, unspecified; Z90.49 Acquired absence of other specified parts of digestive tract; Z98.890 Other specified postprocedural states; Z90.89 Acquired absence of other organs; Z79.890 Hormone replacement therapy; Z88.0 Allergy status to penicillin; Z79.1 Long term (current) use of non-steroidal anti-inflammatories (NSAID); Z98.84 Bariatric surgery status; Z79.899 Other long term (current) drug therapy
CPT/HCPCS: 43239; 88305; J2704; 88312

== ENCOUNTER → 2024-04-01 | Outpatient (CLI) | payer MEDICARE ==
[2024-04-01 16:31] VITALS: BP 128/85; PULSE 86; TEMP 98; BMI 21.8
--- NOTE | 2024-04-01 16:50 | P.BASOAP ---
Subjective Progress Note Date: 04/01/24 DATE: 04/01/24 CHIEF COMPLAINT: Status post gastric bypass HISTORY OF PRESENT ILLNESS: Sondra Ye is a 69-year-old female status post gastric bypass. He has persistent epigastric pain for over 2 months. She has dysphagia for over 2 months to solid food. She has past history of gastric ulcers. She presents with worsening symptoms. At height of 5 feet 5 inches, her ideal body weight is 149 pounds. She comes in 131 pounds. She has lost 24 pounds in 4 months. Her body mass index is 21.8. She is not overweight. PAST MEDICAL HISTORY: 1. History of morbid obesity due to excess calories 2. Gastroesophageal reflux disease 3. Body mass index 4. Depressive disorder 5. Hyperlipidemia 6. Hypothyroidism 7. Acoustic neuroma 8. Sensorineural hearing loss 9. Coronary artery disease 10. Osteoarthritis bilateral knee 11. Osteoarthritis left hip 12. Cardiac anomaly 13. Chronic back pain 14. Motion sickness PAST SURGICAL HISTORY: 1. Gastric bypass 2. History of bowel resection 3. History of CABG 4. Tonsillectomy 5. Left fluid restriction 6. Spinal cord stimulator 7. Bilateral knee replacement 8. Left hip replacement 9. Incisional hernia repair 10. Brain surgery for acoustic neuroma 11. Open heart surgery 12. Cataract surgery 13. Right wrist surgery HOME MEDICATIONS: Home Medications Medication Instructions Recorded Confirmed busPIRone HCl [Buspar] 10 mg PO BID 08/09/22 04/02/24 Atorvastatin [Lipitor] 20 mg PO DAILY 09/06/22 04/02/24 HYDROcodone/APAP 10-325MG [[place] 1 tab PO QID 09/06/22 04/02/24 10-325] cycloSPORINE 0.05% OPHTH SOLN 1 applicator BOTH EYES BID 09/06/22 04/02/24 [Restasis] Zolpidem [Ambien] 10 mg PO HS PRN 06/17/23 04/02/24 Desvenlafaxine Succinate [Pristiq 50 mg PO QAM 01/17/24 04/02/24 ER] Levothyroxine Sodium [Synthroid] 100 mcg PO QAM 01/17/24 04/02/24 Fexofenadine HCl 180 mg PO DAILY 03/12/24 04/02/24 Nasal [place] 1 spray NASAL TID 03/12/24 04/02/24 Previous Rx's Medication Instructions Recorded Omeprazole [PriLOSEC] 40 mg PO DAILY #90 cap 09/10/22 Acetaminophen Tab [Tylenol] 650 mg PO Q4HR PRN tab 01/20/24 Sucralfate [Carafate] 1 gm PO BID #120 tablet 03/16/24 ALLERGIES: Allergies Allergy/AdvReac Type Severity Reaction Status Date / Time ferumoxytol [From [facility]] Allergy Rash/Hives Verified 03/16/24 13:18 Penicillins Allergy Itching/Swe Verified 03/16/24 13:18 lling SOCIAL HISTORY: Denies past tobacco use. FAMILY HISTORY: No family history of ulcerative colitis disease or Crohn's disease. Family history of morbid obesity. No lupus in the family. No reports of stomach or esophageal cancer. REVIEW OF ORGAN SYSTEMS: CONSTITUTIONAL: At height of 5 feet 5 inches, her ideal body weight is 149 pounds. She comes in 131 pounds. Her body mass index is 21.8. She is not overweight. HEENT: Has bilateral hearing loss. History of cataracts. Dysphagia. ENDOCRINE: Denies diabetes. Has hypothyroidism. CARDIOVASCULAR: Past reports of palpitations or heart attacks or chest pain. History of coronary artery disease including anomaly. RESPIRATORY: Denies daytime somnolence. GASTROINTESTINAL: Denies any bright red blood per rectum. Has gastroesophageal reflux disease. MUSCULOSKELETAL: Has lower back pain and joint pain. Has osteoarthritis of the knees. NEURO: No seizure disorders. Has chronic migraines. PSYCH: Has depression. No suicidal ideation. RHEUMATOLOGIC: No lupus. No rheumatoid arthritis. HEMATOLOGIC: Denies any abnormal bleeding or bruising. No personal history of DVTs. SKIN: No rash. No skin cancer. PHYSICAL EXAM: VITAL SIGNS: Height 5 foot 5 inches, weight 131 pounds. BMI 22.3 Vital Signs Temp 98 F 04/01/24 16:30 Pulse 86 04/01/24 16:30 Resp BP 128/85 04/01/24 16:30 Pulse Ox FiO2 GENERAL: Well-developed in no acute distress. HEENT: No scleral icterus. Extraocular movements grossly intact. Hard of hearing. No nasal drainage. NECK: Supple without lymphadenopathy. CHEST: Nonlabored respirations with equal bilateral excursions. CARDIOVASCULAR: Regular rate and regular rhythm. Distal 2+ pulses. ABDOMEN: Obese, soft, nontender, nondistended. MUSCULOSKELETAL: No clubbing, cyanosis. NEURO: No focal or lateralizing signs. Cranial nerves 2 through 12 grossly within normal limits. PSYCH: Appropriate affect. Alert and oriented to person, place and time. SKIN: Good skin turgor. Well perfused. ASSESSMENT: 1. Dysphagia 2. Gastroesophageal reflux disease 3. Body mass index 4. Depressive disorder 5. Hyperlipidemia 6. Hypothyroidism 7. Acoustic neuroma 8. Sensorineural hearing loss 9. Coronary artery disease 10. Osteoarthritis bilateral knee 11. Osteoarthritis left hip 12. Cardiac anomaly 13. Chronic back pain 14. Motion sickness 15. History of morbid obesity due to excess calories PLAN: 1. She has epigastric pain and dysphagia. Recommend upper endoscopy with possible rigid dilation. 2. Recommend bariatric labs due to gastric bypass. 3. She is elevated risk for perforation due to gastric bypass. Objective - Vital Signs Vital signs: Vital Signs Temp 98 F 04/01/24 16:30 Pulse 86 04/01/24 16:30 Resp BP 128/85 04/01/24 16:30 Pulse Ox FiO2 Intake & Output 03/31/24 04/01/24 04/01/24 18:59 06:59 18:59 Weight 59.421 kg Assessment/Plan Plan: Date: 04/01/24 Initial Weight: Initial BMI: Current Weight: 59.421 kg Current BMI: 21.8 Type of Surgery: Total Volume in Band: Previous Volume: Volume Removed: Volume Added: Band Size:
== END ==
LOC: BARWHC3 14:57
PROVIDERS: ATTEND Surgery Plastic and Reconstructive Surgery
DX: Z09 Encounter for follow-up examination after completed treatment for conditions other than malignant neoplasm (principal); E66.01 Morbid (severe) obesity due to excess calories; R13.10 Dysphagia, unspecified; K21.9 Gastro-esophageal reflux disease without esophagitis; F32.A Depression, unspecified; E78.5 Hyperlipidemia, unspecified; E03.9 Hypothyroidism, unspecified; D33.3 Benign neoplasm of cranial nerves; H90.5 Unspecified sensorineural hearing loss; I25.10 Atherosclerotic heart disease of native coronary artery without angina pectoris; M17.0 Bilateral primary osteoarthritis of knee; M16.12 Unilateral primary osteoarthritis, left hip; Q24.9 Congenital malformation of heart, unspecified; M54.50 Low back pain, unspecified; G89.29 Other chronic pain; T75.3XXA Motion sickness, initial encounter; Z68.21 Body mass index [BMI] 21.0-21.9, adult; Z88.8 Allergy status to other drugs, medicaments and biological substances; Z88.0 Allergy status to penicillin; Z79.890 Hormone replacement therapy; Z98.84 Bariatric surgery status; Z90.3 Acquired absence of stomach [part of]
CPT/HCPCS: 99211

== ENCOUNTER → 2024-04-06 | Outpatient (CLI) | payer MEDICARE ==
[2024-04-06 14:18] LABS: INR 0.9 (<1.2); Partial Thromboplastin Time 24.5 sec (22.0-30.0); Prothrombin Time 10.3 sec (10.0-12.5)
[2024-04-06 19:18] LABS: HCT 37.9 % (37.2-46.3); HGB 11.3 g/dL (12.0-15.0); MCH 29.7 pg (27.0-32.0); MCHC 29.8 g/dL (32.0-37.0); MCV 99.7 FL (80.0-97.0); Mean Platelet Volume 10.1 FL (9.5-12.2); NRBC Per 100 WBC 0 X 10*3/uL (0.00-0.01); Platelet Count 295 X 10*3/uL (140-440); RDW 12.4 % (11.5-14.5); WBC 10.45 X 10*3/uL (4.50-10.00)
[2024-04-06 21:10] LABS: % Iron Saturation 7.16 (12.00-45.00); ALT 23 U/L (8-44); AST 34 U/L (13-35); Albumin 4.3 g/dL (3.8-4.9); Albumin/Globulin Ratio 1.79 Ratio (1.60-3.17); Alkaline Phosphatase 107 U/L (41-126); BUN/Creat Ratio 25.62 Ratio (12.00-20.00); Blood Urea Nitrogen 20.5 mg/dL (9.0-27.0); Calcium 10.7 mg/dL (8.7-10.3); Carbon Dioxide 19.9 mmol/L (21.6-31.8); Chloride 102 mmol/L (96-109); Chol/HDL Ratio 2.11 Ratio; Ferritin 36.4 ng/mL (10.0-291.0); Globulin 2.4 g/dL (1.6-3.3); Glucose 135 mg/dL (70-110); Iron 32 UG/DL (50-170); Magnesium 1.6 mg/dL (1.5-2.4); Potassium 4.3 mmol/L (3.5-5.5); Sodium 138 mmol/L (135-145); Total Bilirubin <0.2 mg/dL (0.3-1.2); Total Iron Binding Capacity 447 UG/DL (228-460); Total Protein 6.7 g/dL (6.2-8.2); VLDL Calculation 15.56 mg/dL (5.00-40.00)
[2024-04-07 13:00] LABS: Zinc, Serum 50 ug/dL (60-130)
[2024-04-07 13:45] LABS: Prealbumin 22.7 mg/dL (18.0-42.0)
[2024-04-08 06:55] LABS: Vitamin A 68 ug/dL (38-106)
== END | disposition home or self-care (01) ==
LOC: LABWHC1 10:58
PROVIDERS: ATTEND Surgery Plastic and Reconstructive Surgery
DX: E66.01 Morbid (severe) obesity due to excess calories (principal); E89.1 Postprocedural hypoinsulinemia; D50.8 Other iron deficiency anemias; E44.0 Moderate protein-calorie malnutrition; E41 Nutritional marasmus; E55.9 Vitamin D deficiency, unspecified; K74.1 Hepatic sclerosis; N19 Unspecified kidney failure; T56.894A Toxic effect of other metals, undetermined, initial encounter; K50.90 Crohn's disease, unspecified, without complications
CPT/HCPCS: 36415; 80053; 80061; 82306; 82525; 82607; 82728; 82746; 83036; 83540; 83550; 83735; 83970; 84100; 84134; 84255; 84425; 84443; 84590; 84630; 85027; 85610; 85730

== ENCOUNTER → 2024-04-15 | Outpatient (CLI) | payer MEDICARE ==
--- NOTE | 2024-04-15 13:18 | XR ---
EXAMINATION TYPE: XR chest 2V DATE OF EXAM: 04/15/2024 10:44 AM CLINICAL INDICATION:Female, 69 years old with history of J18.9 PNEUMONIA; [facility] COMPARISON: Chest radiographs from 01/17/2024. TECHNIQUE: XR chest 2V Frontal and lateral views of the chest. FINDINGS: Lungs/Pleura: There is no evidence of pleural effusion, focal consolidation, or pneumothorax. Pulmonary vascularity: Unremarkable. Heart/mediastinum: Cardiomediastinal silhouette is unremarkable. Musculoskeletal: No acute osseous pathology. Midline sternotomy wires are noted. Other findings: Nerve stimulator leads present over the spine. IMPRESSION: 1. No acute cardiopulmonary disease process. 2. COPD changes.
== END | disposition home or self-care (01) ==
LOC: RADXRMAIN 10:35
PROVIDERS: ATTEND Nurse Practitioner Family
DX: J44.9 Chronic obstructive pulmonary disease, unspecified (principal); J18.9 Pneumonia, unspecified organism
CPT/HCPCS: 71046

== ENCOUNTER 2024-05-25 05:54 | Day surgery (SDC) | payer MEDICARE ==
[2024-05-22 13:22] VITALS: BMI 21.6
[~2024-05-25 05:54] MED LIST changes: +HYDROmorphone 0.5 MG/0.5 ML SYRINGE IVP PRN; -LACTATED RINGERS 1,000 ML IV SCH; +ONDANSETRON 4 MG/2 ML VIAL IVP ONE
--- NOTE | 2024-05-25 05:58 | P.GSHP ---
History of Present Illness H&P Date: 05/25/24 CHIEF COMPLAINT: Esophageal stricture HISTORY OF PRESENT ILLNESS: The patient is a 69-year-old female who presents reports dysphagia. Upper endoscopy was offered for further evaluation and management. PAST MEDICAL HISTORY: Please see list. PAST SURGICAL HISTORY: Please see list. MEDICATIONS: Please see list. ALLERGIES: Please see list. SOCIAL HISTORY: No illicit drug use FAMILY HISTORY: No reports of Crohn disease or ulcerative colitis. REVIEW OF ORGAN SYSTEMS: CONSTITUTIONAL: No reports of fevers or chills. GI: Denies any blood in stools or constipation. PHYSICAL EXAM: VITAL SIGNS: Stable GENERAL: Well-developed and pleasant in no acute distress. HEENT: No scleral icterus. Extraocular movements grossly intact. Moist buccal mucosa. NECK: Supple without lymphadenopathy. CHEST: Unlabored respirations. Equal bilateral excursions. CARDIOVASCULAR: Regular rate and rhythm. Distal 2+ pulses. ABDOMEN: Soft, nondistended. MUSCULOSKELETAL: No clubbing, cyanosis, or edema. ASSESSMENT: 1. Esophageal stricture PLAN: 1. Recommend proceeding with an upper endoscopy with rigid dilators. Past Medical History Past Medical History: Hearing Disorder / Deafness, Osteoarthritis (OA), Pneumonia, Thyroid Disorder Additional Past Medical History / Comment(s): stress test 05-22-24 w/ Dr Muñoz,SOB,nausea,headaches,had pneumonia March 2024,steroids March 2024,Allergies. Acoustic Neuroma, deaf in right ear, hard of hearing in left ear. Frequent headaches. Recent bloating, change in bowel habits, getting better. 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 Past Anesthesia/Blood Transfusion Reactions: No Reported Reaction, Motion Sickness Additional Past Anesthesia/Blood Transfusion Reaction / Comment(s): no hx blood transfusions Smoking Status: Never smoker - Past Family History Mother Family Medical History: No Reported History Medications and Allergies Home Medications Medication Instructions Recorded Confirmed Type busPIRone HCl [Buspar] 10 mg PO BID 08/09/22 05/22/24 History Atorvastatin [Lipitor] 20 mg PO DAILY 09/06/22 05/22/24 History HYDROcodone/APAP 10-325MG [[place] 1 tab PO QID PRN 09/06/22 05/22/24 History 10-325] cycloSPORINE 0.05% OPHTH SOLN 1 applicator BOTH EYES BID 09/06/22 05/22/24 History [Restasis] Omeprazole [PriLOSEC] 40 mg PO DAILY #90 cap 09/10/22 05/22/24 Rx Zolpidem [Ambien] 10 mg PO HS PRN 06/17/23 05/22/24 History Desvenlafaxine Succinate [Pristiq 50 mg PO BID 01/17/24 05/22/24 History ER] Levothyroxine Sodium [Synthroid] 100 mcg PO QAM 01/17/24 05/22/24 History Acetaminophen Tab [Tylenol] 650 mg PO Q4HR PRN tab 01/20/24 05/22/24 Rx Fexofenadine HCl 180 mg PO DAILY PRN 03/12/24 05/22/24 History Sucralfate [Carafate] 1 gm PO BID #120 tablet 03/16/24 05/22/24 Rx Aspirin 81 mg PO DAILY 05/22/24 05/22/24 History Aspirin 325 - 650 mg PO BID PRN 05/22/24 05/22/24 History Cholecalciferol [Vitamin D3 (125 125 mcg PO DAILY 05/22/24 05/22/24 History Mcg = 5000 Iu)] Ipratropium [place] 0.06%Nasal 2 spray EA NOSTRIL BID PRN 05/22/24 05/22/24 History [Atrovent Nasal 0.06%] Multivitamins, Thera [Multivitamin 1 tab PO DAILY 05/22/24 05/22/24 History (formulary)] Allergies Allergy/AdvReac Type Severity Reaction Status Date / Time ferumoxytol [From [facility]] Allergy Rash/Hives Verified 05/22/24 13:06 Penicillins Allergy Itching/Swe Verified 05/22/24 13:06 lling
[2024-05-25 06:56] VITALS: RESP 16; TEMP 97.2
[2024-05-25] MEDS: IV FLUID CONTINUATION 1,000 ML IV ONE (06:58)
[2024-05-25 07:06] LABS: Glucose,Whole Blood 83 mg/dL (70-110)
[2024-05-25] MEDS: LACTATED RINGERS 1,000 ML IV SCH (07:07)
[2024-05-25] MEDS ORDERED: PROPOFOL 10 MG/ML 20 ML VIAL IV ONE (07:29)
--- NOTE | 2024-05-25 07:56 | P.PCN ---
Date of Procedure: 05/25/24 Description of Procedure: PREOPERATIVE DIAGNOSIS: Dysphagia. Gastroesophageal reflux disease Esophageal stricture Esophageal dysmotility POSTOPERATIVE DIAGNOSIS: Dysphagia. Gastroesophageal reflux disease Gastrojejunal stenosis Esophageal dysmotility OPERATION: Esophagogastrojejunoscopy with rigid dilator over the guidewire 48 Fr with dilation of esophageal stenosis/dysmotility SURGEON: Marychuy Martinez MD ANESTHESIA: MAC. INDICATIONS: The patient is a 69-year-old female who presents with a history of dysphagia. Benefits and risks of the procedure were described. Informed consent was obtained. DESCRIPTION: The patient was brought into the endoscopy suite and laid in the left lateral decubitus position. After a timeout was confirmed, the procedure was initiated. An Olympus gastroscope was passed into the posterior oropharynx down into the gastric pouch. The scope was entered into the gastric pouch with along the gastrojejunal anastomosis. Next using an [place]er rigid dilator, a guidewire was placed through the gastroscope. Next the scope was withdrawn. A 48-Wallisian rigid [place]er dilator was passed carefully along the posterior oropharynx to 40 cm and left in place for 2-3 minutes stretch. The dilator was withdrawn including the guidewire. The scope was reentered along the posterior oropharynx with superficial mucosal tear of the upper esophageal sphincter bleeding. No full-thickness injury was encountered. The GI tract was desufflated. The patient tolerated the procedure well. FINDINGS: Upper esophageal stenosis dilated 48 Wallisian rigid dilator Gastrojejunal anastomotic unremarkable Presbyesophagus with esophageal dysmotility dilated RECOMMENDATIONS: Discontinue all aspirin and NSAIDs Carafate 1 g 3 times daily Omeprazole 40 mg daily Liquid diet for 1 week Plan - Discharge Summary Discharge Rx Participant: No New Discharge Prescriptions: New Sucralfate [Carafate] 1 gm PO TID #90 tablet Continue Zolpidem [Ambien] 10 mg PO HS PRN PRN Reason: Insomnia Fexofenadine HCl 180 mg PO DAILY PRN PRN Reason: allergies Cholecalciferol [Vitamin D3 (125 Mcg = 5000 Iu)] 125 mcg PO DAILY Multivitamins, Thera [Multivitamin (formulary)] 1 tab PO DAILY busPIRone HCl [Buspar] 10 mg PO BID Atorvastatin [Lipitor] 20 mg PO DAILY cycloSPORINE 0.05% OPHTH SOLN [Restasis] 1 applicator BOTH EYES BID HYDROcodone/APAP 10-325MG [[place] 10-325] 1 tab PO QID PRN PRN Reason: Pain Omeprazole [PriLOSEC] 40 mg PO DAILY #90 cap Desvenlafaxine Succinate [Pristiq ER] 50 mg PO BID Levothyroxine Sodium [Synthroid] 100 mcg PO QAM Acetaminophen Tab [Tylenol] 650 mg PO Q4HR PRN tab PRN Reason: Fever And/ Or Pain Ipratropium [place] 0.06%Nasal [Atrovent Nasal 0.06%] 2 spray EA NOSTRIL BID PRN PRN Reason: allergies Discontinued Sucralfate [Carafate] 1 gm PO BID #120 tablet Aspirin 81 mg PO DAILY Aspirin 325 - 650 mg PO BID PRN PRN Reason: Headache Discharge Medication List busPIRone HCl [Buspar] 10 mg PO BID 08/09/22 [History] Atorvastatin [Lipitor] 20 mg PO DAILY 09/06/22 [History] HYDROcodone/APAP 10-325MG [[place] 10-325] 1 tab PO QID PRN 09/06/22 [History] cycloSPORINE 0.05% OPHTH SOLN [Restasis] 1 applicator BOTH EYES BID 09/06/22 [History] Omeprazole [PriLOSEC] 40 mg PO DAILY #90 cap 09/10/22 [Rx] Zolpidem [Ambien] 10 mg PO HS PRN 06/17/23 [History] Desvenlafaxine Succinate [Pristiq ER] 50 mg PO BID 01/17/24 [History] Levothyroxine Sodium [Synthroid] 100 mcg PO QAM 01/17/24 [History] Acetaminophen Tab [Tylenol] 650 mg PO Q4HR PRN tab 01/20/24 [Rx] Fexofenadine HCl 180 mg PO DAILY PRN 03/12/24 [History] Cholecalciferol [Vitamin D3 (125 Mcg = 5000 Iu)] 125 mcg PO DAILY 05/22/24 [History] Ipratropium [place] 0.06%Nasal [Atrovent Nasal 0.06%] 2 spray EA NOSTRIL BID PRN 05/22/24 [History] Multivitamins, Thera [Multivitamin (formulary)] 1 tab PO DAILY 05/22/24 [History] Sucralfate [Carafate] 1 gm PO TID #90 tablet 05/25/24 [Rx] Follow [facility]Ref[facility] [place] [facility] Patient Instructions/Handouts: Esophageal Dilation (DC) Activity/Diet/Wound Care/Special Instructions: Liquid diet only. Carbonated beverages. Salt water gargle twice daily. Absolutely no aspirin Discharge Disposition: HOME SELF-CARE
[2024-05-25 08:10] VITALS: BP 107/65; PULSE 74
== END 2024-05-25 08:29 | disposition home or self-care (01) ==
LOC: ORWHC2ENDO 05:54
PROVIDERS: ATTEND Surgery Plastic and Reconstructive Surgery
DX: K22.2 Esophageal obstruction (principal); K22.4 Dyskinesia of esophagus; H91.90 Unspecified hearing loss, unspecified ear; E07.9 Disorder of thyroid, unspecified; K21.9 Gastro-esophageal reflux disease without esophagitis; K56.699 Other intestinal obstruction unspecified as to partial versus complete obstruction; M19.90 Unspecified osteoarthritis, unspecified site; Z79.82 Long term (current) use of aspirin; Z79.890 Hormone replacement therapy; Z79.899 Other long term (current) drug therapy; Z88.0 Allergy status to penicillin; Z95.1 Presence of aortocoronary bypass graft; Z98.84 Bariatric surgery status; Z98.890 Other specified postprocedural states; Z90.89 Acquired absence of other organs
CPT/HCPCS: 43248; J2704

== ENCOUNTER → 2024-05-27 | Outpatient (CLI) | payer MEDICARE ==
[2024-05-27 11:15] LABS: ALT 30 U/L (4-34); AST 35 U/L (14-36); African American GFR (CKD) >90 (>60 ml/min/1.73 sqM); Albumin 3.8 g/dL (3.5-5.0); Albumin/Globulin Ratio 1.6; Alkaline Phosphatase 78 U/L (38-126); Anion Gap 7 mmol/L; Blood Urea Nitrogen 20 mg/dL (7-17); Calcium 9.9 mg/dL (8.4-10.2); Carbon Dioxide 25 mmol/L (22-30); Chloride 107 mmol/L (98-107); Globulin 2.4 g/dL; Glucose 89 mg/dL (74-99); Non-African American GFR(CKD) >90 (>60 ml/min/1.73 sqM); Potassium 4.4 mmol/L (3.5-5.1); Sodium 139 mmol/L (137-145); Total Bilirubin 0.3 mg/dL (0.2-1.3); Total Protein 6.2 g/dL (6.3-8.2)
[2024-05-27 11:19] LABS: Basophils % (A) 0 %; Eosinophils # (A) 0.2 k/uL (0-0.7); Eosinophils % (A) 2 %; HCT 33.9 % (34.0-46.0); Hypochromasia Slight; Lymphocytes # (A) 0.5 k/uL (1.0-4.8); Lymphocytes % (A) 7 %; MCH 31.6 pg (25.0-35.0); MCHC 32.5 g/dL (31.0-37.0); MCV 97.3 fL (80.0-100.0); Mean Platelet Volume 6.8; Monocytes # (A) 0.3 k/uL (0-1.0); Monocytes % (A) 4 %; Neutrophils # (A) 6.3 k/uL (1.3-7.7); Neutrophils % (A) 87 %; Platelet Count 308 k/uL (150-450); RBC 3.48 m/uL (3.80-5.40); RDW 13.5 % (11.5-15.5); WBC 7.3 k/uL (3.8-10.6)
--- NOTE | 2024-05-27 12:54 | CT ---
EXAMINATION TYPE: CT angio chest CT DLP: 169.30 mGycm, Automated exposure control for dose reduction was used. DATE OF EXAM: 05/27/2024 12:13 PM COMPARISON: CTA chest 01/18/2024 CLINICAL INDICATION:Female, 69 years old with history of J44.1 CHRONIC OBSTRUCTIVE PULMONARY DISEASE W (ACU; increased SOB and COPD TECHNIQUE/CONTRAST: CTA scan of the thorax is performed with IV Contrast, patient injected with 60ml mL of Isovue 370, pu lmonary embolism protocol. MIP images are created and reviewed. FINDINGS: Pulmonary Artery: There is no evidence for a filling defect within the pulmonary vasculature to sugge st acute pulmonary embolism. The pulmonary artery is of normal size. Lungs/Pleura: No evidence of focal consolidation, pleural effusion or pneumothorax. Bilateral lower l obe linear atelectasis and/or scarring. Airway: Large airways are patent. Borderline mild bronchiectasis bilaterally. Heart: Heart is within normal limits for size.. Vasculature: No evidence of aortic aneurysm. Mediastinum: No gross evidence of adenopathy. Musculoskeletal: No acute osseous abnormalities. Median sternotomy wires. Soft Tissues: Left mid back spinal stimulator device with 2 leads entering the spinal canal at lower thoracic level and coursing superiorly with leads identified at the mid thoracic spine at T8-T9. Mild multilevel degenerative disc disease. Lower neck: No significant findings. Upper Abdomen: Postsurgical changes at the GE junction and small bowel from gastric bypass. IMPRESSION: No evidence of pulmonary embolism or acute thoracic process.
== END | disposition home or self-care (01) ==
LOC: RADCTMAIN 10:19
PROVIDERS: ATTEND Family Medicine
DX: J44.1 Chronic obstructive pulmonary disease with (acute) exacerbation (principal)
CPT/HCPCS: 85379; 80053; 85025; 71275; 36415; Q9967

== ENCOUNTER → 2024-09-02 | Outpatient (CLI) | payer MEDICARE ==
[2024-09-02 13:48] VITALS: BP 125/69; PULSE 82; RESP 16; TEMP 98; BMI 22.8
--- NOTE | 2024-09-02 13:55 | P.BASOAP ---
Subjective Progress Note Date: 09/02/24 She reports weight gain of 4 pounds. She is eating much.She has epigastric pain. She may have hernia. She has incisional hernia. May need ventral hernia repair. She had recent cardiac assessment. Objective - Vital Signs Vital signs: Vital Signs Temp 98.0 F 09/02/24 13:32 Pulse 82 09/02/24 13:32 Resp 16 09/02/24 13:32 BP 125/69 09/02/24 13:32 Pulse Ox FiO2 Intake & Output 09/01/24 09/02/24 09/02/24 18:59 06:59 18:59 Weight 62.142 kg Assessment/Plan Plan: Date: 09/02/24 Initial Weight: Initial BMI: Current Weight: 62.142 kg Current BMI: 22.8 Type of Surgery: Total Volume in Band: Previous Volume: Volume Removed: Volume Added: Band Size:
== END ==
LOC: BARWHC3 13:04
PROVIDERS: ATTEND Surgery Plastic and Reconstructive Surgery
DX: E66.01 Morbid (severe) obesity due to excess calories (principal); R10.13 Epigastric pain; K43.2 Incisional hernia without obstruction or gangrene; Z88.0 Allergy status to penicillin; Z88.8 Allergy status to other drugs, medicaments and biological substances
CPT/HCPCS: 99211

== ENCOUNTER → 2024-09-03 | Outpatient (CLI) | payer MEDICARE ==
--- NOTE | 2024-09-10 12:00 | MM ---
Reason for Exam: Screening (asymptomatic). Last mammogram was performed 1 year(s) and 1 month(s) ago. Patient History: Menarche at age 12. First Full-Term at age 35. Late child-bearing (after 30). Postmenopausal. Patient has history of breast feeding. Patient used Hormonal Contraceptives for 3 years. Risk Values: Lillian 5 year model risk: 2.4%. NCI Lifetime model risk: 6.9%. Prior Study Comparison: 11/28/2020 Bilateral Screening Mammogram, [facility]. 08/08/2022 Bilateral MG 3D screening mammo w/cad, [facility]. 08/09/2023 Bilateral MG 3D screening mammo w/cad, [facility]. Tissue Density: There are scattered areas of fibroglandular density. Findings: Analyzed By CAD. Right breast: There is no suspicious group of microcalcifications or new suspicious mass. Left breast: There is no suspicious group of microcalcifications or new suspicious mass. Overall Assessment: Negative, BI-RAD 1 Management: Screening Mammogram of both breasts in [address] [facility] will attempt to contact patient to return for supplemental views and ultrasound if indicated. Patient should continue monthly self-breast exams. A clinical breast exam by your physician is recommended on an annual basis. This exam should not preclude additional follow-up of suspicious palpable abnormalities. Note on Lillian scores and lifetime risk: 1. A Lillian score greater than 3% is considered moderate risk. If this is the case, consider specialist referral to assess eligibility for a risk reducing agent. 2. If overall lifetime risk for the development of breast cancer is 20% or higher, the patient may qualify for future screening with alternating mammogram and breast MRI. [facility], , 09/10/2024 11:55 AM. Electronically signed and approved by: Clinton Tang DO
== END | disposition home or self-care (01) ==
LOC: RADMAMWWP 08:59
PROVIDERS: ATTEND Family Medicine
DX: Z12.31 Encounter for screening mammogram for malignant neoplasm of breast (principal); Z78.0 Asymptomatic menopausal state; R92.323 Mammographic fibroglandular density, bilateral breasts
CPT/HCPCS: 77067

== ENCOUNTER → 2025-01-06 | Outpatient (CLI) | payer MEDICARE ==
[2025-01-06 15:33] VITALS: BP 155/76; PULSE 90; RESP 16; TEMP 97.4; BMI 23.3
--- NOTE | 2025-01-06 15:50 | P.HPBAR ---
Bariatric H&P - History & Physicial H&P Date: 01/06/25 History & Physicial: Visit/CC: f/u Patient initial contact: Initial weight: Initial weight in pounds: Height: 5 ft 5 in Initial BMI: Last weight: Current weight: 63.503 kg Current weight in pounds: 140.00 Current BMI: 23.3 [place] body weight (based on NIH guidelines): 56.81 kg Excess body weight loss: The patient is a 69 year-old F who presents for Bariatric Assessment. Has ventral hernia. Has cardiac clearance. Needs increase from 30 gram to over 75 grams. Doing well. Had sun [place]. 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 Past Medical History Past Medical History: Hearing Disorder / Deafness, Osteoarthritis (OA), Thyroid Disorder Additional Past Medical History / Comment(s): Allergies. Acoustic Neuroma, deaf in right ear, hard of hearing in left ear. Frequent headaches. Recent bloating, change in bowel habits, getting better. 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, cataract surgery, right wrist surgery, left foot reconstruction, spinal cord stimulater Aug 2022, right toe surgery, EGD, colonoscopy, Pain injections- Past Anesthesia/Blood Transfusion Reactions: No Reported Reaction, Motion Sickness Additional Past Anesthesia/Blood Transfusion Reaction / Comm: no hx blood transfusions Past Psychological History: Anxiety, Depression Smoking Status: Never smoker Past Alcohol Use History: Rare Past Drug Use History: None Reported - Past Family History Mother Family Medical History: No Reported History Surgical - Exam Vital Signs Temp Pulse Resp BP 97.4 F L 90 16 155/76 01/06/25 15:29 01/06/25 15:29 01/06/25 15:29 01/06/25 15:29 Bariatric Checklist Checklist: Plan: Checklist: EGD: 1. Hiatal hernia: 2. H. Pylori: HgbA1c: Vitamin D: Smoking: Never smoker Primary care physician referral: Dr. Perez Psychiatry clearance: Cardiology clearance: Sleep study: Diet journal: VTE risk score: VTE risk level: Rehab needs at discharge:
[2025-01-06 18:32] LABS: HCT 40.2 % (37.2-46.3); HGB 12.9 g/dL (12.0-15.0); MCH 30.9 pg (27.0-32.0); MCHC 32.1 g/dL (32.0-37.0); MCV 96.4 FL (80.0-97.0); Mean Platelet Volume 9.6 FL (9.5-12.2); NRBC Per 100 WBC 0 X 10*3/uL (0.00-0.01); Platelet Count 325 X 10*3/uL (140-440); RBC 4.17 X 10*6/uL (4.10-5.20); RDW 12.8 % (11.5-14.5); WBC 8.06 X 10*3/uL (4.50-10.00)
[2025-01-06 19:06] LABS: % Iron Saturation 13.49 (12.00-45.00); Chol/HDL Ratio 1.79 Ratio; Iron 58 UG/DL (50-170); LDL Cholesterol,Calculated 54.2 mg/dL (0.0-131.0); Magnesium 1.9 mg/dL (1.5-2.4); Phosphorus 4.3 mg/dL (2.4-5.1); Total Iron Binding Capacity 430 UG/DL (228-460)
[2025-01-06 19:07] LABS: ALT 43 U/L (8-44); AST 53 U/L (13-35); Albumin 4.7 g/dL (3.8-4.9); Albumin/Globulin Ratio 1.96 Ratio (1.60-3.17); Alkaline Phosphatase 121 U/L (41-126); BUN/Creat Ratio 29.75 Ratio (12.00-20.00); Blood Urea Nitrogen 23.8 mg/dL (9.0-27.0); Calcium 9.7 mg/dL (8.7-10.3); Carbon Dioxide 20.6 mmol/L (21.6-31.8); Chloride 107 mmol/L (96-109); Ferritin 80.7 ng/mL (10.0-291.0); Globulin 2.4 g/dL (1.6-3.3); Glucose 75 mg/dL (70-110); Potassium 4.2 mmol/L (3.5-5.5); Sodium 143 mmol/L (135-145); Total Bilirubin 0.2 mg/dL (0.3-1.2); Total Protein 7.1 g/dL (6.2-8.2)
[2025-01-07 12:10] LABS: Zinc, Serum 72 ug/dL (60-130)
[2025-01-08 07:29] LABS: Vit B1(Thiamine) 81 ug/L (38-122)
== END ==
LOC: BARWHC3 14:46
PROVIDERS: ATTEND Surgery Plastic and Reconstructive Surgery
DX: E66.01 Morbid (severe) obesity due to excess calories (principal); E89.1 Postprocedural hypoinsulinemia; D50.9 Iron deficiency anemia, unspecified; E44.0 Moderate protein-calorie malnutrition; E45 Retarded development following protein-calorie malnutrition; E46 Unspecified protein-calorie malnutrition; E55.9 Vitamin D deficiency, unspecified; K74.1 Hepatic sclerosis; N19 Unspecified kidney failure; T56.894A Toxic effect of other metals, undetermined, initial encounter; K50.90 Crohn's disease, unspecified, without complications; Z68.23 Body mass index [BMI] 23.0-23.9, adult; Z91.048 Other nonmedicinal substance allergy status; Z88.0 Allergy status to penicillin
CPT/HCPCS: 80053; 80061; 82306; 82525; 82607; 82728; 82746; 83540; 83550; 83735; 83970; 84100; 84134; 84255; 84425; 84443; 84590; 84630; 85027; 85730; 99211

== ENCOUNTER 2025-01-25 12:35 | Day surgery (SDC) | payer MEDICARE ==
--- NOTE | 2025-01-25 11:27 | P.GSHP ---
History of Present Illness H&P Date: 01/25/25 CHIEF COMPLAINT: Ventral hernia. HISTORY OF PRESENT ILLNESS: The patient is a 69-year-old female who presents with swelling along the abdomen for over 1 year with pain and tenderness. Findings were consistent with ventral hernia. She reports change in bowel habits as a result. Now she presents for further evaluation and management. PAST MEDICAL HISTORY: Please see list and reviewed. PAST SURGICAL HISTORY: Please see list and reviewed. MEDICATIONS: Please see list and reviewed. ALLERGIES: Please see list and reviewed. SOCIAL HISTORY: Please see list and reviewed. FAMILY HISTORY: No reports of Crohn disease or ulcerative colitis. REVIEW OF ORGAN SYSTEMS: CONSTITUTIONAL: No reports of fevers or chills. Has morbid obesity.. GI: Denies any blood in stools or constipation. HEENT: Denies any trouble with vision, hearing or nosebleeds. No difficulty swallowing. LYMPHATIC: The patient denies any lumps and bumps around the neck. ENDOCRINE: Denies any thyroid disorders. Denies any blood sugar glucose intolerance. RESPIRATORY: Denies pneumonia. Denies any troubles with breathing or dyspnea on exertion. CARDIOVASCULAR: Denies any chest pain, palpitations, or recent heart attacks. GENITOURINARY: Denies any blood in urine or increased urinary frequency. MUSCULOSKELETAL: Denies any back pain, stiffness, joint arthritis. NEUROLOGIC: Denies any numbness or tingling along the distal extremities. No seizure disorders or headaches. PSYCHIATRIC: Has depression. No suidical ideation. HEMATOLOGIC: Denies any abnormal bleeding or bruising. BREASTS: Denies any breast lumps, pain or nipple discharge. PHYSICAL EXAM: VITAL SIGNS: Stable GENERAL: Well-developed pleasant female in no acute distress. HEENT: No scleral icterus. Extraocular movements grossly intact. Moist buccal mucosa. NECK: Supple without lymphadenopathy. CHEST: Unlabored respirations. Equal bilateral excursions. CARDIOVASCULAR: Regular rate and rhythm. Distal 2+ pulses. ABDOMEN: Soft, nondistended. Tender along the abdomen. Protuberant. MUSCULOSKELETAL: No clubbing, cyanosis, or edema. SKIN: Well perfused. PSYCH: Alert and oriented. No focal or lateralizing signs. ASSESSMENT: 1. Ventral hernia. 2. History of gastric bypass PLAN: 1. Recommend proceeding with robotic ventral hernia repair with mesh. 2. Benefits and risks of surgical intervention was discussed including possibility of open technique. 3. DVT prophylaxis. 4. Antibiotic prophylaxis. 5. She is elevated risk with history of gastric bypass 6. Nutritional assessment for BMI over 35 addressed 7. Non-narcotic pain managment reviewed. Past Medical History Past Medical History: Cancer, Hearing Disorder / Deafness, Osteoarthritis (OA), Thyroid Disorder Additional Past Medical History / Comment(s): Allergies. Acoustic Neuroma, deaf in right ear, hard of hearing in left ear. 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, cataract surgery, right wrist surgery, left foot reconstruction, spinal cord stimulater Aug 2022, right toe surgery, EGD, colonoscopy, Pain injections- Past Anesthesia/Blood Transfusion Reactions: No Reported Reaction, Motion Sickness Additional Past Anesthesia/Blood Transfusion Reaction / Comment(s): no hx blood transfusions Smoking Status: Never smoker - Past Family History Mother Family Medical History: No Reported History Medications and Allergies Home Medications Medication Instructions Recorded Confirmed Type busPIRone HCl [Buspar] 10 mg PO BID 08/09/22 01/20/25 History Atorvastatin [Lipitor] 20 mg PO DAILY 09/06/22 01/20/25 History HYDROcodone/APAP 10-325MG [[place] 1 tab PO QID PRN 09/06/22 01/20/25 History 10-325] cycloSPORINE 0.05% OPHTH SOLN 1 applicator BOTH EYES BID 09/06/22 01/20/25 History [Restasis] Omeprazole [PriLOSEC] 40 mg PO DAILY #90 cap 09/10/22 01/20/25 Rx Zolpidem [Ambien] 10 mg PO HS PRN 06/17/23 01/20/25 History Desvenlafaxine Succinate [Pristiq 50 mg PO DAILY 01/17/24 01/20/25 History ER] Levothyroxine Sodium [Synthroid] 100 mcg PO QAM 01/17/24 01/20/25 History Acetaminophen Tab [Tylenol] 650 mg PO Q4HR PRN tab 01/20/24 01/20/25 Rx Fexofenadine HCl 180 mg PO DAILY PRN 03/12/24 01/20/25 History Cholecalciferol [Vitamin D3 (125 125 mcg PO DAILY 05/22/24 01/20/25 History Mcg = 5000 Iu)] Ipratropium [place] 0.06%Nasal 2 spray EA NOSTRIL BID PRN 05/22/24 01/20/25 History [Atrovent Nasal 0.06%] Multivitamins, Thera [Multivitamin 1 tab PO DAILY 05/22/24 01/20/25 History (formulary)] dilTIAZem HCL [Cardizem CD] 1 cap PO DAILY PRN 05/27/24 01/20/25 History ARIPiprazole [Abilify] 5 mg PO DAILY 09/02/24 01/20/25 History Ferrous Sulfate [Iron] 1 tab PO DAILY 09/02/24 01/20/25 History tiZANidine [Zanaflex] 4 mg PO HS PRN 09/02/24 01/20/25 History Sertraline [Zoloft] 1 tab PO DAILY 01/06/25 01/20/25 History Allergies Allergy/AdvReac Type Severity Reaction Status Date / Time ferumoxytol [From [facility]] Allergy Rash/Hives Verified 01/20/25 15:13 Penicillins Allergy Itching/Swe Verified 01/20/25 15:13 lling
[~2025-01-25 12:35] MED LIST changes: +ACETAMINOPHEN TAB 500 MG TAB PO PRN; -HYDROmorphone 0.5 MG/0.5 ML SYRINGE IVP PRN; -ONDANSETRON 4 MG/2 ML VIAL IVP ONE; +ONDANSETRON 4 MG/2 ML VIAL IVP PRN
[2025-01-25 12:53] VITALS: TEMP 98.6
[2025-01-25] MEDS: MELOXICAM 7.5 MG TAB PO PRN (13:03)
[2025-01-25] MEDS: HEPARIN SODIUM,PORCINE 5,000 UNIT/ML 1 ML VIAL SQ PRN (13:05)
[2025-01-25] MEDS: DEXAMETHASONE SOD PHOSPHATE 4 MG/ML 1 ML VIAL IV ONE (13:07)
[2025-01-25] MEDS: LACTATED RINGERS 1,000 ML IV SCH (13:07)
[2025-01-25] MEDS: ONDANSETRON 4 MG/2 ML VIAL IVP ONE (13:07)
[2025-01-25] MEDS: IV FLUID CONTINUATION 1,000 ML IV ONE (13:09)
[2025-01-25] MEDS ORDERED: ePHEDrine 50 MG/ML 1 ML VIAL ONE (13:45)
[2025-01-25] MEDS ORDERED: NEOSTIGMINE 1 MG/ML 10 ML VIAL ONE (13:45)
[2025-01-25] MEDS ORDERED: LIDOCAINE 1% INJ 10MG/ML (20 ML MDV) ONE (13:45)
[2025-01-25] MEDS ORDERED: HYDROmorphone (PF) 1 MG/ML ONE (13:45)
[2025-01-25] MEDS ORDERED: MIDAZOLAM 2 MG/2 ML VIAL ONE (13:45)
[2025-01-25] MEDS ORDERED: fentaNYL (PF) 50 MCG/ML 2 ML AMP ONE (13:45)
[2025-01-25] MEDS ORDERED: GLYCOPYRROLATE 0.2 MG/ML 2 ML VIAL ONE (13:45)
[2025-01-25] MEDS ORDERED: SUCCINYLCHOLINE CHLORIDE 200 MG/10 ML VIAL IV ONE (13:45)
[2025-01-25] MEDS ORDERED: ROCURONIUM 10 MG/ML (5 ML VIAL) IV ONE (13:45)
[2025-01-25] MEDS ORDERED: PROPOFOL 10 MG/ML 20 ML VIAL IV ONE (13:45)
[2025-01-25] MEDS: LIDOCAINE 1% INJ 10MG/ML (30 ML VIAL-PF) SQ ONE (14:30)
--- NOTE | 2025-01-25 16:42 | P.OP ---
Date of Procedure: 01/25/25 Description of Procedure: SURGEON: YOSSI AVILES MD PREOPERATIVE DIAGNOSES: 1. Incarcerated incisional hernia, recurrent, epigastric incisional 7 x 6 cm 2. History of gastric bypass 3. History of peritoneal adhesions 4. Chronic abdominal pain. 5. Chronic back pain. 6. Chronic pain syndrome. 7. Personal history of multiple abdominal surgeries. POSTOPERATIVE DIAGNOSES: 1. Incarcerated incisional hernia, recurrent, epigastric incisional 7 x 6 cm 2. History of gastric bypass 3. History of peritoneal adhesions 4. Chronic abdominal pain. 5. Chronic back pain. 6. Chronic pain syndrome. 7. Personal history of multiple abdominal surgeries. 8. Severe intra-abdominal adhesions OPERATION: 1. Robotic-assisted da [place] laparoscopic repair of recurrent incarcerated incisional hernia, 7 x 6 cm, repair with [employer] Ventralight ST mesh 10 x 15 cm 2. Robotic-assisted [place] laparoscopic lysis of adhesions over 30 minutes ANESTHESIA: General with local anesthetic ESTIMATED BLOOD LOSS: 20 mL. Pathology: None. COMPLICATIONS: None. Condition: stable Disposition: same day Operative Findings: 1. Incarcerated recurrent incisional ventral hernia 7 x 6 cm, epigastric 2. Severe epigastric and left upper quadrant peritoneal adhesions with lysis of adhesions 30 minutes INDICATIONS: The patient is a 69-year-old female who presents with symptomatic recurrent incisional hernia due to multiple abdominal surgeries. She has prior history of hernia repairs. Laparoscopic versus robotic and open techniques were reviewed. Placement of mesh was also reviewed. Benefits and risks were thoroughly described. Informed consent was obtained. DESCRIPTION OF PROCEDURE: The patient was brought into the operating room and laid in supine position. After general induction, the abdomen had been prepped and draped in standard sterile fashion. [place] draping was also placed. Prior to incision, a timeout protocol was confirmed with surgical team regarding the patient's name including procedures to be performed. The robot was primed prior to the procedure. Initial incision was made with an #11 blade along the left upper quadrant. A 0 degree 5 mm laparoscopic trocar entry was performed with insufflation of the abdomen to 15 mmHg pressure which she tolerated well. Diagnostic laparoscopy demonstrated moderate to severe adhesions along the epigastrium and left upper quadrant involving the greater omentum. Additionally, incarcerated incisional hernia was found of the epigastrium. Three 8 mm ports were placed along the right lateral abdominal wall. A 12-mm port was exchanged with a 5 mm trocar along the left lateral abdominal wall. The ports were placed 15 to 20 cm away from the target anatomy. Placements of the ports were 8 to 9 cm apart. Extensive lysis of adhesions was performed using a vessel sealer to address the midline including epigastric and bilateral upper abdominal omentum to abdominal adhesions for over 30 minutes. Once the fascia was cleared, hernia defect 7 x 6 cm were identified of the fascia of the epigastrium. Next, an 10 x [address] mesh was entered into abdominal cavity under direct visualization. The fascia was cleaned of peritoneal fat to allow for 3 to 5 cm margin. The peritoneal defect was closed using #1 nonabsorbable V-Loc with 2 layer imbrication of the fascia. The mesh was placed along the abdominal wall with the smooth side was placed towards the bowel. The mesh was sutured in a running fashion peritoneum to fascia to the mesh approach using absorbable 2-0 VLOC 9-inch sutures. A final endoscopic imaging was obtained. The [facility] [place] robot was undocked from the patient. I re-scrubbed into the case for closure of incisions. All instruments and pneumoperitoneum were evacuated from the abdominal cavity. The fascia of the 12- mm port was probed and less than 8 mm. The incisions were reapproximated using 4-0 Monocryl in an interrupted subcuticular fashion. Dermabond was applied to the skin. At the end of the procedure, needle, sponge, and instrument count had been verified correct by certified ophthalmic surgical assistant. The patient was taken to the postanesthesia care unit in stable condition with abdominal binder. Intraoperative films were described to review with the family. Plan - Discharge Summary Discharge Rx Participant: No New Discharge Prescriptions: New Simethicone [Gas-X] 125 mg PO AC-TID PRN #20 capsule PRN Reason: Pain Continue Zolpidem [Ambien] 10 mg PO HS PRN PRN Reason: Insomnia Fexofenadine HCl 180 mg PO DAILY PRN PRN Reason: allergies Cholecalciferol [Vitamin D3 (125 Mcg = 5000 Iu)] 125 mcg PO DAILY Multivitamins, Thera [Multivitamin (formulary)] 1 tab PO DAILY ARIPiprazole [Abilify] 5 mg PO DAILY Ferrous Sulfate [Iron] 1 tab PO DAILY Sertraline [Zoloft] 1 tab PO DAILY busPIRone HCl [Buspar] 10 mg PO BID Atorvastatin [Lipitor] 20 mg PO DAILY cycloSPORINE 0.05% OPHTH SOLN [Restasis] 1 applicator BOTH EYES BID HYDROcodone/APAP 10-325MG [[place] 10-325] 1 tab PO QID PRN PRN Reason: Pain Omeprazole [PriLOSEC] 40 mg PO DAILY #90 cap Desvenlafaxine Succinate [Pristiq ER] 50 mg PO DAILY Levothyroxine Sodium [Synthroid] 100 mcg PO QAM Acetaminophen Tab [Tylenol] 650 mg PO Q4HR PRN tab PRN Reason: Fever And/ Or Pain Ipratropium [place] 0.06%Nasal [Atrovent Nasal 0.06%] 2 spray EA NOSTRIL BID PRN PRN Reason: allergies dilTIAZem HCL [Cardizem CD] 1 cap PO DAILY PRN PRN Reason: "heart problems" tiZANidine [Zanaflex] 4 mg PO HS PRN PRN Reason: Muscle Spasm Discharge Medication List busPIRone HCl [Buspar] 10 mg PO BID 08/09/22 [History] Atorvastatin [Lipitor] 20 mg PO DAILY 09/06/22 [History] HYDROcodone/APAP 10-325MG [[place] 10-325] 1 tab PO QID PRN 09/06/22 [History] cycloSPORINE 0.05% OPHTH SOLN [Restasis] 1 applicator BOTH EYES BID 09/06/22 [History] Omeprazole [PriLOSEC] 40 mg PO DAILY #90 cap 09/10/22 [Rx] Zolpidem [Ambien] 10 mg PO HS PRN 06/17/23 [History] Desvenlafaxine Succinate [Pristiq ER] 50 mg PO DAILY 01/17/24 [History] Levothyroxine Sodium [Synthroid] 100 mcg PO QAM 01/17/24 [History] Acetaminophen Tab [Tylenol] 650 mg PO Q4HR PRN tab 01/20/24 [Rx] Fexofenadine HCl 180 mg PO DAILY PRN 03/12/24 [History] Cholecalciferol [Vitamin D3 (125 Mcg = 5000 Iu)] 125 mcg PO DAILY 05/22/24 [History] Ipratropium [place] 0.06%Nasal [Atrovent Nasal 0.06%] 2 spray EA NOSTRIL BID PRN 05/22/24 [History] Multivitamins, Thera [Multivitamin (formulary)] 1 tab PO DAILY 05/22/24 [History] dilTIAZem HCL [Cardizem CD] 1 cap PO DAILY PRN 05/27/24 [History] ARIPiprazole [Abilify] 5 mg PO DAILY 09/02/24 [History] Ferrous Sulfate [Iron] 1 tab PO DAILY 09/02/24 [History] tiZANidine [Zanaflex] 4 mg PO HS PRN 09/02/24 [History] Sertraline [Zoloft] 1 tab PO DAILY 01/06/25 [History] Simethicone [Gas-X] 125 mg PO AC-TID PRN #20 capsule 01/25/25 [Rx] [facility]Ref[facility] [place] [facility] 3:00 pm Patient Instructions/Handouts: *Surgery [facility] - (Anesthesia) Discharge Instructions Outpatient Surgery, Ventral Hernia Repair (DC), Lysis of Abdominal Adhesions (DC) Activity/Diet/Wound Care/Special Instructions: No lifting for 4 pounds in 4 weeks, February 25, 2025 NO LONG DRIVES OR AIRPLANE RIDES OVER 60 MINUTES FOR THE NEXT 2 WEEKS, 02/08/25, DUE TO HIGH RISK OF PULMONARY EMBOLISM/DVTs Using antibacterial soap. May shower. No bathtub soaks for 2 weeks, 02/08/25, Wear abdominal binder daily for comfort except for showering. Use ice along incisions for today to prevent swelling. Use Tylenol, simethicone scheduled for the next 24-48 hours for best pain relief. Discharge Disposition: HOME SELF-CARE
[2025-01-25] MEDS: HYDROmorphone 0.5 MG/0.5 ML SYRINGE IVP PRN (16:55)
[2025-01-25 18:13] VITALS: BP 143/70; PULSE 73; RESP 18
--- NOTE | 2025-02-03 14:12 | CDI ---
Documentation Clarification OP Dear Dr. Martinez, For SDS visit, please do addendum to your op note/procedure note regarding Initial or Recurrent Incisional hernia. Both are documented in the Operative report, and in the HP, there is a prior history of incisional hernia repair. Please clarify which is correct so that we can assign the most accurate diagnosis code and CPT. Thank you for clarification, recurrent incisional hernia 7 x 6 cm documented MTDD
== END 2025-01-25 18:02 | disposition home or self-care (01) ==
LOC: OR 12:35
PROVIDERS: ATTEND Surgery Plastic and Reconstructive Surgery
DX: K43.0 Incisional hernia with obstruction, without gangrene (principal); G89.4 Chronic pain syndrome; E07.9 Disorder of thyroid, unspecified; H91.93 Unspecified hearing loss, bilateral; F41.9 Anxiety disorder, unspecified; F32.A Depression, unspecified; Z79.899 Other long term (current) drug therapy; Z95.1 Presence of aortocoronary bypass graft; Z98.84 Bariatric surgery status; Z79.890 Hormone replacement therapy; Z79.621 Long term (current) use of calcineurin inhibitor; Z88.0 Allergy status to penicillin; Z95.0 Presence of cardiac pacemaker
CPT/HCPCS: 49616; S2900